=== PATIENT | male | born 1940 | race Caucasian/White ===

== ENCOUNTER 2016-12-22 15:00 | Emergency (ER) | payer MEDICARE ==
[2016-12-22 15:23] VITALS: BP 123/73
--- NOTE | 2016-12-22 15:34 | UC ---
Shoulder Pain HPI - History of Current Complaint Chief Complaint: UCUpperExtremity Stated Complaint: SHOULDER PAIN Time Seen by Provider: 12/22/16 15:30 - Allergies/Home Medications Allergies/Adverse Reactions: Allergies Allergy/AdvReac Type Severity Reaction Status Date / Time Ethanol AdvReac Severe vomiting - Verified 12/13/16 14:41 [From Duragesic Disc "sicker Transdermal System] than a dog" Fentanyl AdvReac Severe vomiting - Verified 12/13/16 14:41 [From Duragesic Disc "sicker Transdermal System] than a dog" PMH/Surg Hx/FS Hx/Imm Hx Endocrine History Of: Reports: Diabetes - diet controlled Denies: Thyroid Disease Cardiovascular History Of: Reports: Cardiac Disorders - CHF, Stents, implanted heart monitor, Hypertension, Congestive Heart Failure Denies: Pacemaker/ICD, Myocardial Infarction, Deep Vein Thrombosis Respiratory History Of: Reports: COPD - COPD, Pneumonia - mostly in childhood Denies: Asthma, Pulmonary Embolism GI/ History Of: Reports: Gall Bladder Disease - Gall bladder removed in 2009 Denies: Gastroesophageal Reflux, Ulcer, Gastrointestinal Bleed, Renal Disease Neurological History Of: Denies: CVA, Dementia, Seizures Psychological History Of: Reports: Anxiety, Depression Denies: Bipolar Disorder, Schizophrenia Cancer History Of: Denies: Lung Cancer Other History Of: Anticoagulant Therapy - plavix/asa - Surgical History Surgical History: Yes Surgery Procedure, Year, and Place: Back surgery x 2; lumbar fusion , Cholecystectomy, Ahbilash Fundoplication-hernia , Tonsillectomy, Stents x 3,. had a heart monitor implanted [employer] Reveal LINQ MODEL LNQ11 COND 5, 1.[place] [facility] [place] Family History Known Family History: Positive: Cardiac Disease - Mom, grandparent both of CHF, Hypertension - Social History Alcohol Use: None Substance Use Type: None Smoking Status (MU): Former Smoker Type: Cigarettes Amount Used/How Often: 1 ppd Length of Time of Smoking/Using Tobacco: 31 years Have You Smoked in the Last Year: No When Did the Patient Quit Smoking/Using Tobacco: 1989 - Immunization History Most Recent Influenza Vaccination: season Most Recent Tetanus Shot: 2015 Most Recent Pneumonia Vaccination: 2014 Physical Exam Vital Signs: Initial Vital Signs Temp 99.2 F 12/22/16 15:15 Pulse 64 12/22/16 15:15 Resp 16 12/22/16 15:15 BP 123/73 12/22/16 15:15 Pulse Ox 95 12/22/16 15:15
--- NOTE | 2016-12-22 15:50 | UC ---
Shoulder Pain HPI - HPI Summary HPI Summary: 76 yo male felt a pop in his left shoulder lifting a grocery bag Hx chronic left shoulder pain Now it feels like it gets stuck and can't move for a while when this happens pain is intense decreased ROM - History of Current Complaint Chief Complaint: UCUpperExtremity Stated Complaint: SHOULDER PAIN Time Seen by Provider: 12/22/16 15:30 Hx Obtained From: Patient Onset/Duration: Sudden Onset, Lasting Minutes Timing: Minutes Severity Initially: Severe Severity Currently: Mild Location Of Pain: Is Diffuse Pain Intensity: 2 Pain Scale Used: 0-10 Numeric Character: Unable to Describe Aggravating Factor(s): Movement Alleviating Factor(s): Rest Associated Signs And Symptoms: Positive: Negative Related History: Dominant Hand Right - Allergies/Home Medications Allergies/Adverse Reactions: Allergies Allergy/AdvReac Type Severity Reaction Status Date / Time Ethanol AdvReac Severe vomiting - Verified 12/13/16 14:41 [From Duragesic Disc "sicker Transdermal System] than a dog" Fentanyl AdvReac Severe vomiting - Verified 12/13/16 14:41 [From Duragesic Disc "sicker Transdermal System] than a dog" Home Medications: Home Medications Nitroglycerin 0.4 MG/HR PATCH* [Nitroglycerin 10 MG PATCH*] 1 patch TRANSDERM DAILY 12/22/16 [History Confirmed 12/22/16] PMH/Surg Hx/FS Hx/Imm Hx Endocrine History Of: Reports: Diabetes - diet controlled Denies: Thyroid Disease Cardiovascular History Of: Reports: Cardiac Disorders - CHF, Stents, implanted heart monitor, Hypertension, Congestive Heart Failure Denies: Pacemaker/ICD, Myocardial Infarction, Deep Vein Thrombosis Respiratory History Of: Reports: COPD - COPD, Pneumonia - mostly in childhood Denies: Asthma, Pulmonary Embolism GI/ History Of: Reports: Gall Bladder Disease - Gall bladder removed in 2009 Denies: Gastroesophageal Reflux, Ulcer, Gastrointestinal Bleed, Renal Disease Neurological History Of: Denies: CVA, Dementia, Seizures Psychological History Of: Reports: Anxiety, Depression Denies: Bipolar Disorder, Schizophrenia Cancer History Of: Denies: Lung Cancer Other History Of: Anticoagulant Therapy - plavix/asa - Surgical History Surgical History: Yes Surgery Procedure, Year, and Place: Back surgery x 2; lumbar fusion , Cholecystectomy, Abhilash Fundoplication-hernia , Tonsillectomy, Stents x 3,. had a heart monitor implanted [employer] Reveal LINQ MODEL LNQ11 COND 5, 1.5 T ONLY AT [facility] [place] - Family History Known Family History: Positive: Cardiac Disease - Mom, grandparent both of CHF, Hypertension - Social History Alcohol Use: None Substance Use Type: None Smoking Status (MU): Former Smoker Type: Cigarettes Amount Used/How Often: 1 ppd Length of Time of Smoking/Using Tobacco: 31 years Have You Smoked in the Last Year: No When Did the Patient Quit Smoking/Using Tobacco: 1989 - Immunization History Most Recent Influenza Vaccination: season Most Recent Tetanus Shot: 2015 Recent Pneumonia Vaccination: 2014 Review of Systems Constitutional: Negative Skin: Negative Eyes: Negative ENT: Negative Respiratory: Negative Cardiovascular: Negative Gastrointestinal: Negative Genitourinary: Negative Motor: Negative Neurovascular: Negative Musculoskeletal: Arthralgia Neurological: Negative Psychological: Negative All Other Systems Reviewed And Are Negative: Yes Physical Exam Triage Information Reviewed: Yes Appearance: Well-Appearing, No Pain Distress, Well-Nourished Vital Signs: Initial Vital Signs Temp 99.2 F 12/22/16 15:15 Pulse 64 12/22/16 15:15 Resp 16 12/22/16 15:15 BP 123/73 12/22/16 15:15 Pulse Ox 95 12/22/16 15:15 Vital Signs Reviewed: Yes Eyes: Positive: Conjunctiva Clear ENT: Positive: Hearing grossly normal. Negative: Nasal congestion, Nasal drainage, Trismus, Muffled/hoarse voice Respiratory: Positive: Lungs clear, Normal breath sounds, No respiratory distress Cardiovascular: Positive: RRR, No Murmur Musculoskeletal: Positive: Other: - see image Neurological: Positive: Alert Psychological Exam: Normal Skin Exam: Normal Shoulder Course/Dx - Differential Dx/Diagnosis Provider Diagnoses: left shoulder DJD with impingement Discharge - Discharge Plan Condition: Stable Disposition: HOME Patient Education Materials: Osteoarthritis (ED) Referrals: John Cr MD [Medical Doctor] - 1 Week Additional Instructions: you may have impingement of your shoulder joint I suggest you see a specialist tylenol Images Front/Back of Body, Lg ([place]): 1 - only able to abduct to 90 degrees, pain with external rotataion
--- NOTE | 2016-12-22 16:10 | RAD ---
Indication: Left shoulder pain. 3 views of left shoulder demonstrates degenerative changes of the glenohumeral joint with a superiorly subluxed humeral head. No fracture is identified. IMPRESSION: Degenerative changes of the glenohumeral joint without superiorly subluxed humeral head.
== END 2016-12-22 16:08 | disposition home or self-care (01) ==
LOC: UCEAST 15:00
DX: M19.012 Primary osteoarthritis, left shoulder (principal); M75.42 Impingement syndrome of left shoulder; Z95.0 Presence of cardiac pacemaker; Z79.01 Long term (current) use of anticoagulants; Z90.49 Acquired absence of other specified parts of digestive tract; Z87.891 Personal history of nicotine dependence
CPT/HCPCS: 99212; G0463

== ENCOUNTER 2017-02-02 10:46 | Emergency (ER) | payer MEDICARE ==
[2017-02-02 12:53] VITALS: BP 116/71
--- NOTE | 2017-02-02 13:37 | UC ---
UC General HPI - HPI Summary HPI Summary: The patient comes in today for: 1. Right foot shooting pain: Onset: 2-3 months. In the beginning it was "random." Palliative/provocative: Nothing makes the pain better or worse. Quality: Shooting pain. Region: Top and medial side of the right foot. Severity: 2/10 but can go up to 10/10 Time: Comes and goes. Associated symptoms: Fevers: None Injury: None. Previous disease; He has had back surgery in the past, Previous treatment: gabapentin. He states that the shooting pain will be at the doral base of his 1st and 2nd toe. He states that he can tolerate hydrocodone. * - History of Current Complaint Chief Complaint: UCLowerExtremity Stated Complaint: FOOT PAIN Time Seen by Provider: 02/02/17 13:19 Hx Obtained From: Patient - Allergy/Home Medications Allergies/Adverse Reactions: Allergies Allergy/AdvReac Type Severity Reaction Status Date / Time Ethanol AdvReac Severe vomiting - Verified 12/13/16 14:41 [From Duragesic Disc "sicker Transdermal System] than a dog" Fentanyl AdvReac Severe vomiting - Verified 12/13/16 14:41 [From Duragesic Disc "sicker Transdermal System] than a dog" Home Medications: Home Medications Cholestyramine (Bulk) [Cholestyramine Resin] 1 pow PO TID 02/02/17 [History Confirmed 02/02/17] PARoxetine HCL TAB* [Paxil TAB*] 1 tab PO QPM 02/02/17 [History Confirmed ] PMH/Surg Hx/FS Hx/Imm Hx Previously Healthy: No - BPH, Restless leg syndrome, allergies. Endocrine History Of: Reports: Diabetes - diet controlled, better now wtih eight loss., Dyslipidemia Denies: Thyroid Disease, Hyperthyroidism, Hypothyroidism Cardiovascular History Of: Reports: Cardiac Disorders - CHF, Stents, implanted heart monitor, Hypertension, Congestive Heart Failure Denies: Pacemaker/ICD, Myocardial Infarction, Deep Vein Thrombosis Respiratory History Of: Reports: COPD - COPD, Pneumonia - mostly in childhood Denies: Asthma, Pulmonary Embolism GI/ History Of: Reports: Gall Bladder Disease - Gall bladder removed in 2009 Denies: Gastroesophageal Reflux, Ulcer, Gastrointestinal Bleed, Renal Disease Neurological History Of: Denies: CVA, Dementia, Seizures Psychological History Of: Reports: Anxiety, Depression Denies: Bipolar Disorder, Schizophrenia Cancer History Of: Denies: Lung Cancer, Colorectal Cancer, Breast Cancer, Prostate Cancer, Cervical Cancer Other History Of: Anticoagulant Therapy - plavix/asa Negative For: HIV, Hepatitis B - Surgical History Surgical History: Yes Surgery Procedure, Year, and Place: Back surgery x 2; lumbar fusion , Cholecystectomy, Abhilash Fundoplication-hernia , Tonsillectomy, Stents x 3,. had a heart monitor implanted [employer] Reveal LINQ MODEL LNQ11 COND 5, 1.[place] [facility] [place] Family History Known Family History: Positive: Cardiac Disease - Mom, grandparent both of CHF, Hypertension - Social History Occupation: Retired Alcohol Use: None Substance Use Type: None Smoking Status (MU): Former Smoker Type: Cigarettes Amount Used/How Often: 1 ppd Length of Time of Smoking/Using Tobacco: 31 years Have You Smoked in the Last Year: No When Did the Patient Quit Smoking/Using Tobacco: 1989 - Immunization History Most Recent Influenza Vaccination: season Most Recent Tetanus Shot: 2015 Recent Pneumonia Vaccination: 2014 Review of Systems Constitutional: Negative Skin: Negative Eyes: Negative ENT: Negative Respiratory: Negative Cardiovascular: Negative Gastrointestinal: Negative Genitourinary: Negative All Other Systems Reviewed And Are Negative: Yes Physical Exam Triage Information Reviewed: Yes Appearance: Well-Appearing, No Pain Distress, Well-Nourished Vital Signs: Initial Vital Signs Temp 98.2 F 02/02/17 11:54 Pulse 88 02/02/17 11:54 Resp 16 02/02/17 11:54 BP 137/67 02/02/17 11:54 Pulse Ox 95 02/02/17 11:54 Vital Signs Reviewed: Yes Eyes: Positive: Conjunctiva Clear. Negative: Discharge ENT: Positive: Hearing grossly normal. Negative: Pharyngeal erythema, Nasal congestion, Nasal drainage, TMs normal, TM dull, TM red, Tonsillar swelling, Tonsillar exudate Dental: Negative: Gross Decay/Caries @, Dental Fracture @ Neck: Positive: Supple, Nontender, No Lymphadenopathy. Negative: Nuchal Rigidity Respiratory: Positive: Chest non-tender, Lungs clear, No respiratory distress, No accessory muscle use. Negative: Crackles, Wheezing Cardiovascular: Positive: RRR, No Murmur Abdomen Description: Positive: Nontender, No Organomegaly, Soft. Negative: Distended, Guarding Musculoskeletal: Positive: Strength Intact, ROM Intact, No Edema, Other: - There is no erythema or edema or tenderness to palpation or ecchymosis of the right foot. However, taking off his loose sock was associated with a re Neurological: Positive: Alert, Muscle Tone Normal Psychological: Positive: Age Appropriate Behavior, Consolable Skin: Negative: rashes, breakdown Course/Dx - Differential Dx - Multi-Symptom Provider Diagnoses: Distal peripheral neuropathy--right foot. Discharge - Discharge Plan Condition: Stable Disposition: HOME Patient Education Materials: Paresthesia (ED) Referrals: Rodger Batista NP [Primary Care Provider] - 1 Week (Please see your primary care provider in a week to see how well you are doing. If you get worse, please be seen sooner in the ER or through us.)
== END 2017-02-02 14:08 | disposition home or self-care (01) ==
LOC: UCEAST 10:46
DX: G62.89 Other specified polyneuropathies (principal); Z88.6 Allergy status to analgesic agent; G25.81 Restless legs syndrome; N40.0 Benign prostatic hyperplasia without lower urinary tract symptoms; E11.9 Type 2 diabetes mellitus without complications; E78.5 Hyperlipidemia, unspecified; I50.9 Heart failure, unspecified; Z98.61 Coronary angioplasty status; I10 Essential (primary) hypertension; J44.9 Chronic obstructive pulmonary disease, unspecified; F41.8 Other specified anxiety disorders; Z79.02 Long term (current) use of antithrombotics/antiplatelets; Z79.82 Long term (current) use of aspirin
CPT/HCPCS: 99212; G0463

== ENCOUNTER 2017-02-16 07:30 | Inpatient (IN) | payer MEDICARE ==
--- NOTE | 2017-02-11 21:03 | HP ---
PREOPERATIVE HISTORY AND PHYSICAL: DATE OF ADMISSION/SURGERY: 02/16/17 DATE OF OFFICE VISIT: 02/10/17 ATTENDING SURGEON: Dr. Michelle Weiss. PROCEDURE: Left total shoulder reverse. CHIEF COMPLAINT: Left shoulder pain. HISTORY OF PRESENT ILLNESS: Mr. Cr is a 76-year-old male, who presents to the clinic for ongoin g left shoulder pain due to severe osteoarthritis. The patient has failed conservative measures and has therefore agreed to undergo a left total shoulder reverse with Dr. Weiss on 02/16/17. PAST MEDICAL HISTORY: Hypertension, coronary artery disease and stent placement, sleep apnea, high cholesterol, arthritis, GERD, depression, and anxiety. PAST SURGICAL HISTORY: Cardiac catheterization with stent placement, event monitor placement, Nisse n fundoplication, cholecystectomy, tonsillectomy, and lumbar laminectomy. MEDICATIONS: 1. Symbicort 80/4.5 mcg per ACT 2 puffs twice a day. 2. Alprazolam 0.25 mg 1 by mouth twice daily as needed for anxiety. 3. Paroxetine 40 mg 1 by mouth every day. 4. Cholestyramine 4 g per dose 1 scoop twice a day. 5. Potassium chloride ER 20 mEq 2 by mouth twice a day. 6. Lasix 40 mg 1 by mouth every morning, Lasix 20 mg half by mouth every day at bedtime. 7. Athletic Recovery socks. 8. Spiriva HandiHaler 18 mcg 1 inhalation daily. 9. Ventolin HFA 180-90 mcg per ACT 2 puffs by mouth 4 times a day as needed. 10. Simvastatin 10 mg, take 1 by mouth at bedtime. 11. Voltaren 1% apply to thumb, finger, joint 3 times a day. 12. Pramipexole dihydrochloride 0.5 mg, take 1 by mouth at 5 p.m., in addition 0.75 mg nightly at b edtime. 13. Plavix 75 mg 1 by mouth every day. 14. Atenolol 25 mg 1 by mouth twice a day. 15. Tamsulosin 0.4 mg 1 by mouth every day as needed. 16. Multivitamin 1 by mouth daily. 17. Aspirin 81 mg 1 by mouth daily. 18. Claritin 10 mg 2 by mouth daily. 19. Nitrostat 0.4 mg 1 sublingual every 5 minutes up to 3 doses as needed for chest pain. 20. CoQ10 100 mg twice a day. 21. [place]-3 Krill oil 300 mg daily. 22. Nasonex 50 mcg per ACT 2 sprays each nostril once daily. 23. Nitro-Dur 0.6 mg per hour apply to chest wall once in the morning, off each night. 24. Acetaminophen 8 Hour, 650 mg 2 by mouth twice a day as needed. 25. Zantac 150 mg 1 tablet twice a day as needed. 26. Stool softener 100 mg take 1 tab every night. 27. 1 tab twice a day for arthritis. 28. Gabapentin 400 mg take 2 capsules by mouth 3 times a day. 29. Hydrocodone/acetaminophen 5/325 take 1 or 2 capsules by mouth and as needed for the pain. FAMILY HISTORY: Significant for heart disease in mother. High blood pressure in mother and father. Stroke in father. SOCIAL HISTORY: Lives with his , retired. Quit tobacco over 20 years ago. He denies alcohol u se. Exercises regularly at [employer] and [employer]. He is right hand dominant. REVIEW OF SYSTEMS: A 14-point review of systems was reviewed with the patient and positive for inte rmittent chest pain, intermittent shortness of breath with exertion, left shoulder pain, GERD, diarr hea and constipation, numbness and tingling in the feet, otherwise negative. PHYSICAL EXAMINATION GENERAL: A well-developed, well-nourished, 76-year-old male, in no acute distress. VITAL SIGNS: Height 71, weight 209. Pulse 75, blood pressure /76, temperature 97.1. BMI 29.1 . HEENT: Normocephalic, atraumatic. PERRLA. Throat clear. NECK: Supple. PULMONARY: Lungs clear to auscultation bilaterally. No wheezing, rhonchi, or rales. CARDIO: Regular rate and rhythm. S1, S2. No murmurs, gallops, or rubs. No edema. ABDOMEN: Positive bowel sounds. Soft, nontender. MUSCULOSKELETAL: Left upper extremity, skin is intact. No warmth or erythema. Tender about the octavio nt line. Nontender over the AC joint. Forward flexion to 110 degrees, abduction 90 degrees, health promotion officer al rotation to 35, internal rotation to the posterior iliac spine. +4 to 5 strength with rotator cu ff testing. +2 radial and ulnar pulses. Sensation is intact to light touch distally. NEUROLOGIC: Alert and oriented x3. Cranial nerves grossly intact. Sensation is intact to light to uch distally. DIAGNOSTIC STUDIES: Multiple-view radiographs of the left shoulder reveal left shoulder osteoarthr itis with superior migration of the humeral head. IMPRESSION: Left shoulder severe osteoarthritis. PLAN: The patient is scheduled to undergo a left total shoulder reverse with Dr. Weiss on 02/16/17 . The patient was scheduled for a CT for pre-surgical planning. He has been cleared by his primary care physician, orthopedic nurse, and manager operating. He was instructed to stop his Plavix and aspirin 1 week before surgery and this was cleared by Cardiology. He will return to the clinic 10 to 14 days postop for followup, suture removal, and x-rays. A prescription for Percocet and Keflex were prescr ibed to the patient's pharmacy for postoperative pain management and infection prevention. NIRU LAZARO [id number]/[facility] #: [id number]
[2017-03-02] MEDS ORDERED: oxyCODONE/Acetamin 5/325 MG* TAB PO PRN ×2 (05:36→10:33)
[2017-03-02] MEDS ORDERED: PROCHLORPERAZINE INJ 5 MG/ML 2 ML VIAL IV PRN (05:36)
[2017-03-02] MEDS ORDERED: Famotidine IV* 10 MG/ML 2 ML (20 mg) IV ONE (06:00)
[2017-03-02] MEDS ORDERED: Dexamethasone TAB* 4 MG PO ONE (06:00)
[2017-03-02] MEDS ORDERED: Scopolamine 1.5 mg* PATCH TRANSDERM ONE (06:00)
[2017-03-02] MEDS ORDERED: Buffered Lidocaine 1% SYR 3ML* 3 ML/SYR SYRINGE INTRADERM ONE (06:00)
[2017-03-02] MEDS ORDERED: Famotidine IV* 10 MG/ML 2 ML (20 mg) ONE (06:07)
[2017-03-02] MEDS ORDERED: Dexamethasone TAB* 4 MG ONE (06:08)
[2017-03-02] MEDS ORDERED: Scopolamine 1.5 mg* PATCH ONE (06:08)
[2017-03-02] MEDS ORDERED: ceFAZolin 2 GM PREMIX(*) 2 GM/50 ML BAG IVPB ONE (06:08)
[2017-03-02] MEDS ORDERED: KETAMINE HCL* 50 MG/ML 10 ML VIAL ONE (07:13)
[2017-03-02] MEDS ORDERED: Atracurium* 10 MG/ML 10 ML VIAL ONE (07:13)
[2017-03-02] MEDS ORDERED: Midazolam* 1 MG/ML 5 ML VIAL (5 MG) ONE (07:13)
[2017-03-02] MEDS ORDERED: fentaNYL* 50 MCG/ML 2 ML VIAL (100 MCG VIAL) ONE (07:13)
[2017-03-02] MEDS ORDERED: Morphine INJ* 10 MG/ML 1 ML SYRINGE ONE ×2 (08:17→10:30)
[2017-03-02] MEDS ORDERED: Metoprolol Tartrate IV* 1 MG/ML 5 ML VIAL ONE (08:25)
[2017-03-02] MEDS ORDERED: Propofol* 10 MG/ML 20 ML BTL IV PUSH ONE (08:25)
[2017-03-02] MEDS ORDERED: EPHEDrine (Pressors)* 50 MG/ML VIAL ONE (08:25)
[2017-03-02] MEDS ORDERED: PROCHLORPERAZINE INJ 5 MG/ML 2 ML VIAL ONE (08:25)
[2017-03-02] MEDS ORDERED: Lidocaine 2% PF * 5 ML VIAL ONE (08:25)
[2017-03-02] MEDS ORDERED: Ondansetron INJ* 2 MG/ML VIAL ONE (08:25)
[2017-03-02] MEDS ORDERED: Bupivacaine 0.25% SDV* 30 ML ONE ×2 (08:25→11:39)
[2017-03-02] MEDS ORDERED: Glycopyrrolate IV* 0.2 MG/ML 1 ML VIAL ONE (08:48)
[2017-03-02] MEDS ORDERED: Neostigmine Methylsulfate* 2 MG/2 ML SYRINGE ONE (08:48)
[2017-03-02] MEDS ORDERED: Furosemide IV* 10 MG/ML 2 ML VIAL (20 MG) ONE (10:06)
[2017-03-02] MEDS: Morphine INJ* 2 MG/ML 1 ML SYRINGE IV PRN ×5 (10:32→11:12)
[2017-03-02] MEDS ORDERED: Morphine INJ* 10 MG/ML 1 ML SYRINGE IV PRN (10:39)
[2017-03-02] MEDS ORDERED: Ondansetron INJ* 2 MG/ML VIAL IV PRN (10:39)
[2017-03-02] MEDS ORDERED: diPHENhydraMINE IV* 50 MG/ML 1 ml VIAL (BENADRYL) IV PRN (10:39)
[2017-03-02] MEDS ORDERED: Temazepam CAP* 15 MG PO PRN (10:39)
[2017-03-02] MEDS ORDERED: Albuterol HFA INHALER* 8 gm MDI INH PRN (10:42)
[2017-03-02] MEDS ORDERED: Nitroglycerin TAB 0.4 MG* 0.4 MG TAB SL PRN (10:42)
[2017-03-02] MEDS ORDERED: ceFAZolin 1 GM in Dextrose (*) 1 GM/50 ML BAG IVPB SCH (11:00)
--- NOTE | 2017-03-02 12:16 | RAD ---
INDICATION: Left shoulder arthroplasty COMPARISON: December 20, 2016 TECHNIQUE: Frontal and axial views were obtained. FINDINGS: There is reverse shoulder arthroplasty. Both components appear well seated. IMPRESSION: INTERVAL LEFT SHOULDER ARTHROPLASTY
--- NOTE | 2017-03-02 13:41 | OP ---
DATE OF OPERATION: 03/02/17 - ROOM #336 DATE OF : 42 SURGEON: Michelle Weiss MD ASSISTANTS: 1. NIRU Lai 2. Maggi Hidalgo. Two assistants were needed for the entirety of the case to help with positioning , retraction, and were utilized throughout all portions of the case. ANESTHESIOLOGIST: Dr. Thomas. ANESTHESIA: General interscalene block. PRE-OP DIAGNOSIS: Left shoulder advanced glenohumeral arthritis with massive rotator cuff tear. POST-OP DIAGNOSIS: Left shoulder advanced glenohumeral arthritis with massive rotator cuff tear. OPERATIVE PROCEDURE: Left shoulder open biceps tenodesis and left shoulder reverse shoulder replacement. COMPLICATIONS: None. ESTIMATED BLOOD LOSS: About 350. IMPLANTS: Aequalis Reversed II centered Glenosphere size 42, threaded baseplate 29 x 40 mm, Aequalis Ascend Flex size 4-B humeral stem with a centered reverse tray and 6 mm poly. OUTPUT: Drain x1 that will be removed. INDICATIONS: Augustine Cr is a pleasant 76-year-old male who has had persistent shoulder pain and difficulty. He has difficulty with range of motion of the shoulder and increased pain. He has failed conservative management including physical therapy, anti-inflammatories, as well as injections. He is elected to proceed with operative treatment. Risks and benefits were discussed at length and included, but are not limited to, bleeding , infection, damage to nerves, vessels, surrounding structures, wound nonhealing , persistent pain, need for further surgery, incomplete relief of symptoms, fracture dislocation, stiffness, scarring, risks of anesthesia, risk of DVT. After obtaining preoperative medical risk assessment and optimization, he was cleared for surgery. DESCRIPTION OF PROCEDURE: The patient was greeted in the preoperative area by the anesthesiologist, who did perform interscalene block, which he tolerated without difficulty. He was then brought back to the operating suite, where he was placed in the supine position on the operating table. He then underwent general anesthesia and endotracheal intubation, after which the patient was appropriately positioned in the lazy beach-chair position with a pillow under his knees and all bony prominences were padded. He was well secured. The shoulder was then examined and the range of motion was found to be passive forward flexion to about 130, abduction to about 110, external rotation to about 30 degrees. The left shoulder was prepped and draped in the usual sterile fashion beginning with chlorhexidine, soap scrub, and alcohol wipe, and a final prep with ChloraPrep. After appropriate surgical pause indicating site and side, procedure, and administration of antibiotics, the 15 blade was used to make an incision along the deltopectoral groove. The soft tissues were carefully dissected. The cephalic vein was readily identified. This was taken laterally with the deltoid. The clavipectoral fascia was identified. The short head of the biceps was identified and the fascia was removed. Under that, the pec was identified and the first centimeter or so was released using electrocautery device. At this point, the biceps was tenodesed using heavy nonabsorbable suture. The biceps was then tenotomized proximal to that and carefully tracked proximally to find the border of the subscap and infraspinatus tendon and the access to the joint. As dissection was carried through with gentle external rotation of the arm, the 3 sutures were identified. These were then suture ligated using 2-0 Vicryl and then a cautery device. The soft tissues were carefully released as the arm was gently externally rotated, which exposed the large inferior osteophyte with the humeral head as well as advanced glenohumeral arthritis. The proximal aspect of the latissimus was released as well. Care was taken to stay on bone to prevent any damage to nerves, vessels, or surrounding structures. The osteophytes were then carefully removed. The neck was identified and with retractors positioned appropriately, the neck cut was freehanded. The starting awl was then used to find the canal and then the sizing guides were then used. At this point, trialing was done with setting the guide arm to 20 degrees of retroversion. The rasp was carefully malleted into position. A size 4 was found to have an excellent fit. At this point, the excess bone was reamed off. The base plate protector was then placed and the shoulder was then placed back into the wound. Attention was directed to the glenoid. With the Fukuda retractor placed posteriorly and Hohmann superiorly, the biceps was tracked to find the proximal aspect of the glenoid. This was then sharply excised and sent for P. acnes evaluation. The subscap was then mobilized. The glenohumeral ligaments were then sharply released using the curved Caldwell and electrocautery device. Once it was fully mobilized, the glenoid neck retractor was then used to retract the tissues back. The anterior aspect of the labrum was then sharply excised and all soft tissues were removed. At this point, the needle-tip Bovie was then used to release the soft tissues from the 5 o'clock to 7 o'clock position with care to put traction on the sutures and not damage any other structures. The proximal aspect of the triceps was also released. Once the glenoid was fully exposed, the sizing guide was then placed in the inferior aspect of the glenoid with 0 degree offset. It was drilled and was found to be in appropriate position with a depth of about 40 mm. The size 29 baseplate reamer was then used to ream the glenoid, more wear was done anteriorly so care was taken to not take away too much anterior bone. The size 42 baseplate was then hand reamed to remove any excess bony ledges or pieces of bone. All loose debris was removed from the shoulder. At this point, the size 8 mm threaded, cannulated guide was then drilled. Then the 6.5 mm drill was then drilled through the cannulated drill bit to a depth of about 40 mm. This was measured again and it was found to be about 40 mm. The 40 x 29 mm baseplate was chosen. After tapping the screws, the threaded baseplate was secured with excellent purchase. The 4 locking screws and the construct were then drilled and filled with appropriate length with excellent purchase. The baseplate which was size 42 was then carefully impacted into position and secured with a set screw. At this point, the head was delivered through the wound and attention was directed to this. The guide arm was then placed back on to the humeral stem and it was checked for any motion. It was impacted gently into place and reamed once more. It was found that it was too tight a fit, therefore excess bone was removed about another millimeter or two using sagittal saw. Reaming was started again with the size 2 reamer and a size 4 again was found to have excellent purchase. Any excess bone was reamed away. The centered baseplate was then placed and the poly was trialed. The shoulder was then carefully reduced. It was found to have appropriate amount of shuck. Range of motion was quite good with forward flexion passively to 135, abduction to about 100 degrees, external rotation to about 60 degrees. The implant was chosen. The shoulder was then dislocated and the implant was removed en shivam from the humerus. Three drill holes were then placed to pass #5 Ethibond sutures for subscap closure. The humeral stem was prepared on the back table by the attending surgeon. This was impacted into position, prepared on the back table , and then brought to the field and impacted carefully. Once it was found to have a good fit and be fully seated, the shoulder was then reduced again, taken through range of motion and was found to have forward flexion about 135, abduction to about 100, external rotation to 60 degrees. The closure was then assessed and found to have appropriate tension. The deltoid had appropriate tension to it. The wound was copiously irrigated with sterile saline. The previously passed sutures were then passed through the subscap in horizontal mattress configuration for repair. The wound was irrigated again copiously. Then a drain was placed, which will be removed on postop day 1. The wound was then irrigated again. The deltopectoral groove was then closed using #2 Ti-Cron suture and then irrigated one last time. The subcutaneous tissue was closed with 2-0 Vicryl and the skin with 3-0 Monocryl. Sterile dressings were applied. The drain was hooked up. Cryo/Cuff was placed. He was placed in a regular sling. He was awoken from anesthesia and transferred to the PACU in stable condition. POSTOPERATIVE PLAN: He will be nonweightbearing and no active motion of the shoulder for 6 weeks. He will start physical therapy tomorrow, which will be passive motion, forward flexion 90, abduction to 90 as tolerated, and external rotation to about 40 degrees. He will be allowed to work on elbow, wrist, and hand range of motion. He will receive 24 hours postop antibiotics. He will be on DVT prophylaxis while in the hospital and discharged with none. He will follow up in the office in 10 to 14 days. CC: PCP, Rodger Batista NP [id number]/[facility] #: [id number] SEBAS
[2017-03-02] MEDS ORDERED: Spiriva Inhaler DEVICE* 1 EACH DEVICE INH ONE (14:00)
--- NOTE | 2017-03-02 14:29 | PN ---
Progress Note - Progress Note Note: Anesthesia PACU note. In PACU pt complain of pain, he said his shoulder hurt, but that his fingers and hand felt tingly. I think his block only got the lower roots of his brachial plexus. I repeated block, left interscalene, chloroprep, airdry, time out. With 22 g needle with US assistance advance to interscalene groove. No paresthesia or heme 20 ml of 0.25% marcaine in divided doses with improvement in his pain.This was done while pt early in PACU stay.
[2017-03-02] MEDS: ceFAZolin 1 GM in Dextrose (*) 1 GM/50 ML BAG IVPB SCH ×2 (14:43→20:07)
[2017-03-02] MEDS: Gabapentin CAP(*) 400 MG PO SCH ×2 (14:43→21:02)
[2017-03-02] MEDS: Pramipexole TAB* 0.5 MG PO SCH ×2 (17:47→21:08)
[2017-03-02] MEDS: CMC:Simvastatin TAB(NF) 10 MG TAB PO SCH (19:22)
[2017-03-02] MEDS: PARoxetine HCL TAB* 40 MG PO SCH (19:23)
[2017-03-02] MEDS: Mometasone/Formoter 200/5 MDI INH SCH (20:44)
[2017-03-02] MEDS: Potassium Chlor TAB* 20 MEQ TAB.ER PO SCH (21:03)
[2017-03-02] MEDS: Ferrous Sulfate TAB* 325 MG PO SCH (21:03)
[2017-03-02] MEDS: Docusate CAP* 100 MG PO SCH (21:03)
[2017-03-02] MEDS: Cholestyramine Resin* 4 GM POWDER PO SCH (21:04)
[2017-03-02] MEDS: Fluticasone NASAL SPRAY 50MCG* 16 gm SPRAY BTL BOTH NARES SCH (21:04)
[2017-03-02] MEDS: Atenolol TAB* 25 MG PO SCH (21:04)
[2017-03-02] MEDS: Nitro Patch/OINT Remove PATCH OFF SCH (21:05)
[2017-03-02] MEDS: Furosemide TAB* 20 MG PO SCH (21:06)
[2017-03-03] MEDS: ceFAZolin 1 GM in Dextrose (*) 1 GM/50 ML BAG IVPB SCH (01:51)
[2017-03-03] MEDS: oxyCODONE/Acetamin 5/325 MG* TAB PO PRN ×5 (03:45→22:34)
[2017-03-03 05:23] LABS: Hematocrit 32 % (42-52); Hemoglobin 10.8 g/dl (14.0-18.0)
[2017-03-03 05:43] LABS: Calcium 8.8 mg/dL (8.6-10.3); EGFR African American 114.6 (>60); EGFR Non-African American 89.1 (>60); Potassium 4.1 mmol/L (3.5-5.0)
[2017-03-03] MEDS: oxyCODONE TAB* 5 MG TAB PO PRN (05:59)
[2017-03-03] MEDS: Mometasone/Formoter 200/5 MDI INH SCH ×2 (08:11→20:51)
[2017-03-03] MEDS: Tiotropium CAP.INH* CAP.INH/18 MCG INH SCH (08:14)
[2017-03-03] MEDS: Coenzyme Q10 (NF) ** ENTER STREGNTH IN LABEL DIRECTIONS PO SCH (08:26)
[2017-03-03] MEDS: Vitamin THERAPEUTIC TAB PO SCH (08:51)
[2017-03-03] MEDS: Potassium Chlor TAB* 20 MEQ TAB.ER PO SCH ×2 (08:51→21:14)
[2017-03-03] MEDS: Cholestyramine Resin* 4 GM POWDER PO SCH ×2 (08:51→21:12)
[2017-03-03] MEDS: Fluticasone NASAL SPRAY 50MCG* 16 gm SPRAY BTL BOTH NARES SCH ×2 (08:53→21:14)
--- NOTE | 2017-03-03 08:53 | PN ---
Progress Note - Progress Note SOAP: Subjective: pt sitting up in bed with minimal c/o of pain Objective: Vital Signs Temp Pulse Resp BP Pulse Ox 98.1 F 70 16 102/59 97 03/03/17 07:26 03/03/17 07:26 03/03/17 07:59 03/03/17 07:26 03/03/17 07:26 Laboratory Last Values Hgb 10.8 g/dl (14.0-18.0) L 03/03/17 05:00 Hct 32 % (42-52) L 03/03/17 05:00 Sodium 137 mmol/L (133-145) 03/03/17 05:00 Potassium 4.1 mmol/L (3.5-5.0) 03/03/17 05:00 Chloride 102 mmol/L (101-111) 03/03/17 05:00 Carbon Dioxide 30 mmol/L (22-32) 03/03/17 05:00 Anion Gap 5 mmol/L (2-11) 03/03/17 05:00 BUN 16 mg/dL (6-24) 03/03/17 05:00 Creatinine 0.84 mg/dL (0.67-1.17) 03/03/17 05:00 Est GFR ( Amer) 114.6 (>60) 03/03/17 05:00 Est GFR (Non-Af Amer) 89.1 (>60) 03/03/17 05:00 BUN/Creatinine Ratio 19.0 (8-20) 03/03/17 05:00 Glucose 142 mg/dL (70-100) H 03/03/17 05:00 POC Glucose (mg/dL) 114 mg/dL (74-106) H 03/02/17 06:32 Calcium 8.8 mg/dL (8.6-10.3) 03/03/17 05:00 Blood Type O Negative 03/02/17 06:42 Antibody Screen Negative 03/02/17 06:42 incision: c/d/i PE: NVI Assessment: s/p left shoulder open biceps tenodesis and left reverse total shoulder Plan: 1) remove hemovac 2) Ancef for 24 hours post-op 3) Plavix/SCD's for DVT prophylaxis 4) possible home today or tomorrow
[2017-03-03] MEDS: Nitroglycerin 0.6 MG/HR PATCH* (15 MG) TRANSDERM SCH (08:55)
[2017-03-03] MEDS ORDERED: Spiriva Inhaler DEVICE* 1 EACH DEVICE INH ONE (09:00)
[2017-03-03] MEDS: Gabapentin CAP(*) 400 MG PO SCH ×3 (10:21→21:13)
[2017-03-03] MEDS: Aspirin EC Low Dose* 81 MG TAB.EC PO SCH (10:22)
[2017-03-03] MEDS: Furosemide TAB* 40 MG PO SCH (10:22)
[2017-03-03] MEDS: Ferrous Sulfate TAB* 325 MG PO SCH ×2 (10:22→21:14)
[2017-03-03] MEDS: Cetirizine* 10 MG TAB PO SCH (10:23)
[2017-03-03] MEDS: Atenolol TAB* 25 MG PO SCH ×2 (10:23→21:14)
[2017-03-03] MEDS: Tamsulosin CAP* 0.4 MG PO SCH (10:24)
[2017-03-03] MEDS: Clopidogrel TAB* 75 MG PO SCH (10:24)
[2017-03-03] MEDS: Docusate CAP* 100 MG PO SCH ×2 (10:40→21:13)
--- NOTE | 2017-03-03 12:21 | PN ---
Progress Note - Progress Note Note: POD#1 from L shoulder reverse. Doing ok. Pain is bothersome but recently took pain meds. PT stopped by but no motion yet. Denies any new issues. No SOB, chest pain. Numbness in thumb but unsure how long. He denies fevers or chills. Temp Pulse Resp BP Pulse Ox 98.0 F 78 18 118/74 97 03/03/17 11:28 03/03/17 11:28 03/03/17 11:28 03/03/17 11:28 03/03/17 11:28 NAD> left shoulder dressing in place. tender about dressing/incision. uncomfortable but conversant. AAOx3. able to flex/ext elbow, wrist and digits. Sensate about index and long finger, ulnar aspect of small finger. 2+ radial pulse. Laboratory Results - last 24 hr 03/03/17 03/03/17 05:00 05:00 Hgb 10.8 L Hct 32 L Sodium 137 Potassium 4.1 Chloride 102 Carbon Dioxide 30 Anion Gap 5 BUN 16 Creatinine 0.84 Est GFR ( Amer) 114.6 Est GFR (Non-Af Amer) 89.1 BUN/Creatinine Ratio 19.0 Glucose 142 H Calcium 8.8 A/P POD#1 from L reverse Pain control a small issue. Will continue current plan. May add a dose of IV toradol. PT/OT- NWB, no active ROM. passive ROM ff -90, abd- 90, ER to 30 degrees as tolerated. sling on except for exercises. ice dispo possibly tomorrow
[2017-03-03] MEDS: CMC:Simvastatin TAB(NF) 10 MG TAB PO SCH (17:36)
[2017-03-03] MEDS: Pramipexole TAB* 0.5 MG PO SCH ×2 (17:36→21:12)
[2017-03-03] MEDS: PARoxetine HCL TAB* 40 MG PO SCH (17:36)
[2017-03-03] MEDS: Furosemide TAB* 20 MG PO SCH (21:13)
[2017-03-03] MEDS: Nitro Patch/OINT Remove PATCH OFF SCH (21:14)
[2017-03-04] MEDS: ALPRAZolam TAB* 0.25 MG PO PRN ×2 (01:01→18:10)
[2017-03-04] MEDS: oxyCODONE TAB* 5 MG TAB PO PRN (03:31)
--- NOTE | 2017-03-04 08:02 | PN ---
Progress Note - Progress Note SOAP: Subjective: 76 y/o M POD#2 from L reverse by Dr. Weiss. Patient states pain controlled, patient AOx3 however is easily confused. VSS overnight, BP improved. Currently on O2. Objective: General- Well appearing, NAD, sitting in bed comfortably MSK- cap refill 2+ L hand, patient educator strength L 4/5, denies numbness/ sensation changes to light touch throughout hand, mild swelling noted L hand, surgical dressing intact, no erythema seen under tegaderm. Vital Signs Temp 98.2 F 03/04/17 07:53 Pulse 65 03/04/17 07:53 Resp 16 03/04/17 07:53 BP 129/66 03/04/17 07:53 Pulse Ox 96 03/04/17 07:53 Intake & Output 03/03/17 03/04/17 03/04/17 18:59 06:59 18:59 Intake Total 2135 1680 Output Total 1125 1275 Balance 1010 405 Intake: IV Fluids 980 LR 980 Oral 1155 1680 Output: Urine 1125 1275 Other: Estimated Void Medium # Bowel Movements 0 # Voids 1 Assessment: [ 76 y/o M POD#2 from L reverse by Dr. Weiss. ] Plan: - Continue pain regimen- minimize narcotic use due to memory concerns. - PT/OT- NWB, no active ROM. passive ROM ff -90, abd- 90, ER to 30 degrees as tolerated. - Dressing to be removed tomorrow - Unsteady gait- PT recommended subacute facility, will discuss with Dr. Weiss , menu planner. Active Medications Generic Name Dose Route Start Last Admin Trade Name Freq PRN Reason Stop Dose Admin Acetaminophen 650 mg 03/02/17 10:33 Tylenol Tab* PO Q4H PRN PAIN OR TEMPERATURE Albuterol 1 puff 03/02/17 10:42 Ventolin Hfa Inhaler* INH Q4H PRN SOB/WHEEZING Alprazolam 0.25 mg 03/02/17 10:42 03/04/17 01:01 Xanax Tab* PO 0.25 mg DAILY PRN Administration . Aspirin 81 mg 03/03/17 09:00 03/03/17 10:22 Aspirin Ec Low Dose* PO 81 mg DAILY JOE Administration Atenolol 25 mg 03/02/17 21:00 03/03/17 21:14 Tenormin Tab* PO 25 mg BID JOE Administration Cetirizine HCl 10 mg 03/03/17 09:00 03/03/17 10:23 Zyrtec* PO 10 mg DAILY JOE Administration Cholestyramine Resin 4 gm 03/02/17 21:00 03/03/17 21:12 Questran* PO 4 gm BID JOE Administration Clopidogrel Bisulfate 75 mg 03/03/17 09:00 03/03/17 10:24 Plavix Tab* PO 75 mg QAM JOE Administration Coenzyme Q10 1 cap 03/03/17 09:00 03/03/17 08:26 Coenzyme Q10 (Nf) PO Not Given QAM JOE Diphenhydramine HCl 25 mg 03/02/17 10:39 Benadryl Iv* IV Q6H PRN itching Docusate Sodium 100 mg 03/02/17 21:00 03/03/17 21:13 Colace Cap* PO 100 mg BID JOE Administration Ferrous Sulfate 325 mg 03/02/17 21:00 03/03/17 21:14 Ferrous Sulfate Tab* PO 325 mg BID JOE Administration Fluticasone Propionate 2 spray 03/02/17 21:00 03/03/17 21:14 Flonase Nasal [place] 50mcg* BOTH NARES 2 spray BID JOE Administration Furosemide 10 mg 03/02/17 21:00 03/03/17 21:13 Lasix Tab* PO 10 mg BEDTIME JOE Administration Furosemide 40 mg 03/03/17 09:00 03/03/17 10:22 Lasix Tab* PO Not Given QAM JOE Gabapentin 800 mg 03/02/17 14:00 03/03/17 21:13 Neurontin Cap(*) PO 800 mg TID JOE Administration Lactated Ringer's 1,000 mls @ 100 mls/hr 03/02/17 11:00 03/02/17 23:22 Lactated Ringers 1000 Ml Bag* IV 100 mls/hr PER RATE JOE Administration Mometasone Furoate/Formoterol Fumar 2 puff 03/02/17 21:00 03/03/17 20:51 Dulera 200/5 Mdi* INH 2 puff BID JOE Administration Protocol Morphine Sulfate 5 mg 03/02/17 10:39 Morphine Inj (Syringe)* IV Q2H PRN PAIN Multivitamins 1 tab 03/03/17 09:00 03/03/17 08:51 Theragran Tab* PO 1 tab DAILY JOE Administration Nitroglycerin 0.4 mg 03/02/17 10:42 Nitroglycerin Tab 0.4 Mg* SL .SEE INSTRUCTIONS PRN angina/ chest pain Nitroglycerin 1 patch 03/03/17 09:00 03/03/17 08:55 Nitroglycerin 15 Mg Patch* TRANSDERM 1 patch DAILY JOE Administration Ondansetron HCl 4 mg 03/02/17 10:39 Zofran Inj* IV Q6H PRN nausea Oxycodone HCl 10 mg 03/02/17 10:33 03/04/17 03:31 Roxycodone Tab* PO 10 mg Q4H PRN Administration PAIN Oxycodone/Acetaminophen 1 tab 03/02/17 10:33 Percocet 5/325 Tab* PO Q4H PRN PAIN Oxycodone/Acetaminophen 2 tab 03/02/17 10:33 03/03/17 22:34 Percocet 5/325 Tab* PO 2 tab Q4H PRN Administration PAIN Paroxetine HCl 40 mg 03/02/17 18:00 03/03/17 17:36 Paxil Tab* PO 40 mg QPM JOE Administration Pharmacy Profile Note 1 note 03/05/17 06:00 Scopolomine Patch Remove* PATCH OFF 03/05/17 06:01 ONCE ONE Pharmacy Profile Note 1 note 03/02/17 21:00 03/03/17 21:14 Nitro Patch/Oint Remove* PATCH OFF 1 patch 2100 JOE Administration Potassium Chloride 40 meq 03/02/17 21:00 03/03/17 21:14 Klor Con Er Tab* PO 40 meq BID JOE Administration Pramipexole Dihydrochloride 0.5 mg 03/02/17 17:00 03/03/17 17:36 Mirapex Tab* PO 0.5 mg 1700 JOE Administration Pramipexole Dihydrochloride 0.75 mg 03/02/17 21:00 03/03/17 21:12 Mirapex Tab* PO 0.75 mg BEDTIME JOE Administration Simvastatin 10 mg 03/02/17 18:00 03/03/17 17:36 Zocor(Nf) PO 10 mg QPM JOE Administration Tamsulosin HCl 0.4 mg 03/03/17 09:00 03/03/17 10:24 Flomax Cap* PO 0.4 mg QAM JOE Administration Temazepam 15 mg 03/02/17 10:39 Restoril Cap* PO BEDTIME PRN INSOMNIA Tiotropium Ennis 1 cap 03/03/17 09:00 03/03/17 08:14 Spiriva Cap.Inh* INH 1 cap DAILY JOE Administration
[2017-03-04] MEDS: Coenzyme Q10 (NF) ** ENTER STREGNTH IN LABEL DIRECTIONS PO SCH (09:23)
[2017-03-04] MEDS: Nitroglycerin 0.6 MG/HR PATCH* (15 MG) TRANSDERM SCH (09:35)
[2017-03-04] MEDS: Cholestyramine Resin* 4 GM POWDER PO SCH ×2 (09:38→20:20)
[2017-03-04] MEDS: Potassium Chlor TAB* 20 MEQ TAB.ER PO SCH ×2 (09:39→20:18)
[2017-03-04] MEDS: Docusate CAP* 100 MG PO SCH ×2 (09:39→20:19)
[2017-03-04] MEDS: Gabapentin CAP(*) 400 MG PO SCH ×3 (09:39→20:19)
[2017-03-04] MEDS: Vitamin THERAPEUTIC TAB PO SCH (09:39)
[2017-03-04] MEDS: oxyCODONE/Acetamin 5/325 MG* TAB PO PRN ×3 (09:40→19:13)
[2017-03-04] MEDS: Furosemide TAB* 40 MG PO SCH (09:40)
[2017-03-04] MEDS: Atenolol TAB* 25 MG PO SCH ×2 (09:40→20:19)
[2017-03-04] MEDS: Tamsulosin CAP* 0.4 MG PO SCH (09:40)
[2017-03-04] MEDS: Cetirizine* 10 MG TAB PO SCH (09:40)
[2017-03-04] MEDS: Clopidogrel TAB* 75 MG PO SCH (09:41)
[2017-03-04] MEDS: Ferrous Sulfate TAB* 325 MG PO SCH ×2 (09:41→20:20)
[2017-03-04] MEDS: Aspirin EC Low Dose* 81 MG TAB.EC PO SCH (09:42)
[2017-03-04] MEDS: Mometasone/Formoter 200/5 MDI INH SCH ×2 (09:42→20:02)
[2017-03-04] MEDS: Fluticasone NASAL SPRAY 50MCG* 16 gm SPRAY BTL BOTH NARES SCH ×2 (09:42→21:33)
[2017-03-04] MEDS: Tiotropium CAP.INH* CAP.INH/18 MCG INH SCH (09:43)
[2017-03-04] MEDS: CMC:Simvastatin TAB(NF) 10 MG TAB PO SCH (16:36)
[2017-03-04] MEDS: PARoxetine HCL TAB* 40 MG PO SCH (16:36)
[2017-03-04] MEDS: Pramipexole TAB* 0.5 MG PO SCH ×2 (16:36→21:32)
[2017-03-04] MEDS: Furosemide TAB* 20 MG PO SCH (20:19)
[2017-03-04] MEDS: Nitro Patch/OINT Remove PATCH OFF SCH (21:33)
[2017-03-05] MEDS: Acetaminophen TAB* 325 MG PO PRN ×3 (02:26→15:14)
[2017-03-05] MEDS ORDERED: Scopolomine PATCH Remove* 1 NOTE MISC PATCH OFF ONE (06:00)
[2017-03-05] MEDS: Mometasone/Formoter 200/5 MDI INH SCH ×2 (07:29→21:19)
[2017-03-05] MEDS: Tiotropium CAP.INH* CAP.INH/18 MCG INH SCH (07:29)
[2017-03-05] MEDS: Cetirizine* 10 MG TAB PO SCH (08:49)
[2017-03-05] MEDS: Docusate CAP* 100 MG PO SCH (08:49)
[2017-03-05] MEDS: Clopidogrel TAB* 75 MG PO SCH (08:49)
[2017-03-05] MEDS: Gabapentin CAP(*) 400 MG PO SCH ×2 (08:49→14:23)
[2017-03-05] MEDS: Atenolol TAB* 25 MG PO SCH (08:49)
[2017-03-05] MEDS: Vitamin THERAPEUTIC TAB PO SCH (08:50)
[2017-03-05] MEDS: Potassium Chlor TAB* 20 MEQ TAB.ER PO SCH (08:50)
[2017-03-05] MEDS: Nitroglycerin 0.6 MG/HR PATCH* (15 MG) TRANSDERM SCH (08:51)
[2017-03-05] MEDS: Tamsulosin CAP* 0.4 MG PO SCH (08:51)
[2017-03-05] MEDS: Furosemide TAB* 40 MG PO SCH (08:51)
[2017-03-05] MEDS: Ferrous Sulfate TAB* 325 MG PO SCH (08:51)
[2017-03-05] MEDS: Aspirin EC Low Dose* 81 MG TAB.EC PO SCH (08:51)
[2017-03-05] MEDS: Coenzyme Q10 (NF) ** ENTER STREGNTH IN LABEL DIRECTIONS PO SCH (08:51)
[2017-03-05] MEDS: Cholestyramine Resin* 4 GM POWDER PO SCH (08:51)
[2017-03-05] MEDS: Fluticasone NASAL SPRAY 50MCG* 16 gm SPRAY BTL BOTH NARES SCH (08:51)
--- NOTE | 2017-03-05 08:57 | PN ---
Progress Note - Progress Note SOAP: Subjective: Pt is doing well. Pain is a 3/10. Well controlled with pain medication. Has not had a BM. Denies CP, SOB, F/C, or N/T. Doing elbow exercises with therapy. VSS overnight Objective: PE- 76 y/o WDWN M in NAD, A&O x 3, sitting comfortably in chair LUE- dressing changed, inc c/d/i no sign of infection, full ROM elbow wrist and hand, + 2 radial pulse, SILT Vital Signs Temp Pulse Resp BP Pulse Ox 99.2 F 84 18 122/49 94 03/05/17 08:35 03/05/17 08:35 03/05/17 08:35 03/05/17 08:35 03/05/17 08:35 Assessment: 76 y/o M POD#3 from L reverse total shoulder by Dr. Weiss. Plan: - Continue pain regimen- minimize narcotic use due to memory concerns. - PT/OT- NWB, no active ROM. passive ROM ff -90, abd- 90, ER to 30 degrees as tolerated. - May shower and dressing change by nurses tomorrow, telfa and tegaderm - DC tuesday to SNF for Unsteady gait per PT recommendation
[2017-03-05] MEDS ORDERED: QUEtiapine TAB* 25 MG PO SCH (15:00)
[2017-03-05 16:12] LABS: Urine Bilirubin Negative (Negative); Urine Glucose Negative (Negative); Urine Nitrite Negative (Negative)
[2017-03-05] MEDS: PARoxetine HCL TAB* 40 MG PO SCH (17:31)
[2017-03-05] MEDS: Pramipexole TAB* 0.5 MG PO SCH (17:31)
[2017-03-05] MEDS ORDERED: Haloperidol INJ IV/IM* 5 MG/ML AMP IM PRN ×2 (19:16→21:45)
[2017-03-05] MEDS ORDERED: Haloperidol INJ IV/IM* 5 MG/ML AMP ONE (19:18)
[2017-03-05] MEDS ORDERED: Haloperidol INJ IV/IM* 5 MG/ML AMP IM ONE ×2 (20:27→21:45)
[2017-03-05] MEDS ORDERED: LORazepam INJ* 2 MG/ML 1 ML VIAL IV PUSH ONE (22:01)
[2017-03-05] MEDS ORDERED: LORazepam INJ* 2 MG/ML 1 ML VIAL ONE (22:08)
[2017-03-06] MEDS: Atenolol TAB* 25 MG PO SCH ×3 (00:08→20:17)
[2017-03-06] MEDS: Fluticasone NASAL SPRAY 50MCG* 16 gm SPRAY BTL BOTH NARES SCH ×3 (00:08→20:21)
[2017-03-06] MEDS: Docusate CAP* 100 MG PO SCH ×3 (00:08→20:18)
[2017-03-06] MEDS: Ferrous Sulfate TAB* 325 MG PO SCH ×3 (00:08→20:20)
[2017-03-06] MEDS: Cholestyramine Resin* 4 GM POWDER PO SCH ×3 (00:08→23:48)
[2017-03-06] MEDS: Gabapentin CAP(*) 400 MG PO SCH ×4 (00:09→20:18)
[2017-03-06] MEDS: Potassium Chlor TAB* 20 MEQ TAB.ER PO SCH ×3 (00:09→20:15)
[2017-03-06] MEDS: CMC:Simvastatin TAB(NF) 10 MG TAB PO SCH ×2 (00:09→17:14)
[2017-03-06] MEDS: Furosemide TAB* 20 MG PO SCH ×2 (00:09→20:18)
[2017-03-06] MEDS: Pramipexole TAB* 0.5 MG PO SCH ×3 (00:10→20:17)
[2017-03-06] MEDS: Nitro Patch/OINT Remove PATCH OFF SCH ×2 (00:12→20:38)
--- NOTE | 2017-03-06 01:45 | CONS ---
HOSPITAL MEDICINE CONSULTATION REPORT: DATE OF CONSULT: 03/05/17 ATTENDING PHYSICIAN: Dr. Michelle Weiss. CONSULTING PHYSICIAN: Dr. Te Palacio (dictation provided by Belgica Corral NP ). REASON FOR CONSULT: Delirium. HISTORY OF PRESENT ILLNESS: Mr. Cr is a 76-year-old male with a past medical history of coronary artery disease with stent, hypertension, sleep apnea , GERD, depression, anxiety, who presented to the hospital on 03/02/17 for left shoulder pain with plan for a left total shoulder reverse. Please see the dictated H and P from Dr. Weiss for complete details. In brief, the patient went for surgery on 03/02/17. In the postoperative period, he has evidenced worsening confusion and delirium. At this point, he is agitated and aggressive with staff and unwilling to follow direction to ensure safe recovery after his recent shoulder surgery. Hospital medicine has been consulted. PAST MEDICAL HISTORY: 1. Coronary artery disease with stent placement. 2. Depression. 3. Anxiety. 4. History of TIA. 5. Anemia. 6. Hyperlipidemia. 7. GERD. 8. BPH. 9. Restless leg syndrome. 10. History of esophageal stricture. 11. Status post cholecystectomy. 12. COPD. 13. Anxiety. OUTPATIENT MEDICATIONS: 1. Docusate 100 mg p.o. q.p.m. 2. Hydrocodone/acetaminophen 5/325 mg 1 tablet p.o. b.i.d. 3. Krill oil 1 cap p.o. q.a.m. 4. p.r.n. 5. Multivitamin with mineral 1 tab p.o. q.a.m. 6. Alprazolam 0.25 to 0.5 mg p.o. as needed. 7. Albuterol inhaler 1 to 2 puffs inhaled q.4 hours p.r.n. 8. Aspirin 81 mg p.o. daily. 9. Atenolol 25 mg p.o. b.i.d. 10. Budesonide/formoterol 160/4.5 two puffs inhaled b.i.d. 11. Cholestyramine 4 g p.o. b.i.d. 12. Clopidogrel 75 mg p.o. q.a.m. 13. Coenzyme Q10 200 mg p.o. q.a.m. 14. Furosemide 10 mg p.o. at bedtime and 40 mg q.a.m. 15. Gabapentin 800 mg p.o. t.i.d. 16. Loratadine 10 mg p.o. daily. 17. Nasonex nasal spray 2 sprays both nares b.i.d. 18. Nitroglycerin patch 0.6 mg transdermally daily. 19. Nitrostat 0.4 mg sublingual p.r.n. 20. Paroxetine 40 mg p.o. q.p.m. 21. Potassium chloride 40 mEq p.o. b.i.d. 22. Pramipexole 0.75 mg p.o. bedtime. 23. Simvastatin 10 mg p.o. q.p.m. 24. Tamsulosin 0.4 mg q.a.m. 25. Tiotropium 1 capsule inhaled daily. Of note, the patient was recently started on Seroquel 50 mg p.o. daily inpatient. ALLERGIES: To ETHANOL AND FENTANYL. FAMILY HISTORY: Unobtainable as the patient is currently delirious; but per the electronic medical record, his mother had a history of congestive heart failure and father of a cerebral aneurysmal and hemorrhage. SOCIAL HISTORY: The patient is a former smoker. He quit 30 years ago. There is no report in the electronic medical record of alcohol or drug use. He lives at home and his , who is his healthcare proxy. REVIEW OF SYSTEMS: Unobtainable. PHYSICAL EXAM: Vital Signs: Temperature 99.1, pulse rate 72, respiratory rate 19, O2 saturation 92% on room air, blood pressure 97/55. General: Mr. Cr is pondering around the hallway with nursing staff close by his side. He is agitated though not lashing at the staff, he has aggressive physical movements and appears angry. He is unsafe and not following any precautions for his recent left shoulder repair. Neuro: He is alert. He is completely disoriented. He states that he came to the hospital after a green party yesterday. He moves all extremities equally. There is no facial asymmetry or focal weakness. Extraocular movements are intact. Heart: S1, S2. No murmur, rub, or gallop, and regular. Lungs are clear to auscultation bilaterally with no accessory muscle use and good aeration. The abdomen is soft, nontender with bowel sounds positive x4. Extremities: No cyanosis or edema. Skin is intact. LABORATORY DATA: Hemoglobin 10.8, hematocrit 32. Sodium 137, potassium 4.1, chloride 102, serum bicarbonate 30, BUN 16, creatinine 0.84, glucose 142. Urine shows no evidence of infection. ASSESSMENT AND PLAN: Mr. Cr is a 76-year-old male with a past medical history of coronary artery disease, hypertension, depression and anxiety who presented to the hospital on 03/02/17 for a left total shoulder reverse. In the postoperative period, he has developed worsening confusion and delirium now with agitated aggressive behaviors. Hospital Medicine has been consulted for assistance in management of these behaviors. 1. Agitated delirium: The patient is unsafe with himself and with staff. There was an attempt to use Seroquel x1 without good effect. Plan to provide the patient with Haldol intramuscularly p.r.n. so that he can be safe both with staff and with care of his left shoulder repair. 2. History of hypertension. Continue home furosemide. 3. History of neuropathy. Continue gabapentin. 4. Left total shoulder reverse. Continue pain medications p.r.n. Management will be per orthopedic services. 5. History of suspected chronic obstructive pulmonary disease. No report of this is noted in the medical record, but the patient does take Spiriva and albuterol p.r.n. He is in no evidence of exacerbation, but he should continue with these medications. Continue Dulera, a substitute for Symbicort. 6. Restless leg. Continue pramipexole. 7. Hypertension. Continue atenolol. 8. Depression. Continue Paxil. 9. DVT prophylaxis with SCDs per Ortho. 10. Code status is full code. TIME SPENT: Approximately 60 minutes were spent on the consultation of this patient, more than half the time was spent with the patient at bedside reviewing the events leading up to this hospitalization, performing the physical examination and reviewing my plan of care. BELGICA CORRAL NP [id number]/[facility] #: [id number] [facility]
[2017-03-06] MEDS: Tiotropium CAP.INH* CAP.INH/18 MCG INH SCH (07:47)
[2017-03-06] MEDS: Mometasone/Formoter 200/5 MDI INH SCH ×2 (07:47→20:21)
[2017-03-06 08:08] LABS: Hematocrit 33 % (42-52); Hemoglobin 11.1 g/dl (14.0-18.0); Mean Corpuscular HGB Conc 34 g/dl (31-36); Mean Corpuscular Hemoglobin 30 pg (27-31); Mean Corpuscular Volume 89 fL (80-94); Mean Platelet Volume 7 um3 (7.4-10.4); Red Blood Count 3.73 10^6/ul (4.0-5.4); Red Cell Distribution Width 14 % (10.5-15); Venous Bicarbonate HCO3 30.4 mmol/L (24-28); White Blood Count 5.9 10^3/ul (3.5-10.8)
[2017-03-06 08:26] LABS: Albumin 3.5 g/dL (3.2-5.2); BUN/Creatinine Ratio 16.7 (8-20); EGFR African American 114.6 (>60); EGFR Non-African American 89.1 (>60); Globulin 2.5 g/dL (2-4); Potassium 3.8 mmol/L (3.5-5.0); Total Bilirubin 1.1 mg/dL (0.2-1.0)
[2017-03-06 08:49] LABS: TSH (Thyroid Stimulating Horm) 1.98 mcIU/mL (0.34-5.60)
--- NOTE | 2017-03-06 09:22 | PN ---
Progress Note - Progress Note SOAP: Subjective: Pt states he is doing well. He had multiple episodes of acute delirium overnight. Seroquel did not work so the hospitalist were consulted and gave Haldol. Urinalysis was negative. He is not agitated this morning and is alert and oriented. His pain is controlled. He denies F/C, CP, SOB, or N/T. Objective: PE- 76 y/o M in NAD, lying comfortably in bed LUE- dressing c/d/i, no warmth or erythema, full ROM of elbow wrist and hands, + 2 radial pulse, SILT Vital Signs Temp Pulse Resp BP Pulse Ox 98.0 F 80 20 134/68 96 03/06/17 07:13 03/06/17 07:13 03/06/17 07:13 03/06/17 07:13 03/06/17 07:13 Laboratory Results - last 24 hr 03/05/17 03/06/17 03/06/17 16:05 08:00 08:00 WBC 5.9 RBC 3.73 L Hgb 11.1 L Hct 33 L MCV 89 MCH 30 MCHC 34 RDW 14 Plt Count 150 MPV 7 L Neut % (Auto) 75.2 Lymph % (Auto) 13.8 L [place] % (Auto) 8.9 Eos % (Auto) 1.8 Baso % (Auto) 0.3 Absolute Neuts (auto) 4.4 Absolute Lymphs (auto) 0.8 L Absolute Monos (auto) 0.5 Absolute Eos (auto) 0.1 Absolute Basos (auto) 0 Absolute Nucleated RBC 0 Nucleated RBC % 0 VBG pH VBG pCO2 VBG pO2 VBG HCO3 VBG O2 Saturation VBG Base Excess Sodium 139 Potassium 3.8 Chloride 103 Carbon Dioxide 28 Anion Gap 8 BUN 14 Creatinine 0.84 Est GFR ( Amer) 114.6 Est GFR (Non-Af Amer) 89.1 BUN/Creatinine Ratio 16.7 Glucose 123 H Calcium 9.0 Total Bilirubin 1.10 H AST 33 ALT 18 Alkaline Phosphatase 61 Ammonia Total Protein 6.0 L Albumin 3.5 Globulin 2.5 Albumin/Globulin Ratio 1.4 TSH 1.98 Urine Color Yellow Urine Appearance Clear Urine pH 7.0 Ur Specific [place] 1.004 L Urine Protein Negative Urine Ketones Negative Urine Blood Negative Urine Nitrate Negative Urine Bilirubin Negative Urine Urobilinogen Negative Ur Leukocyte Esterase Negative Urine Glucose Negative 03/06/17 03/06/17 08:00 08:00 WBC RBC Hgb Hct MCV MCH MCHC RDW Plt Count MPV Neut % (Auto) Lymph % (Auto) [place] % (Auto) Eos % (Auto) Baso % (Auto) Absolute Neuts (auto) Absolute Lymphs (auto) Absolute Monos (auto) Absolute Eos (auto) Absolute Basos (auto) Absolute Nucleated RBC Nucleated RBC % VBG pH 7.48 H VBG pCO2 43 VBG pO2 35 VBG HCO3 30.4 H VBG O2 Saturation 75.2 VBG Base Excess 7.7 H Sodium Potassium Chloride Carbon Dioxide Anion Gap BUN Creatinine Est GFR ( Amer) Est GFR (Non-Af Amer) BUN/Creatinine Ratio Glucose Calcium Total Bilirubin AST ALT Alkaline Phosphatase Ammonia 39 Total Protein Albumin Globulin Albumin/Globulin Ratio TSH Urine Color Urine Appearance Urine pH Ur Specific [place] Urine Protein Urine Ketones Urine Blood Urine Nitrate Urine Bilirubin Urine Urobilinogen Ur Leukocyte Esterase Urine Glucose Assessment: 76 y/o M POD#4 from L reverse total shoulder Plan: - Appreciate hospitalist input for acute delirium -Continue pain management -Plavix for DVT prophylaxis - PT/OT- NWB, no active ROM. passive ROM ff -90, abd- 90, ER to 30 degrees as tolerated. - May shower prn - DC tuesday to SNF for Unsteady gait per PT recommendation
[2017-03-06] MEDS: Cetirizine* 10 MG TAB PO SCH (10:05)
[2017-03-06] MEDS: Tamsulosin CAP* 0.4 MG PO SCH (10:05)
[2017-03-06] MEDS: Clopidogrel TAB* 75 MG PO SCH (10:06)
[2017-03-06] MEDS: Vitamin THERAPEUTIC TAB PO SCH (10:06)
[2017-03-06] MEDS: Aspirin EC Low Dose* 81 MG TAB.EC PO SCH (10:06)
[2017-03-06] MEDS: Nitroglycerin 0.6 MG/HR PATCH* (15 MG) TRANSDERM SCH (10:07)
[2017-03-06] MEDS: Furosemide TAB* 40 MG PO SCH (10:07)
[2017-03-06] MEDS: Coenzyme Q10 (NF) ** ENTER STREGNTH IN LABEL DIRECTIONS PO SCH (10:09)
--- NOTE | 2017-03-06 14:26 | PN ---
Subjective Date of Service: 03/06/17 Interval History: This is a 76 yo gentleman with a h/o CAD, HTN, KRISS, GERD, depression, anxiety and GERD who presented for an elective L reverse shoulder who developed post-op delirium for which a hospitalist consult was requested. Patient was severely combative and agitated, requiring multiple doses of Haldol and Ativan last night. Today, patient slept until ~noon but has been quite pleasant since. He does not recall the details of yesterday. He denies any acute complaints. No CP, SOB, abd pain, n/v. Objective Active Medications: Acetaminophen (Tylenol Tab*) 650 mg PO Q4H PRN PRN Reason: PAIN OR TEMPERATURE Last Admin: 03/05/17 15:14 Dose: 650 mg Albuterol (Ventolin Hfa Inhaler*) 1 puff INH Q4H PRN PRN Reason: SOB/WHEEZING Alprazolam (Xanax Tab*) 0.25 mg PO DAILY PRN PRN Reason: . Last Admin: 03/04/17 18:10 Dose: 0.25 mg Aspirin (Aspirin Ec Low Dose*) 81 mg PO DAILY [facility] Last Admin: 03/06/17 10:06 Dose: 81 mg Atenolol (Tenormin Tab*) 25 mg PO BID [facility] Last Admin: 03/06/17 10:05 Dose: 25 mg Cetirizine HCl (Zyrtec*) 10 mg PO DAILY [facility] Last Admin: 03/06/17 10:05 Dose: 10 mg Cholestyramine Resin (Questran*) 4 gm PO BID [facility] Last Admin: 03/06/17 10:09 Dose: 4 gm Clopidogrel Bisulfate (Plavix Tab*) 75 mg PO QAM [facility] Last Admin: 03/06/17 10:06 Dose: 75 mg Coenzyme Q10 (Coenzyme Q10 (Nf)) 1 cap PO QAM [facility] Last Admin: 03/06/17 10:09 Dose: Not Given Diphenhydramine HCl (Benadryl Iv*) 25 mg IV Q6H PRN PRN Reason: itching Docusate Sodium (Colace Cap*) 100 mg PO BID [facility] Last Admin: 03/06/17 10:06 Dose: 100 mg Ferrous Sulfate (Ferrous Sulfate Tab*) 325 mg PO BID [facility] Last Admin: 03/06/17 10:05 Dose: 325 mg Fluticasone Propionate (Flonase Nasal [place] 50mcg*) 2 spray BOTH NARES BID [facility] Last Admin: 03/06/17 10:20 Dose: 2 spray Furosemide (Lasix Tab*) 10 mg PO BEDTIME [facility] Last Admin: 03/06/17 00:09 Dose: Not Given Furosemide (Lasix Tab*) 40 mg PO QAM [facility] Last Admin: 03/06/17 10:07 Dose: 40 mg Gabapentin (Neurontin Cap(*)) 800 mg PO TID [facility] Last Admin: 03/06/17 10:06 Dose: 800 mg Haloperidol Lactate (Haldol Inj Iv/Im*) 5 mg IM Q6H PRN PRN Reason: AGITATION Mometasone Furoate/Formoterol Fumar (Dulera 200/5 Mdi*) 2 puff INH BID [facility] PRN Reason: Protocol Last Admin: 03/06/17 07:47 Dose: 2 puff Morphine Sulfate (Morphine Inj (Syringe)*) 5 mg IV Q2H PRN PRN Reason: PAIN Last Admin: 03/04/17 23:14 Dose: 5 mg Multivitamins (Theragran Tab*) 1 tab PO DAILY [facility] Last Admin: 03/06/17 10:06 Dose: 1 tab Nitroglycerin (Nitroglycerin Tab 0.4 Mg*) 0.4 mg SL .SEE INSTRUCTIONS PRN PRN Reason: angina/ chest pain Nitroglycerin (Nitroglycerin 15 Mg Patch*) 1 patch TRANSDERM DAILY [facility] Last Admin: 03/06/17 10:07 Dose: 1 patch Ondansetron HCl (Zofran Inj*) 4 mg IV Q6H PRN PRN Reason: nausea Oxycodone/Acetaminophen (Percocet 5/325 Tab*) 1 tab PO Q4H PRN PRN Reason: PAIN Oxycodone/Acetaminophen (Percocet 5/325 Tab*) 2 tab PO Q4H PRN PRN Reason: PAIN Last Admin: 03/04/17 19:13 Dose: 2 tab Paroxetine HCl (Paxil Tab*) 40 mg PO QPM [facility] Last Admin: 03/05/17 17:31 Dose: 40 mg Pharmacy Profile Note (Nitro Patch/Oint Remove*) 1 note PATCH OFF 2100 [facility] Last Admin: 03/06/17 00:12 Dose: 1 patch Potassium Chloride (Klor Con Er Tab*) 40 meq PO BID [facility] Last Admin: 03/06/17 10:06 Dose: 40 meq Pramipexole Dihydrochloride (Mirapex Tab*) 0.5 mg PO 1700 [facility] Last Admin: 03/05/17 17:31 Dose: 0.5 mg Pramipexole Dihydrochloride (Mirapex Tab*) 0.75 mg PO BEDTIME [facility] Last Admin: 03/06/17 00:10 Dose: 0.75 mg Simvastatin (Zocor(Nf)) 10 mg PO QPM [facility] Last Admin: 03/06/17 00:09 Dose: Not Given Tamsulosin HCl (Flomax Cap*) 0.4 mg PO QAM [facility] Last Admin: 03/06/17 10:05 Dose: 0.4 mg Temazepam (Restoril Cap*) 15 mg PO BEDTIME PRN PRN Reason: INSOMNIA Tiotropium [place] (Spiriva Cap.Inh*) 1 cap INH DAILY [facility] Last Admin: 03/06/17 07:47 Dose: 1 cap Vital Signs: Temp Pulse Resp BP Pulse Ox 98.7 F 84 14 127/63 94 03/06/17 11:15 03/06/17 11:15 03/06/17 12:06 03/06/17 11:15 03/06/17 11:15 Oxygen Devices in Use Now: None Appearance: Well appearing in NAD Respiratory: Symmetrical Chest Expansion and Respiratory Effort, Clear to Auscultation Cardiovascular: NL Sounds; No Murmurs; No JVD, RRR Abdominal: NL Sounds; No Tenderness; No Distention Extremities: No Edema, - - L arm in immobilizer Skin: No Rash or Ulcers Neurological: Alert and Oriented x 3 Result Diagrams: 03/06/17 08:00 03/06/17 08:00 Microbiology and Other Data: Microbiology 03/02/17 09:50 Wound Gram Stain - Final Tissue - Shoulder Left Tissue Culture - Final No Growth Day 4 Anaerobic Culture - Final No Growth Day 4 Assess/Plan/Problems-Billing Assessment: This is a 76 yo gentleman who is s/p elective L reverse shoulder with Dr Weiss with a h/o CAD, HTN, KRISS, GERD, depression, anxiety, COPD who developed post-op delirium. - Patient Problems (1) Status post total shoulder arthroplasty Comment: POD #4 Management per ortho (2) Postoperative delirium Comment: Resolved CBC, CMP, TSH, ammonia and VBG WNL Patient is quite pleasant and appropriately oriented this afternoon Perhaps due to opiate withdrawal? He reports he had been taking 6 tablets of Percocet daily for several weeks leading up to surgery, but yesterday he stopped requiring opiates PRN Haldol ordered, but will not start a standing antipsychotic (3) KRISS (obstructive sleep apnea) Comment: Non-compliant with CPAP (4) Anxiety Comment: Stable (5) HTN (hypertension) Comment: Normotensive (6) GERD (gastroesophageal reflux disease) Comment: (7) BPH (benign prostatic hyperplasia) (8) CAD (coronary artery disease) Comment: Asx Cont home meds Plavix has been held ASA continued (9) Full code status (10) DVT prophylaxis Comment: per ortho Status and Disposition: Dispo per ortho. Delirium appears resolved. Hospitalist group will cont to follow along
[2017-03-06] MEDS: PARoxetine HCL TAB* 40 MG PO SCH (17:14)
[2017-03-06] MEDS: Calcium Carbonate CHEW TAB* 500 MG (TUMS) PO PRN (19:15)
[2017-03-06] MEDS: ALPRAZolam TAB* 0.25 MG PO PRN (22:34)
[2017-03-07 07:36] VITALS: BP 120/59
[2017-03-07] MEDS: Mometasone/Formoter 200/5 MDI INH SCH (07:39)
[2017-03-07] MEDS: Tiotropium CAP.INH* CAP.INH/18 MCG INH SCH (07:39)
--- NOTE | 2017-03-07 08:55 | PN ---
Subjective Date of Service: 03/07/17 Interval History: Patient seen and examined at bedside. Pt states that he is feeling well this morning. Denies fever, chills, shortness of breath, chest discomfort, N/V/D. Pt reports that left shoulder pain is controlled. Family History: Unchanged from Admission Social History: Unchanged from Admission Past Medical History: Unchanged from Admission Objective Active Medications: Acetaminophen (Tylenol Tab*) 650 mg PO Q4H PRN Reason: PAIN OR TEMPERATURE Albuterol (Ventolin Hfa Inhaler*) 1 puff INH Q4H PRN Reason: SOB/WHEEZING Alprazolam (Xanax Tab*) 0.25 mg PO DAILY PRN Reason: ANXIETY Aspirin (Aspirin Ec Low Dose*) 81 mg PO DAILY [facility] Atenolol (Tenormin Tab*) 25 mg PO BID [facility] Calcium Carbonate (Tums*) 500 mg PO Q4H PRN Reason: INDIGESTION Cetirizine HCl (Zyrtec*) 10 mg PO DAILY [facility] Cholestyramine Resin (Questran*) 4 gm PO BID [facility] Clopidogrel Bisulfate (Plavix Tab*) 75 mg PO QAM [facility] Coenzyme Q10 (Coenzyme Q10 (Nf)) 1 cap PO QAM [facility] Diphenhydramine HCl (Benadryl Iv*) 25 mg IV Q6H PRN Reason: itching Docusate Sodium (Colace Cap*) 100 mg PO BID [facility] Ferrous Sulfate (Ferrous Sulfate Tab*) 325 mg PO BID [facility] Fluticasone Propionate (Flonase Nasal [place] 50mcg*) 2 spray BOTH NARES BID [facility] Furosemide (Lasix Tab*) 10 mg PO BEDTIME [facility] Furosemide (Lasix Tab*) 40 mg PO QAM [facility] Gabapentin (Neurontin Cap(*)) 800 mg PO TID [facility] Haloperidol Lactate (Haldol Inj Iv/Im*) 5 mg IM Q6H PRN Reason: AGITATION Mometasone Furoate/Formoterol Fumar (Dulera 200/5 Mdi*) 2 puff INH BID [facility] Morphine Sulfate (Morphine Inj (Syringe)*) 5 mg IV Q2H PRN Reason: PAIN Multivitamins (Theragran Tab*) 1 tab PO DAILY [facility] Nitroglycerin (Nitroglycerin Tab 0.4 Mg*) 0.4 mg SL .SEE INSTRUCTIONS PRN Reason: angina/ chest pain Nitroglycerin (Nitroglycerin 15 Mg Patch*) 1 patch TRANSDERM DAILY [facility] Ondansetron HCl (Zofran Inj*) 4 mg IV Q6H PRN Reason: nausea Oxycodone/Acetaminophen (Percocet 5/325 Tab*) 1 tab PO Q4H PRN Reason: PAIN Oxycodone/Acetaminophen (Percocet 5/325 Tab*) 2 tab PO Q4H PRN Reason: PAIN Paroxetine HCl (Paxil Tab*) 40 mg PO QPM [facility] Pharmacy Profile Note (Nitro Patch/Oint Remove*) 1 note PATCH OFF 2100 [facility] Potassium Chloride (Klor Con Er Tab*) 40 meq PO BID [facility] Pramipexole Dihydrochloride (Mirapex Tab*) 0.5 mg PO 1700 [facility] Pramipexole Dihydrochloride (Mirapex Tab*) 0.75 mg PO BEDTIME [facility] Simvastatin (Zocor(Nf)) 10 mg PO QPM [facility] Tamsulosin HCl (Flomax Cap*) 0.4 mg PO QAM [facility] Temazepam (Restoril Cap*) 15 mg PO BEDTIME PRN Reason: INSOMNIA Tiotropium [place] (Spiriva Cap.Inh*) 1 cap INH DAILY [facility] Vital Signs 03/06/17 03/06/17 03/06/17 10:00 10:06 11:15 Temperature 98.7 F Pulse Rate 84 Respiratory 14 14 18 Rate Blood Pressure 127/63 (mmHg) O2 Sat by Pulse 94 Oximetry 03/06/17 03/06/17 03/06/17 12:06 14:31 14:54 Temperature 98.8 F Pulse Rate 88 Respiratory 14 20 16 Rate Blood Pressure 112/60 (mmHg) O2 Sat by Pulse 97 Oximetry 03/06/17 03/06/17 03/06/17 16:31 19:17 20:11 Temperature 98.9 F Pulse Rate 88 81 Respiratory 16 20 Rate Blood Pressure 105/64 112/55 (mmHg) O2 Sat by Pulse 93 Oximetry 03/06/17 03/06/17 03/06/17 20:18 22:34 23:47 Temperature 98.2 F Pulse Rate 75 Respiratory 18 18 18 Rate Blood Pressure 122/57 (mmHg) O2 Sat by Pulse 96 Oximetry 03/07/17 03/07/17 03/07/17 00:34 03:37 07:26 Temperature 98.1 F 98.6 F Pulse Rate 67 65 Respiratory 14 18 16 Rate Blood Pressure 109/62 120/59 (mmHg) O2 Sat by Pulse 95 96 Oximetry 03/07/17 07:39 Temperature Pulse Rate 70 Respiratory 16 Rate Blood Pressure (mmHg) O2 Sat by Pulse 98 Oximetry Oxygen Devices in Use Now: None Appearance: NAD, sitting up in bed Eyes: No Scleral Icterus, PERRLA Ears/Nose/Mouth/Throat: Mucous Membranes Moist Respiratory: Symmetrical Chest Expansion and Respiratory Effort, Clear to Auscultation Cardiovascular: NL Sounds; No Murmurs; No JVD, RRR Abdominal: NL Sounds; No Tenderness; No Distention Extremities: No Edema Skin: No Rash or Ulcers Neurological: Alert and Oriented x 3, NL Muscle Strength and Tone Lines/Tubes/Other Access: Clean, Dry and Intact Peripheral IV - site benign Nutrition: Taking PO's Result Diagrams: 03/06/17 08:00 03/06/17 08:00 Microbiology and Other Data: Microbiology 03/02/17 09:50 Wound Gram Stain - Final Tissue - Shoulder Left Tissue Culture - Final No Growth Day 4 Anaerobic Culture - Final No Growth Day 4 Assess/Plan/Problems-Billing Assessment: Mr. Cr is a 76 yo gentleman who is s/p elective L reverse shoulder with Dr Weiss with a h/o CAD, HTN, KRISS, GERD, depression, anxiety, COPD who developed post-op delirium. - Patient Problems (1) Postoperative delirium Code(s): F05 - DELIRIUM DUE TO KNOWN PHYSIOLOGICAL CONDITION SNOMED Code(s): 7309577 Comment: - Resolved - CBC, CMP, TSH, ammonia and VBG WNL - Perhaps due to opiate withdrawal? He reports he had been taking 6 tablets of Percocet daily for several weeks leading up to surgery, but he stopped requiring opiates during his stay - PRN Haldol ordered, but will not start a standing antipsychotic (2) Status post total shoulder arthroplasty Code(s): Z96.619 - PRESENCE OF UNSPECIFIED ARTIFICIAL SHOULDER JOINT SNOMED Code(s): 252654790 Comment: - POD #5 - Management per ortho (3) KRISS (obstructive sleep apnea) Code(s): G47.33 - OBSTRUCTIVE SLEEP APNEA (ADULT) (PEDIATRIC) SNOMED Code(s): 32628407 Comment: - Non-compliant with CPAP (4) Anxiety Code(s): F41.9 - ANXIETY DISORDER, UNSPECIFIED SNOMED Code(s): 54805150 Comment: - Stable (5) GERD (gastroesophageal reflux disease) Code(s): K21.9 - GASTRO-ESOPHAGEAL REFLUX DISEASE WITHOUT ESOPHAGITIS SNOMED Code(s): 085336173 Comment: (6) HTN (hypertension) Code(s): I10 - ESSENTIAL (PRIMARY) HYPERTENSION SNOMED Code(s): 93617730 Comment: - Normotensive - Continue home medications (7) BPH (benign prostatic hyperplasia) Code(s): N40.0 - BENIGN PROSTATIC HYPERPLASIA WITHOUT LOWER URINRY TRACT SYMP SNOMED Code(s): 497853117 Comment: - Continue Flomax (8) CAD (coronary artery disease) Code(s): I25.10 - ATHSCL HEART DISEASE OF [place] CORONARY ARTERY W/O ANG PCTRS SNOMED Code(s): 68901524 Comment: - Asymptomatic - Continue ASA, Statin, Atenolol, Plavix and Nitro patch (9) DVT prophylaxis Code(s): IZH0695 - SNOMED Code(s): 872873484 Comment: per ortho (10) Full code status Code(s): Z78.9 - OTHER SPECIFIED HEALTH STATUS SNOMED Code(s): 981161430 Status and Disposition: Dispo per ortho. Delirium appears resolved. Hospitalist group will continue to follow along.
[2017-03-07] MEDS: Vitamin THERAPEUTIC TAB PO SCH (09:47)
[2017-03-07] MEDS: Tamsulosin CAP* 0.4 MG PO SCH (09:47)
[2017-03-07] MEDS: Clopidogrel TAB* 75 MG PO SCH (09:47)
[2017-03-07] MEDS: Gabapentin CAP(*) 400 MG PO SCH (09:47)
[2017-03-07] MEDS: Cetirizine* 10 MG TAB PO SCH (09:47)
[2017-03-07] MEDS: Ferrous Sulfate TAB* 325 MG PO SCH (09:47)
[2017-03-07] MEDS: Atenolol TAB* 25 MG PO SCH (09:47)
[2017-03-07] MEDS: Furosemide TAB* 40 MG PO SCH (09:48)
[2017-03-07] MEDS: Docusate CAP* 100 MG PO SCH (09:48)
[2017-03-07] MEDS: Aspirin EC Low Dose* 81 MG TAB.EC PO SCH (09:48)
[2017-03-07] MEDS: Coenzyme Q10 (NF) ** ENTER STREGNTH IN LABEL DIRECTIONS PO SCH (09:48)
[2017-03-07] MEDS: Potassium Chlor TAB* 20 MEQ TAB.ER PO SCH (09:48)
[2017-03-07] MEDS: Nitroglycerin 0.6 MG/HR PATCH* (15 MG) TRANSDERM SCH (09:51)
[2017-03-07] MEDS: Fluticasone NASAL SPRAY 50MCG* 16 gm SPRAY BTL BOTH NARES SCH (09:52)
[2017-03-07] MEDS: Acetaminophen TAB* 325 MG PO PRN (09:55)
[2017-03-07] MEDS: Calcium Carbonate CHEW TAB* 500 MG (TUMS) PO PRN (10:12)
[2017-03-07] MEDS: Cholestyramine Resin* 4 GM POWDER PO SCH (11:00)
--- NOTE | 2017-03-07 11:12 | PN ---
Progress Note - Progress Note SOAP: Subjective: POD #5 Left reverse TSR, doing well. Using Tylenol only for pain. Denies CP/SOB , fever or chills Objective: Vitals: Temp Pulse Resp BP Pulse Ox 98.6 F 70 16 120/59 98 /06/16 07:26 /06/16 07:39 03/07/17 09:47 03/07/17 07:26 03/07/17 07:39 Gen: A&O x3, NAD at rest sitting in bed LUE: Dressing C/D/I, mild edema and ecchymosis to upper arm. +f/e at MCP, PIP, DIP joints, full sensation, 2+ radial pulse Assessment: POD #5 Left reverse TSR Plan: D/c to [facility] today F/u with Dr. Weiss next week. Cont Plavix
--- NOTE | 2017-03-07 12:39 | DS ---
DISCHARGE SUMMARY: DATE OF ADMISSION: 03/02/17 DATE OF DISCHARGE: 03/07/17 ATTENDING PHYSICIAN: Dr. 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 SECONDARY DIAGNOSES: 1. Hypertension. 2. Coronary artery disease. 3. Sleep apnea. 4. High cholesterol. 5. Gastroesophageal reflux disease. 6. Depression. 7. Anxiety. HISTORY OF PRESENT ILLNESS: Mr. Cr is a 76-year-old male who had been followed by Dr. Weiss for ongoing left shoulder pain that has been present for several years. He failed conservative measures and elected to proceed with a left reverse total shoulder replacement by Dr. Weiss. HOSPITAL COURSE: On 03/02/17, the patient was admitted to [facility] and underwent a successful left reverse total shoulder arthroplasty. He recovered briefly in the postanesthesia care unit and was transferred to the short-stay surgical unit in stable condition. On postop day #1, the patient was doing well. His pain was controlled with oral and IV pain medications. He had a stable H and H at 10.8 and 32. On postop day #1, the Hemovac was removed without difficulty. The patient did have some postoperative delirium and on postop day #2, the hospitalist was consulted. He did have some agitation and aggression, which did require Seroquel and Haldol. Urinalysis was obtained and showed no evidence of infection. Chest x-ray also showed no evidence of infection. Blood gas was within normal limits. It was thought that the narcotic pain medication was causing some delirium. Since this time, he has been managed with oral Tylenol and has done well. On postop day #4, his H and H was stable again at 11.1 and 33. On postop day #5, the patient was found stable for discharge to [facility]. DISCHARGE INSTRUCTIONS: The patient is understanding that he is to do no active range of motion of the left shoulder. He may have assistance with therapy to passively move the shoulder. He is to limit forward flexion and abduction to 90 degrees, external rotation to 30 degrees. He may resume full flexion and extension of the elbow, wrist, and fingers. He is understanding that he may shower normally and the bandage may be removed to wash and a dry bandage may be applied after that. He is to follow up in the office with Dr. Weiss in 10 to 14 days postoperatively for reassessment and reevaluation. He is understanding to call or to have the alf call with any questions or concerns. DISCHARGE MEDICATIONS: The patient will use: 1. Tylenol 650 mg p.o. q.4 hours p.r.n. pain. 2. Colace 100 mg p.o. b.i.d. p.r.n. constipation. The patient will resume his home medications of: 1. Albuterol HFA inhaler 1 to 2 puffs inhaled q.4 hours p.r.n. 2. Xanax 0.25 mg p.o. b.i.d. p.r.n. 3. Symbicort 2 puffs inhaled b.i.d. 4. Atenolol 25 mg p.o. b.i.d. 5. Aspirin 81 mg p.o. daily. 6. Lasix 10 mg p.o. q.h.s. 7. CoQ10 200 mg p.o. q. a.m. 8. Plavix 75 mg p.o. q. a.m. 9. Cholestyramine resin 4 g p.o. b.i.d. 10. Gabapentin 800 mg p.o. t.i.d. 11. Lasix 40 mg p.o. q. a.m. 12. Nitroglycerin 0.4 mg per hour patch, 0.6 mg transdermal daily. 13. Multivitamin 1 p.o. daily. 14. Nasonex 2 sprays in both nares b.i.d. 15. Claritin 10 mg p.o. daily. 16. Krill oil/omega-3, 300 mg p.o. q. a.m. 17. Mirapex 0.5 mg p.o. at 1700, 0.75 mg p.o. q.h.s. 18. Potassium chloride 40 mEq p.o. b.i.d. 19. Paxil 40 mg p.o. q. p.m. 20. Spiriva inhaler 1 cap inhaled daily. 21. Calcium carbonate chews 500 mg p.o. q.4 hours p.r.n. NIRU BARRY [id number]/[facility] #: [id number] [facility]
== END 2017-03-07 13:45 | DRG 483 ==
LOC: AA 03-02 05:54 → INTOOBSV 03-02 05:54 → AA 03-02 10:34 → SSU 03-02 10:34 → AA 03-02 10:40 → OBSVTOIN 03-02 10:40
PROVIDERS: ADMIT Orthopaedic Surgery; ATTEND Orthopaedic Surgery
PROC: 0RRK00Z Replacement of Left Shoulder Joint with Reverse Ball and Socket Synthetic Substitute, Open Approach (ICD-10-PCS; principal; 2017-03-02 07:30)
DX: M19.012 Primary osteoarthritis, left shoulder (principal); F05 Delirium due to known physiological condition; G62.9 Polyneuropathy, unspecified; I10 Essential (primary) hypertension; I25.10 Atherosclerotic heart disease of native coronary artery without angina pectoris; Z95.5 Presence of coronary angioplasty implant and graft; G47.33 Obstructive sleep apnea (adult) (pediatric); E78.5 Hyperlipidemia, unspecified; K21.9 Gastro-esophageal reflux disease without esophagitis; F41.9 Anxiety disorder, unspecified; F32.9 Major depressive disorder, single episode, unspecified; Z82.49 Family history of ischemic heart disease and other diseases of the circulatory system; Z82.3 Family history of stroke; Z87.891 Personal history of nicotine dependence; J44.9 Chronic obstructive pulmonary disease, unspecified; N40.0 Benign prostatic hyperplasia without lower urinary tract symptoms; G25.81 Restless legs syndrome; R45.1 Restlessness and agitation; M25.712 Osteophyte, left shoulder; Z86.73 Personal history of transient ischemic attack (TIA), and cerebral infarction without residual deficits; Z88.6 Allergy status to analgesic agent; Z91.048 Other nonmedicinal substance allergy status; Z79.02 Long term (current) use of antithrombotics/antiplatelets; Z79.82 Long term (current) use of aspirin; Z88.8 Allergy status to other drugs, medicaments and biological substances
CPT/HCPCS: 36415; 80048; 80053; 81003; 82140; 82803; 84443; 85014; 85018; 85025; 86850; 86900; 86901; 87070; 87073; 87205; 88304; 88311; 94640; 94760; A9270-GY; C1713; C1776; G8978-GP-CK; G8979-GP-CI; G8980-GP-CK; G8987-GO-CL; G8988-GO-CI; J0690; J0780; J1630; J1940; J2060; J2250; J2270; J2405; J2704; J3010

== ENCOUNTER 2017-07-02 14:00 | Emergency (ER) | payer MEDICARE ==
[2017-07-02 14:18] VITALS: BP 122/73
--- NOTE | 2017-07-02 14:53 | UC ---
Stiven Jain Alfonso, scribed for Dante August MD on 07/02/17 at 1445 . General HPI - HPI Summary HPI Summary: This patient is a 76 year old M [facility] a medication refill of Cholestyramine for today. He states that he takes one scoop in the morning and one in the evening of Cholestyramine. Patient denies abdominal pain, and bowel symptoms. PMHx includes CAD. Medications reviewed. Allergies reviewed. - History of Current Complaint Chief Complaint: UCMedRefill Stated Complaint: MED REFILL Time Seen by Provider: 07/02/17 14:39 Hx Obtained From: Patient Onset/Duration: Sudden Onset, Lasting Hours, Still Present Timing: Constant Onset Severity: Mild Current Severity: Mild Character: Med refill Associated Signs & Symptoms: Negative: Abdominal Pain, Diarrhea - Allergy/Home Medications Allergies/Adverse Reactions: Allergies Allergy/AdvReac Type Severity Reaction Status Date / Time Penicillins Allergy Unknown Verified 07/02/17 14:18 Reaction Details Ethanol AdvReac Severe vomiting - Verified 07/02/17 14:18 [From Duragesic Disc "sicker Transdermal System] than a dog" Fentanyl AdvReac Severe vomiting - Verified 07/02/17 14:18 [From Duragesic Disc "sicker Transdermal System] than a dog" PMH/Surg Hx/FS Hx/Imm Hx Previously Healthy: No Cardiovascular History: Cardiac Disease - 3 stents Other History Of: Anticoagulant Therapy - plavix/asa Negative For: HIV, Hepatitis B - Surgical History Surgical History: Yes Surgery Procedure, Year, and Place: Back surgery x 2; lumbar fusion , Cholecystectomy, Abhilash Fundoplication-hernia , Tonsillectomy, Stents x 3,. had a heart monitor implanted Kanga Reveal LINQ MODEL [id number] COND 5, 1.5 T ONLY AT [facility] [place] - Family History Known Family History: Positive: Cardiac Disease - Mom, grandparent both of CHF, Hypertension - Social History Alcohol Use: None Substance Use Type: None Smoking Status (MU): Former Smoker Type: Cigarettes Amount Used/How Often: 1 ppd Length of Time of Smoking/Using Tobacco: 31 years Have You Smoked in the Last Year: No When Did the Patient Quit Smoking/Using Tobacco: 1989 - Immunization History Most Recent Influenza Vaccination: 2015/2016 season Most Recent Tetanus Shot: 2016 Most Recent Pneumonia Vaccination: 2014 Review of Systems Constitutional: Negative Gastrointestinal: Other - Negative abd pain and bowel symptoms All Other Systems Reviewed And Are Negative: Yes Physical Exam Triage Information Reviewed: Yes Appearance: Well-Appearing, No Pain Distress Vital Signs: Initial Vital Signs Temp 98.3 F 07/02/17 14:15 Pulse 82 07/02/17 14:15 Resp 20 07/02/17 14:15 BP 122/73 07/02/17 14:15 Pulse Ox 98 07/02/17 14:15 Vital Signs Reviewed: Yes Eyes: Positive: Other: - EOMI, ZAY ENT: Positive: Normal ENT inspection Neck: Positive: Supple, Nontender Respiratory: Positive: Lungs clear, Normal breath sounds Cardiovascular: Positive: RRR Abdomen Description: Positive: Nontender, Soft Bowel Sounds: Positive: Present Musculoskeletal: Positive: Strength Intact, ROM Intact Neurological: Positive: Alert, Muscle Tone Normal Psychological: Positive: Age Appropriate Behavior Skin: Positive: Other - warm, color reflects adequate perfusion, dry Course/Dx - Course Course Of Treatment: MEDS REVIEWED. RX SENT. - Differential Dx - Multi-Symptom Provider Diagnoses: CHRONIC DIARRHEA. Discharge - Discharge Plan Condition: Stable Disposition: HOME Prescriptions: Cholestyramine Resin* [Questran*] 4 gm PO BID #378 gm Patient Education Materials: Chronic Diarrhea (ED) Referrals: Lesa Etienne MD [Primary Care Provider] - Additional Instructions: FOLLOW UP WITH YOUR DOCTOR. GET RECHECKED FOR ANY WORSENING OF YOUR CONDITION OR QUESTIONS OR CONCERNS. The documentation as recorded by the Stiven ruth Alfonso accurately reflects the service I personally performed and the decisions made by me, Dante August MD.
== END 2017-07-02 14:52 | disposition home or self-care (01) ==
LOC: UCEAST 14:00
DX: R19.7 Diarrhea, unspecified (principal); Z87.891 Personal history of nicotine dependence
CPT/HCPCS: 99212; G0463

== ENCOUNTER 2017-08-31 12:23 | Emergency (ER) | payer MEDICARE ==
--- NOTE | 2017-08-31 12:41 | UC ---
Back Pain HPI - HPI Summary HPI Summary: Pt fell out of bed while sleeping 2 nights ago. Landed on his left hip and side. Does not believe he hit his head or experienced LOC. Has had continued left hip, left lower back, and left rib pain since. He is able to ambulate w/o assist, but has significant pain in his left hip. He has taken at home narcotics for pain. Hx of LT total shoulder and lumbar spinal fusion. No loss of bowel or bladder control. No hematuria, dysuria, or incontinence. No SOB or chest pain. No numbness or tingling down legs. - History of Current Complaint Chief Complaint: UCLowerExtremity Stated Complaint: FALL/BACK PAIN Time Seen by Provider: 08/31/17 12:40 Hx Obtained From: Patient Onset/Duration: Sudden Onset Timing: Constant Severity Initially: Severe Severity Currently: Moderate Pain Intensity: 8 Pain Scale Used: 0-10 Numeric Character: Sharp, Aching, Stiffness Aggravating Factor(s): Movement, Lifting, Bending, Walking Alleviating Factor(s): Rest, Other - Narcotics - Allergies/Home Medications Allergies/Adverse Reactions: Allergies Allergy/AdvReac Type Severity Reaction Status Date / Time Morphine Allergy AGGRESIVE Verified 08/31/17 12:33 BEHAVIOR Ethanol AdvReac Severe vomiting - Verified 08/31/17 12:32 [From Duragesic Disc "sicker Transdermal System] than a dog" Fentanyl AdvReac Severe vomiting - Verified 08/31/17 12:32 [From Duragesic Disc "sicker Transdermal System] than a dog" Home Medications: Home Medications Metoprolol Tartrate TAB* [Lopressor TAB*] 50 mg PO DAILY 08/31/17 [History Confirmed 08/31/17] PMH/Surg Hx/FS Hx/Imm Hx Previously Healthy: Yes Cardiovascular History: Cardiac Disease, Hypertension Respiratory History: COPD, Bronchitis GI/ History: Gastroesophageal Reflux, Other - BPH Other GI/ History: BPH Psychological History: Anxiety Other History Of: Anticoagulant Therapy - plavix/asa Negative For: HIV, Hepatitis B - Surgical History Surgical History: Yes Surgery Procedure, Year, and Place: MOOI RECORDER LNQ11 1.5 ONLY. LEFT SHOULDER REPLACEMENT 02/2017. TONSILS. GALLBLADDER. LSP SURGERY-LATER REPAIRED. HIATAL HERNIA. RENE FUNDOPLICATION. HEART STENTS X3 - Family History Known Family History: Positive: Cardiac Disease - Mom, grandparent both of CHF, Hypertension - Social History Occupation: Retired Lives: With Family Alcohol Use: None Substance Use Type: None Smoking Status (MU): Former Smoker Type: Cigarettes Amount Used/How Often: 1 ppd Length of Time of Smoking/Using Tobacco: 31 years Have You Smoked in the Last Year: No When Did the Patient Quit Smoking/Using Tobacco: 1989 - Immunization History Most Recent Influenza Vaccination: season Most Recent Tetanus Shot: 2015 Most Recent Pneumonia Vaccination: 2014 Review of Systems Constitutional: Negative Skin: Negative Eyes: Negative ENT: Negative Respiratory: Negative Cardiovascular: Negative Gastrointestinal: Negative Genitourinary: Negative Motor: Negative Neurovascular: Negative Musculoskeletal: Other: - Pain in lower left back and left hip. Neurological: Negative Psychological: Negative All Other Systems Reviewed And Are Negative: Yes Physical Exam Triage Information Reviewed: Yes Completion Of Physical Exam Limited Due To: Patient age, Other - Exam limited due to pain Appearance: Well-Nourished, Pain Distress Vital Signs: Initial Vital Signs Temp 98.3 F 08/31/17 12:27 Pulse 61 08/31/17 12:27 Resp 16 08/31/17 12:27 BP 142/62 08/31/17 12:27 Pulse Ox 99 08/31/17 12:27 Vital Signs Reviewed: Yes Dental Exam: Normal Dental: Negative: Dental Fracture @ Neck: Positive: Supple, Nontender, No Lymphadenopathy, Other: - FROM NTTP Respiratory: Positive: Chest non-tender, Lungs clear, Normal breath sounds, No respiratory distress Cardiovascular Exam: Normal Cardiovascular: Positive: Pulses Normal Abdomen Description: Positive: Nontender, Soft, CVA Tenderness (L) - Left flank pain when palpated.. Negative: CVA Tenderness (R), Distended, Guarding Bowel Sounds: Positive: Present Musculoskeletal: Positive: Strength Intact, No Edema, ROM Limited @ - Left hip - pain with abduction and adduction and flexion., Other: - TTP over left 11th rib. TTP over left lumbar region - difficult to perform ROM due to pain with flexion and associated hip pain. Neurological: Positive: Alert, Other: - AAOx3. CNII-XII grossly intact. No disorientation. Patellar and achilles reflex intact. Psychological: Positive: Age Appropriate Behavior Skin: Negative: rashes, significant lesion(s) Back Pain Course/Dx - Course Course Of Treatment: XR Left hip/pelvis - negative. XR Lumbar spine - negative. XR Left ribs showed "the superior mediastinum appears widened and there is mild tracheal deviation to the right. These findings may be related to vascular ectasia and to rotation of the image. However, suggest CT imaging the chest to evaluate for the possibility of a mass.". Chest CT - Mild bronchiectasis. Negative for any acute process or mass. UA - negative. Crestwood 5 /325 for pain and f/u with orthopedics. He is well known to orthopedics given his recent total shoulder. - Differential Dx/Diagnosis Differential Diagnosis/HQI/PQRI: Aneurysm, Cauda Equina Syndrome, Fracture, Herniated Disc, Strain, Sprain, Other - Chest mass. Provider Diagnoses: Hip Contusion. Low Back Pain. Fall. Muscle spasm lower back Discharge - Discharge Plan Condition: Stable Disposition: HOME Prescriptions: HYDROcodone/ACETAMIN 5-325 MG* [Crestwood 5-325 TAB*] 1 - 2 tab PO Q6H PRN #42 tab MDD 6 PRN Reason: Pain Patient Education Materials: Hip Contusion (ED) Referrals: Lesa Etienne MD [Primary Care Provider] - Additional Instructions: 1) Crestwood 5/325mg one or two tablets every 6 hours as needed for pain 2) Follow up with orthopedics at their next available appointment time. If you develop a fever, SOB, chest pain, new or worsening symptoms - please call our office or go to ED
--- NOTE | 2017-08-31 13:46 | RAD ---
HISTORY: Back pain, fall COMPARISONS: October 10, 2010 VIEWS: 5 , Frontal, lateral, coned-down lateral sacral, and bilateral oblique views of the lumbar spine. FINDINGS: ALIGNMENT: There is a dextroscoliotic curvature of the spine. VERTEBRAL BODIES: There is diffuse osteopenia. There is loss of vertebral body height at L5. The patient is status post spinal fusion with pedicle screws at L2, L3, L4, and S1. There is no hardware failure or osteolysis. There is multilevel anterolateral marginal osteophyte formation. A laminectomy defect is noted. The appearance is similar to October 10, 2010 JOINTS: There is facet osteoarthritic change. INTERVERTEBRAL DISCS: There is diffuse loss of intervertebral disc height. SOFT TISSUE: Unremarkable. OTHER: There is osteoarthritis of the hips and SI joints. The lung bases are clear. IMPRESSION: STATUS POST LAMINECTOMY AND SPINAL FUSION. DEGENERATIVE DISC DISEASE AND OSTEOARTHRITIS. THE APPEARANCE IS SIMILAR TO OCTOBER 10, 2010.
--- NOTE | 2017-08-31 13:49 | RAD ---
HISTORY: Fall, left hip pain COMPARISONS: None VIEWS: 3, Frontal view of the pelvis with frontal and frog-leg views of the left hip FINDINGS: BONE DENSITY: Normal. BONES: There is no displaced fracture. JOINTS: There is mild osteoarthritis of the left hip and SI joint . ALIGNMENT: There is no dislocation. SOFT TISSUES: Unremarkable. OTHER FINDINGS: There is postsurgical change of the lumbar spine IMPRESSION: . NO RADIOGRAPHIC EVIDENCE FOR HIP FRACTURE. X-RAYS MAY BE NEGATIVE WITH NONDISPLACED HIP FRACTURE, IF THERE IS PERSISTENT CLINICAL CONCERN, RECOMMEND CONSIDERATION OF MRI. IN THE SETTING OF CONTRAINDICATION TO MRI OR LIMITATION IN EMERGENT ACCESS TO MRI, CT WOULD BE SUGGESTED.
--- NOTE | 2017-08-31 13:57 | RAD ---
INDICATION: Fall. Rib pain. COMPARISON: None TECHNIQUE: Multiple views of the ribs were obtained. FINDINGS: Bones: There is no evidence of acute rib fracture. There is an old left 11th rib fracture perhaps with a pseudoarticulation. There is prior lumbar surgery with decompression LUNGS: The lungs are clear. There is no pneumothorax. Pleural spaces: There is no evidence of hemothorax. Other: The superior mediastinum appears widened and there is mild tracheal deviation to the right. These findings may be related to vascular ectasia and to rotation of the image. However, suggest CT imaging the chest to evaluate for the possibility of a mass. IMPRESSION: REMOTE LEFT 11TH RIB FRACTURE. SUGGEST CT IMAGING OF THE CHEST TO EVALUATE THE MEDIASTINAL STRUCTURES (SEE ABOVE). Findings called to referring clinician.
[2017-08-31 14:58] LABS: GFR African American EASTCT 105.8 (>60); GFR NON-African American ECT 82.3 (>60); ISTAT Handheld EASTCT 302986; ISTAT Simulator QC EASTCT PASS; POC Bun EASTCT 24 mg/dL (9-18); POC Crea EASTCT 0.9 mg/dL (0.6-0.9)
[2017-08-31 14:59] LABS: Manual Entry Verification ECT cpi
[2017-08-31] MEDS ORDERED: Iodixanol* (CONTRAST) 320 MG/ML 100 ML SDV IV ONE (15:01)
--- NOTE | 2017-08-31 15:42 | RAD ---
Indication: Chest pathology. Contrast: 80 mL of Visipaque 320 was given according to hospital protocol. CT of the chest was performed after IV contrast administration. Coronal and sagittal reconstructed images were obtained. CT of the ribs dated earlier the same day was also reviewed. Inferior thyroid lobes are unremarkable. No mediastinal or hilar adenopathy is noted. Heart is of normal size without evidence of pericardial effusion. Trachea and major bronchi appear patent. There may be some bronchiectasis in the right lower lobe with some minimal atelectasis. No alveolar consolidation no pleural fluid is identified. There is straightening of the normal lordosis and kyphosis of the thoracic spine. Spinal canal appears to be intact. Incidentally noted is a healing fracture of the left 11th rib posteriorly. IMPRESSION: No evidence of mediastinal masses are noted. Old fracture left 11th rib posteriorly. Some bronchiectasis is noted in the right medial lung base.
[2017-08-31 16:44] VITALS: BP 129/68
[2017-08-31 18:51] LABS: BUN/Creatinine Ratio 25.6 (8-20); Calcium 9.3 mg/dL (8.6-10.3); EGFR African American 105.8 (>60); EGFR Non-African American 82.3 (>60); Potassium 4.5 mmol/L (3.5-5.0)
== END 2017-08-31 16:52 | disposition home or self-care (01) ==
LOC: UCEAST 12:23
DX: S70.00XA Contusion of unspecified hip, initial encounter (principal); Z88.6 Allergy status to analgesic agent; J44.9 Chronic obstructive pulmonary disease, unspecified; Z87.891 Personal history of nicotine dependence; K21.9 Gastro-esophageal reflux disease without esophagitis; N40.0 Benign prostatic hyperplasia without lower urinary tract symptoms; M54.5 Low back pain; M62.830 Muscle spasm of back; W08.XXXA Fall from other furniture, initial encounter; Y92.9 Unspecified place or not applicable
CPT/HCPCS: 36415; 71260; 72110; 80048; 81003; 99213; G0463; Q9967

== ENCOUNTER 2017-09-25 19:47 | Emergency (ER) | payer MEDICARE ==
[2017-09-25] MEDS ORDERED: NS 0.9% 1000 ML* 1,000 ML IV ONE (20:01)
[2017-09-25] MEDS ORDERED: Meclizine TAB* 12.5 MG PO ONE (20:04)
[2017-09-25 20:21] LABS: Hematocrit 38 % (42-52); Hemoglobin 13.1 g/dl (14.0-18.0); Mean Corpuscular HGB Conc 34 g/dl (31-36); Mean Corpuscular Hemoglobin 30 pg (27-31); Mean Corpuscular Volume 87 fL (80-94); Mean Platelet Volume 7 um3 (7.4-10.4); Red Blood Count 4.43 10^6/ul (4.0-5.4); Red Cell Distribution Width 14 % (10.5-15); White Blood Count 3.9 10^3/ul (3.5-10.8)
--- NOTE | 2017-09-25 20:35 | RAD ---
INDICATION: Dizziness. COMPARISON: Comparison is made with a prior CT of the brain from August 10, 2010. TECHNIQUE: Contiguous axial sections of the brain were obtained from the skull base to the vertex without contrast. FINDINGS: The ventricles, cisterns and sulci are within normal limits. No significant focal abnormality or mass effect is seen. There is no evidence for hemorrhage. No significant focal osseous abnormality is seen. The visualized portion of the paranasal sinuses and mastoid air cells appear clear. IMPRESSION: NO EVIDENCE FOR GROSS ACUTE INFARCT, MASS EFFECT OR HEMORRHAGE.
[2017-09-25 20:38] LABS: Albumin 4.4 g/dL (3.2-5.2); BUN/Creatinine Ratio 17.2 (8-20); Calcium 9.1 mg/dL (8.6-10.3); EGFR African American 101.6 (>60); Potassium 3.8 mmol/L (3.5-5.0); Total Bilirubin 1.6 mg/dL (0.2-1.0); Total Protein 6.4 g/dL (6.4-8.9)
--- NOTE | 2017-09-25 20:39 | RAD ---
INDICATION: Dizziness. COMPARISON: Comparison is made with a prior chest x-ray study from July 11, 2017. TECHNIQUE: A portable view of the chest was obtained. FINDINGS: Cardiac and mediastinal contours appear to be within normal limits. The lungs are clear. No pleural effusion is seen. IMPRESSION: NO EVIDENCE FOR ACUTE DISEASE.
[2017-09-25 20:40] LABS: Troponin I 0.01 ng/mL (<0.04)
[2017-09-25 22:42] LABS: Urine Bilirubin Negative (Negative); Urine Glucose Negative (Negative); Urine Nitrite Negative (Negative)
[2017-09-25] MEDS ORDERED: Ondansetron TAB* 4 MG PO ONE (22:58)
--- NOTE | 2017-09-25 23:14 | ED ---
Kenton Jain Nikita, scribed for Merlin Mcnally on 09/25/17 at 2004 . Dizziness - HPI Summary HPI Summary: This patient is a 77 year old M presenting to ED with a chief complaint of dizziness since 12 hours ago. The CC is described as worsened since taking the trash out 1 hour ago. The patient rates the pain 2/10 in severity. Symptoms aggravated by moving his head. Symptoms alleviated by nothing. Patient reports light-headed, SOB, nausea, RODRIGUES, and sore throat. Per EMS, he had vomiting x3 en route, and received Zofran 8mg IV. Patient denies abdominal pain, ear pain, CP, diaphoresis, and diarrhea. - History Of Current Complaint Chief Complaint: EDDizziness Stated Complaint: DIZZINESS Time Seen by Provider: 09/25/17 19:55 Hx Obtained From: Patient Onset/Duration: Still Present, Suddenly Timing: Constant Severity Initially: Mild Severity Currently: Mild Character: Lightheaded, Dizzy Aggravating Factor(s): Other - moving his head Alleviating Factor(s): Nothing Associated Signs And Symptoms: Positive: Other: - Patient reports light-headed, SOB, nausea, RODRIGUES, and sore throat. Per EMS, he had vomiting x3 en route, and received Zofran 8mg IV. Patient denies abdominal pain, ear pain, CP, diaphoresis , and diarrhea. - Allergies/Home Medications Allergies/Adverse Reactions: Allergies Allergy/AdvReac Type Severity Reaction Status Date / Time Morphine Allergy AGGRESIVE Verified 09/25/17 19:55 BEHAVIOR Ethanol AdvReac Severe vomiting - Verified 09/25/17 19:55 [From Duragesic Disc "sicker Transdermal System] than a dog" Fentanyl AdvReac Severe vomiting - Verified 09/25/17 19:55 [From Duragesic Disc "sicker Transdermal System] than a dog" PMH/Surg Hx/FS Hx/Imm Hx Endocrine/Hematology History: Reports: Hx Anticoagulant Therapy - plavix/asa, Hx Anemia Denies: Hx Blood Disorders, Hx Blood Transfusions, Hx Bone Marrow Disease, Hx Diabetes - diet controlled, better now wtih eight loss., Hx Systemic Lupus Erythematosus, Hx Sickle Cell Disease, Hx Thyroid Disease, Hx Unexplained Bleeding, Other Endocrine/Hematological Disorders Cardiovascular History: Reports: Hx Angina, Hx Angioplasty, Hx Congestive Heart Failure, Hx Coronary Artery Disease - Stents 2008(RCA),2013(LAD), Hx Hypercholesterolemia, Hx Hypertension, Other Cardiovascular Problems/Disorders - CHF Denies: Hx Aneurysm, Hx Auto Implanted Cardiovert Defib, Hx Cardiac Arrest, Hx Cardiomegaly, Hx Congenital Heart Disease, Hx Deep Vein Thrombosis, Hx Hypotension, Hx Myocardial Infarction, Hx Pacemaker/ICD, Hx Peripheral Vascular Disease, Hx Rheumatic Fever, Hx Syncope, Hx Valvular Heart Disease Respiratory History: Reports: Hx Chronic Bronchitis, Hx Chronic Obstructive Pulmonary Disease (COPD) - COPD, Hx Pneumonia - mostly in childhood, Hx Seasonal Allergies, Hx Sleep Apnea - cannot tolerate CPAP, Other Respiratory Problems/Disorders Denies: Hx Asthma, Hx Cystic Fibrosis, Hx Lung Cancer, Hx Pleural Effusion, Hx Pulmonary Edema, Hx Pulmonary Embolism GI History: Reports: Hx Gall Bladder Disease - Gall bladder removed in 2009, Hx Gastroesophageal Reflux Disease, Hx Hiatal Hernia - Has umbilical hernia, Other GI Disorders - POST-CHOLECYSTECTOMY SYNDROME Denies: Hx Cirrhosis, Hx Crohn's Disease, Hx Diverticulosis, Hx Gastrointestinal Bleed, Hx Irritable Bowel, Hx Jaundice, Hx Obstructive Bowel, Hx Ileostomy, Hx Pyloric Stenosis, Hx Ulcer History: Reports: Hx Benign Prostatic Hyperplasia Denies: Hx Dialysis, Hx Renal Disease Musculoskeletal History: Reports: Hx Arthritis, Hx Back Problems - CHRONIC BACK PAIN, Hx Osteoporosis, Other Musculoskeletal History - DDD Denies: Hx Bursitis, Hx Congenital Bone Abnormalities, Hx Fibromyalgia, Hx Gout, Hx Orthopedic Injury, Hx Scoliosis, Hx Tendonitis Sensory History: Reports: Hx Contacts or Glasses, Hx Hearing Aid, Hx Hearing Problem Denies: Hx Cataracts, Hx Eye Injury, Hx Eye Prosthesis, Hx Glaucoma, Hx Macular Degeneration, Hx Vision Problem, Hx Deafness, Other Sensory Impairments Opthamlomology History: Reports: Hx Contacts or Glasses Denies: Hx Cataracts, Hx Eye Injury, Hx Eye Prosthesis, Hx Glaucoma, Hx Macular Degeneration, Hx Vision Problem, Other Sensory Impairments Neurological History: Reports: Other Neuro Impairments/Disorders - LUMBAR SURGERY Denies: Hx Dementia, Hx Seizures Psychiatric History: Reports: Hx Anxiety, Hx Depression Denies: Hx Attention Deficit Hyperactivity Disorder, Hx Eating Disorder, Hx Panic Disorder, Hx Post Traumatic Stress Disorder, Hx Inpatient Treatment, Hx Community Mental Health Tx, Hx Schizophrenia, Hx Bipolar Disorder, Hx Suicide Attempt, Hx Substance Abuse - paige/LS spinal fusion/hyatal hernia repair/, Other Psychiatric Issues/Disorders - Surgical History Surgery Procedure, Year, and Place: MEDTRONIC LINQ RECORDER LNQ11 1.5 ONLY. LEFT SHOULDER REPLACEMENT 02/2017. TONSILS. GALLBLADDER. LSP SURGERY-LATER REPAIRED. HIATAL HERNIA. RENE FUNDOPLICATION. HEART STENTS X3 Hx Anesthesia Reactions: No - Immunization History Date of Tetanus Vaccine: up to date Date of Influenza Vaccine: 2016 Infectious Disease History: No Infectious Disease History: Denies: Hx Clostridium Difficile, Hx Hepatitis, Hx Human Immunodeficiency Virus (HIV), Hx of Known/Suspected MRSA, Hx Shingles, Hx Tuberculosis, Hx Known/ Suspected VRE, Hx Known/Suspected VRSA, History Other Infectious Disease, Traveled Outside the [place] in Last 30 Days - Family History Known Family History: Positive: Cardiac Disease - Mom, grandparent both of CHF, Hypertension - Social History Alcohol Use: None Substance Use Type: Reports: None Hx Tobacco Use: No Smoking Status (MU): Former Smoker Type: Cigarettes Amount Used/How Often: 1 ppd Length of Time of Smoking/Using Tobacco: 31 years Have You Smoked in the Last Year: No Review of Systems Negative: Skin Diaphoresis Positive: Sore Throat. Negative: Ear Ache Negative: Chest Pain Positive: Shortness Of Breath Positive: Vomiting, Nausea. Negative: Abdominal Pain, Diarrhea Neurological: Other - dizziness (light-headed) Positive: Headache All Other Systems Reviewed And Are Negative: Yes Physical Exam Triage Information Reviewed: Yes Vital Signs On Initial Exam: Initial Vitals Temp Pulse Resp BP Pulse Ox 97.8 F 85 16 146/69 97 09/25/17 19:49 09/25/17 19:49 09/25/17 19:49 09/25/17 19:49 09/25/17 19:49 Vital Signs Reviewed: Yes Appearance: Positive: Well-Appearing, No Pain Distress Skin: Positive: Warm, Skin Color Reflects Adequate Perfusion, Dry Head/Face: Positive: Normal Head/Face Inspection Eyes: Positive: EOMI, ZAY ENT: Positive: Normal ENT inspection Neck: Positive: Supple, Nontender Respiratory/Lung Sounds: Positive: Clear to Auscultation, Breath Sounds Present Cardiovascular: Positive: RRR, Pulses are Symmetrical in both Upper and Lower Extremities Abdomen Description: Positive: Nontender, Soft Bowel Sounds: Positive: Present Musculoskeletal: Positive: Normal, Strength/ROM Intact Neurological: Positive: Sensory/Motor Intact, Alert, Oriented to Person Place, Time, Other - dizziness when moving his head Diagnostics - Vital Signs Vital Signs Temp Pulse Resp BP Pulse Ox 09/25/17 19:49 97.8 F 85 16 146/69 97 - Laboratory Lab Results: Lab Results 09/25/17 09/25/17 09/25/17 Range/Units 20:05 20:05 20:05 WBC 3.9 (3.5-10.8) 10^3/ul RBC 4.43 (4.0-5.4) 10^6/ul Hgb 13.1 L (14.0-18.0) g/dl Hct 38 L (42-52) % MCV 87 (80-94) fL MCH 30 (27-31) pg MCHC 34 (31-36) g/dl RDW 14 (10.5-15) % Plt Count 142 L (150-450) 10^3/ul MPV 7 L (7.4-10.4) um3 Neut % (Auto) 69.3 (38-83) % Lymph % (Auto) 18.9 L (25-47) % Gooding % (Auto) 8.8 (1-9) % Eos % (Auto) 2.5 (0-6) % Baso % (Auto) 0.5 (0-2) % Absolute Neuts (auto) 2.7 (1.5-7.7) 10^3/ul Absolute Lymphs (auto) 0.7 L (1.0-4.8) 10^3/ul Absolute Monos (auto) 0.3 (0-0.8) 10^3/ul Absolute Eos (auto) 0.1 (0-0.6) 10^3/ul Absolute Basos (auto) 0 (0-0.2) 10^3/ul Absolute Nucleated RBC 0 10^3/ul Nucleated RBC % 0 INR (Anticoag Therapy) 0.94 (0.89-1.11) APTT 29.7 (26.0-36.3) seconds Sodium 136 (133-145) mmol/L Potassium 3.8 (3.5-5.0) mmol/L Chloride 103 (101-111) mmol/L Carbon Dioxide 24 (22-32) mmol/L Anion Gap 9 (2-11) mmol/L BUN 16 (6-24) mg/dL Creatinine 0.93 (0.67-1.17) mg/dL Est GFR ( Amer) 101.6 (>60) Est GFR (Non-Af Amer) 79.0 (>60) BUN/Creatinine Ratio 17.2 (8-20) Glucose 131 H (70-100) mg/dL Calcium 9.1 (8.6-10.3) mg/dL Total Bilirubin 1.60 H (0.2-1.0) mg/dL AST 26 (13-39) U/L ALT 20 (7-52) U/L Alkaline Phosphatase 66 (34-104) U/L Troponin I 0.01 (<0.04) ng/mL Total Protein 6.4 (6.4-8.9) g/dL Albumin 4.4 (3.2-5.2) g/dL Globulin 2.0 (2-4) g/dL Albumin/Globulin Ratio 2.2 (1-3) Urine Color Urine Appearance Urine pH (5-9) Ur Specific [place] (1.010-1.030) Urine Protein (Negative) Urine Ketones (Negative) Urine Blood (Negative) Urine Nitrate (Negative) Urine Bilirubin (Negative) Urine Urobilinogen (Negative) Ur Leukocyte Esterase (Negative) Urine Glucose (Negative) Influenza A (Rapid) (Negative) Influenza B (Rapid) (Negative) 09/25/17 09/25/17 Range/Units 21:25 22:28 WBC (3.5-10.8) 10^3/ul RBC (4.0-5.4) 10^6/ul Hgb (14.0-18.0) g/dl Hct (42-52) % MCV (80-94) fL MCH (27-31) pg MCHC (31-36) g/dl RDW (10.5-15) % Plt Count (150-450) 10^3/ul MPV (7.4-10.4) um3 Neut % (Auto) (38-83) % Lymph % (Auto) (25-47) % Gooding % (Auto) (1-9) % Eos % (Auto) (0-6) % Baso % (Auto) (0-2) % Absolute Neuts (auto) (1.5-7.7) 10^3/ul Absolute Lymphs (auto) (1.0-4.8) 10^3/ul Absolute Monos (auto) (0-0.8) 10^3/ul Absolute Eos (auto) (0-0.6) 10^3/ul Absolute Basos (auto) (0-0.2) 10^3/ul Absolute Nucleated RBC 10^3/ul Nucleated RBC % INR (Anticoag Therapy) (0.89-1.11) APTT (26.0-36.3) seconds Sodium (133-145) mmol/L Potassium (3.5-5.0) mmol/L Chloride (101-111) mmol/L Carbon Dioxide (22-32) mmol/L Anion Gap (2-11) mmol/L BUN (6-24) mg/dL Creatinine (0.67-1.17) mg/dL Est GFR ( Amer) (>60) Est GFR (Non-Af Amer) (>60) BUN/Creatinine Ratio (8-20) Glucose (70-100) mg/dL Calcium (8.6-10.3) mg/dL Total Bilirubin (0.2-1.0) mg/dL AST (13-39) U/L ALT (7-52) U/L Alkaline Phosphatase (34-104) U/L Troponin I (<0.04) ng/mL Total Protein (6.4-8.9) g/dL Albumin (3.2-5.2) g/dL Globulin (2-4) g/dL Albumin/Globulin Ratio (1-3) Urine Color Yellow Urine Appearance Clear Urine pH 6.0 (5-9) Ur Specific [place] 1.013 (1.010-1.030) Urine Protein Negative (Negative) Urine Ketones Trace H (Negative) Urine Blood Negative (Negative) Urine Nitrate Negative (Negative) Urine Bilirubin Negative (Negative) Urine Urobilinogen Negative (Negative) Ur Leukocyte Esterase Negative (Negative) Urine Glucose Negative (Negative) Influenza A (Rapid) Negative (Negative) Influenza B (Rapid) Negative (Negative) Result Diagrams: 09/25/17 20:05 09/25/17 20:05 Lab Statement: Any lab studies that have been ordered have been reviewed, and results considered in the medical decision making process. - Radiology CXR Radiology Interpretation Completed By: Radiologist - No evidence for acute disease. ED physician has reviewed this radiology report and agrees. - CT Brain CT Interpretation Completed By: Radiologist - NO EVIDENCE FOR GROSS ACUTE INFARCT, MASS EFFECT OR HEMORRHAGE. ED physician has reviewed this radiology report and agrees. - EKG 2012 Cardiac Rate: NL EKG Rhythm: Sinus Rhythm - 82 bpm EKG Interpretation: No acute changes. Re-Evaluation - Re-Evaluation First Eval Re-Evaluation Time: 22:55 Change: Improved Comment: Pt feels better with meclizine. Discussed with pt about discharge plan. Dizzy Course/Dx - Course Assessment/Plan: This patient is a 77 year old M presenting to ED with a chief complaint of dizziness since 12 hours ago. Patient reports light-headed, SOB, nausea, RODRIGUES, and sore throat. Per EMS, he had vomiting x3 en route, and received Zofran 8mg IV. Patient denies abdominal pain, ear pain, CP, diaphoresis, and diarrhea. EKG reveals sinus rhythm at 82 bpm and no acute changes. In the ED course, pt was given fluids and Antivert. CXR reveals NAD. Brain CT reveals NO EVIDENCE FOR GROSS ACUTE INFARCT, MASS EFFECT OR HEMORRHAGE. Bloodwork/UA obtained. Pt will be discharged with meclizine and instructions to follow up with his PCP. - Diagnoses Differential Diagnosis/HQI/PQRI: Benign Paroxysmal Positional Vertigo, Labyrinthitis, Meniere's Disease, Vasovagal Reaction, Other - vertigo and dizziness Provider Diagnoses: Vertigo, Dizziness Discharge - Discharge Plan Condition: Stable Disposition: HOME Prescriptions: Meclizine HCl [Meclizine 25] 25 mg PO TID #20 tab Ondansetron ODT TAB* [Zofran 4 MG Odt TAB*] 4 mg PO Q8H PRN #20 tab.odt MDD 3 PRN Reason: Nausea Patient Education Materials: Vertigo (ED), Dizziness (ED) Referrals: Lesa Etienne MD [Primary Care Provider] - 3 Days The documentation as recorded by the Kenton urth Nikita accurately reflects the service I personally performed and the decisions made by , Merlin Mcnally.
[2017-09-26 00:31] VITALS: BP 138/80
== END 2017-09-26 00:25 | disposition home or self-care (01) ==
LOC: ED 19:47
DX: R42 Dizziness and giddiness (principal); R06.02 Shortness of breath; R51 Headache; R11.2 Nausea with vomiting, unspecified; Z79.01 Long term (current) use of anticoagulants; Z87.09 Personal history of other diseases of the respiratory system; Z87.891 Personal history of nicotine dependence
CPT/HCPCS: 36415; 70450; 71010; 80053; 81003; 84484; 85025; 85610; 85730; 87502; 93005; 96360; 99282; 99284; A9270-GY

== ENCOUNTER 2017-11-16 10:34 | Emergency (ER) | payer MEDICARE ==
[2017-11-16] MEDS ORDERED: NS 0.9% 1000 ML* 1,000 ML IV SCH (11:15)
--- NOTE | 2017-11-16 12:08 | RAD ---
Indication: Fell and struck head. Comparison: September 25, 2017 Technique: Noncontrast CT vertex of skull through foramen magnum. Report: The sulci, ventricles, and basal cisterns are normal for age. Carias matter white matter differentiation is preserved without evidence for edema. No intra or extra axial hemorrhage is detected. Unremarkable visualized orbital contents. Negative for calvarial or skull base fracture. Negative for scalp hematoma. The visualized paranasal sinuses and mastoid air spaces are clear. IMPRESSION: No CT evidence for traumatic brain injury. Negative unenhanced head CT for age.
[2017-11-16 12:15] LABS: ABS Basophils 0 10^3/ul (0-0.2); ABS Eosinophils 0.2 10^3/ul (0-0.6); ABS Lymphocytes 0.9 10^3/ul (1.0-4.8); ABS Monocytes 0.4 10^3/ul (0-0.8); ABS Neutrophils 2.5 10^3/ul (1.5-7.7); ABS Nucleated RBC 0 10^3/ul; Eosinophil % 3.8 % (0-6); Hematocrit 39 % (42-52); Hemoglobin 13.3 g/dl (14.0-18.0); Mean Corpuscular HGB Conc 34 g/dl (31-36); Mean Corpuscular Hemoglobin 30 pg (27-31); Mean Corpuscular Volume 87 fL (80-94); Mean Platelet Volume 7 um3 (7.4-10.4); Nucleated Red Blood Cells % 0; Platelet Count 168 10^3/ul (150-450); Red Blood Count 4.49 10^6/ul (4.0-5.4); Red Cell Distribution Width 14 % (10.5-15); White Blood Count 3.9 10^3/ul (3.5-10.8)
[2017-11-16 12:27] LABS: EGFR Non-African American 85.3 (>60)
[2017-11-16 12:34] LABS: INR 0.9 (0.77-1.02)
--- NOTE | 2017-11-16 12:37 | RAD ---
Indication: Head injury after fall. CT of the cervical spine was obtained in the axial plane. Sagittal and coronal reconstructed images were obtained. The skull base demonstrates no fracture. C1 ring is intact. Degenerative changes of the atlantoaxial joint is noted. Pannus is noted at the atlantoaxial joint and I cannot totally exclude rheumatoid arthritis. Clinical correlation is suggested. No fracture of C2 over C3 is noted. Patient no central or foraminal stenosis is noted. Grade 1 spondylolisthesis of C3-C4 is noted. Facet arthropathy is noted on the left. No definite foraminal or central stenosis is noted. At C4-C5 there is grade 1 spondylolisthesis. Spondylitic ridge is noted. Left facet arthropathy is noted. No central foraminal stenosis is noted. Kyphosis deformity is noted at C4-C5. At C5-C6 and C6-C7 degenerative disc disease with spondylytic ridge and broad-based protrusion flattens the thecal sac. No central or foraminal stenosis is noted. Spinal canal appears to be intact. Lung apices are otherwise unremarkable. IMPRESSION: Kyphosis deformity at C4-C5. Marked facet arthropathy is noted. Grade 1 spinal listhesis of C3 on 4 and C4 on 5 is noted. No fracture is identified. Marked degenerative changes at C5-C6 and C6-C7 with endplate changes and osteophyte formation.
[2017-11-16] MEDS ORDERED: Meclizine TAB* 12.5 MG PO ONE (13:21)
[2017-11-16 13:45] LABS: Urine Appearance Clear; Urine Blood Negative (Negative); Urine Color Yellow; Urine Ketones Negative (Negative); Urine Protein Negative (Negative); Urine Specific Gravity 1.018 (1.010-1.030); Urine Urobilinogen Negative (Negative)
--- NOTE | 2017-11-16 15:38 | ED ---
Ralph Jain Angela, scribed for Dante August MD on 11/16/17 at 1138 . Syncope/Near Syncope - HPI Summary HPI Summary: This pt is a 77 y/o male presenting to [facility] via EMS from home for syncopal episode this morning. Pt reports that he woke up this morning and was looking at his watch at around 08:30 today while at bed, and is unsure if he was walking around or was on his bed prior to his fall. He remembers that he "saw the floor coming." He landed on the floor in between his bed and the nightstand. Pt states he was confused upon getting up and he couldn't figure out how to use his phone to call 911. He notes "there's a moment that's missing " prior to his fall. Pt now c/o frontal headache, right zhang pain, still some confusion and is a little out of it, mild dizziness. He notes he has neck pain and left shoulder pain, that are both chronic. He denies chest pain, SOB, nausea , abd pain, urinary symptoms, constipation, diarrhea, ear ache. In the past month pt notes he has fallen approximately 6 times, last time he fell was 1 week ago. He had a fall last year where he was down for 40 minutes. Pt states he has been getting intermittent vertigo over the past week. Pt reports that when he turns his head and turning in bed causes his vertigo. Pt describes room spinning and nystagmus sensation. He notes he used to have vertigo many years ago but it resolved on its own over time. Pt has never seen a PCP for this. He takes Meclizine for his vertigo. He notes that "there are a lot of blanks" that began approximately 4 weeks ago. PMHx: CHF (diagnosed 3 years ago), cardiac stents x3. Denies DE or CVA. Pt states he had DM but lost 150 lbs due to CHF and no longer needs to take medications for DM. Pt has an event monitor, followed up by Dr. Dumont. His medications include metoprolol, aspirin, Plavix, Gabapentin, and potassium. Allergies include morphine (had psychotic episode reaction). - History Of Current Complaint Chief Complaint: EDHeadInjury Time Seen by Provider: 11/16/17 10:50 Hx Obtained From: Patient Onset/Duration: Sudden Onset, Resolved Timing: Minutes Context: Loss Of Consciousness Activity At Onset: Other - getting up from bed Aggravating Factor(s): Nothing Alleviating Factor(s): Spontaneous Resolution Associated Signs And Symptoms: Other - POS: chronic left shoulder pain, chronic neck pain, frontal headache, right zhang pain, still some confusion and is also still a little out of it. NEG: chest pain, SOB, nausea, vomiting, abd pain. - Allergies/Home Medications Allergies/Adverse Reactions: Allergies Allergy/AdvReac Type Severity Reaction Status Date / Time Morphine Allergy AGGRESIVE Verified 09/25/17 19:55 BEHAVIOR Ethanol AdvReac Severe vomiting - Verified 09/25/17 19:55 [From Duragesic Disc "sicker Transdermal System] than a dog" Fentanyl AdvReac Severe vomiting - Verified 09/25/17 19:55 [From Duragesic Disc "sicker Transdermal System] than a dog" Home Medications: Home Medications Fluticasone NASAL SPRAY 50MCG* [Flonase NASAL SPRAY 50MCG*] 2 spray BOTH NARES DAILY 11/16/17 [History Confirmed 11/16/17] Metoprolol Succinate XL TAB* [Toprol XL TAB*] 50 mg PO DAILY 11/16/17 [History Confirmed 11/16/17] Pantoprazole TAB (NF) [Protonix TAB (NF)] 20 mg PO DAILY 11/16/17 [History Confirmed 11/16/17] PMH/Surg Hx/FS Hx/Imm Hx Endocrine/Hematology History: Reports: Hx Anticoagulant Therapy - plavix/asa, Hx Anemia Denies: Hx Blood Disorders, Hx Blood Transfusions, Hx Bone Marrow Disease, Hx Diabetes - diet controlled, better now [facility] eight loss., Hx Systemic Lupus Erythematosus, Hx Sickle Cell Disease, Hx Thyroid Disease, Hx Unexplained Bleeding, Other Endocrine/Hematological Disorders Cardiovascular History: Reports: Hx Angina, Hx Angioplasty, Hx Congestive Heart Failure, Hx Coronary Artery Disease - Stents 2008(RCA),2013(LAD), Hx Hypercholesterolemia, Hx Hypertension, Other Cardiovascular Problems/Disorders - CHF Denies: Hx Aneurysm, Hx Auto Implanted Cardiovert Defib, Hx Cardiac Arrest, Hx Cardiomegaly, Hx Congenital Heart Disease, Hx Deep Vein Thrombosis, Hx Hypotension, Hx Myocardial Infarction, Hx Pacemaker/ICD, Hx Peripheral Vascular Disease, Hx Rheumatic Fever, Hx Syncope, Hx Valvular Heart Disease Respiratory History: Reports: Hx Chronic Bronchitis, Hx Chronic Obstructive Pulmonary Disease (COPD) - COPD, Hx Pneumonia - mostly in childhood, Hx Seasonal Allergies, Hx Sleep Apnea - cannot tolerate CPAP, Other Respiratory Problems/Disorders Denies: Hx Asthma, Hx Cystic Fibrosis, Hx Lung Cancer, Hx Pleural Effusion, Hx Pulmonary Edema, Hx Pulmonary Embolism GI History: Reports: Hx Gall Bladder Disease - Gall bladder removed in 2009, Hx Gastroesophageal Reflux Disease, Hx Hiatal Hernia - Has umbilical hernia, Other GI Disorders - POST-CHOLECYSTECTOMY SYNDROME Denies: Hx Cirrhosis, Hx Crohn's Disease, Hx Diverticulosis, Hx Gastrointestinal Bleed, Hx Irritable Bowel, Hx Jaundice, Hx Obstructive Bowel, Hx Ileostomy, Hx Pyloric Stenosis, Hx Ulcer History: Reports: Hx Benign Prostatic Hyperplasia Denies: Hx Dialysis, Hx Renal Disease Musculoskeletal History: Reports: Hx Arthritis, Hx Back Problems - CHRONIC BACK PAIN, Hx Osteoporosis, Other Musculoskeletal History - DDD Denies: Hx Bursitis, Hx Congenital Bone Abnormalities, Hx Fibromyalgia, Hx Gout, Hx Orthopedic Injury, Hx Scoliosis, Hx Tendonitis Sensory History: Reports: Hx Contacts or Glasses, Hx Hearing Aid, Hx Hearing Problem Denies: Hx Cataracts, Hx Eye Injury, Hx Eye Prosthesis, Hx Glaucoma, Hx Macular Degeneration, Hx Vision Problem, Hx Deafness, Other Sensory Impairments Opthamlomology History: Reports: Hx Contacts or Glasses Denies: Hx Cataracts, Hx Eye Injury, Hx Eye Prosthesis, Hx Glaucoma, Hx Macular Degeneration, Hx Vision Problem, Other Sensory Impairments Neurological History: Reports: Other Neuro Impairments/Disorders - LUMBAR SURGERY Denies: Hx Dementia, Hx Seizures Psychiatric History: Reports: Hx Anxiety, Hx Depression Denies: Hx Attention Deficit Hyperactivity Disorder, Hx Eating Disorder, Hx Panic Disorder, Hx Post Traumatic Stress Disorder, Hx Inpatient Treatment, Hx [facility] Mental Health Tx, Hx Schizophrenia, Hx Bipolar Disorder, Hx Suicide Attempt, Hx Substance Abuse - paige/LS spinal fusion/hyatal hernia repair/, Other Psychiatric Issues/Disorders - Surgical History Surgery Procedure, Year, and Place: Vouch LINQ RECORDER [id number] 1.5 ONLY. LEFT SHOULDER REPLACEMENT 02/2017. TONSILS. GALLBLADDER. LSP SURGERY-LATER REPAIRED. HIATAL HERNIA. RENE FUNDOPLICATION. HEART STENTS X3 Hx Anesthesia Reactions: No - Immunization History Date of Tetanus Vaccine: up to date Date of Influenza Vaccine: 2016 Infectious Disease History: No Infectious Disease History: Denies: Hx Clostridium Difficile, Hx Hepatitis, Hx Human Immunodeficiency Virus (HIV), Hx of Known/Suspected MRSA, Hx Shingles, Hx Tuberculosis, Hx Known/ Suspected VRE, Hx Known/Suspected VRSA, History Other Infectious Disease, Traveled Outside the [place] in Last 30 Days - Family History Known Family History: Positive: Cardiac Disease - Mom, grandparent both of CHF, Hypertension, Other - Mother: vertigo - Social History Lives: With Family - Alcohol Use: None Substance Use Type: Reports: None Hx Tobacco Use: No Smoking Status (MU): Former Smoker Type: Cigarettes Amount Used/How Often: 1 ppd Length of Time of Smoking/Using Tobacco: 31 years Have You Smoked in the Last Year: No Review of Systems Negative: Fever, Chills Negative: Ear Ache Negative: Chest Pain Negative: Shortness Of Breath Negative: Abdominal Pain, Vomiting, Diarrhea, Nausea, Other - constipation Positive: no symptoms reported Musculoskeletal: Other - left shoulder pain, right zhang pain, chronic neck pain Neurological: Other - vertigo, some confusion Positive: Headache, Syncope All Other Systems Reviewed And Are Negative: Yes Physical Exam - Summary Physical Exam Summary: General: well-appearing, no pain distress Skin: warm, color reflects adequate perfusion, dry Head: normal Eyes: EOMI, PERRL. one going beat right nystagmus. ENT: normal Neck: supple, nontender Respiratory: CTA, breath sounds present Cardiovascular: RRR Abdomen: soft, nontender Bowel: present Musculoskeletal: normal, strength/ROM intact Neurological: normal, sensory/motor intact, A&O x3 Psychological: affect/mood appropriate Triage Information Reviewed: Yes Vital Signs On Initial Exam: Initial Vitals Temp Pulse Resp BP Pulse Ox 97.7 F 60 18 135/72 97 11/16/17 10:37 11/16/17 10:37 11/16/17 10:37 11/16/17 10:37 11/16/17 10:37 Vital Signs Reviewed: Yes - [place]ie Coma Scale Coma Scale Total: 15 Diagnostics - Vital Signs Vital Signs Temp Pulse Resp BP Pulse Ox 11/16/17 10:42 58 24 97 11/16/17 10:41 135/72 11/16/17 10:37 97.7 F 60 18 135/72 97 - Laboratory Lab Results: Lab Results 11/16/17 11/16/17 11/16/17 Range/Units 12:00 12:00 12:00 WBC (3.5-10.8) 10^3/ul RBC (4.0-5.4) 10^6/ul Hgb (14.0-18.0) g/dl Hct (42-52) % MCV (80-94) fL MCH (27-31) pg MCHC (31-36) g/dl RDW (10.5-15) % Plt Count (150-450) 10^3/ul MPV (7.4-10.4) um3 Neut % (Auto) (38-83) % Lymph % (Auto) (25-47) % [place] % (Auto) (1-9) % Eos % (Auto) (0-6) % Baso % (Auto) (0-2) % Absolute Neuts (auto) (1.5-7.7) 10^3/ul Absolute Lymphs (auto) (1.0-4.8) 10^3/ul Absolute Monos (auto) (0-0.8) 10^3/ul Absolute Eos (auto) (0-0.6) 10^3/ul Absolute Basos (auto) (0-0.2) 10^3/ul Absolute Nucleated RBC 10^3/ul Nucleated RBC % INR (Anticoag Therapy) 0.90 (0.77-1.02) APTT 35.1 (26.0-36.3) seconds Sodium 139 (133-145) mmol/L Potassium 4.3 (3.5-5.0) mmol/L Chloride 105 (101-111) mmol/L Carbon Dioxide 29 (22-32) mmol/L Anion Gap 5 (2-11) mmol/L BUN 19 (6-24) mg/dL Creatinine 0.87 (0.67-1.17) mg/dL Est GFR ( Amer) 109.7 (>60) Est GFR (Non-Af Amer) 85.3 (>60) BUN/Creatinine Ratio 21.8 H (8-20) Glucose 115 H (70-100) mg/dL Lactic Acid (0.5-2.0) mmol/L Calcium 9.0 (8.6-10.3) mg/dL Magnesium 2.3 (1.9-2.7) mg/dL Total Bilirubin 0.80 (0.2-1.0) mg/dL AST 19 (13-39) U/L ALT 16 (7-52) U/L Alkaline Phosphatase 65 (34-104) U/L Troponin I 0.00 (<0.04) ng/mL C-Reactive Protein < 1.00 (< 5.00) mg/L B-Natriuretic Peptide 17 ( - 100) pg/mL Total Protein 6.1 L (6.4-8.9) g/dL Albumin 3.9 (3.2-5.2) g/dL Globulin 2.2 (2-4) g/dL Albumin/Globulin Ratio 1.8 (1-3) Lipase 17 (11.0-82.0) U/L TSH 0.87 (0.34-5.60) mcIU/mL Urine Color Urine Appearance Urine pH (5-9) Ur Specific [place] (1.010-1.030) Urine Protein (Negative) Urine Ketones (Negative) Urine Blood (Negative) Urine Nitrate (Negative) Urine Bilirubin (Negative) Urine Urobilinogen (Negative) Ur Leukocyte Esterase (Negative) Urine Glucose (Negative) 11/16/17 11/16/17 11/16/17 Range/Units 12:00 12:00 13:27 WBC 3.9 (3.5-10.8) 10^3/ul RBC 4.49 (4.0-5.4) 10^6/ul Hgb 13.3 L (14.0-18.0) g/dl Hct 39 L (42-52) % MCV 87 (80-94) fL MCH 30 (27-31) pg MCHC 34 (31-36) g/dl RDW 14 (10.5-15) % Plt Count 168 (150-450) 10^3/ul MPV 7 L (7.4-10.4) um3 Neut % (Auto) 62.9 (38-83) % Lymph % (Auto) 23.0 L (25-47) % [place] % (Auto) 9.4 H (1-9) % Eos % (Auto) 3.8 (0-6) % Baso % (Auto) 0.9 (0-2) % Absolute Neuts (auto) 2.5 (1.5-7.7) 10^3/ul Absolute Lymphs (auto) 0.9 L (1.0-4.8) 10^3/ul Absolute Monos (auto) 0.4 (0-0.8) 10^3/ul Absolute Eos (auto) 0.2 (0-0.6) 10^3/ul Absolute Basos (auto) 0 (0-0.2) 10^3/ul Absolute Nucleated RBC 0 10^3/ul Nucleated RBC % 0 INR (Anticoag Therapy) (0.77-1.02) APTT (26.0-36.3) seconds Sodium (133-145) mmol/L Potassium (3.5-5.0) mmol/L Chloride (101-111) mmol/L Carbon Dioxide (22-32) mmol/L Anion Gap (2-11) mmol/L BUN (6-24) mg/dL Creatinine (0.67-1.17) mg/dL Est GFR ( Amer) (>60) Est GFR (Non-Af Amer) (>60) BUN/Creatinine Ratio (8-20) Glucose (70-100) mg/dL Lactic Acid 0.9 (0.5-2.0) mmol/L Calcium (8.6-10.3) mg/dL Magnesium (1.9-2.7) mg/dL Total Bilirubin (0.2-1.0) mg/dL AST (13-39) U/L ALT (7-52) U/L Alkaline Phosphatase (34-104) U/L Troponin I (<0.04) ng/mL C-Reactive Protein (< 5.00) mg/L B-Natriuretic Peptide ( - 100) pg/mL Total Protein (6.4-8.9) g/dL Albumin (3.2-5.2) g/dL Globulin (2-4) g/dL Albumin/Globulin Ratio (1-3) Lipase (11.0-82.0) U/L TSH (0.34-5.60) mcIU/mL Urine Color Yellow Urine Appearance Clear Urine pH 7.0 (5-9) Ur Specific [place] 1.018 (1.010-1.030) Urine Protein Negative (Negative) Urine Ketones Negative (Negative) Urine Blood Negative (Negative) Urine Nitrate Negative (Negative) Urine Bilirubin Negative (Negative) Urine Urobilinogen Negative (Negative) Ur Leukocyte Esterase Negative (Negative) Urine Glucose Negative (Negative) Result Diagrams: 01/17/18 12:00 11/16/17 12:00 Lab Statement: Any lab studies that have been ordered have been reviewed, and results considered in the medical decision making process. - CT Brain CT CT Interpretation: No Acute Changes - IMPRESSION: No CT evidence for traumatic brain injury. Negative unenhanced head CT for age. Dr. August has reviewed this radiology report. CT Interpretation Completed By: Radiologist Cervical spine CT CT Interpretation: Positive (See Comments) - IMPRESSION: Kyphosis deformity at C4-C5. Marked facet arthropathy is noted. Grade 1 spinal listhesis of C3 on 4 and C4 on 5 is noted. No fracture is identified. Marked degenerative changes at C5-C6 with endplate changes and osteophyte formation. Dr. August has reviewed this radiology report. CT Interpretation Completed By: Radiologist - EKG 11:16 Cardiac Rate: Bradycardia EKG Rhythm: Sinus Bradycardia - at 52 bpm Ectopy: PACs EKG Interpretation: Minimal ST elevation at the anterolateral leads. EKG Comparison: No Significant Change - similar to prior EKG done on 09/25/17. Course/Dx Course Of Treatment: Medications reviewed. Allergies noted. Brain CT is negative. Cervical spine CT is negative for fracture, but shows kyphosis deformity at C4-C5. Marked facet arthropathy is noted. Grade 1 spinal listhesis of C3 on 4 and C4 on 5 is noted. No fracture is identified. I discussed pt care with Dr. Plaza, neurologist. HE RECOMMENDED F/U WITH HIM IN HIS OFFICE. I DISCUSSED THIS WITH THE PATIENT. ORTHOSTATICS AND WALKING NORMAL IN THE ED. F/ U NEURO; RETURN IF WORSE. - Diagnoses Provider Diagnoses: Dizziness, Falls frequently - Physician Notifications Discussed Care of Patient With: Cally Palza Time Discussed With Above Provider: 14:27 Instructed by Provider To: Other - I discussed pt care with Dr. Plaza neurologist. Discharge - Discharge Plan Condition: Stable Disposition: HOME Patient Education Materials: Dizziness (ED), Fall Prevention for Older Adults ( ED) Referrals: Lesa Etienne MD [Primary Care Provider] - Additional Instructions: FOLLOW UP WITH YOUR PRIMARY CARE DOCTOR AND DR PLAZA, NEUROLOGY. RETURN TO THE EMERGENCY DEPARTMENT FOR ANY WORSENING OF YOUR CONDITION OR QUESTIONS OR CONCERNS. The documentation as recorded by the Ralph ruth Angela accurately reflects the service I personally performed and the decisions made by me, Dante August MD.
[2017-11-16 16:52] VITALS: BP 124/72
== END 2017-11-16 16:52 | disposition home or self-care (01) ==
LOC: ED 10:34
DX: R42 Dizziness and giddiness (principal); Z91.81 History of falling; M40.202 Unspecified kyphosis, cervical region; M43.12 Spondylolisthesis, cervical region; M50.323 Other cervical disc degeneration at C6-C7 level; Z87.891 Personal history of nicotine dependence; Z88.5 Allergy status to narcotic agent; Z88.8 Allergy status to other drugs, medicaments and biological substances
CPT/HCPCS: 36415; 70450; 72125; 80053; 81003; 83605; 83690; 83735; 83880; 84443; 84484; 85025; 85610; 85730; 86140; 93005; 96360; 96361; 99283; A9270-GY

== ENCOUNTER 2018-01-21 16:18 | Emergency (ER) | payer MEDICARE ==
--- OUTSIDE RECORDS SUMMARY | 2018-01-21 16:27 | XMS REPORT ---
:1940 External Reference #:[id number] Author Organization [facility] Address [address] [address] Phone [phone] Care Team Providers Name Role Phone Lesa Etienne MD Primary Care Physician Unavailable Payers Type Date Identification Numbers Payment Provider Subscriber Health Maintenance Effective: Policy Number: Medicare [place] [facility] [place] 10/31/2013 [id number] [facility] Group Number: [id number] [address] [address] PayID: [id number] NICHOLE [place] [address] Health Maintenance Effective: Policy Number: Medicare [place] Young [employer] ([facility] 10/31/2012 [id number] [facility] Expires: 10/30/2013 Group Number: [id number] [address] [address] PayID: [id number] NICHOLE [place] [address] Health Maintenance Effective: Policy Number: Medicare [place] [employer] ([facility] 07/31/2008 [id number] [facility] Expires: 10/31/2012 Group Number: [id number] [address] [address] Group Name: Medicare Blue Ppo Direct NICHOLE Wilson [address] PayID: [id number] Problems Date Description Provider Status Onset: 09/18/2013 Low back pain Dustin Duncan M.D. Active Onset: 09/18/2013 Neck pain Dustin Duncan M.D. Active Onset: 09/18/2013 Lumbar post-laminectomy syndrome Dustin Duncan M.D. Active Onset: 09/18/2013 Sciatica Dustin Duncan M.D. Active Onset: 11/21/2013 Coronary arteriosclerosis Eliot Dumont M.D. Active Onset: 11/21/2013 Precordial pain Eliot Dumont M.D. Active Onset: 03/18/2014 Brachial neuritis Dustin Duncan M.D. Active Onset: 07/22/2014 Degenerative joint disease involving Drew Ordoñez M.D. Active multiple joints Onset: 07/22/2014 Localized, primary osteoarthritis of Drew Ordoñez M.D. 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 Active Onset: 07/14/2015 Cervical spondylosis with myelopathy Dustin Duncan M.D. Active Onset: 08/08/2015 Cervical spondylosis without Dustin Duncan M.D. Active myelopathy Onset: 11/10/2015 Restless legs Dustni Duncan M.D. Active Onset: 02/11/2016 Chronic obstructive lung disease Gabriela Hawk MD Active Onset: 02/11/2016 Obstructive sleep apnea syndrome Gabriela Hawk MD Active Onset: 03/30/2016 Dyspnea Gabriela Hawk MD Active Onset: 03/30/2016 Obesity Gabriela Hawk MD Active Onset: 12/24/2016 Sprain of shoulder and upper arm Michelle Weiss MD Active Onset: 12/24/2016 Localized, primary osteoarthritis of Michelle Weiss MD Active the shoulder region Onset: 03/15/2017 Prosthetic arthroplasty of shoulder Michelle Weiss MD Active Onset: 11/17/2017 Closed fracture of scapula Michelle Weiss MD Active Family History Date Family Member(s) Problem(s) Comments Father Congestive Heart Failure (CHF) Father Cerebral hemorrhage - at age 87 Mother Stroke Mother CHF, A-fib - at age 97 Siblings 1 Sister, medical issues Social History Type Date Description Comments Marital Status Lives With 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, 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 Cigarette Use Former Cigarette Smoker ETOH Use Never used alcohol Smoking Patient is a former smoker hx 1 pack cigarettes per day,quit 1996 Recreational Drug Use Denies Drug Use Daily Caffeine Does Not Consume Caffeine Exercise Type/Frequency Exercises rarely Allergies, Adverse Reactions, Alerts Date Description Reaction Status Severity Comments 11/21/2013 Durgesic Patch nausea, vomiting active Moderate to Severe 08/03/2017 Morphine Irrational behavior active 09/18/2013 NKDA inactive Medications Medication Date Status Form Strength Qnty SIG Indications Ordering Provider Tramadol HCL 01/09 Active Tablets 50mg 30tab 1-2 S42.102A Rodger s tablets TOBY Batista every 12 hours as needed for pain. Sertraline HCL 12/29 Active Tablets 25mg 30tab 1 by mouth F32.89 Rodger s every day TOBY Batista Deep Moisture 11/24 Active Liquid Rodger Body Wash TOBY Batista Diclofenac Sodium 09/09 Active Gel 1% 100gm apply 2 M54.5 grams to TOBY Batista affected area twice daily Pantoprazole 09/[address] 20mg 30tab take 1 K21.9 Rodger Sodium s tablet by TOBY Batista mouth one time daily Metoprolol 08/04 Active Tablets ER 50mg 30tab 1 by mouth Rodger Succinate 24HR s every day TOBY Batista Symbicort 07/11 Active Aerosol 160-4.5mc 6gm 2 puff g/Act inhaled TOBY Batista twice a day Fluticasone 07/11 Active Suspension 50mcg/Act 16uni Use 2 Rodger Propionate ts Sprays In TOBY Batista Each Nostril Daily Alprazolam 12/09 Active Tablets 0.25mg 60tab one by Rodger s mouth TOBY Batista twice daily as needed for anxiety Cholestyramine 09/03 Active Powder 4GM/Dose 378un use 1 its scoop TOBY Batista mixed with 8oz's of orange juice or water twice daily Potassium 08/30 Active Tablets ER 20Meq 120ta 2 by mouth Rodger Chloride ER bs twice a TOBY Batista day Lasix 08/16 Active Tablets 40mg 90tab 1 by mouth Rodger s every TOBY Batista morning Lasix 17 Active Tablets 20mg 15tab 1/2 by Rodger s mouth TOBY Batista every day at at bedtime Athletic Recovery 03/22 Active Misc 2unit apply R60.0 Rodger Socks/Male/15-20M /2015 s before TOBY Batista MHG/Size D getting out of bed in the morning and removed at bedtime Ventolin HFA 02/09 Active Aerosol 108(90Bas 2 puffs by e) mouth four mcg/Act times a day as needed Spiriva 02/09 Active Capsules 18mcg 90cap inhale Gabriela Handihaler s contents Kenn, of 1 MD capsule by mouth once daily Simvastatin 09/04 Active Tablets 10mg 90tab take 2 Eliot s tablets by Katelyn Dumont, mouth at M.D. bedtime Wrist Splint 05/01 Active Misc QS use on 715.14 Zsofia Elastic/Large/X-L both Robin, arge wrists and [employer] hands as needed Pramipexole 08/27 Active Tablets 0.5mg 30tab take 1 tab Rodger Dihydrochloride s by mouth TOBY Batista at 5pm in addition to 0.75mg nightly at bedtime Clopidogrel 01/21 Active Tablets 75mg 90tab 1 tab by Eliot Bisulfate s mouth Katelyn Dumont, every day M.D. Pramipexole 11/27 Active Tablets 0.75mg 90tab 1 tab by Rodger Dihydrochloride s mouth TOBY Batista every night for restless legs Tamsulosin HCL Active Capsules 0.4mg 90cap 1 by mouth Rodger s every day TOBY Batista as needed Multi-Vitamins Active Tablets 30tab 1 po qd s Aspirin Active Tablets 81mg 1 po qd Claritin Active Tablets 10mg 30tab 2 po qd s Nitrostat Active Tablets Sub 0.4mg 25tab one sl Eliot s q5min up Katelyn Dumont, to 3 doses M.D. as needed for chest pain Co Q-10 Active Capsules 100mg one daily [place] 3 Krill Oil Active 300mg qd Nitro-Dur Active Patches 0.6mg/HR 30uni apply one I25.10 Eliot 24HR ts to donovan Wells daily M.D. , on each in the morning , off each at night Acetaminophen 8 00 Active Tablets ER 650mg 2 bid prn Unknown Hour /0000 Zantac 150 00 Active Tablets 150mg one tablet Unknown Maximum Strength /0000 twice daily as needed Gabapentin Active Capsules 400mg 540ca take two M54.5 Rodger /0000 ps capsule by TOBY Batista mouth three times daily Meclizine HCL Active Tablets 25mg 60tab 1 tablet Unknown /0000 s every 8 hours as needed for vertigo Hydrocodone-Aceta Active Tablets 5-325mg 1 or 2 Unknown minophen / tabs by mouth every 6-8 hours as needed for pain Omeprazole 09/[address] 20mg 30cap 1 by mouth K21.9 Rodger s once daily TOBY Batista - 09/09 Hydrocodone-Aceta 08/15 Hx Tablets 5-325mg 60tab take 1 M54.5 Rodger min s tablets TOBY Batista - every 12 01/08 hours for pain. Keflex 02/10 Hx Capsules 500mg 20cap take 1 tab M19.012 neb s by mouth Abhishek, - four times 08/08 a day x days Percocet 02/10 Hx Tablets 5-325mg 60tab 1-2 tabs M19.012 neb s by mouth Abhishek, - every 4-6 08/08 hours needed pain Symbicort 02/03 Hx Aerosol 80-4.5mcg 10.2u 2 puff Rodger /Act nits twice a TOBY Batista - day 02/14 Paroxetine HCL 09/28 Hx Tablets 20mg 120ta 1 by mouth F41.9 Rodger /2015 bs bid TOBY Batista - 09/28 Paroxetine HCL 09/28 Hx Tablets 40mg 90tab 1 by mouth F32.89 Rodger s every day TOBY Batista - 12/29 Fluoxetine HCL 08/26 Hx Tablets 10mg F41.9 Rodger TOBY Batista - 08/26 Paroxetine HCL 08/26 Hx Tablets 10mg 30tab 1 by mouth F41.9 Rodger s every day Lynne, SHOW HOST OR HOSTESS - 09/28 Lasix 08/09 Hx Tablets 20mg 75tab 2 po qam, Rodger s 1/2 po q Lynne, SHOW HOST OR HOSTESS - pm 08/16 Escitalopram 07/26 Hx Tablets 10mg 45tab 09/01 F41.9 Rodger Oxalate s tablets Lynne, SHOW HOST OR HOSTESS - once daily 08/26 Escitalopram 05/26 Hx Tablets 10mg 30tab 09/01 F32.8 Rodger Oxalate s tablets Lynne, SHOW HOST OR HOSTESS - once daily 07/26 Symbicort 02/10 Hx Aerosol 80-4.5mcg 20.4u Inhale 2 Gabriela /Act nits Puffs By Kenn, - Mouth 06/21 Daily Prednisone 02/09 Hx Tablets 10mg as directed - 02/17 Dulera 02/09 Hx Aerosol 100-5mcg/ 26.4g 2 puff Act m twice a Kenn, - day 03/10 Cheratussin ac 02/09 Hx Syrup 100-10mg/ take 10 5ML milliliter - s every 4 03/22 hours needed for cough. Gabapentin 05/09 Hx Tablets 600mg 90tab 2 tablets M54.5 Dustin Hutchinson /2014 s tiFelicitas Light MJerry 02/03 Lidocaine 05/01 Hx Ointment 5% 50gm use 715.14 Zsofia sparinshadi Kelly, - in [employer] 02/17 affected area twice daily as needed Voltaren 04/23 Hx Gel 1% 1unit apply to M15.0 Zsofi s thumb/fing Robin, - er joint [employer] 06/21 times a day (no longer using) Nitroglycerin 02/28 Hx Patches 0.4mg/HR 90uni 1 patch I25.10 Eliot 24HR ts applied to DAguilar Dumont, - chest wall M.DAguilar 08/26 daily in the in the morning and take off at night Voltaren 07/22 Hx Gel 1% 1unit apply to 715.09 Drew /2013 s thumb/fing Tiago, - er joint M.D. 08/27 times a day Gabapentin 11/27 Hx Capsules 300mg 90cap 1 by mouth 724.2 Dustin Hutchinson /2013 s three Dakota, - times a M.D. 05/09 day or directed. Gabapentin 09/18 Hx Capsules 300mg 1 po bid Dustin Hutchinson [place], - M.D. 11/27 Atenolol 09/18 Hx Tablets 25mg 180ta 1 by mouth Rodger bs twice a Lynne SHOW HOST OR HOSTESS - day 08/04 Acetaminophen 09/18 Hx Tablets 500mg 1 po Dustin Hutchinson Extra Strength n2mvflx Dakota - M.DAguilar 06/21 Clopidogrel 07/26 Hx Tablets 75mg 90tab 1 tab by Eliot s mouth D. Brand, - every day M.D. 01/21 Methocarbamol 05/21 Hx Tablets 750mg 180ta Take Two Dustin Hutchinson bs Tablets By Dakota, - Mouth M.D. 09/18 Times Daily Max Of 6 Per Day Oxycodone HCL 04/09 Hx Tablets 15mg 90tab 1 tablet Dustin Hutchinson s po qid prn Dakota, - severe M.D. 09/18 pain Gabapentin 03/24 Hx Tablets 800mg 120ta Take One Dustin Hutchinson bs Tablet By Dakota, - Mouth Four M.D. 09/18 Daily Simvastatin 01/16 Hx Tablets 20mg 90tab 1 by mouth Eliot s every DAguilar Brand, - night at M.D. 09/04 bedtime Valium 05/02 Hx Tablets 10mg 3tabs 1/ to 1 Dustin Hutchinson two hours Dakota, - prior to M.D. 09/18 repeat q1h prn anxiety Pramipexole 04/11 Hx Tablets 0.25mg 30tab Take One Dustin Millerchloride s Tablet By [place], - Mouth M.D. 11/27 Morning For Daytime Restless Leg Pramipexole 02/07 Hx Tablets 0.5mg 30tab Take One Dustin Hutchinson Dihydrochloride s Tablet By Felicitas Duncan M.D. 11/27 Nightly At Bedtime Pramipexole 12/13 Hx Tablets 0.25mg 30tab one po [facility] Felicit[facility] Duncan M.D. 02/07 Methylprednisolon 11/09 Hx Tablets 4mg 30tab two po bid Dustin Hutchinson s x 7 days Felicitas Duncan M.D. 12/13 Oxycodone HCL 08/03 Hx Tablets 5mg 120ta 1-2 po qid Dustin Hutchinson bs prn pain Felicitas Duncan M.D. 04/09 Pramipexole 07/06 Hx Tablets 0.125mg 30tab one po qhs [facility] as Felicitas Duncan M.D. 12/13 Medrol Dosepak 09/08 Hx Tablets 4mg 1tabs follow Dustin Hutchinson /2009 package Felicitas Duncan M.D. 04/19 with food Celebrex 08/04 Hx Capsules 200mg 60cap 1 po bid Dustin Hutchinson s prn Felicitas Duncan M.D. 11/09 Valium 10/14 Hx Tablets 10mg 3tabs 11/01 to 1 Dustin Hutchinson two hours Felicitas Duncan prior to Kody.Katelyn 12/13 mri and repeat q1h prn anxiety Celebrex 01/01 Hx Capsules 200mg 30cap 1 PO qd Dustin Hutchinson /2008 s Felicitas Duncan M.D. 04/19 Neurontin 11/22 Hx Tablets 800mg 120ta 1 po qid Dustin Hutchinson /2008 bs Felicitas Duncan M.D. 09/18 Oxycontin 11/17 Hx Tablets ER 40mg 180ta 1-2 po tid Dustin Hutchinson /2007 12HR bs prn Felicitas Duncan M.D. 04/19 Fentanyltransderm 11/17 Hx Patches 72 25mcg/HR 10uni 1 patch q Dustin Hutchinson al ts 3 days Felicitas Duncan M.D. 09/16 Oxycontin 01/06 Hx Tablets ER 80mg 90tab 1 po tid Dustin Hutchinson /2006 12HR s Felicitas Duncan M.D. 04/19 Robaxin-750 01/02 Hx Tablets 750mg 180ta 2 po tid Dustin Hutchinson /Felicitas Pandya M.D. 05/21 Sertraline HCL Hx Tablets 25mg 90tab 1 po qd Unknown /0000 s - 04/03 Nasonex Hx Suspension 50mcg/Act 1unit 2 sprays Unknown /0000 s to each - nostril 03/18 daily Proair HFA Hx Aerosol 108(90Bas 1unit 2 puffs po Unknown /0000 e) s q4h prn - mcg/Act 01/27 Sucralfate Hx Tablets 1gm 120ta 1 by mouth Unknown /0000 bs hs - 03/18 Potassium Hx Tablets ER 10Meq 90tab 2 po bid Unknown Chloride ER /0000 s - 04/04 Glucosamine Hx Capsules 1500Com 1 po qd Unknown Chondroitin 1500 /0000 Complex - 03/[address] 30mg 30cap po qd Unknown /0000 s - 03/18 Cholestyramine Hx Packet 4gm 90Pac 1 packet Unknown /0000 ks qd - 03/18 Methocarbamol Hx Tablets 750mg one po bid Unknown /0000 - 11/27 Hydrochlorothiazi Hx Tablets 50mg 90tab 1 po qd Unknown de /0000 s - 02/09 Instaflex Hx 3 by mouth Unknown /0000 daily - 05/01 Tramadol HCL Hx Tablets 50mg 50tab 1-2 po bid Unknown /0000 s prn - 05/09 Prostate 00 Hx 60mg 1 po qpm Unknown /0000 - 12/29 Potassium Hx Tablets ER 20Meq 2 by mouth Unknown Chloride /0000 bid - 08/30 Nitroglycerin 00 Hx Patches 0.2mg/HR on 9am off [place], /0000 24HR 9pm MD Wyatt - 10/21 Diphenhydramine Hx Tablets 50mg once daily Unknown HCL Maximum /0000 Strength - 08/31 Psyllium Fiber 00 Hx Tablets 60tab 6 tablet Unknown /0000 s po b.i.d - 11/10 Ibuprofen 00/00 Hx Tablets 200mg 100ta as needed Unknown /0000 bs - 10/21 Diphenhydramine 00 Hx Capsules 50mg 1caps take 1 Unknown HCL /0000 tablet prn - 01/27 Tylenol Arthritis 00/ Hx Tablets ER 650mg 100ta as needed Unknown Pain /0000 bs - 01/27 Ibuprofen 00/00 Hx Capsules 200mg as needed Unknown /0000 - 09/18 Nasonex / Hx Suspension 50mcg/Act prn Unknown /0000 - 06/14 Ventolin HFA Hx Aerosol 108(90Bas 2 puffs as Unknown /0000 e) needed - mcg/Act 09/18 Nitro-Dur Hx Patches 0.4mg/HR on in in Unknown /0000 24HR the - morning, 09/18 off in at night Sucralfate 0000 Hx Tablets 1gm 1 by mouth Unknown /0000 at hs - 05/09 Cholestyramine Hx Packet 4gm 1 packet Unknown /0000 after am - meds 05/09 Acidophilus Hx Capsules 1 by mouth Unknown /0000 every day - 12/09 Tylenol Arthritis 00 Hx Tablets ER 650mg 2 tablet Unknown Pain /0000 po t.i.d - 06/14 Arthro-D 00 Hx 2 tablet Unknown /0000 po b.i.d - (started 12/09 taking weeks ago) for arthritis Loperamide HCL 0000 Hx Capsules 2mg 1 cap po Unknown /0000 daily Am - 11/10 Biofreeze /00 Hx prn Unknown /0000 - 12/29 Joint Health 00/ Hx Capsules Unknown /0000 - 12/29 Acetaminophen 0000 Hx Tablets 325mg 2 tablets Unknown /0000 by mouth - every 6 01/07 hours needed for pain/fever Stool Softener 0000 Hx Capsules 100mg take 1 tab Unknown /0000 every - night 08/03 Deep Blue 00/00 Hx 1 tab Unknown /0000 twice a - day for 11/24 arthirtis /2018 Symbicort 00/00 Hx Aerosol 160-4.5mc 2 puff Kenn, /0000 g/Act twice a Gabriela, - namrata DAILY 07/11 Hydrocodone-Aceta 00 Hx Tablets 5-325mg take one Unknown minophen / or 2 - capsule/ta 08/08 blet by mouth at hs for pain Medications Administered in Office Medication Date Status Form Strength Qnty SIG Indications Ordering Provider Inj, Administered Injection Eliot D. Regadenoson, 015 Brand, M.DAguilar 0.1 MG Technetium TC Administered Injection Eliot D. 99M 015 Brand M.Katelyn Tetrofosmin, Per Unit Dose Up To 40 Millicuries Inj, Administered Injection Eliot D. Regadenoson, 014 Brand, M.D. 0.1 MG Technetium TC Administered Injection Eliot D. 99M 014 Laura Dumont Tetrofosmin, Per Unit Dose Up To 40 Millicuries Immunizations CPT Code Status Date Vaccine Reaction Lot # [id number] Given 06/25/2017 Fluzone High Dose 41417 Given 08/19/2016 Influenza Virus Vaccine, fluzone high dose @ [facility] Quadrivalent, Split Virus, Im Use Q2037 Given 02/11/2016 Fluvirin Im 3Yrs And Older 32843 Given 02/11/2016 Pneumonia Vaccine 02088 Given Unknown Tdap - Tetanus/Diptheria/Acellular Pertussis Vital Signs Date Vital Result Comment 01/17/2018 Height 71 inches 5'11" Weight 212.00 lb BP Systolic 142 mmHg BP Diastolic 78 mmHg Respiratory Rate 20 /min Pain Level 3 BMI (Body Mass Index) 29.6 kg/m2 01/09/2018 Height 71 inches 5'11" Weight 217.50 lb Heart Rate 78 /min BP Systolic Sitting 128 mmHg BP Diastolic Sitting 80 mmHg BMI (Body Mass Index) 30.3 kg/m2 12/29/2017 Weight 219.00 lb Heart Rate 59 /min BP Systolic Sitting 145 mmHg BP Diastolic Sitting 88 mmHg Body Temperature 97.1 F O2 % BldC Oximetry 97 % 12/08/2017 Height 71 inches 5'11" Weight 212.00 lb BP Systolic 118 mmHg BP Diastolic 60 mmHg Respiratory Rate 20 /min Pain Level 4 BMI (Body Mass Index) 29.6 kg/m2 11/24/2017 Weight 215.00 lb Heart Rate 65 /min BP Systolic 138 mmHg BP Diastolic 68 mmHg Body Temperature 97.4 F O2 % BldC Oximetry 98 % 11/17/2017 Height 71 inches 5'11" Weight 212.00 lb BP Systolic 130 mmHg BP Diastolic 70 mmHg Respiratory Rate 20 /min Pain Level 3 BMI (Body Mass Index) 29.6 kg/m2 11/04/2017 Height 71 inches 5'11" Weight 212.00 lb BP Systolic 120 mmHg BP Diastolic 78 mmHg Respiratory Rate 16 /min Body Temperature 98.3 F Pain Level 3 BMI (Body Mass Index) 29.6 kg/m2 09/27/2017 Height 71 inches 5'11" Weight 209.00 lb Heart Rate 62 /min BP Systolic Sitting 118 mmHg BP Diastolic Sitting 72 mmHg Body Temperature 98.5 F O2 % BldC Oximetry 98 % BMI (Body Mass Index) 29.1 kg/m2 09/20/2017 Height 71 inches 5'11" Weight 212.00 lb BP Systolic 122 mmHg BP Diastolic 66 mmHg Respiratory Rate 20 /min Pain Level 4 BMI (Body Mass Index) 29.6 kg/m2 09/09/2017 Heart Rate 63 /min BP Systolic Sitting 152 mmHg BP Diastolic Sitting 80 mmHg BP Systolic Recheck 124 mmHg BP Diastolic Recheck 72 mmHg Pain Level 2 O2 % BldC Oximetry 96 % 09/06/2017 Height 71 inches 5'11" Weight 212.00 lb Heart Rate 60 /min Respiratory Rate 16 /min Body Temperature 97.0 F Pain Level 5 BMI (Body Mass Index) 29.6 kg/m2 08/15/2017 Weight 212.00 lb Heart Rate 54 /min BP Systolic Sitting 124 mmHg BP Diastolic Sitting 76 mmHg Body Temperature 98.0 F Pain Level 5 back O2 % BldC Oximetry 96 % 08/10/2017 Height 71 inches 5'11" Weight 214.00 lb with shoes Heart Rate 64 /min BP Systolic Sitting 100 mmHg Rue reg cuff BP Diastolic Sitting 66 mmHg Rue reg cuff BP Systolic Standing 96 mmHg Rue reg cuff BP Diastolic Standing 62 mmHg Rue reg cuff Respiratory Rate 16 /min BMI (Body Mass Index) 29.8 kg/m2 Ejection Fraction 60-65% 11/05/2010-echo 08/10/2017 Height 71 inches 5'11" Ejection Fraction 60-65% 11/05/2010-echo 08/03/2017 Height 71 inches 5'11" Weight 215.25 lb With shoes Heart Rate 70 /min BP Systolic Sitting 122 mmHg Rue reg cuff BP Diastolic Sitting 62 mmHg Rue reg cuff Respiratory Rate 20 /min O2 % BldC Oximetry 96 % On Ra BMI (Body Mass Index) 30.0 kg/m2 07/19/2017 Height 71 inches 5'11" Weight 212.00 lb Heart Rate 64 /min BP Systolic 122 mmHg BP Diastolic 65 mmHg Respiratory Rate 16 /min Pain Level 0 BMI (Body Mass Index) 29.6 kg/m2 07/11/2017 Weight 213.00 lb Heart Rate 72 /min BP Systolic Sitting 130 mmHg BP Diastolic Sitting 66 mmHg Pain Level 3 O2 % BldC Oximetry 97 % 06/22/2017 Height 71 inches 5'11" Weight 212.00 lb Heart Rate 64 /min BP Systolic Sitting 110 mmHg BP Diastolic Sitting 70 mmHg Respiratory Rate 14 /min BMI (Body Mass Index) 29.6 kg/m2 06/07/2017 Height 71 inches 5'11" Weight 212.00 lb BP Systolic 143 mmHg BP Diastolic 83 mmHg Respiratory Rate 14 /min Pain Level 0 BMI (Body Mass Index) 29.6 kg/m2 04/29/2017 Height 71 inches 5'11" Weight 201.00 lb Heart Rate 76 /min BP Systolic Sitting 150 mmHg BP Diastolic Sitting 78 mmHg Pain Level 2 BMI (Body Mass Index) 28.0 kg/m2 04/15/2017 Height 71 inches 5'11" Weight 201.00 lb BP Systolic 136 mmHg BP Diastolic 72 mmHg Respiratory Rate 16 /min Pain Level 1 BMI (Body Mass Index) 28.0 kg/m2 03/16/2017 Weight 201.75 lb Heart Rate 69 /min BP Systolic 124 mmHg BP Diastolic 64 mmHg Body Temperature 96.8 F O2 % BldC Oximetry 96 % 03/15/2017 Height 71 inches 5'11" Weight 210.00 lb Heart Rate 63 /min BP Systolic 127 mmHg BP Diastolic 72 mmHg Respiratory Rate 12 /min Pain Level 0 BMI (Body Mass Index) 29.3 kg/m2 02/23/2017 Weight 210.25 lb Heart Rate 88 /min BP Systolic 122 mmHg BP Diastolic 64 mmHg Body Temperature 96.5 F O2 % BldC Oximetry 92 % 02/14/2017 Weight 213.50 lb Heart Rate 94 /min BP Systolic 120 mmHg BP Diastolic 66 mmHg Body Temperature 98.3 F O2 % BldC Oximetry 90 % 02/10/2017 Height 71 inches 5'11" Weight 209.00 lb Heart Rate 75 /min BP Systolic 155 mmHg BP Diastolic 76 mmHg Body Temperature 97.1 F BMI (Body Mass Index) 29.1 kg/m2 02/03/2017 Weight 207.50 lb Heart Rate 68 /min BP Systolic Sitting 120 mmHg BP Diastolic Sitting 70 mmHg Respiratory Rate 18 /min Pain Level 10 02/01/2017 Height 71 inches 5'11" Weight 206.00 lb Heart Rate 68 /min BP Systolic Sitting 138 mmHg BP Diastolic Sitting 80 mmHg Respiratory Rate 20 /min Pain Level 5 All over O2 % BldC Oximetry 94 % BMI (Body Mass Index) 28.7 kg/m2 01/19/2017 Height 71 inches 5'11" Weight 206.00 lb Heart Rate 80 /min BP Systolic Sitting 146 mmHg BP Diastolic Sitting 70 mmHg Body Temperature 97.4 F O2 % BldC Oximetry 97 % BMI (Body Mass Index) 28.7 kg/m2 01/11/2017 Height 71 inches 5'11" Weight 205.00 lb Respiratory Rate 16 /min Body Temperature 97.7 F Pain Level 3 BMI (Body Mass Index) 28.6 kg/m2 01/07/2017 Height 71 inches 5'11" Weight 205.00 lb with shoes Heart Rate 66 /min BP Systolic Sitting 130 mmHg Rue reg cuff BP Diastolic Sitting 82 mmHg Rue reg cuff BP Systolic Standing 130 mmHg Rue reg cuff BP Diastolic Standing 82 mmHg Rue reg cuff Respiratory Rate 17 /min BMI (Body Mass Index) 28.6 kg/m2 Ejection Fraction 60-65% 11/05/2010-echo 12/24/2016 Height 71 inches 5'11" Weight 208.00 lb Heart Rate 64 /min BP Systolic 120 mmHg BP Diastolic 66 mmHg Pain Level 2 BMI (Body Mass Index) 29.0 kg/m2 12/09/2016 Weight 208.00 lb with shoes Heart Rate 65 /min BP Systolic 162 mmHg BP Diastolic 80 mmHg BP Systolic Sitting 122 mmHg sitting 64 pulse BP Diastolic Sitting 82 mmHg sitting 64 pulse BP Systolic Standing 144 mmHg stand 66 pulse BP Diastolic Standing 82 mmHg stand 66 pulse BP Systolic Lying Down 144 mmHg laying 65 pulse BP Diastolic Lying Down 88 mmHg laying 65 pulse O2 % BldC Oximetry 98 % Ra 10/21/2016 Height 71 inches 5'11" Weight 202.00 lb Heart Rate 58 /min BP Systolic 118 mmHg BP Diastolic 62 mmHg Body Temperature 97.8 F O2 % BldC Oximetry 97 % BMI (Body Mass Index) 28.2 kg/m2 2016 Height 71 inches 5'11" Weight 203.00 lb Heart Rate 54 /min BP Systolic 114 mmHg BP Diastolic 74 mmHg Body Temperature 97.3 F O2 % BldC Oximetry 96 % BMI (Body Mass Index) 28.3 kg/m2 09/01/2016 Height 71 inches 5'11" Weight 203.00 lb per pt Heart Rate 64 /min reg BP Systolic Sitting 136 mmHg Lue, reg cuff BP Diastolic Sitting 86 mmHg Lue, reg cuff BP Systolic Standing 134 mmHg Lue BP Diastolic Standing 86 mmHg Lue Respiratory Rate 16 /min BMI (Body Mass Index) 28.3 kg/m2 Ejection Fraction 60-65% as of 11/05/10 echo 08/26/2016 Weight 205.00 lb with shoes Heart Rate 56 /min BP Systolic Sitting 150 mmHg BP Diastolic Sitting 80 mmHg Body Temperature 95.9 F O2 % BldC Oximetry 98 % 08/02/2016 Height 71 inches 5'11" Weight 203.00 lb Heart Rate 68 /min BP Systolic Sitting 130 mmHg BP Diastolic Sitting 70 mmHg Respiratory Rate 16 /min O2 % BldC Oximetry 98 % BMI (Body Mass Index) 28.3 kg/m2 07/08/2016 Weight 205.00 lb with shoes Heart Rate 54 /min BP Systolic Sitting 124 mmHg BP Diastolic Sitting 66 mmHg O2 % BldC Oximetry 97 % 06/15/2016 Height 69 inches 5'9" Weight 208.00 lb Heart Rate 76 /min BP Systolic Sitting 124 mmHg BP Diastolic Sitting 80 mmHg Respiratory Rate 14 /min BMI (Body Mass Index) 30.7 kg/m2 05/26/2016 Height 69 inches 5'9" Weight 210.00 lb Heart Rate 80 /min BP Systolic Sitting 130 mmHg BP Diastolic Sitting 68 mmHg Body Temperature 97.8 F O2 % BldC Oximetry 98 % BMI (Body Mass Index) 31.0 kg/m2 03/30/2016 Height 72 inches 6'0" Weight 211.25 lb Heart Rate 62 /min BP Systolic 118 mmHg BP Diastolic 68 mmHg Respiratory Rate 14 /min O2 % BldC Oximetry 96 % BMI (Body Mass Index) 28.6 kg/m2 03/22/2016 Weight 211.25 lb Heart Rate 70 /min BP Systolic Sitting 114 mmHg BP Diastolic Sitting 66 mmHg Body Temperature 97.8 F O2 % BldC Oximetry 95 % 03/19/2016 Height 70 inches 5'10" Weight 212.00 lb w/o shoes Heart Rate 78 /min reg BP Systolic Sitting 134 mmHg Rue, reg cuff BP Diastolic Sitting 80 mmHg Rue, reg cuff BP Systolic Standing 112 mmHg Rue BP Diastolic Standing 70 mmHg Rue Respiratory Rate 18 /min BMI (Body Mass Index) 30.4 kg/m2 Ejection Fraction 60-65% as of 11/05/10 echo 03/08/2016 Height 70 inches 5'10" Weight 211.00 lb Heart Rate 64 /min BP Systolic Sitting 140 mmHg BP Diastolic Sitting 90 mmHg Respiratory Rate 15 /min Body Temperature 98.3 F O2 % BldC Oximetry 98 % BMI (Body Mass Index) 30.3 kg/m2 02/11/2016 Height 70 inches 5'10" Weight 209.38 lb Heart Rate 59 /min BP Systolic Sitting 134 mmHg BP Diastolic Sitting 66 mmHg Respiratory Rate 20 /min O2 % BldC Oximetry 97 % BMI (Body Mass Index) 30.0 kg/m2 12/10/2015 Height 70 inches 5'10" Weight 210.00 lb Heart Rate 60 /min BP Systolic Sitting 132 mmHg BP Diastolic Sitting 68 mmHg Respiratory Rate 14 /min BMI (Body Mass Index) 30.1 kg/m2 11/10/2015 Height 70 inches 5'10" Weight 218.00 lb Heart Rate 60 /min BP Systolic Sitting 120 mmHg BP Diastolic Sitting 72 mmHg Pain Level 2 BMI (Body Mass Index) 31.3 kg/m2 09/19/2015 Height 70 inches 5'10" Weight 218.00 lb with shoes Heart Rate 66 /min BP Systolic Sitting 154 mmHg Ra reg cuff BP Diastolic Sitting 80 mmHg Ra reg cuff BP Systolic Standing 140 mmHg Ra reg cuff BP Diastolic Standing 82 mmHg Ra reg cuff Respiratory Rate 16 /min BMI (Body Mass Index) 31.3 kg/m2 Ejection Fraction 60-65% date 11/05/10 ECHO 08/08/2015 Height 70 inches 5'10" Weight 218.00 lb Heart Rate 60 /min BP Systolic Sitting 130 mmHg BP Diastolic Sitting 72 mmHg Pain Level 1 neck BMI (Body Mass Index) 31.3 kg/m2 07/14/2015 Height 70 inches 5'10" Weight 218.00 lb Heart Rate 62 /min BP Systolic Sitting 126 mmHg BP Diastolic Sitting 80 mmHg Pain Level 2 neck BMI (Body Mass Index) 31.3 kg/m2 05/09/2015 Height 70 inches 5'10" Weight 218.00 lb Heart Rate 60 /min BP Systolic Sitting 110 mmHg BP Diastolic Sitting 68 mmHg Pain Level 2 feet BMI (Body Mass Index) 31.3 kg/m2 05/01/2015 Weight 218.00 lb Pain Level 4 03/04/2015 Height 70 inches 5'10" Weight 218.00 lb Heart Rate 60 /min BP Systolic Sitting 126 mmHg BP Diastolic Sitting 78 mmHg Pain Level 2 L arm BMI (Body Mass Index) 31.3 kg/m2 02/28/2015 Height 70 inches 5'10" Weight 218.00 lb Heart Rate 72 /min regular BP Systolic Sitting 122 mmHg LA reg cuff BP Diastolic Sitting 74 mmHg LA reg cuff BP Systolic Standing 124 mmHg LA BP Diastolic Standing 78 mmHg LA Respiratory Rate 16 /min BMI (Body Mass Index) 31.3 kg/m2 01/28/2015 Height 70 inches 5'10" Weight 223.00 lb Heart Rate 72 /min BP Systolic Sitting 130 mmHg left arm, reg cuff BP Diastolic Sitting 80 mmHg left arm, reg cuff BP Systolic Standing 120 mmHg left arm, reg cuff BP Diastolic Standing 82 mmHg left arm, reg cuff Respiratory Rate 20 /min BMI (Body Mass Index) 32.0 kg/m2 01/06/2015 Height 70 inches 5'10" Weight 217.00 lb Heart Rate 60 /min BP Systolic Sitting 130 mmHg BP Diastolic Sitting 90 mmHg Pain Level 2 back BMI (Body Mass Index) 31.1 kg/m2 12/13/2014 Height 70 inches 5'10" Weight 217.00 lb with shoes Heart Rate 60 /min regular BP Systolic Sitting 122 mmHg right arm reg cuff BP Diastolic Sitting 68 mmHg right arm reg cuff BP Systolic Standing 118 mmHg right arm reg cuff BP Diastolic Standing 64 mmHg right arm reg cuff Respiratory Rate 18 /min BMI (Body Mass Index) 31.1 kg/m2 10/22/2014 Height 70 inches 5'10" Weight 211.00 lb Heart Rate 66 /min BP Systolic Sitting 130 mmHg left arm, reg cuff BP Diastolic Sitting 72 mmHg left arm, reg cuff BP Systolic Standing 116 mmHg left arm, reg cuff BP Diastolic Standing 70 mmHg left arm, reg cuff Respiratory Rate 20 /min BMI (Body Mass Index) 30.3 kg/m2 10/11/2014 Height 70 inches 5'10" Weight 212.00 lb with shoes Heart Rate 68 /min BP Systolic Sitting 140 mmHg Ra reg cuff BP Diastolic Sitting 84 mmHg Ra reg cuff BP Systolic Standing 138 mmHg Ra BP Diastolic Standing 80 mmHg Ra Respiratory Rate 16 /min BMI (Body Mass Index) 30.4 kg/m2 10/07/2014 Height 70 inches 5'10" Weight 210.00 lb Heart Rate 60 /min BP Systolic Sitting 140 mmHg BP Diastolic Sitting 70 mmHg Pain Level 3 back/R arm/L foot BMI (Body Mass Index) 30.1 kg/m2 09/23/2014 Height 70 inches 5'10" Weight 209.00 lb Heart Rate 62 /min BP Systolic Sitting 132 mmHg right arm, reg cuff BP Diastolic Sitting 78 mmHg right arm, reg cuff BP Systolic Standing 118 mmHg right arm, reg cuff BP Diastolic Standing 76 mmHg right arm, reg cuff Respiratory Rate 20 /min BMI (Body Mass Index) 30.0 kg/m2 09/06/2014 Height 70 inches 5'10" Weight 210.00 lb Heart Rate 62 /min BP Systolic Sitting 130 mmHg BP Diastolic Sitting 70 mmHg Respiratory Rate 16 /min BMI (Body Mass Index) 30.1 kg/m2 09/05/2014 Height 70 inches 5'10" Weight 210.00 lb with shoes Heart Rate 74 /min regular BP Systolic Sitting 126 mmHg right arm reg cuff BP Diastolic Sitting 78 mmHg right arm reg cuff BP Systolic Standing 122 mmHg right arm reg cuff BP Diastolic Standing 80 mmHg right arm reg cuff Respiratory Rate 18 /min BMI (Body Mass Index) 30.1 kg/m2 08/27/2014 Height 70 inches 5'10" Weight 210.00 lb Heart Rate 60 /min BP Systolic Sitting 124 mmHg BP Diastolic Sitting 70 mmHg Pain Level 4 neck/R leg BMI (Body Mass Index) 30.1 kg/m2 07/22/2014 Height 70 inches 5'10" Weight 199.75 lb Heart Rate 60 /min BP Systolic Sitting 120 mmHg BP Diastolic Sitting 58 mmHg Pain Level 3 BMI (Body Mass Index) 28.7 kg/m2 05/23/2014 Height 69.5 inches 5'9.50" Weight 196.00 lb Heart Rate 56 /min BP Systolic Sitting 148 mmHg LA reg cuff BP Diastolic Sitting 80 mmHg LA reg cuff BP Systolic Standing 136 mmHg LA BP Diastolic Standing 72 mmHg LA Respiratory Rate 16 /min BMI (Body Mass Index) 28.5 kg/m2 04/12/2014 Height 70 inches 5'10" Weight 204.00 lb Heart Rate 66 /min BP Systolic Sitting 130 mmHg Ra reg cuff BP Diastolic Sitting 80 mmHg Ra reg cuff BP Systolic Standing 124 mmHg Ra BP Diastolic Standing 80 mmHg Ra Respiratory Rate 16 /min BMI (Body Mass Index) 29.3 kg/m2 03/18/2014 Height 69.5 inches 5'9.50" Weight 203.00 lb BP Systolic 130 mmHg BP Diastolic 82 mmHg Pain Level 0 BMI (Body Mass Index) 29.5 kg/m2 11/27/2013 Height 69.5 inches 5'9.50" Weight 212.00 lb BP Systolic 140 mmHg BP Diastolic 72 mmHg Pain Level 2-3 back adn legs BMI (Body Mass Index) 30.9 kg/m2 11/21/2013 Height 69.5 inches 5'9.50" Weight 212.00 lb without shoes Heart Rate 60 /min BP Systolic Sitting 130 mmHg Ra Reg cuff BP Diastolic Sitting 80 mmHg Ra Reg cuff BP Systolic Standing 128 mmHg Ra Reg cuff BP Diastolic Standing 86 mmHg Ra Reg cuff Respiratory Rate 17 /min BMI (Body Mass Index) 30.9 kg/m2 09/18/2013 Height 71 inches 5'11" Weight 218.00 lb BP Systolic 142 mmHg BP Diastolic 72 mmHg Pain Level 3 back BMI (Body Mass Index) 30.4 kg/m2 Results Test Date Test Result H/L Range Note Lipid Profile (Trig/Chol/HDL) 01/05/2018 Triglycerides 86 mg/dL 1 Cholesterol 143 mg/dL 2 HDL Cholesterol 40.4 mg/dL 3 LDL Cholesterol 85 mg/dL 4 Laboratory test finding 01/05/2018 Glucose 99 mg/dL 70-100 5 B-Type Natriuretic Peptide BNP 29 pg/mL 6 Urinalysis Profile 11/16/2017 Urine Color Yellow Urine Appearance Clear Urine Specific [place] 1.018 1.010-1.030 Urine pH 7.0 5-9 Urine Urobilinogen Negative Negative Urine Ketones Negative Negative Urine Protein Negative Negative Urine Leukocytes Negative Negative Urine Blood Negative Negative Urine Nitrite Negative Negative Urine Bilirubin Negative Negative Urine Glucose Negative Negative CBC Auto Diff 11/16/2017 White Blood Count 3.9 10^3/uL 3.5-10.8 Red Blood Count 4.49 10^6/uL 4.0-5.4 Hemoglobin 13.3 g/dL Low 14.0-18.0 Hematocrit 39 % Low 42-52 Mean Corpuscular Volume 87 fL 80-94 Mean Corpuscular Hemoglobin 30 pg 27-31 Mean Corpuscular HGB Conc 34 g/dL 31-36 Red Cell Distribution Width 14 % 10.5-15 Platelet Count 168 10^3/uL 150-450 Mean Platelet Volume 7 um3 Low 7.4-10.4 Abs Neutrophils 2.5 10^3/uL 1.5-7.7 Abs Lymphocytes 0.9 10^3/uL Low 1.0-4.8 Abs Monocytes 0.4 10^3/uL 0-0.8 Abs Eosinophils 0.2 10^3/uL 0-0.6 Abs Basophils 0 10^3/uL 0-0.2 Abs Nucleated RBC 0 10^3/uL Granulocyte % 62.9 % 38-83 Lymphocyte % 23.0 % Low 25-47 Monocyte % 9.4 % High 1-9 Eosinophil % 3.8 % 0-6 Basophil % 0.9 % 0-2 Nucleated Red Blood Cells % 0 Laboratory test finding 11/16/2017 B-Type Natriuretic 17 pg/mL 7 Peptide BNP Inr/Protime 11/16/2017 Inr 0.90 0.77-1.02 Laboratory test finding 11/16/2017 Partial Thrombo Time PTT 35.1 seconds 26.0-36.3 Lactic Acid 0.9 mmol/L 0.5-2.0 8 Comp Metabolic Panel 11/16/2017 Sodium 139 mmol/L 133-145 Potassium 4.3 mmol/L 3.5-5.0 Chloride 105 mmol/L 101-111 Co2 Carbon Dioxide 29 mmol/L 22-32 Anion Gap 5 mmol/L 2-11 Glucose 115 mg/dL High 70-100 Blood Urea Nitrogen 19 mg/dL 6-24 Creatinine 0.87 mg/dL 0.67-1.17 BUN/Creatinine Ratio 21.8 High 8-20 Calcium 9.0 mg/dL 8.6-10.3 Total Protein 6.1 g/dL Low 6.4-8.9 Albumin 3.9 g/dL 3.2-5.2 Globulin 2.2 g/dL 2-4 Albumin/Globulin Ratio 1.8 1-3 Total Bilirubin 0.80 mg/dL 0.2-1.0 Alkaline Phosphatase 65 U/L 34-104 Alt 16 U/L 7-52 Ast 19 U/L 13-39 Egfr Non- 85.3 >60 Egfr 109.7 >60 9 Laboratory test finding 11/16/2017 Magnesium 2.3 mg/dL 1.9-2.7 Lipase 17 U/L 11.0-82.0 C Reactive Protein < 1.00 mg/L < 5.00 10 Troponin-I (TnI) 0.00 ng/mL <0.04 TSH (Thyroid Stim Horm) 0.87 mcIU/mL 0.34-5.60 Urinalysis Profile 09/25/2017 Urine Color Yellow Urine Appearance Clear Urine Specific [place] 1.013 1.010-1.030 Urine pH 6.0 5-9 Urine Urobilinogen Negative Negative Urine Ketones Trace Negative Urine Protein Negative Negative Urine Leukocytes Negative Negative Urine Blood Negative Negative Urine Nitrite Negative Negative Urine Bilirubin Negative Negative Urine Glucose Negative Negative Rapid Influenza A & B 09/25/2017 Influenza A Molecular NEGATIVE Negative 11 Molecular Influenza B Molecular NEGATIVE Negative Laboratory test 09/25/2017 Rapid Influenza A B SEE RESULT BELOW 12 finding Antigen Istat BUN/Crea/Egfr/V 08/31/2017 Poc Bun Eastct 24 mg/dL High 9-18 Eastct Poc Crea Eastct 0.9 mg/dL 0.6-0.9 GFR Non- Ect 82.3 >60 GFR Eastct 105.8 >60 13 Basic Metabolic Panel 08/31/2017 Sodium 134 mmol/L 133-145 Potassium 4.5 mmol/L 3.5-5.0 Chloride 101 mmol/L 101-111 Co2 Carbon Dioxide 29 mmol/L 22-32 Anion Gap 4 mmol/L 2-11 Glucose 81 mg/dL 70-100 Blood Urea Nitrogen 23 mg/dL 6-24 Creatinine 0.90 mg/dL 0.67-1.17 BUN/Creatinine Ratio 25.6 High 8-20 Calcium 9.3 mg/dL 8.6-10.3 Egfr Non- 82.3 >60 Egfr 105.8 >60 14 Poc Urinalysis 08/31/2017 Poc Glucose, Urine Negative Negative Poc Bilirubin, Urine Negative Negative Poc Ketone, Urine Negative Negative Poc Specific [place], Urine 1.020 1.010-1.030 Poc Blood, Urine Negative Negative Poc pH, Urine 5.5 5-9 Poc Protein, Urine Negative Negative Poc Urobilinogen, Urine 0.2 Negative Poc Nitrite, Urine Negative Negative Poc Leukocytes, Urine Negative Negative Poc Color, Urine Yellow Poc Clarity, Urine Clear 15 Laboratory test finding 06/27/2017 Surgical Pathology SEE RESULT BELOW 16 Laboratory test finding 06/27/2017 Clotest SEE RESULT BELOW 17 Basic Metabolic Panel 02/23/2017 Sodium 140 mmol/L 133-145 Potassium 4.4 mmol/L 3.5-5.0 Chloride 104 mmol/L 101-111 Co2 Carbon Dioxide 29 mmol/L 22-32 Anion Gap 7 mmol/L 2-11 Glucose 108 mg/dL High 70-100 Blood Urea Nitrogen 24 mg/dL 6-24 Creatinine 0.99 mg/dL 0.67-1.17 BUN/Creatinine Ratio 24.2 High 8-20 Calcium 9.5 mg/dL 8.6-10.3 Egfr Non- 73.7 >60 Egfr 94.8 >60 18 Comp Metabolic Panel 02/14/2017 Sodium 139 mmol/L 133-145 Potassium 4.1 mmol/L 3.5-5.0 Chloride 103 mmol/L 101-111 Co2 Carbon Dioxide 32 mmol/L 22-32 Anion Gap 4 mmol/L 2-11 Glucose 86 mg/dL 70-100 Blood Urea Nitrogen 17 mg/dL 6-24 Creatinine 0.92 mg/dL 0.67-1.17 BUN/Creatinine Ratio 18.5 8-20 Calcium 9.5 mg/dL 8.6-10.3 Total Protein 6.4 g/dL 6.4-8.9 Albumin 4.3 g/dL 3.2-5.2 Globulin 2.1 g/dL 2-4 Albumin/Globulin Ratio 2.0 1-3 Total Bilirubin 0.80 mg/dL 0.2-1.0 Alkaline Phosphatase 59 U/L 34-104 Alt 22 U/L 7-52 Ast 23 U/L 13-39 Egfr Non- 80.2 >60 Egfr 103.1 >60 19 Laboratory test finding 02/14/2017 B-Type Natriuretic Peptide BNP 21 pg/mL 20 Troponin-I (TnI) 0.00 ng/mL <0.04 21 CBC No Diff 02/10/2017 White Blood Count 5.1 10^3/uL 3.5-10.8 22 Red Blood Count 4.54 10^6/uL 4.0-5.4 22 Hemoglobin 13.5 g/dL Low 14.0-18.0 22 Hematocrit 41 % Low 42-52 22 Mean Corpuscular Volume 89 fL 80-94 22 Mean Corpuscular Hemoglobin 30 pg 27-31 22 Mean Corpuscular HGB Conc 33 g/dL 31-36 22 Red Cell Distribution Width 14 % 10.5-15 22 Platelet Count 143 10^3/uL Low 150-450 22 Mean Platelet Volume 7 um3 Low 7.4-10.4 22 Urinalysis Profile 02/10/2017 Urine Color Straw 22 Urine Appearance Clear 22 Urine Specific [place] 1.010 1.010-1.030 22 Urine pH 5.0 5-9 22 Urine Urobilinogen Negative Negative 22 Urine Ketones Negative Negative 22 Urine Protein Negative Negative 22 Urine Leukocytes Negative Negative 22 Urine Blood Negative Negative 22 Urine Nitrite Negative Negative 22 Urine Bilirubin Negative Negative 22 Urine Glucose Negative Negative 22 Inr/Protime 02/10/2017 Inr 0.90 0.89-1.11 22 Laboratory test finding 02/10/2017 Partial Thrombo 35.3 seconds 26.0- 36.3 22, 23 Time PTT Type & Screen 02/10/2017 Patient Blood Type O Negative 22 Antibody Screen NEGATIVE 22 CBC Auto Diff 01/20/2017 White Blood Count 5.4 10^3/uL 3.5-10.8 Red Blood Count 4.60 10^6/uL 4.0-5.4 Hemoglobin 13.7 g/dL Low 14.0-18.0 Hematocrit 41 % Low 42-52 Mean Corpuscular Volume 88 fL 80-94 Mean Corpuscular Hemoglobin 30 pg 27-31 Mean Corpuscular HGB Conc 34 g/dL 31-36 Red Cell Distribution Width 14 % 10.5-15 Platelet Count 156 10^3/uL 150-450 Mean Platelet Volume 7 um3 Low 7.4-10.4 Abs Neutrophils 3.6 10^3/uL 1.5-7.7 Abs Lymphocytes 1.1 10^3/uL 1.0-4.8 Abs Monocytes 0.5 10^3/uL 0-0.8 Abs Eosinophils 0.2 10^3/uL 0-0.6 Abs Basophils 0 10^3/uL 0-0.2 Abs Nucleated RBC 0 10^3/uL Granulocyte % 66.2 % 38-83 Lymphocyte % 20.1 % Low 25-47 Monocyte % 9.0 % 1-9 Eosinophil % 4.2 % 0-6 Basophil % 0.5 % 0-2 Nucleated Red Blood Cells % 0.1 Basic Metabolic Panel 01/20/2017 Sodium 138 mmol/L 133-145 Potassium 4.2 mmol/L 3.5-5.0 Chloride 106 mmol/L 101-111 Co2 Carbon Dioxide 26 mmol/L 22-32 Anion Gap 6 mmol/L 2-11 Glucose 118 mg/dL High 70-100 Blood Urea Nitrogen 24 mg/dL 6-24 Creatinine 0.92 mg/dL 0.67-1.17 BUN/Creatinine Ratio 26.1 High 8-20 Calcium 9.6 mg/dL 8.6-10.3 Egfr Non- 80.2 >60 Egfr 103.1 >60 24 Inr/Protime 01/20/2017 Inr 0.88 Low 0.89-1.11 CBC Auto Diff 12/09/2016 White Blood Count 5.2 10^3/uL 3.5-10.8 Red Blood Count 4.55 10^6/uL 4.0-5.4 Hemoglobin 13.6 g/dL Low 14.0-18.0 Hematocrit 40 % Low 42-52 Mean Corpuscular Volume 89 fL 80-94 Mean Corpuscular Hemoglobin 30 pg 27-31 Mean Corpuscular HGB Conc 34 g/dL 31-36 Red Cell Distribution Width 14 % 10.5-15 Platelet Count 138 10^3/uL Low 150-450 Mean Platelet Volume 8 um3 7.4-10.4 Abs Neutrophils 3.5 10^3/uL 1.5-7.7 Abs Lymphocytes 1.1 10^3/uL 1.0-4.8 Abs Monocytes 0.4 10^3/uL 0-0.8 Abs Eosinophils 0.2 10^3/uL 0-0.6 Abs Basophils 0.1 10^3/uL 0-0.2 Abs Nucleated RBC 0 10^3/uL Granulocyte % 66.6 % 38-83 Lymphocyte % 21.1 % Low 25-47 Monocyte % 7.8 % 1-9 Eosinophil % 3.4 % 0-6 Basophil % 1.1 % 0-2 Nucleated Red Blood Cells % 0 Laboratory test finding 12/09/2016 TSH (Thyroid Stim Horm) 1.62 mcIU/mL 0.34-5.60 Laboratory test finding 12/09/2016 B-Type Natriuretic 21 pg/mL 25 Peptide BNP Comp Metabolic Panel 12/09/2016 Sodium 140 mmol/L 133-145 Potassium 4.3 mmol/L 3.5-5.0 Chloride 107 mmol/L 101-111 Co2 Carbon Dioxide 28 mmol/L 22-32 Anion Gap 5 mmol/L 2-11 Glucose 113 mg/dL High 70-100 Blood Urea Nitrogen 23 mg/dL 6-24 Creatinine 0.93 mg/dL 0.67-1.17 BUN/Creatinine Ratio 24.7 High 8-20 Calcium 9.5 mg/dL 8.6-10.3 Total Protein 6.6 g/dL 6.4-8.9 Albumin 4.6 g/dL 3.2-5.2 Globulin 2.0 g/dL 2-4 Albumin/Globulin Ratio 2.3 1-3 Total Bilirubin 0.70 mg/dL 0.2-1.0 Alkaline Phosphatase 70 U/L 34-104 Alt 18 U/L 7-52 Ast 20 U/L 13-39 Egfr Non- 79.2 >60 Egfr 101.9 >60 26 Laboratory test finding 2016 Ferritin 91.7 ng/mL 24-336 Iron & Iron Binding Capacity 2016 Iron 92 g/dL 50-212 Unsaturated Iron Binding 324 g/dL Total Iron Binding Capacity 416 g/dL 250-450 % Iron Saturation 22 % 15-55 CBC Auto Diff 2016 White Blood Count 4.5 10^3/uL 3.5-10.8 Red Blood Count 4.62 10^6/uL 4.0-5.4 Hemoglobin 13.7 g/dL Low 14.0-18.0 Hematocrit 40 % Low 42-52 Mean Corpuscular Volume 88 fL 80-94 Mean Corpuscular Hemoglobin 30 pg 27-31 Mean Corpuscular HGB Conc 34 g/dL 31-36 Red Cell Distribution Width 13 % 10.5-15 Platelet Count 160 10^3/uL 150-450 Mean Platelet Volume 7 um3 Low 7.4-10.4 Abs Neutrophils 2.8 10^3/uL 1.5-7.7 Abs Lymphocytes 1.2 10^3/uL 1.0-4.8 Abs Monocytes 0.3 10^3/uL 0-0.8 Abs Eosinophils 0.1 10^3/uL 0-0.6 Abs Basophils 0 10^3/uL 0-0.2 Abs Nucleated RBC 0 10^3/uL Granulocyte % 63.0 % 38-83 Lymphocyte % 26.8 % 25-47 Monocyte % 6.3 % 1-9 Eosinophil % 3.2 % 0-6 Basophil % 0.7 % 0-2 Nucleated Red Blood Cells % 0.1 CBC Auto Diff 08/11/2016 White Blood Count 4.7 10^3/uL 3.5-10.8 Red Blood Count 4.35 10^6/uL 4.0-5.4 Hemoglobin 12.9 g/dL Low 14.0-18.0 Hematocrit 38 % Low 42-52 Mean Corpuscular Volume 88 fL 80-94 Mean Corpuscular Hemoglobin 30 pg 27-31 Mean Corpuscular HGB Conc 34 g/dL 31-36 Red Cell Distribution Width 13 % 10.5-15 Platelet Count 134 10^3/uL Low 150-450 Mean Platelet Volume 7 um3 Low 7.4-10.4 Abs Neutrophils 3.3 10^3/uL 1.5-7.7 Abs Lymphocytes 0.9 10^3/uL Low 1.0-4.8 Abs Monocytes 0.4 10^3/uL 0-0.8 Abs Eosinophils 0.1 10^3/uL 0-0.6 Abs Basophils 0 10^3/uL 0-0.2 Abs Nucleated RBC 0 10^3/uL Granulocyte % 70.2 % 38-83 Lymphocyte % 19.8 % Low 25-47 Monocyte % 8.1 % 1-9 Eosinophil % 1.4 % 0-6 Basophil % 0.5 % 0-2 Nucleated Red Blood Cells % 0 Laboratory test finding 08/11/2016 Lactic Acid 0.9 mmol/L 0.5-2.0 27 Inr/Protime 08/11/2016 Inr 0.94 0.89-1.11 Laboratory test finding 08/11/2016 Partial Thrombo Time 33.5 seconds 26.0 -36.3 PTT B-Type Natriuretic Peptide BNP 41 pg/mL 28 Comp Metabolic Panel 08/11/2016 Sodium 140 mmol/L 133-145 Potassium 4.1 mmol/L 3.5-5.0 Chloride 107 mmol/L 101-111 Co2 Carbon Dioxide 28 mmol/L 22-32 Anion Gap 5 mmol/L 2-11 Glucose 77 mg/dL 70-100 Blood Urea Nitrogen 19 mg/dL 6-24 Creatinine 0.88 mg/dL 0.67-1.17 BUN/Creatinine Ratio 21.6 High 8-20 Calcium 9.2 mg/dL 8.6-10.3 Total Protein 6.1 g/dL Low 6.4-8.9 Albumin 4.3 g/dL 3.2-5.2 Globulin 1.8 g/dL Low 2-4 Albumin/Globulin Ratio 2.4 1-3 Total Bilirubin 0.80 mg/dL 0.2-1.0 Alkaline Phosphatase 43 U/L 34-104 Alt 17 U/L 7-52 Ast 19 U/L 13-39 Egfr Non- 84.7 >60 Egfr 108.9 >60 29 Laboratory test finding 08/11/2016 Magnesium 2.3 mg/dL 1.9-2.7 Troponin-I (TnI) 0.00 ng/mL <0.03 30 TSH (Thyroid Stim Horm) 1.93 mcIU/mL 0.34-5.60 Urinalysis Profile 08/11/2016 Urine Color Yellow Urine Appearance Clear Urine Specific [place] 1.012 1.010-1.030 Urine pH 5.0 5-9 Urine Urobilinogen Negative Negative Urine Ketones Negative Negative Urine Protein Negative Negative Urine Leukocytes Negative Negative Urine Blood Negative Negative Urine Nitrite Negative Negative Urine Bilirubin Negative Negative Urine Glucose Negative Negative Basic Metabolic Panel 08/09/2016 Sodium 139 mmol/L 133-145 Potassium 4.5 mmol/L 3.5-5.0 Chloride 104 mmol/L 101-111 Co2 Carbon Dioxide 27 mmol/L 22-32 Anion Gap 8 mmol/L 2-11 Glucose 93 mg/dL 70-100 Blood Urea Nitrogen 19 mg/dL 6-24 Creatinine 0.89 mg/dL 0.67-1.17 BUN/Creatinine Ratio 21.3 High 8-20 Calcium 9.4 mg/dL 8.6-10.3 Egfr Non- 83.6 >60 Egfr 107.5 >60 31 Lipid Profile (Trig/Chol/HDL) 06/30/2016 Triglycerides 115 mg/dL 32 Cholesterol 113 mg/dL 33 HDL Cholesterol 41.7 mg/dL 34 LDL Cholesterol 48 mg/dL 35 Comp Metabolic Panel 03/22/2016 Sodium 140 mmol/L 133-145 Potassium 4.3 mmol/L 3.5-5.0 Chloride 105 mmol/L 101-111 Co2 Carbon Dioxide 30 mmol/L 22-32 Anion Gap 5 mmol/L 2-11 Glucose 117 mg/dL High 70-100 Blood Urea Nitrogen 17 mg/dL 6-24 Creatinine 0.91 mg/dL 0.67-1.17 BUN/Creatinine Ratio 18.7 8-20 Calcium 9.6 mg/dL 8.6-10.3 Total Protein 6.4 g/dL 6.4-8.9 Albumin 4.6 g/dL 3.2-5.2 Globulin 1.8 g/dL Low 2-4 Albumin/Globulin Ratio 2.6 1-3 Total Bilirubin 1.10 mg/dL High 0.2-1.0 Alkaline Phosphatase 49 U/L 34-104 Alt 21 U/L 7-52 Ast 23 U/L 13-39 Egfr Non- 81.4 >60 Egfr 104.7 >60 36 CBC Auto Diff 03/22/2016 White Blood Count 5.3 10^3/uL 3.5-10.8 Red Blood Count 4.58 10^6/uL 4.0-5.4 Hemoglobin 14.2 g/dL 14.0-18.0 Hematocrit 42 % 42-52 Mean Corpuscular Volume 91 fL 80-94 Mean Corpuscular Hemoglobin 31 pg 27-31 Mean Corpuscular HGB Conc 34 g/dL 31-36 Red Cell Distribution Width 14 % 10.5-15 Platelet Count 149 10^3/uL Low 150-450 Mean Platelet Volume 8 um3 7.4-10.4 Abs Neutrophils 3.7 10^3/uL 1.5-7.7 Abs Lymphocytes 0.9 10^3/uL Low 1.0-4.8 Abs Monocytes 0.5 10^3/uL 0-0.8 Abs Eosinophils 0.1 10^3/uL 0-0.6 Abs Basophils 0 10^3/uL 0-0.2 Abs Nucleated RBC 0 10^3/uL Granulocyte % 70.5 % 38-83 Lymphocyte % 17.3 % Low 25-47 Monocyte % 9.0 % 1-9 Eosinophil % 2.3 % 0-6 Basophil % 0.9 % 0-2 Nucleated Red Blood Cells % 0 Laboratory test finding 03/22/2016 B-Type Natriuretic 16 pg/mL 37 Peptide BNP CBC Auto Diff 04/23/2015 White Blood Count 4.4 10^3/uL Low 4.8-10.8 Red Blood Count 4.61 10^6/uL 4.0-5.4 Hemoglobin 14.1 g/dL 14.0-18.0 Hematocrit 41 % Low 42-52 Mean Corpuscular Volume 89 fL 80-94 Mean Corpuscular Hemoglobin 31 pg 27-31 Mean Corpuscular HGB Conc 35 g/dL 31-36 Red Cell Distribution Width 14 % 10.5-15 Platelet Count 134 10^3/uL Low 150-450 Mean Platelet Volume 8 um3 7.4-10.4 Abs Neutrophils 2.9 10^3/uL 1.5-7.7 Abs Lymphocytes 1.0 10^3/uL 1.0-4.8 Abs Monocytes 0.3 10^3/uL 0-0.8 Abs Eosinophils 0.1 10^3/uL 0-0.6 Abs Basophils 0 10^3/uL 0-0.2 Abs Nucleated RBC 0 10^3/uL Granulocyte % 66.8 % 38-83 Lymphocyte % 23.3 % Low 25-47 Monocyte % 7.1 % 1-9 Eosinophil % 2.3 % 0-6 Basophil % 0.5 % 0-2 Nucleated Red Blood Cells % 0.1 Comp Metabolic Panel 04/23/2015 Sodium 140 mmol/L 133-145 Potassium 3.3 mmol/L Low 3.5-5.0 Chloride 104 mmol/L 101-111 Co2 Carbon Dioxide 29 mmol/L 22-32 Anion Gap 7 mmol/L 2-11 Glucose 125 mg/dL High 70-100 Blood Urea Nitrogen 23 mg/dL 6-24 Creatinine 0.90 mg/dL 0.67-1.17 BUN/Creatinine Ratio 25.6 High 8-20 Calcium 9.3 mg/dL 8.6-10.3 Total Protein 6.7 g/dL 6.4-8.9 Albumin 4.8 g/dL 3.2-5.2 Globulin 1.9 g/dL Low 2-4 Albumin/Globulin Ratio 2.5 1-3 Total Bilirubin 0.70 mg/dL 0.2-1.0 Alkaline Phosphatase 51 U/L 34-104 Alt 28 U/L 7-52 Ast 32 U/L 13-39 Egfr Non- 82.7 >60 Egfr 106.4 >60 38 Laboratory test finding 04/23/2015 C Reactive Protein < 1.00 mg/L &lt ; 5.00 39 Erythrocyte Sed Rate 4 mm/Hr 0-40 Rheumatoid Factor <15 IU/mL <15 40 Cyclic Citrullinated Pep Igg <15.6 U 41 Hla B27 04/23/2015 Hla B27 Negative 42 Hla B27 Interp See Comment 43 Basic Metabolic Panel 10/17/2014 Sodium 140 mmol/L 133-145 Potassium 4.0 mmol/L 3.5-5.0 Chloride 101 mmol/L 101-111 Co2 Carbon Dioxide 33 mmol/L High 22-32 Anion Gap 6 mmol/L 2-11 Glucose 105 mg/dL High 70-100 Blood Urea Nitrogen 15 mg/dL 6-24 Creatinine 1.00 mg/dL 0.67-1.17 BUN/Creatinine Ratio 15.0 8-20 Calcium 9.9 mg/dL 8.6-10.3 Egfr Non- 73.2 >60 Egfr 94.2 >60 44 Basic Metabolic Panel 07/20/2012 Sodium 139 mmol/L 135-145 45 Potassium 3.9 mmol/L 3.5-5.0 45 Chloride 101 mmol/L 101-111 45 Co2 (Carbon Dioxide) 32.0 mmol/L 22-32 45 Anion Gap 6.0 mmol/L 2-11 45, 46 Glucose 131 mg/dL High 70-100 45 BUN 20 mg/dL 6-24 45 Creatinine 0.9 mg/dL 0.50-1.40 45 One Over Creatinine 1.11 45 BUN/Creatinine Ratio 22.2 High 8-20 45 Calcium 9.5 mg/dL 8.1-9.9 45 eGFR Non- 83.4 > 60 45 eGFR 107.3 > 60 45, 47 Type And Screen (Pre-Adm) 07/20/2012 Patient Blood Type O NEGATIVE 45 Antibody Screen NEGATIVE 45 Specimen Discard Date 08/03/12 45, 48 CBC Auto Diff 07/20/2012 White Blood Count 4.8 CUMM 4.8-10.8 45 Red Cell Count 4.62 CUMM 4.6-6.2 45 Hemoglobin 13.8 g/dL Low 14.0-18.0 45 Hematocrit 41 % Low 42-52 45 Mean Corpuscular Volume 89 um3 80-94 45 Mean Corpuscular Hemoglob 30 pg 27-31 45 Mean Corpuscular HGB Cone 34 g/dL 32-36 45 Redcell Distribution WDTH 14 % 10.5-15 45 Platelet Count 149 CUMM Low 150-450 45 Mean Platelet Volume 7.8 um3 7.4-10.4 45 Gran % 69.3 % 38-83 45 Lymph % 19.3 % Low 20-45 45 Mononuclear % 7.6 % 1-9 45 Eosinophil % 3.0 % 0-6 45 Basophil % 0.8 % 0-2 45 Abs Lymphs 0.9 Low 1.0-4.8 45 Abs Mononuclear 0.4 0-0.8 45 Absolute Neutrophil Count 3.3 1.5-7.7 45 Abs Eosinophils 0.1 0-0.6 45 Abs Basophils 0 0-0.2 45 Protime 07/20/2012 Inr 0.89 0.88-1.13 45, 49 Protime 10.6 SEC 10.3-13.5 45, 50 Laboratory test finding 07/20/2012 PTT (Aptt) 33.6 SEC 25.1-38.5 45 Basic Metabolic Panel Stat 02/02/2010 Sodium 138 mmol/L 135-145 51 Potassium 3.8 mmol/L 3.5-5.0 51 Chloride 105 mmol/L 101-111 51 Co2 (Carbon Dioxide) 25.0 mmol/L 22-32 51 Anion Gap 8.0 mmol/L 2-11 51, 52 Glucose 100 mg/dL 70-100 51, 53 BUN 13 mg/dL 6-24 51 Creatinine 0.80 mg/dL 0.50-1.40 51 One Over Creatinine 1.20 51 BUN/Creatinine Ratio 16.3 8-20 51 Calcium 9.6 mg/dL 8.1-9.9 51, 54 eGFR Non- 102.2 > 60 51 eGFR 123.6 > 60 51, 55 Laboratory test 02/02/2010 C Reactive Protein < 0.5 mg/dL Less Than 0.5 51 finding 1 Desirable: <150 Borderline High: 150-199 High: 200-499 Very High: >500 2 Desirable: <200 Borderline High: 200-239 High: >239 3 Low: <40 Desirable: 40-60 High: >60 4 Desirable: <100 Near Optimal: 100-129 Borderline High: 130-159 High: 160-189 Very High: >189 5 FASTING 10 HOUR 6 >100 to <200 pg/mL: likely compensated congestive heart failure (CHF) 200 to 400 pg/mL: likely moderate CHF >400 pg/mL: likely moderate to severe CHF 7 >100 to <200 pg/mL: likely compensated congestive heart failure (CHF) 200 to 400 pg/mL: likely moderate CHF >400 pg/mL: likely moderate to severe CHF 8 [facility] Severe Sepsis and Septic Shock Management Bundle Measure requires all lactic acids initially measuring >2.0 mmol/L be repeated. 9 Because ethnic data is not always readily available, this report includes an eGFR for both -Americans and non- Americans. The National Kidney Disease Education Program (NKDEP) does not endorse the use of the MDRD equation for patients that are not between the ages of 18 and 70, are , have extremes of body size, muscle mass, or nutritional status, or are non- or non-. According to the National Kidney Foundation, irrespective of diagnosis, the stage of the disease is based on the level of kidney function: Stage Description GFR(mL/min/1.73 m(2)) 1 Kidney damage with normal or decreased GFR 90 2 Kidney damage with mild decrease in GFR 60-89 3 Moderate decrease in GFR 30-59 4 Severe decrease in GFR 15-29 5 Kidney failure <15 (or dialysis) 10 Acute inflammation: >10.00 11 Stem Maker: [id number] 12 SEE RESULT BELOW Name: QUIANA CR : [address]: Merlin Mcnally MD Acct: [id number] Unit: [id number] AGE: 77 Location: ED Re09/25/17 SEX: M Status: REG ER SPEC: [id number] NITISH: 09/25/[address]: Merlin Mcnally MD REQ: [id number] RECD: 09/25/17 STATUS: NERIS GARCIA DR: Lesa Etienne MD _ SOURCE: NASAL SPDESC: ORDERED: Flu A B Request Procedure Result Reported Site Rapid Influenza A B Request Final 09/25/172119 ML Specimen received for Influenza A/B Molecular testing * ML - MAIN LAB ([facility]) . END OF REPORT * ML=Testing performed at Main Lab DEPARTMENT OF PATHOLOGY, [address] [place] [address] Riki Can M.D. Director [facility] # [id number] 13 Because ethnic data is not always readily available, this report includes an eGFR for both -Americans and non- Americans. The National Kidney Disease Education Program (NKDEP) does not endorse the use of the MDRD equation for patients that are not between the ages of 18 and 70, are , have extremes of body size, muscle mass, or nutritional status, or are non- or non-. According to the National Kidney Foundation, irrespective of diagnosis, the stage of the disease is based on the level of kidney function: Stage Description GFR(mL/min/1.73 m(2)) 1 Kidney damage with normal or decreased GFR 90 2 Kidney damage with mild decrease in GFR 60-89 3 Moderate decrease in GFR 30-59 4 Severe decrease in GFR 15-29 5 Kidney failure <15 (or dialysis) 14 Because ethnic data is not always readily available, this report includes an eGFR for both -Americans and non- Americans. The National Kidney Disease Education Program (NKDEP) does not endorse the use of the MDRD equation for patients that are not between the ages of 18 and 70, are , have extremes of body size, muscle mass, or nutritional status, or are non- or non-. According to the National Kidney Foundation, irrespective of diagnosis, the stage of the disease is based on the level of kidney function: Stage Description GFR(mL/min/1.73 m(2)) 1 Kidney damage with normal or decreased GFR 90 2 Kidney damage with mild decrease in GFR 60-89 3 Moderate decrease in GFR 30-59 4 Severe decrease in GFR 15-29 5 Kidney failure <15 (or dialysis) 15 Stem Maker: [id number] 16 SEE RESULT BELOW Name: QUIANA CR : [address]: Cj Angeles MD Acct: [id number] Unit: [id number] AGE: 76 Location: ENDO Re06/27/17 SEX: M Status: DEP REF SPEC: [id number] NITISH: 06/27/17- [facility] DR: Cj Angeles MD REQ: [id number] RECD: 06/27/17 STATUS: CELESTINO GARCIA DR: Rodger Batista SHOW HOST OR HOSTESS _ ORDERED: LEVEL 4/2, IMMUNO-FIRST Addendum: An immunohistochemical stain for Helicobacter pylori-like organisms was performed with appropriate controls and is negative. Addendum Signed (signature on file) Riki Can MD [id number] FINAL DIAGNOSIS 1. 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 2. Esophagus, biopsy: -- Benign squamous mucosa with mild erosive changes. -- No evidence of eosinophilic esophagitis. COMMENT: An H. pylori immunohistochemical stain is pending for specimen 1 and the results will be reported in an addendum. CLINICAL HISTORY No history given POST-OPERATIVE DIAGNOSIS Esophagus - tortuous, no stricture biopsy for eosinophilic esophagitis; stomach - gastritis; duodenum - normal. Conclusions/Plan: Possible early achalasia, follow up after biopsy. GROSS DESCRIPTION 1. The specimen is received in formalin labeled, Biopsy Gastric Antrum, and consists of a 0.4 x 0.3 x 0.1 cm heard-red irregular soft tissue fragment which is submitted entirely in one cassette. CONTINUED ON NEXT PAGE * ML=Testing performed at Main Lab DEPARTMENT OF PATHOLOGY, [address] [place] [address] Riki Can M.D. Director [facility] # [id number] RUN DATE: 06/28/17 [facility] LAB LIVE PAGE 2 Patient: QUIANA CR [id number] (Continued) GROSS DESCRIPTION (Continued) GROSS DESCRIPTION (Continued) 2. The specimen is received in formalin labeled, Biopsy Esophagus, and consists of a 0.3 x 0.3 x 0.1 cm luis-white irregular soft tissue fragment which is submitted entirely in one cassette. Signed (signature on file) Swapna Carrion MD 0903 END OF REPORT * ML=Testing performed at Main Lab DEPARTMENT OF PATHOLOGY, [address] [place] [address] Riki Can M.D. Director [facility] # [id number] 17 SEE RESULT BELOW Name: QUIANA CR : [address]: Cj Angeles MD Acct: [id number] Unit: [id number] AGE: 76 Location: ENDO Re06/27/17 SEX: M Status: REG REF SPEC: [id number] NITISH: 06/27/17-[address] [facility] [address]: Cj Angeles MD REQ: [id number] RECD: 06/27/172633 STATUS: NERIS GARCIA DR: Lesa Batista SHOW HOST OR HOSTESS _ SOURCE: GAS ANTRUM SPDESC: ORDERED: Clotest Procedure Result Reported Site Clotest Final 06/28/17- 0753 ML Clotest Negative * ML - MAIN LAB ([facility]) . END OF REPORT * ML=Testing performed at Main Lab DEPARTMENT OF PATHOLOGY, [address] [place] [address] Riki Can M.D. Director [facility] # [id number] 18 Because ethnic data is not always readily available, this report includes an eGFR for both -Americans and non- Americans. The National Kidney Disease Education Program (NKDEP) does not endorse the use of the MDRD equation for patients that are not between the ages of 18 and 70, are , have extremes of body size, muscle mass, or nutritional status, or are non- or non-. According to the National Kidney Foundation, irrespective of diagnosis, the stage of the disease is based on the level of kidney function: Stage Description GFR(mL/min/1.73 m(2)) 1 Kidney damage with normal or decreased GFR 90 2 Kidney damage with mild decrease in GFR 60-89 3 Moderate decrease in GFR 30-59 4 Severe decrease in GFR 15-29 5 Kidney failure <15 (or dialysis) 19 Because ethnic data is not always readily available, this report includes an eGFR for both -Americans and non- Americans. The National Kidney Disease Education Program (NKDEP) does not endorse the use of the MDRD equation for patients that are not between the ages of 18 and 70, are , have extremes of body size, muscle mass, or nutritional status, or are non- or non-. According to the National Kidney Foundation, irrespective of diagnosis, the stage of the disease is based on the level of kidney function: Stage Description GFR(mL/min/1.73 m(2)) 1 Kidney damage with normal or decreased GFR 90 2 Kidney damage with mild decrease in GFR 60-89 3 Moderate decrease in GFR 30-59 4 Severe decrease in GFR 15-29 5 Kidney failure <15 (or dialysis) 20 >100 to <200 pg/mL: likely compensated congestive heart failure (CHF) 200 to 400 pg/mL: likely moderate CHF >400 pg/mL: likely moderate to severe CHF 21 99th percentile=0.04 ng/mL Troponin results at [facility] and [facility] are not interchangeable. 22 SD 02/16/17 23 SD 02/16/17 24 Because ethnic data is not always readily available, this report includes an eGFR for both -Americans and non- Americans. The National Kidney Disease Education Program (NKDEP) does not endorse the use of the MDRD equation for patients that are not between the ages of 18 and 70, are , have extremes of body size, muscle mass, or nutritional status, or are non- or non-. According to the National Kidney Foundation, irrespective of diagnosis, the stage of the disease is based on the level of kidney function: Stage Description GFR(mL/min/1.73 m(2)) 1 Kidney damage with normal or decreased GFR 90 2 Kidney damage with mild decrease in GFR 60-89 3 Moderate decrease in GFR 30-59 4 Severe decrease in GFR 15-29 5 Kidney failure <15 (or dialysis) 25 >100 to <200 pg/mL: likely compensated congestive heart failure (CHF) 200 to 400 pg/mL: likely moderate CHF >400 pg/mL: likely moderate to severe CHF 26 Because ethnic data is not always readily available, this report includes an eGFR for both -Americans and non- Americans. The National Kidney Disease Education Program (NKDEP) does not endorse the use of the MDRD equation for patients that are not between the ages of 18 and 70, are , have extremes of body size, muscle mass, or nutritional status, or are non- or non-. According to the National Kidney Foundation, irrespective of diagnosis, the stage of the disease is based on the level of kidney function: Stage Description GFR(mL/min/1.73 m(2)) 1 Kidney damage with normal or decreased GFR 90 2 Kidney damage with mild decrease in GFR 60-89 3 Moderate decrease in GFR 30-59 4 Severe decrease in GFR 15-29 5 Kidney failure <15 (or dialysis) 27 [facility] Severe Sepsis and Septic Shock Management Bundle Measure requires all lactic acids initially measuring >2.0 mmol/L be repeated. 28 >100 to <200 pg/mL: likely compensated congestive heart failure (CHF) 200 to 400 pg/mL: likely moderate CHF >400 pg/mL: likely moderate to severe CHF 29 Because ethnic data is not always readily available, this report includes an eGFR for both -Americans and non- Americans. The National Kidney Disease Education Program (NKDEP) does not endorse the use of the MDRD equation for patients that are not between the ages of 18 and 70, are , have extremes of body size, muscle mass, or nutritional status, or are non- or non-. According to the National Kidney Foundation, irrespective of diagnosis, the stage of the disease is based on the level of kidney function: Stage Description GFR(mL/min/1.73 m(2)) 1 Kidney damage with normal or decreased GFR 90 2 Kidney damage with mild decrease in GFR 60-89 3 Moderate decrease in GFR 30-59 4 Severe decrease in GFR 15-29 5 Kidney failure <15 (or dialysis) 30 Reference Range and Interpretation: TnI (ng/mL) Interpretation Less Than 0.03 ng/mL Not supportive of diagnosis of [place] 0.03 - 0.50 ng/mL Indeterminate: suggest serial studies if clinically indicated. Greater than 0.5 ng/mL Consistent with diagnosis of [place] 31 Because ethnic data is not always readily available, this report includes an eGFR for both -Americans and non- Americans. The National Kidney Disease Education Program (NKDEP) does not endorse the use of the MDRD equation for patients that are not between the ages of 18 and 70, are , have extremes of body size, muscle mass, or nutritional status, or are non- or non-. According to the National Kidney Foundation, irrespective of diagnosis, the stage of the disease is based on the level of kidney function: Stage Description GFR(mL/min/1.73 m(2)) 1 Kidney damage with normal or decreased GFR 90 2 Kidney damage with mild decrease in GFR 60-89 3 Moderate decrease in GFR 30-59 4 Severe decrease in GFR 15-29 5 Kidney failure <15 (or dialysis) 32 Desirable <150 Borderline high 150-199 High 200-499 Very High >500 33 Desirable <200 Borderline high 200-239 High >239 34 Low <40 Desirable: 40-60 High: >60 35 Desirable: <100 mg/dL Near Optimal: 100-129 mg/dL Borderline High: 130-159 mg/dL High: 160-189 mg/dL Very High: >189 mg/dL 36 Because ethnic data is not always readily available, this report includes an eGFR for both -Americans and non- Americans. The National Kidney Disease Education Program (NKDEP) does not endorse the use of the MDRD equation for patients that are not between the ages of 18 and 70, are , have extremes of body size, muscle mass, or nutritional status, or are non- or non-. According to the National Kidney Foundation, irrespective of diagnosis, the stage of the disease is based on the level of kidney function: Stage Description GFR(mL/min/1.73 m(2)) 1 Kidney damage with normal or decreased GFR 90 2 Kidney damage with mild decrease in GFR 60-89 3 Moderate decrease in GFR 30-59 4 Severe decrease in GFR 15-29 5 Kidney failure <15 (or dialysis) 37 >100 to <200 pg/mL: likely compensated congestive heart failure (CHF) 200 to 400 pg/mL: likely moderate CHF >400 pg/mL: likely moderate to severe CHF 38 Because ethnic data is not always readily available, this report includes an eGFR for both -Americans and non- Americans. The National Kidney Disease Education Program (NKDEP) does not endorse the use of the MDRD equation for patients that are not between the ages of 18 and 70, are , have extremes of body size, muscle mass, or nutritional status, or are non- or non-. According to the National Kidney Foundation, irrespective of diagnosis, the stage of the disease is based on the level of kidney function: Stage Description GFR(mL/min/1.73 m(2)) 1 Kidney damage with normal or decreased GFR 90 2 Kidney damage with mild decrease in GFR 60-89 3 Moderate decrease in GFR 30-59 4 Severe decrease in GFR 15-29 5 Kidney failure <15 (or dialysis) 39 Acute inflammation: >10.00 40 Test Performed by: [place] [address] [facility] Practitioner: Dante Rice II, M.D., Ph.D. 41 REFERENCE VALUE <20.0 (Negative) Test Performed by: [place] [address] [facility] Practitioner: Dante Rice II, M.D., Ph.D. 42 REFERENCE VALUE Not Applicable 43 RESULT: HLA-B27 antigen was not detected. ADDITIONAL INFORMATION Method: Flow Cytometry Performing Laboratory CLIA# [id number] Test Performed by: [place] [address] [facility] Practitioner: Dante Rice II, M.D., Ph.D. 44 Because ethnic data is not always readily available, this report includes an eGFR for both -Americans and non- Americans. The National Kidney Disease Education Program (NKDEP) does not endorse the use of the MDRD equation for patients that are not between the ages of 18 and 70, are , have extremes of body size, muscle mass, or nutritional status, or are non- or non-. According to the National Kidney Foundation, irrespective of diagnosis, the stage of the disease is based on the level of kidney function: Stage Description GFR(mL/min/1.73 m(2)) 1 Kidney damage with normal or decreased GFR 90 2 Kidney damage with mild decrease in GFR 60-89 3 Moderate decrease in GFR 30-59 4 Severe decrease in GFR 15-29 5 Kidney failure <15 (or dialysis) 45 SDS 07/27/12 46 Anion gap measurement may be of limited value in the presence of any alkalosis, especially in a combined acid base disorder. . 47 Because ethnic data is not always readily available, this report includes an eGFR for both -Americans and non- Americans. The National Kidney Disease Education Program (NKDEP) does not endorse the use of the MDRD equation for patients that are not between the ages of 18 and 70, are , have extremes of body size, muscle mass, or nutritional status, or are non- or non-. According to the National Kidney Foundation, irrespective of diagnosis, the stage of the disease is based on the level of kidney function: Stage Description GFR(mL/min/1.73 m(2)) 1 Kidney damage with normal or decreased GFR 90 2 Kidney damage with mild decrease in GFR 60-89 3 Moderate decrease in GFR 30-59 4 Severe decrease in GFR 15-29 5 Kidney failure <15 (or dialysis) 48 PREADMISSION TESTING SAMPLES FOR BLOOD BANK WILL BE HELD FOR 14 DAYS FROM THE DATE OF COLLECTION *IF* THE FOLLOWING CRITERIA ARE MET: 1) THE PATIENT HAS *NOT* BEEN IN THE LAST 3 MONTHS. 2) THE PATIENT HAS *NOT* BEEN TRANSFUSED IN THE LAST 3 MONTHS. PREADMISSION TESTING SAMPLES WILL *NOT* BE HELD FOR 14 DAYS FROM PATIENTS WHO IN THE LAST 3 MONTHS: 1) HAVE BEEN 2) HAVE BEEN TRANSFUSED THESE PATIENTS *MUST* BE COLLECTED WITHIN 3 DAYS OF THE SURGERY DATE. 49 Recommended INR for Patients on Oral Anticoagulants Prophylaxis 2.0 - 3.0 Treatment of thrombosis 2.0 - 3.0 Prevention of embolism 2.0 - 3.0 Prevention of embolism from prosthetic heart valves 2.5 - 3.5 50 DIAGNOSIS,TREATMENT,AND THERAPY MUST BE BASED ON THE INR VALUE ALONE. 51 COMMENTS: N 52 Anion gap measurement may be of limited value in the presence of any alkalosis, especially in a combined acid base disorder. . 53 Note change in reference range as of 06/20/08. The change was based on recommendations from the [place] [employer]. 54 Please note change in reference range effective 08 . 55 Because ethnic data is not always readily available, this report includes an eGFR for both -Americans and non- Americans. The National Kidney Disease Education Program (NKDEP) does not endorse the use of the MDRD equation for patients that are not between the ages of 18 and 70, are , have extremes of body size, muscle mass, or nutritional status, or are non- or non-. According to the National Kidney Foundation, irrespective of diagnosis, the stage of the disease is based on the level of kidney function: Stage Description GFR(mL/min/1.73 m(2)) 1 Kidney damage with normal or decreased GFR 90 2 Kidney damage with mild decrease in GFR 60-89 3 Moderate decrease in GFR 30-59 4 Severe decrease in GFR 15-29 5 Kidney failure <15 (or dialysis) Procedures Date CPT Code Description Status Comment 12/03/2017 99876 Implantable Cardio System Loop Completed Recorder Sys Remota Data Acquistio 12/03/2017 61144 Interrogation Dev Loop Recorder Completed Incl Physician Analysis,Rev,Repor 11/17/2017 80688 Closed TX Scapular FX W/O Completed Manipulation 11/02/2017 81128 Implantable Cardio System Loop Completed Recorder Sys Remota Data Acquistio 11/02/2017 70949 Interrogation Dev Loop Recorder Completed Incl Physician Analysis,Rev,Repor 10/02/2017 43637 Implantable Cardio System Loop Completed Recorder Sys Remota Data Acquistio 10/02/2017 49091 Interrogation Dev Loop Recorder Completed Incl Physician Analysis,Rev,Repor 09/01/2017 51612 Implantable Cardio System Loop Completed Recorder Sys Remota Data Acquistio 09/01/2017 41828 Interrogation Dev Loop Recorder Completed Incl Physician Analysis,Rev,Repor 08/10/2017 95589 EKG Tracing & Completed Interpretation 08/01/2017 64238 Implantable Cardio System Loop Completed Recorder Sys Remota Data Acquistio 08/01/2017 64243 Interrogation Dev Loop Recorder Completed Incl Physician Analysis,Rev,Repor 07/01/2017 97806 Implantable Cardio System Loop Completed Recorder Sys Remota Data Acquistio 07/01/2017 79582 Interrogation Dev Loop Recorder Completed Incl Physician Analysis,Rev,Repor 05/31/2017 19114 Interrogation Dev Loop Recorder Completed Incl Physician Analysis,Rev,Repor 05/31/2017 98129 Implantable Cardio System Loop Completed Recorder Sys Remota Data Acquistio 04/30/2017 27385 Implantable Cardio System Loop Completed Recorder Sys Remota Data Acquistio 04/30/2017 28305 Interrogation Dev Loop Recorder Completed Incl Physician Analysis,Rev,Repor 03/30/2017 10599 Implantable Cardio System Loop Completed Recorder Sys Remota Data Acquistio 03/30/2017 02591 Interrogation Dev Loop Recorder Completed Incl Physician Analysis,Rev,Repor 03/02/2017 43883 Arthroplasty,Total Shoulder Completed Replacement (TSR) 03/02/2017 62314 Arthroplasty,Total Shoulder Completed Replacement (TSR) 02/27/2017 48534 Implantable Cardio System Loop Completed Recorder Sys Remota Data Acquistio 02/27/2017 62423 Interrogation Dev Loop Recorder Completed Incl Physician Analysis,Rev,Repor 02/14/2017 65565 EKG Tracing & Completed Interpretation 02/10/2017 32987 EKG, Interpretation Only Completed 01/27/2017 85019 Implantable Cardio System Loop Completed Recorder Sys Remota Data Acquistio 01/27/2017 50006 Interrogation Dev Loop Recorder Completed Incl Physician Analysis,Rev,Repor 12/27/2016 51129 Implantable Cardio System Loop Completed Recorder Sys Remota Data Acquistio 12/27/2016 21065 Interrogation Dev Loop Recorder Completed Incl Physician Analysis,Rev,Repor 11/26/2016 15001 Interrogation Dev Loop Recorder Completed Incl Physician Analysis,Rev,Repor 11/26/2016 24044 Implantable Cardio System Loop Completed Recorder Sys Remota Data Acquistio 10/26/2016 00706 Implantable Cardio System Loop Completed Recorder Sys Remota Data Acquistio 10/26/2016 59557 Interrogation Dev Loop Recorder Completed Incl Physician Analysis,Rev,Repor 09/25/2016 12980 Implantable Cardio System Loop Completed Recorder Sys Remota Data Acquistio 09/25/2016 15862 Interrogation Dev Loop Recorder Completed Incl Physician Analysis,Rev,Repor 09/01/2016 08318 EKG Tracing & Completed Interpretation 08/25/2016 17786 Implantable Cardio System Loop Completed Recorder Sys Remota Data Acquistio 08/25/2016 00647 Interrogation Dev Loop Recorder Completed Incl Physician Analysis,Rev,Repor 08/12/2016 90538 Treadmill Interp/Report Only Completed 08/12/2016 24236 Stress Test Supervsn W/Out I/R Completed 07/27/2016 40238 Implantable Cardio System Loop Completed Recorder Sys Remota Data Acquistio 07/27/2016 79490 Interrogation Dev Loop Recorder Completed Incl Physician Analysis,Rev,Repor 07/25/2016 25199 Implantable Cardio System Loop Completed Recorder Sys Remota Data Acquistio 07/25/2016 73649 Interrogation Dev Loop Recorder Completed Incl Physician Analysis,Rev,Repor 06/24/2016 40643 Interrogation Dev Loop Recorder Completed Incl Physician Analysis,Rev,Repor 06/24/2016 19496 Implantable Cardio System Loop Completed Recorder Sys Remota Data Acquistio 05/24/2016 04800 Implantable Cardio System Loop Completed Recorder Sys Remota Data Acquistio 05/24/2016 30258 Interrogation Dev Loop Recorder Completed Incl Physician Analysis,Rev,Repor 04/23/2016 27431 Implantable Cardio System Loop Completed Recorder Sys Remota Data Acquistio 04/23/2016 42065 Interrogation Dev Loop Recorder Completed Incl Physician Analysis,Rev,Repor 03/23/2016 74580 Implantable Cardio System Loop Completed Recorder Sys Remota Data Acquistio 03/23/2016 11949 Interrogation Dev Loop Recorder Completed Incl Physician Analysis,Rev,Repor 03/11/2016 33521 Polysomnography Sleep Staging Completed 4+ Parameters 02/23/2016 40785 Diffusing Capacity Completed 02/23/2016 34832 Plethysmography Determination Completed Lung Volumes & Per Airway Resist 02/23/2016 47319 Pulmonary Completed Function><Bronchodil 02/21/2016 25846 Implantable Cardio System Loop Completed Recorder Sys Remota Data Acquistio 02/21/2016 06181 Interrogation Dev Loop Recorder Completed Incl Physician Analysis,Rev,Repor 02/04/2016 70697 EKG, Interpretation Only Completed 01/21/2016 59173 Interrogation Dev Loop Recorder Completed Incl Physician Analysis,Rev,Repor 01/21/2016 67486 Implantable Cardio System Loop Completed Recorder Sys Remota Data Acquistio 12/21/2015 28316 Implantable Cardio System Loop Completed Recorder Sys Remota Data Acquistio 12/21/2015 46726 Interrogation Dev Loop Recorder Completed Incl Physician Analysis,Rev,Repor 11/20/2015 33515 Implantable Cardio System Loop Completed Recorder Sys Remota Data Acquistio 11/20/2015 07388 Interrogation Dev Loop Recorder Completed Incl Physician Analysis,Rev,Repor 10/31/2015 Colonoscopy Completed Completed home kit for screening per pt. d/t difficult colonoscopy. Supposed to repeat every 4-5 yrs. 10/21/2015 27964 Implantable Cardio System Loop Completed Recorder Sys Remota Data Acquistio 10/21/2015 03350 Interrogation Dev Loop Recorder Completed Incl Physician Analysis,Rev,Repor 09/19/2015 37840 EKG Tracing & Completed Interpretation 09/19/2015 24798 Implantable Cardio System Loop Completed Recorder Sys Remota Data Acquistio 09/19/2015 48362 Interrogation Dev Loop Recorder Completed Incl Physician Analysis,Rev,Repor 09/08/2015 92720 Interrogation Device Completed Eval,Implantable Loop Recorder System 08/20/2015 23029 Implantable Cardio System Loop Completed Recorder Sys Remota Data Acquistio 08/20/2015 23045 Interrogation Dev Loop Recorder Completed Incl Physician Analysis,Rev,Repor 08/19/2015 58882 Implantable Cardio System Loop Completed Recorder Sys Remota Data Acquistio 08/19/2015 85439 Interrogation Dev Loop Recorder Completed Incl Physician Analysis,Rev,Repor 07/21/2015 17835 Implantable Cardio System Loop Completed Recorder Sys Remota Data Acquistio 07/21/2015 71488 Interrogation Dev Loop Recorder Completed Incl Physician Analysis,Rev,Repor 06/19/2015 37427 Interrogation Device Completed Eval,Implantable Loop Recorder System 06/06/2015 36119 Implantable Cardio System Loop Completed Recorder Sys Remota Data Acquistio 06/06/2015 12709 Interrogation Dev Loop Recorder Completed Incl Physician Analysis,Rev,Repor 05/21/2015 49975 Implantable Cardio System Loop Completed Recorder Sys Remota Data Acquistio 05/21/2015 13990 Interrogation Dev Loop Recorder Completed Incl Physician Analysis,Rev,Repor 04/22/2015 85186 Implantable Cardio System Loop Completed Recorder Sys Remota Data Acquistio 04/22/2015 47227 Interrogation Dev Loop Recorder Completed Incl Physician Analysis,Rev,Repor 03/19/2015 43402 Implantable Cardio System Loop Completed Recorder Sys Remota Data Acquistio 03/19/2015 36074 Interrogation Dev Loop Recorder Completed Incl Physician Analysis,Rev,Repor 02/06/2015 20822 Stress Test Completed 02/06/2015 59774 Myocardial Perfusion Imaging Completed Tomographic (Spect) Multiple Studies 01/28/2015 72499 EKG Tracing & Completed Interpretation 01/20/2015 17960 Implantable Cardio System Loop Completed Recorder Sys Remota Data Acquistio 01/20/2015 54013 Interrogation Dev Loop Recorder Completed Incl Physician Analysis,Rev,Repor 12/18/2014 15445 Interrogation Dev Loop Recorder Completed Incl Physician Analysis,Rev,Repor 12/18/2014 80861 Implantable Cardio System Loop Completed Recorder Sys Remota Data Acquistio 11/25/2014 09910 Interrogation Device Completed Eval,Implantable Loop Recorder System 11/18/2014 34616 Implantable Cardio System Loop Completed Recorder Sys Remota Data Acquistio 11/18/2014 75473 Interrogation Dev Loop Recorder Completed Incl Physician Analysis,Rev,Repor 10/21/2014 97529 Implantable Cardio System Loop Completed Recorder Sys Remota Data Acquistio 10/21/2014 78950 Interrogation Dev Loop Recorder Completed Incl Physician Analysis,Rev,Repor 10/15/2014 45098 EKG, Interpretation Only Completed 10/14/2014 43365 Left Heart Cath. Incl S/I Completed Coronaries, Angio S/I V Gram If Done 10/14/2014 17965 EKG, Interpretation Only Completed 10/14/2014 72412 Percutaneous Transcatheter Completed Placement Of Intracoronary Stent 10/08/2014 70824 Interrogation Device Completed Eval,Implantable Loop Recorder System 10/08/2014 24377 EKG Tracing & Completed Interpretation 2014 63843 Implant Cardiac Loop Recorder Completed 09/12/2014 58812 Stress Test Completed 09/12/2014 10445 Myocardial Perfusion Imaging Completed Tomographic (Spect) Multiple Studies 09/09/2014 23274 EEG Recording Awake & Completed Asleep 04/12/2014 99461 EKG Tracing & Completed Interpretation 04/05/2014 60185 Treadmill Interp/Report Only Completed 04/05/2014 42080 Stress Test Supervsn W/Out I/R Completed 04/05/2014 39625 EKG, Interpretation Only Completed 04/04/2014 51233 EKG, Interpretation Only Completed 11/21/2013 32026 EKG Tracing & Completed Interpretation 05/17/2013 93068 Rad Shoulder, 1 View Completed 11/22/2012 51530 EKG Tracing & Completed Interpretation 10/25/2012 92652 Treadmill Interp/Report Only Completed 10/25/2012 82094 Stress Test Supervsn W/Out I/R Completed 07/27/2012 68533 Partial Excision Post Vertebral Completed Component Single Cervical 10/28/2010 54714 EKG, Interpretation Only Completed Encounters Type Date Location Provider CPT E/M Dx Office Visit 01/17/2018 [facility] [place] [address] S42.102A 2:15p C.M.A. Z47.1 Office Visit 01/09/2018 10:30a [facility] Cortez Luevano, 68336 R29.6 Laura G25.81 R55 Office Visit 12/29/2017 1:40p [facility] [place] [address] R29.6 Anna S42.102A F32.89 R06.02 Office Visit 11/24/2017 1:40p [facility] [place] [address] R29.6 Erie K21.9 Office Visit 11/04/2017 9:30a [facility] [place] [address] Z96.612 C.M.A. M25.512 R29.6 Office Visit 09/27/2017 10:40a [facility] [place] [address] H81.10 Erie J06.9 Office Visit 09/20/2017 1:00p [facility] [place] [address] Z96.612 C.M.A. M25.512 W06.xxxA Office Visit 09/09/2017 10:40a [facility] [place] [address] M54.5 Erie K21.9 Office Visit 09/06/2017 1:45p [facility] [place] [address] Z96.612 C.M.A. M25.512 W06.xxxA Office Visit 08/15/2017 3:40p [facility] [place] [address] M54.5 - [place] Office Visit 08/10/2017 11:30a [facility] Of Eliot Dumont, 30069 I25.10 Capo Sanchez I10 R94.31 Office Visit 08/03/2017 10:15a [facility] [place] [address] J44.9 Services Of [facility] G47.33 Office Visit 07/19/2017 1:00p [facility] [place] [address] Z96.612 C.M.A. Z47.1 Office Visit 07/11/2017 10:00a [facility] [place] [address] M50.10 Erie J44.9 H81.10 Office Visit 06/22/2017 2:45p [facility] Cortez Luevano, 77824 G25.81 Services Of Capo Sanchez M54.16 Office Visit 06/07/2017 1:15p [facility] [place] [address] Z96.612 C.M.A. Z47.1 Office Visit 04/29/2017 11:30a Neurosurgery Services Gina Kelsey PA-C 15793 M48.06 Of [facility] Office Visit 03/16/2017 3:40p [facility] [place] [address] Z96.612 [place] Office Visit 03/07/2017 12:59p [facility] Francia 74970 R41.0 Hospitalists Nikkie lozano NP Z96.612 I10 I25.10 Office Visit 03/06/2017 12:49p [facility] JennyferNirali, 17998 R41.0 Assoc,pc PA Hospitalists Z96.612 I10 I25.10 Office Visit 03/05/2017 12:45p [facility] Belgica Corral, N.P. 24477 R41.0 Hospitalists Z96.612 I10 I25.10 Office Visit 02/23/2017 1:00p [facility] [place] [address] R60.0 Anna R13.10 M51.16 Office Visit 02/14/2017 3:20p [facility] Internal Medicine Lesa Etienne 00555 R60.0 - Anna Sanchez I25.10 Office Visit 02/03/2017 4:00p [facility] [place] [address] M51.16 - Anna Office Visit 02/01/2017 1:00p [facility] [place] [address] Z01.811 Services Of [facility] J44.9 G47.33 Office Visit 01/19/2017 10:20a [facility] [place] [address] Z01.818 Erie M19.012 I25.10 G47.33 J44.9 Office Visit 01/11/2017 10:15a [facility] [place] [address] M19.012 C.M.A. Office Visit 01/07/2017 11:15a [facility] Eliot Dumont, 55724 I25.10 [facility] Laura R53.83 Z95.9 Office Visit 12/24/2016 10:00a [facility] [place] [address] S46.012A C.M.AAguilar M19.012 Office Visit 12/09/2016 10:40a [facility] [place] [address] R42 Erie R05 Office Visit 10/21/2016 2:00p [facility] [place] [address] F41.9 Erie F32.89 Office Visit 2016 2:00p [facility] [place] [address] R53.83 Erie F41.9 F32.89 Office Visit 09/01/2016 10:15a [facility] Eliot Dumont, 52161 R07.9 [facility] Laura F41.9 I25.10 G45.9 Z95.818 Office Visit 08/26/2016 10:20a [facility] [place] [address] R07.9 Erie F41.9 Office Visit 08/12/2016 3:59p [facility] [place] [address] R07.9 Hospitalists I25.10 R00.2 Office Visit 08/11/2016 3:58p [facility], [place] [address] R07.9 Hospitalists I25.10 R00.2 Office Visit 08/02/2016 1:15p [facility] [place] [address] J44.9 Services Of [facility] G47.33 Office Visit 07/08/2016 2:20p [facility] [place] [address] F32.8 E[place] Office Visit 06/15/2016 1:45p [facility] Cortez Luevano, 19920 G25.81 Services Of [facility] M.DAguilar Office Visit 05/26/2016 1:00p [facility] [place] [address] Z00.00 Erie G47.33 G45.9 F32.8 Z13.220 Office Visit 03/30/2016 1:45p [facility] [place] [address] G47.33 Services Of [facility] R06.02 E66.09 Office Visit 03/22/2016 11:00a [facility] [place] [address] R60.0 - [place] Office Visit 03/19/2016 1:45p [facility] Eliot Dumont, 54273 R06.02 Capo Sanchez Z95.818 I25.10 Office Visit 03/08/2016 1:00p [facility] [place] [address] R06.02 [place] Office Visit 02/11/2016 1:00p [facility] [place] [address] J44.9 Services Of [facility] G47.33 Office Visit 02/05/2016 [facility] Francia Claudio, 65353 R65.10 3:01p Assoc,pc SHOW HOST OR HOSTESS Hospitalists R05 R06.02 R50.9 Office Visit 02/04/2016 3:00p [facility] Shena Ackerman, 50045 R65.10 Hospitalists N.P. R05 R06.02 R50.9 Office Visit 02/03/2016 2:59p [facility] [place] [address] R65.10 Assoc,pc Hospitalists R05 R06.02 R50.9 Office Visit 12/10/2015 2:00p [facility] Cortez Luevano, 25209 G25.81 Services Of Capo Sanchez M54.16 Office Visit 11/10/2015 1:00p [facility] Dustin Duncan, 62444 M54.2 Of Capo Sanchez M47.812 G25.81 Office Visit 09/19/2015 1:30p [facility] Eliot Dumont, 87654 I25.10 Capo Sanchez R94.31 I25.9 Z95.9 Office Visit 08/08/2015 11:40a [facility] Dustin Duncan, 11109 M54.2 Of Capo Sanchez M47.812 Office Visit 07/14/2015 10:40a [facility] Dustin Duncan, 26128 721.1 Of Capo Sanchez 782.0 728.87 Office Visit 05/09/2015 1:40p [facility] Dustin Duncan, 89084 721.3 Of [employer] M.D. 729.2 Office Visit 05/01/2015 10:00a Rheumatology Services Krystin Kelly, DIRECTOR MEDICAL AFFAIRS 92616 715.14 Of [employer] 715.09 723.1 722.4 Office Visit 03/04/2015 2:40p [facility] Dustin Duncan, 48730 414.01 Of [employer] M.DAguilar 723.1 729.5 Office Visit 02/28/2015 8:30a [facility] Of Eliot CatalinaAguilar Dumont, 60320 414.01 [employer] M.D. 786.51 Office Visit 01/28/2015 1:45p [facility] Eliot Katelyn Dumont, 93182 414.01 Tow [employer] Operator At [facility] M.D. 786.51 Office Visit 01/06/2015 1:00p [facility] Dustin Duncan, 91420 723.1 Of [employer] M.D. Office Visit 12/13/2014 3:30p [facility] Of Eliot Katelyn Dumont, 30250 414.01 [employer] M.DAguilar 786.51 435.9 Office Visit 10/15/2014 12:46p [facility] Eliot Katelyn Dumont, 21483 413.9 [employer] M.D. 786.50 Office Visit 10/11/2014 9:15a [facility] Eliot Katelyn Dumont, 55828 786.50 [employer] M.D. 414.01 Office Visit 10/07/2014 1:00p [facility] Dustin Duncan, 25558 786.51 Of [employer] M.DAguilar 723.1 Office Visit 09/06/2014 11:00a [facility] Romy Diego, 51235 435.9 Services Of [employer] M.D. Office Visit 09/05/2014 10:30a [facility] Of Eliot CatalinaAguilar Dumont, 10808 414.01 [employer] M.DAguilar 786.50 435.9 Office Visit 08/27/2014 3:00p [facility] Dustin Duncan, 45222 435.8 Of [employer] M.DAguilar 333.94 Office Visit 07/22/2014 10:20a Rheumatology Services Drew Ordoñez M.D. 92823 715.09 Of [employer] 715.14 Office Visit 05/23/2014 1:30p [facility] Eliot DAguilar Dumont, 17460 786.50 Capo M.DAguilar 414.01 Office Visit 04/12/2014 3:30p [facility] Eliot DAguilar Tim, 33548 786.50 [employer] M.DAguilar 414.01 Office Visit 04/05/2014 4:15p [facility] Shai Erickevelyn, 73130 786.51 Hospitalists M.D. Office Visit 04/04/2014 4:15p [facility] Tomas Wang, 13389 786.51 Hospitalists M.DAguilar 414.01 272.2 401.1 Office Visit 03/18/2014 1:00p [facility] Dustin Duncan, 66275 724.2 Of Capo Gates.Katelyn 722.83 723.1 723.4 Office Visit 11/27/2013 2:20p [facility] Dustin Duncan, 02400 724.2 Of Capo Gates.Katelyn 722.83 724.3 Office Visit 11/21/2013 8:00a [facility] Eliot CatalinaAguilar Dumont, 81710 414.01 Tow [employer] Operator M.Katelyn 786.51 Office Visit 09/18/2013 1:20p [facility] Dustin Duncan, 22063 724.2 Of Capo Gates.Katelyn 723.1 722.83 724.3 Office Visit 05/17/2013 8:00a [facility] Of Brian Hernandez, 65722 719.41 C.MMili Sanchez Office Visit 04/09/2013 2:40p [facility] Dustin Duncan, 49730 724.2 Of Capo M.DAguilar Office Visit 03/13/2013 1:40p [facility] Dustin Duncan 03553 724.2 Of Capo M.DAguilar Office Visit 11/22/2012 2:30p [facility] Eliot CatalinaAguilar Dumont, 25363 414.9 Tow [employer] Operator M.D. Office Visit 11/02/2012 11:04a [facility] [address] 787.91 Hospitalists 276.51 Office Visit 11/01/2012 11:03a [facility] [address] 787.91 Hospitalists 276.51 Office Visit 10/26/2012 2:56p [facility], Yanira Balderrama, 77047 786.51 Hospitalists M.D. 530.81 724.2 Office Visit 10/25/2012 2:55p [facility], Shai Munoz, 04680 786.51 Hospitalists M.D. 530.81 724.2 Office Visit 07/10/2012 3:00p [facility] Dustin Duncan, 25836 349.2 Of [employer] M.DAguilar 723.4 723.1 724.2 Office Visit 05/08/2012 9:00a [facility] Dustin Duncan 21917 349.2 Of [employer] M.DAguilar 723.4 723.1 724.2 Office Visit 05/02/2012 9:20a [facility] Dustin Duncan 63658 349.2 Of [employer] M.DAguilar Office Visit 04/11/2012 1:00p [facility] Services Dustni Duncan 21478 723.4 Of Capo Gates.DAguilar 723.1 724.2 Office Visit 01/24/2012 10:00a [facility] Dustin Duncan 58336 723.4 Of [employer] M.DAguilar 723.1 724.2 Office Visit 12/13/2011 10:20a [facility] Dustin Duncan 05206 723.4 Of [employer] M.DAguilar 723.1 724.2 Office Visit 11/09/2011 3:00p [facility] Dustin Duncan 60392 723.4 Of [employer] M.DAguilar 723.1 Office Visit 10/05/2011 1:40p [facility] Dustin Duncan 75794 724.2 Of [employer] M.DAguilar Office Visit 08/03/2011 11:00a [facility] Dustin Duncan 74080 724.2 Of [employer] M.DAguilar Office Visit 07/06/2011 1:20p [facility] Dustin Duncan 95829 724.2 Of [employer] M.DAguilar Office Visit 04/19/2011 1:00p [facility] Dustin Duncan 19361 724.2 Of [employer] Operator M.D. Office Visit 10/19/2010 1:20p [facility] Dustin Duncan, 65902 724.2 Of [employer] Operator M.D. Office Visit 08/04/2010 2:40p [facility] Dustin Duncan, 45498 724.2 Of [employer] Operator M.D. 729.5 Office Visit 04/17/2010 1:40p [facility] Dustin Duncan, 29150 724.2 Of [employer] Operator M.D. 729.5 Office Visit 02/02/2010 3:45a [facility], Aminamoni Lilianjenniemayito, 21215 724.5 Hospitalists MJerry V72.83 414.0 401.9 530.81 Office Visit 01/19/2010 2:30a [facility], Taqueria Ames M.D. 33835 786.59 Hospitalists 413.9 401.9 790.99 Office Visit 01/18/2010 12:15a [facility] Abi Pepper, 39770 786.50 Ass, Hospitalists M.Katelyn Office Visit 2009 3:00p [facility] Dustin Duncan, 30577 721.3 Of [employer] M.D. Office Visit 01/28/2009 3:20p [facility] Dustin Duncan, 77231 721.3 Of [employer] M.DAguilar 722.83 Office Visit 07/23/2008 11:20a [facility] Dustin Duncan, 61359 722.83 Of [employer] Operator M.D. Office Visit 01/08/2008 3:45p [facility] Dustin Duncan, 88765 722.83 Of [employer] Operator M.D. Office Visit 11/17/2007 10:30a [facility] Dustin Duncan 58196 722.83 Of [employer] Motor Operator M.D. Office Visit 07/10/2007 1:00p [facility] Dustin Duncan 85535 722.83 Of [employer] Operator M.D. Office Visit 01/09/2007 1:00p [facility] Dustin Duncan 98632 721.3 Of [employer] Operator M.D. 722.83 Plan of Care Future Appointment(s):07/20/2018 1:00 pm - Michelle Weiss MD at [facility].A.04/11/2018 11:40 am - Rodger Batista NP at [facility] Internal Medicine [facility]02/02/2018 10:00 am - Cortez Luevano M.D. at [email or web address]/01/2018 10:45 am - Gabriela Hawk MD at [facility]ology [facility] Services Of [facility]01/17/2018 - Michelle Weiss, MDS42.102A Fracture of unsp part of scapula, left shoulder, initFollow up:Follow up: 6 [id number] Aftercare following joint replacement surgery
--- OUTSIDE RECORDS SUMMARY | 2018-01-21 16:29 | XMS REPORT ---
:1940 External Reference #:[id number] Author Organization [facility] Address [address] [address] Phone [phone] Care Team Providers Name Role Phone Lesa Etienne MD Primary Care Physician Unavailable Payers Type Date Identification Numbers Payment Provider Subscriber Health Maintenance Effective: Policy Number: Medicare [place] Cr [facility] ([facility]) 10/31/2013 [id number] [facility] Group Number: [id number] [address] [address] PayID: [id number] NICHOLE Wilson [address] Health Maintenance Effective: Policy Number: Medicare [place] Young [place] ([facility]) 10/31/2012 [id number] [facility] Expires: 10/30/2013 Group Number: [id number] [address] [address] PayID: [id number] NICHOLE Wilson [address] Health Maintenance Effective: Policy Number: Medicare [place] Young [place] ([facility]) 07/31/2008 [id number] [facility] Expires: 10/31/2012 Group Number: [id number] [address] [address] Group Name: Medicare Blue Ppo Direct NICHOLE Wilson [address] PayID: [id number] Problems Date Description Provider Status [...] 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 Pramipexole 11/27 Active Tablets 0.75mg 90tab 1 tab by Rodger Dihydrochloride s mouth TOBY aBtista every night for restless legs Tamsulosin HCL [...] Co Q-10 Active Capsules 100mg one daily Adams 3 Krill Oil Active 300mg qd Nitro-Dur Active Patches 0.6mg/HR 30uni apply one I25.10 Eliot /0000 24HR ts to donovan Wells daily M.DAguilar , on each in the morning , off each at night Acetaminophen 8 00/ Active Tablets ER 650mg 2 bid prn [...] Tablets 5-325mg 60tab take 1 M54.5 Rodger minophen s tablets TOBY Batista - every 12 01/08 hours for pain. Keflex 02/10 Hx Capsules 500mg 20cap take 1 tab M19.012 neb s by mouth Abhishek, - four times 08/08 a day x days Percocet 02/10 Hx Tablets 5-325mg 60tab 1-2 tabs M19.012 neb /2017 s by mouth Abhishek, - every 4-6 08/08 hours needed pain Symbicort 02/03 Hx Aerosol 80-4.5mcg 10.2u 2 puff Rodger /2016 /Act nits twice a TOBY Batista - day 02/14 Paroxetine HCL 09/28 Hx Tablets 20mg 120ta 1 by mouth F41.9 Rodger bs bid TOBY Batista - 09/28 Paroxetine HCL 09/28 Hx Tablets 40mg 90tab 1 by mouth F32.89 Rodger s every day TBOY Batista - 12/29 Fluoxetine HCL 08/26 Hx Tablets 10mg F41.9 Rodger TOBY Batista - 08/26 Paroxetine HCL 10/27 Hx Tablets 10mg 30tab 1 by mouth F41.9 Rodger s every day Lynne, BEEF BONER - 09/28 Lasix 08/09 Hx Tablets 20mg 75tab 2 po qam, Rodger s 1/ po q Lynne, BEEF BONER - pm 08/16 Escitalopram 07/26 Hx Tablets 10mg 45tab 09/01 F41.9 Rodger Oxalate s tablets Lynne, BEEF BONER - once daily 08/26 Escitalopram 05/26 Hx Tablets 10mg 30tab 09/01 F32.8 Rodger Oxalate s tablets Lynne, BEEF BONER - once daily 07/26 Symbicort 02/10 Hx Aerosol 80-4.5mcg 20.4u Inhale 2 Gabriela /Act nits Puffs By Kenn, - Mouth 06/21 Twice Daily Prednisone 02/09 Hx Tablets 10mg as directed - 02/17 Dulera 02/09 Hx Aerosol 100-5mcg/ 26.4g 2 puff Act m twice a Kenn, - day 03/10 Cheratussin ac 02/09 Hx Syrup 100-10mg/ take 10 5ML milliliter - s every 4 03/22 hours needed for cough. Gabapentin 05/09 Hx Tablets 600mg 90tab 2 tablets M54.5 Dustin J. /2014 s tid Felicitas Duncan M.D. 02/03 Lidocaine 05/01 Hx Ointment 5% 50gm use 715.14 Zsofi sparinshadi Kelly, - in ASSISTANT PROFESSOR OF BUSINESS 02/17 affected area twice daily as needed Voltaren 04/23 Hx Gel 1% 1unit apply to M15.0 Zsofi s thumb/fing Robin, - er joint ASSISTANT PROFESSOR OF BUSINESS 06/21 times a day (no longer using) Nitroglycerin 02/28 Hx Patches 0.4mg/HR 90uni 1 patch I25.10 Eliot 24HR ts applied to Katelyn Dumont, - chest wall M.DAguilar 08/26 daily in the in the morning and take off at night Voltaren 07/22 Hx Gel 1% 1unit apply to 715.09 Drew s thumb/fing Tiago, - er joint M.D. 08/27 times a day Gabapentin 11/27 Hx Capsules 300mg 90cap 1 by mouth 724.2 Dustin Hutchinson s three Dakota, - times a M.D. 05/09 day or directed. Gabapentin 09/18 Hx Capsules 300mg 1 po bid Dustin Hutchinson Dakota, - M.D. 11/27 Atenolol 09/18 Hx Tablets 25mg 180ta 1 by mouth Rodger bs twice a Lynne, BEEF BONER - day 08/04 Acetaminophen 09/18 Hx Tablets 500mg 1 po Dustin Hutchinson Extra Strength h7mmhrc Dakota, - M.D. 06/21 Clopidogrel 07/26 Hx Tablets 75mg 90tab [...] By Dakota, - Mouth Four M.D. 09/18 Times Daily Simvastatin 01/16 Hx Tablets 20mg 90tab 1 by mouth Eliot s every D. Brand, - night at M.D. 09/04 bedtime Valium 05/02 Hx Tablets 10mg 3tabs / to 1 Dustin Hutchinson /2011 two hours Dakota, - prior to M.D. 09/18 mri repeat q1h prn anxiety Pramipexole 04/11 Hx Tablets 0.25mg 30tab Take One Dustin Hutchinson Dihydrochloride /2011 s Tablet By Dakota, - Mouth M.D. 11/27 Morning For Daytime Restless Leg Pramipexole 02/07 Hx Tablets 0.5mg 30tab Take One Dustin Hutchinson Dihydrochloride s Tablet By Felicitas Duncan M.D. 11/27 Nightly At Bedtime Pramipexole 12/13 Hx Tablets 0.25mg 30tab one po at [facility] Felicitas Duncan M.D. 02/07 Methylprednisolon 11/09 Hx Tablets 4mg 30tab two po bid Dustin Hutchinson e s x 7 days Felicitas Duncan M.D. 12/13 Oxycodone HCL 08/03 Hx Tablets 5mg 120ta 1-2 po qid Dustin Hutchinson bs prn pain Felicitas Duncan M.D. 04/09 Pramipexole 07/06 Hx Tablets 0.125mg 30tab one po qhs Dustin [facility] Felicitas Duncan M.D. 12/13 Medrol Dosepak 09/08 Hx Tablets 4mg 1tabs follow Dustin Hutchinson /2009 package Felicitas Duncan M.D. 04/19 with food Celebrex 08/04 Hx Capsules 200mg 60cap 1 po bid Dustin Hutchinson /2009 s prn Felicitas Duncan M.D. 11/09 Valium 10/14 Hx Tablets 10mg 3tabs / to 1 Dustin Hutchinson /2008 two hours Felicitas Duncan prior to Laura 12/13 mri and repeat q1h prn anxiety [...] 80mg 90tab 1 po tid Dustin Hutchinson /Alexandrea 12HR s Felicitas Duncan M.D. 04/19 Robaxin-750 01/02 Hx Tablets 750mg 180ta 2 po tid Dustin Hutchinson /Alexandrea bs Feliictas Duncan M.D. 05/21 Sertraline HCL 00/ Hx Tablets 25mg 90tab 1 po qd Unknown /0000 s - 04/03 Nasonex Hx Suspension 50mcg/Act 1unit 2 sprays Unknown /0000 s to each - nostril 03/18 daily Proair HFA Hx Aerosol 108(90Bas 1unit 2 puffs po Unknown /0000 e) s q4h prn - mcg/Act 01/27 Sucralfate Hx Tablets 1gm 120ta 1 by mouth Unknown /0000 bs hs - 03/18 Potassium 00/ Hx Tablets ER 10Meq 90tab 2 po [...] Unknown /0000 daily - 05/01 Tramadol HCL 00 Hx Tablets 50mg 50tab 1-2 po bid Unknown /0000 s prn - 05/09 Prostate 0000 Hx 60mg 1 po qpm Unknown /0000 - 12/29 Potassium 00 Hx Tablets ER 20Meq 2 by mouth Unknown Chloride /0000 bid - 08/30 Nitroglycerin 00 Hx Patches 0.2mg/HR on 9am off , /0000 24HR 9pm MD Wyatt - 10/21 Diphenhydramine Hx Tablets 50mg once daily Unknown HCL Maximum /0000 Strength - 08/31 Psyllium Fiber 00/00 Hx Tablets 60tab 6 tablet Unknown /0000 s po b.i.d - 11/10 Ibuprofen 00/ Hx Tablets 200mg 100ta as needed Unknown /0000 bs - 10/21 Diphenhydramine Hx Capsules 50mg 1caps take 1 Unknown HCL /0000 tablet prn - 01/27 Tylenol Arthritis Hx Tablets ER 650mg 100ta as needed Unknown Pain /0000 bs - 01/27 Ibuprofen 00/00 Hx Capsules 200mg as needed Unknown /0000 - 09/18 Nasonex Hx Suspension 50mcg/Act prn Unknown /0000 - 06/14 Ventolin HFA Hx Aerosol 108(90Bas 2 puffs as Unknown /0000 e) needed - mcg/Act 09/18 Nitro-Dur Hx Patches 0.4mg/HR on in in Unknown /0000 24HR the - morning, 09/18 off in night Sucralfate 00 Hx Tablets 1gm 1 by mouth Unknown /0000 at hs - 05/09 Cholestyramine Hx Packet 4gm 1 packet Unknown /0000 after am - meds 05/09 Acidophilus Hx Capsules 1 by mouth Unknown /0000 every day - 12/09 Tylenol Arthritis Hx Tablets ER 650mg 2 tablet Unknown Pain /0000 po t.i.d - 06/14 Arthro-D Hx 2 tablet Unknown /0000 po b.i.d - (started 12/09 taking weeks ago) for arthritis Loperamide HCL Hx Capsules 2mg 1 cap po Unknown /0000 daily Am - 11/10 Biofreeze 00 Hx prn Unknown /0000 - 12/29 Joint Health 00/00 Hx Capsules Unknown /0000 - 12/29 Acetaminophen 00/00 Hx Tablets 325mg 2 tablets Unknown /0000 by mouth - every 6 01/07 hours needed for pain/fever Stool Softener 00/00 Hx Capsules 100mg take 1 tab Unknown /0000 every - night 08/03 Deep Blue 00/00 Hx 1 tab Unknown /0000 twice a - day for 11/24 arthirtis /2018 Symbicort 00/00 Hx Aerosol 160-4.5mc 2 puff Kenn, /0000 g/Act twice a Gabriela - namrata DAILY 07/11 Hydrocodone-Aceta Hx Tablets 5-325mg take one Unknown minophen /0000 or 2 - capsule/ta 08/08 blet by mouth at hs for pain Medications Administered in Office Medication Date Status Form Strength Qnty SIG Indications Ordering Provider Inj, Administered Injection Eliot Katelyn Regadenoson, 015 Brand, M.DAguilar 0.1 MG Technetium TC Administered Injection Eliot D. 99M 015 Laura Dumont Tetrofosmin, Per Unit Dose Up To 40 Millicuries Inj, Administered Injection Eliot D. Regadenoson, 014 Tim M.DAguilar 0.1 MG Technetium TC Administered Injection Eliot D. 99M 014 Laura Dumont Tetrofosmin, Per Unit Dose Up To 40 Millicuries Immunizations CPT Code Status Date Vaccine Reaction Lot # 55306 Given 06/25/2017 Fluzone High Dose 60933 Given 08/19/2016 Influenza Virus Vaccine, fluzone high dose @ [facility] Quadrivalent, Split Virus, Im Use Q2037 Given 02/11/2016 Fluvirin Im 3Yrs And Older [address]46[address] Given 02/11/2016 Pneumonia Vaccine 50489 Given Unknown Tdap - Tetanus/Diptheria/Acellular Pertussis Vital Signs Date Vital Result Comment 01/09/2018 Height 71 inches 5'11" Weight 217.50 [...] B-Type Natriuretic Peptide BNP 29 pg/mL 6 Laboratory test finding 11/16/2017 Magnesium 2.3 mg/dL 1.9-2.7 Lipase 17 U/L 11.0-82.0 C Reactive Protein < 1.00 mg/L < 5.00 7 Troponin-I (TnI) 0.00 ng/mL <0.04 TSH (Thyroid Stim Horm) 0.87 mcIU/mL 0.34-5.60 Urinalysis Profile 11/16/2017 Urine Color Yellow Urine Appearance Clear Urine Specific [place] 1.018 1.010-1.030 Urine pH 7.0 5-9 Urine [...] test finding 11/16/2017 B-Type Natriuretic 17 pg/mL 8 Peptide BNP Inr/Protime 11/16/2017 Inr 0.90 0.77-1.02 Comp Metabolic Panel 11/16/2017 Sodium 139 mmol/L [...] 109.7 >60 9 Laboratory test finding 11/16/2017 Partial Thrombo Time 35.1 seconds 26.0 -36.3 PTT Lactic Acid 0.9 mmol/L 0.5-2.0 10 Urinalysis Profile 09/25/2017 Urine Color Yellow Urine Appearance Clear Urine Specific [place] 1.013 1.010-1.030 Urine pH 6.0 5-9 Urine [...] Poc Ketone, Urine Negative Negative Poc Specific [place], Urine 1.020 1.010-1.030 Poc Blood, Urine Negative [...] 22 Urine Appearance Clear 22 Urine Specific [place] 1.010 1.010-1.030 22 Urine pH 5.0 5-9 [...] TSH (Thyroid Stim Horm) 1.62 mcIU/mL 0.34-5.60 Comp Metabolic Panel 12/09/2016 Sodium 140 mmol/L [...] Egfr Non- 79.2 >60 Egfr 101.9 >60 25 Laboratory test finding 12/09/2016 B-Type Natriuretic 21 pg/mL 26 Peptide BNP CBC Auto Diff 2016 White Blood Count [...] 0-2 Nucleated Red Blood Cells % 0.1 Iron & Iron Binding Capacity 2016 Iron 92 g/dL 50-212 Unsaturated Iron Binding 324 g/dL Total Iron Binding Capacity 416 g/dL 250-450 % Iron Saturation 22 % 15-55 Laboratory test finding 2016 Ferritin 91.7 ng/mL 24-336 CBC Auto Diff 08/11/2016 White Blood Count [...] Color Yellow Urine Appearance Clear Urine Specific [place] 1.012 1.010-1.030 Urine pH 5.0 5-9 Urine [...] 0 Laboratory test finding 03/22/2016 B-Type Natriuretic Peptide 16 pg/mL 37 BNP Comp Metabolic Panel 04/23/2015 Sodium 140 mmol/L [...] Non- 82.7 >60 Egfr 106.4 >60 38 CBC Auto Diff 04/23/2015 White Blood Count [...] 0-2 Nucleated Red Blood Cells % 0.1 Hla B27 04/23/2015 Hla B27 Negative 39 Hla B27 Interp See Comment 40 Laboratory test finding 04/23/2015 C Reactive Protein < 1.00 mg/L &lt ; 5.00 41 Erythrocyte Sed Rate 4 mm/Hr 0-40 Rheumatoid Factor <15 IU/mL <15 42 Cyclic Citrullinated Pep Igg <15.6 U 43 Basic Metabolic Panel 10/17/2014 Sodium 140 mmol/L 133-145 Potassium 4.0 mmol/L 3.5-5.0 Chloride 101 mmol/L 101-111 Co2 Carbon Dioxide 33 mmol/L High 22-32 Anion Gap 6 mmol/L 2-11 Glucose 105 mg/dL High 70-100 Blood Urea Nitrogen 15 mg/dL 6-24 Creatinine 1.00 mg/dL 0.67-1.17 BUN/Creatinine Ratio 15.0 8-20 Calcium 9.9 mg/dL 8.6-10.3 Egfr Non- 73.2 >60 Egfr 94.2 >60 44 CBC Auto Diff 07/20/2012 White Blood Count [...] 45 Protime 07/20/2012 Inr 0.89 0.88-1.13 45, 46 Protime 10.6 SEC 10.3-13.5 45, 47 Laboratory test finding 07/20/2012 PTT (Aptt) 33.6 SEC 25.1-38.5 45 Basic Metabolic Panel 07/20/2012 Sodium 139 mmol/L 135-145 45 Potassium 3.9 mmol/L 3.5-5.0 45 Chloride 101 mmol/L 101-111 45 Co2 (Carbon Dioxide) 32.0 mmol/L 22-32 45 Anion Gap 6.0 mmol/L 2-11 45, 48 Glucose 131 mg/dL High 70-100 45 BUN 20 mg/dL 6-24 45 Creatinine 0.9 mg/dL 0.50-1.40 45 One Over Creatinine 1.11 45 BUN/Creatinine Ratio 22.2 High 8-20 45 Calcium 9.5 mg/dL 8.1-9.9 45 eGFR Non- 83.4 > 60 45 eGFR 107.3 > 60 45, 49 Type And Screen (Pre-Adm) 07/20/2012 Patient Blood Type O NEGATIVE 45 Antibody Screen NEGATIVE 45 Specimen Discard Date 08/03/12 45, 50 Basic Metabolic Panel Stat 02/02/2010 Sodium 138 [...] pg/mL: likely moderate to severe CHF 7 Acute inflammation: >10.00 8 >100 to <200 pg/mL: likely compensated congestive heart failure (CHF) 200 to 400 pg/mL: likely moderate CHF >400 pg/mL: likely moderate to severe CHF 9 Because ethnic data is not always [...] 5 Kidney failure <15 (or dialysis) 10 [facility] Severe Sepsis and Septic Shock Management Bundle Measure requires all lactic acids initially measuring >2.0 mmol/L be repeated. 11 E Business Specialist: [id number] 12 SEE RESULT BELOW Name: QUIANA CR : [address]: Merlin Mcnally MD Acct: [id number] Unit: [id number] AGE: 77 Location: ED Re09/25/17 SEX: M Status: REG ER SPEC: [id number] NITISH: 09/25/[address]: Merlin Mcnally MD REQ: [id number] RECD: 09/25/17 STATUS: NERIS GARCIA DR: Lesa Etienne MD _ SOURCE: NASAL SPDESC: ORDERED: Flu A B Request Procedure Result Reported Site Rapid Influenza A B Request Final 09/25/172119 ML Specimen received for Influenza A/B Molecular testing * ML - MAIN LAB ([facility]) . END OF REPORT * ML=Testing performed at Main Lab DEPARTMENT OF PATHOLOGY, [address] [place] [address] Riki Can M.D. Director [facility] # [id number] 13 Because ethnic data is not always [...] 5 Kidney failure <15 (or dialysis) 15 E Business Specialist: [id number] 16 SEE RESULT BELOW Name: QUIANA CR : [address]: Cj Angeles MD Acct: [id number] Unit: [id number] AGE: 76 Location: [facility] Re06/27/17 SEX: M Status: DEP REF SPEC: [id number] NITISH: 06/27/17- SUBM DR: Cj Angeles MD REQ: [id number] RECD: 06/27/179 STATUS: CELESTINO GARCIA DR: Rodger Batista BEEF BONER _ ORDERED: LEVEL 4/2, IMMUNO-FIRST Addendum: An [...] performed at Main Lab DEPARTMENT OF PATHOLOGY, [address] [place] [address] Riki Can M.D. Director [facility] # [id number] RUN DATE: 06/28/17 [facility] LAB LIVE PAGE 2 Patient: QUIANA CR [id number] (Continued) GROSS DESCRIPTION (Continued) GROSS DESCRIPTION (Continued) 2. The specimen is received in formalin labeled, Biopsy Esophagus, and consists of a 0.3 x 0.3 x 0.1 cm luis-white irregular soft tissue fragment which is submitted entirely in one cassette. Signed (signature on file) Swapna Carrion MD [id number] END OF REPORT * ML=Testing performed at Main Lab DEPARTMENT OF PATHOLOGY, [address] [place] [address] Riki Can M.D. Director [facility] # [id number] 17 SEE RESULT BELOW Name: QUIANA CR Hannah : [address]: Cj Angeles MD Acct: [id number] Unit: [id number] AGE: 76 Location: ENDO Re06/27/17 SEX: M Status: REG REF SPEC: [id number] NITISH: 06/27/17-[address] [facility] [address]: Cj Angeles MD REQ: [id number] RECD: 06/27/170778 STATUS: NERIS GARCIA DR: Lesa Batista BEEF BONER _ SOURCE: GAS ANTRUM SPDESC: ORDERED: Clotest Procedure Result Reported Site Clotest Final 06/28/17- 0753 ML Clotest Negative * ML - MAIN LAB ([facility]) . END OF REPORT * ML=Testing performed at Main Lab DEPARTMENT OF PATHOLOGY, [address] [place] [address] Riki Can M.D. Director [facility] # [id number] 18 Because ethnic data is not always [...] 21 99th percentile=0.04 ng/mL Troponin results at [facility] and [facility] are not interchangeable. 22 SD 02/16/17 23 [...] 5 Kidney failure <15 (or dialysis) 25 Because ethnic data is not always readily [...] 15-29 5 Kidney failure <15 (or dialysis) 26 >100 to <200 pg/mL: likely compensated congestive heart failure (CHF) 200 to 400 pg/mL: likely moderate CHF >400 pg/mL: likely moderate to severe CHF 27 [facility] Severe Sepsis and Septic Shock Management Bundle [...] 0.03 ng/mL Not supportive of diagnosis of HI 0.03 - 0.50 ng/mL Indeterminate: suggest serial studies if clinically indicated. Greater than 0.5 ng/mL Consistent with diagnosis of HI 31 Because ethnic data is not always [...] 5 Kidney failure <15 (or dialysis) 39 REFERENCE VALUE Not Applicable 40 RESULT: HLA-B27 antigen was not detected. ADDITIONAL INFORMATION Method: Flow Cytometry Performing Laboratory CLIA# [id number] Test Performed by: [place] [address] Test And Balance Engineer: Dante Rice II, M.D., Ph.D. 41 Acute inflammation: >10.00 42 Test Performed by: [place] [address] Test And Balance Engineer: Dante Rice II, M.D., Ph.D. 43 REFERENCE VALUE <20.0 (Negative) Test Performed by: [place] [address] Test And Balance Engineer: Dante Rice II, M.D., Ph.D. 44 Because [...] <15 (or dialysis) 45 SDS 07/27/12 46 Recommended INR for Patients on Oral Anticoagulants Prophylaxis 2.0 - 3.0 Treatment of thrombosis 2.0 - 3.0 Prevention of embolism 2.0 - 3.0 Prevention of embolism from prosthetic heart valves 2.5 - 3.5 47 DIAGNOSIS,TREATMENT,AND THERAPY MUST BE BASED ON THE INR VALUE ALONE. 48 Anion gap measurement may be of limited value in the presence of any alkalosis, especially in a combined acid base disorder. . 49 Because ethnic data is not always readily [...] 15-29 5 Kidney failure <15 (or dialysis) 50 PREADMISSION TESTING SAMPLES FOR BLOOD BANK WILL [...] WITHIN 3 DAYS OF THE SURGERY DATE. 51 COMMENTS: N 52 Anion gap measurement may be of limited value in the presence of any alkalosis, especially in a combined acid base disorder. . 53 Note change in reference range as of 06/20/08. The change was based on recommendations from the [employer]. 54 Please note change in [...] Date CPT Code Description Status Comment 12/03/2017 27390 Implantable Cardio System Loop Completed Recorder Sys Remota Data Acquistio 12/03/2017 09353 Interrogation Dev Loop Recorder Completed Incl Physician Analysis,Rev,Repor 11/17/2017 85170 Closed TX Scapular FX W/O Completed Manipulation 11/02/2017 22130 Implantable Cardio System Loop Completed Recorder Sys Remota Data Acquistio 11/02/2017 06149 Interrogation Dev Loop Recorder Completed Incl Physician Analysis,Rev,Repor 10/02/2017 82493 Implantable Cardio System Loop Completed Recorder Sys Remota Data Acquistio 10/02/2017 50011 Interrogation Dev Loop Recorder Completed Incl Physician Analysis,Rev,Repor 09/01/2017 30416 Implantable Cardio System Loop Completed Recorder Sys Remota Data Acquistio 09/01/2017 72099 Interrogation Dev Loop Recorder Completed Incl Physician Analysis,Rev,Repor 08/10/2017 61642 EKG Tracing & Completed Interpretation 08/01/2017 19421 Implantable Cardio System Loop Completed Recorder Sys Remota Data Acquistio 08/01/2017 01180 Interrogation Dev Loop Recorder Completed Incl Physician Analysis,Rev,Repor 07/01/2017 41475 Implantable Cardio System Loop Completed Recorder Sys Remota Data Acquistio 07/01/2017 61735 Interrogation Dev Loop Recorder Completed Incl Physician Analysis,Rev,Repor 05/31/2017 44075 Interrogation Dev Loop Recorder Completed Incl Physician Analysis,Rev,Repor 05/31/2017 01215 Implantable Cardio System Loop Completed Recorder Sys Remota Data Acquistio 04/30/2017 73214 Implantable Cardio System Loop Completed Recorder Sys Remota Data Acquistio 04/30/2017 71050 Interrogation Dev Loop Recorder Completed Incl Physician Analysis,Rev,Repor 03/30/2017 97411 Implantable Cardio System Loop Completed Recorder Sys Remota Data Acquistio 03/30/2017 36680 Interrogation Dev Loop Recorder Completed Incl Physician Analysis,Rev,Repor 03/02/2017 15064 Arthroplasty,Total Shoulder Completed Replacement (TSR) 03/02/2017 44497 Arthroplasty,Total Shoulder Completed Replacement (TSR) 02/27/2017 64084 Implantable Cardio System Loop Completed Recorder Sys Remota Data Acquistio 02/27/2017 91451 Interrogation Dev Loop Recorder Completed Incl Physician Analysis,Rev,Repor 02/14/2017 79005 EKG Tracing & Completed Interpretation 02/10/2017 43586 EKG, Interpretation Only Completed 01/27/2017 33232 Implantable Cardio System Loop Completed Recorder Sys Remota Data Acquistio 01/27/2017 10355 Interrogation Dev Loop Recorder Completed Incl Physician Analysis,Rev,Repor 12/27/2016 94814 Implantable Cardio System Loop Completed Recorder Sys Remota Data Acquistio 12/27/2016 74348 Interrogation Dev Loop Recorder Completed Incl Physician Analysis,Rev,Repor 11/26/2016 07536 Interrogation Dev Loop Recorder Completed Incl Physician Analysis,Rev,Repor 11/26/2016 89334 Implantable Cardio System Loop Completed Recorder Sys Remota Data Acquistio 10/26/2016 14744 Implantable Cardio System Loop Completed Recorder Sys Remota Data Acquistio 10/26/2016 26065 Interrogation Dev Loop Recorder Completed Incl Physician Analysis,Rev,Repor 09/25/2016 93855 Implantable Cardio System Loop Completed Recorder Sys Remota Data Acquistio 09/25/2016 80075 Interrogation Dev Loop Recorder Completed Incl Physician Analysis,Rev,Repor 09/01/2016 90346 EKG Tracing & Completed Interpretation 08/25/2016 99321 Implantable Cardio System Loop Completed Recorder Sys Remota Data Acquistio 08/25/2016 41364 Interrogation Dev Loop Recorder Completed Incl Physician Analysis,Rev,Repor 08/12/2016 92284 Treadmill Interp/Report Only Completed 08/12/2016 88117 Stress Test Supervsn W/Out I/R Completed 07/27/2016 57013 Implantable Cardio System Loop Completed Recorder Sys Remota Data Acquistio 07/27/2016 95828 Interrogation Dev Loop Recorder Completed Incl Physician Analysis,Rev,Repor 07/25/2016 88831 Implantable Cardio System Loop Completed Recorder Sys Remota Data Acquistio 07/25/2016 96615 Interrogation Dev Loop Recorder Completed Incl Physician Analysis,Rev,Repor 06/24/2016 53437 Interrogation Dev Loop Recorder Completed Incl Physician Analysis,Rev,Repor 06/24/2016 70944 Implantable Cardio System Loop Completed Recorder Sys Remota Data Acquistio 05/24/2016 79579 Implantable Cardio System Loop Completed Recorder Sys Remota Data Acquistio 05/24/2016 06166 Interrogation Dev Loop Recorder Completed Incl Physician Analysis,Rev,Repor 04/23/2016 42222 Implantable Cardio System Loop Completed Recorder Sys Remota Data Acquistio 04/23/2016 57550 Interrogation Dev Loop Recorder Completed Incl Physician Analysis,Rev,Repor 03/23/2016 12726 Implantable Cardio System Loop Completed Recorder Sys Remota Data Acquistio 03/23/2016 90882 Interrogation Dev Loop Recorder Completed Incl Physician Analysis,Rev,Repor 03/11/2016 26962 Polysomnography Sleep Staging Completed 4+ Parameters 02/23/2016 32376 Diffusing Capacity Completed 02/23/2016 47288 Plethysmography Determination Completed Lung Volumes & Per Airway Resist 02/23/2016 54853 Pulmonary Completed Function><Bronchodil 02/21/2016 36460 Implantable Cardio System Loop Completed Recorder Sys Remota Data Acquistio 02/21/2016 14383 Interrogation Dev Loop Recorder Completed Incl Physician Analysis,Rev,Repor 02/04/2016 24635 EKG, Interpretation Only Completed 01/21/2016 67097 Interrogation Dev Loop Recorder Completed Incl Physician Analysis,Rev,Repor 01/21/2016 54634 Implantable Cardio System Loop Completed Recorder Sys Remota Data Acquistio 12/21/2015 07690 Implantable Cardio System Loop Completed Recorder Sys Remota Data Acquistio 12/21/2015 76811 Interrogation Dev Loop Recorder Completed Incl Physician Analysis,Rev,Repor 11/20/2015 92111 Implantable Cardio System Loop Completed Recorder Sys Remota Data Acquistio 11/20/2015 98443 Interrogation Dev Loop Recorder Completed Incl Physician Analysis,Rev,Repor 10/21/2015 33412 Implantable Cardio System Loop Completed Recorder Sys Remota Data Acquistio 10/21/2015 92606 Interrogation Dev Loop Recorder Completed Incl Physician Analysis,Rev,Repor 09/19/2015 98626 Implantable Cardio System Loop Completed Recorder Sys Remota Data Acquistio 09/19/2015 22288 Interrogation Dev Loop Recorder Completed Incl Physician Analysis,Rev,Repor 09/19/2015 22584 EKG Tracing & Completed Interpretation 09/08/2015 32119 Interrogation Device Completed Eval,Implantable Loop Recorder System 08/20/2015 41522 Implantable Cardio System Loop Completed Recorder Sys Remota Data Acquistio 08/20/2015 97657 Interrogation Dev Loop Recorder Completed Incl Physician Analysis,Rev,Repor 08/19/2015 71919 Implantable Cardio System Loop Completed Recorder Sys Remota Data Acquistio 08/19/2015 65916 Interrogation Dev Loop Recorder Completed Incl Physician Analysis,Rev,Repor 07/21/2015 97673 Interrogation Dev Loop Recorder Completed Incl Physician Analysis,Rev,Repor 07/21/2015 55987 Implantable Cardio System Loop Completed Recorder Sys Remota Data Acquistio 06/19/2015 17195 Interrogation Device Completed Eval,Implantable Loop Recorder System 06/06/2015 26207 Implantable Cardio System Loop Completed Recorder Sys Remota Data Acquistio 06/06/2015 60932 Interrogation Dev Loop Recorder Completed Incl Physician Analysis,Rev,Repor 05/21/2015 16207 Implantable Cardio System Loop Completed Recorder Sys Remota Data Acquistio 05/21/2015 53446 Interrogation Dev Loop Recorder Completed Incl Physician Analysis,Rev,Repor 04/22/2015 53789 Implantable Cardio System Loop Completed Recorder Sys Remota Data Acquistio 04/22/2015 56952 Interrogation Dev Loop Recorder Completed Incl Physician Analysis,Rev,Repor 03/19/2015 43524 Implantable Cardio System Loop Completed Recorder Sys Remota Data Acquistio 03/19/2015 66759 Interrogation Dev Loop Recorder Completed Incl Physician Analysis,Rev,Repor 02/06/2015 67259 Stress Test Completed 02/06/2015 78394 Myocardial Perfusion Imaging Completed Tomographic (Spect) Multiple Studies 01/28/2015 42108 EKG Tracing & Completed Interpretation 01/20/2015 42151 Interrogation Dev Loop Recorder Completed Incl Physician Analysis,Rev,Repor 01/20/2015 04395 Implantable Cardio System Loop Completed Recorder Sys Remota Data Acquistio 12/18/2014 57954 Implantable Cardio System Loop Completed Recorder Sys Remota Data Acquistio 12/18/2014 11421 Interrogation Dev Loop Recorder Completed Incl Physician Analysis,Rev,Repor 11/25/2014 21570 Interrogation Device Completed Eval,Implantable Loop Recorder System 11/18/2014 48693 Implantable Cardio System Loop Completed Recorder Sys Remota Data Acquistio 11/18/2014 20227 Interrogation Dev Loop Recorder Completed Incl Physician Analysis,Rev,Repor 10/21/2014 15805 Implantable Cardio System Loop Completed Recorder Sys Remota Data Acquistio 10/21/2014 82622 Interrogation Dev Loop Recorder Completed Incl Physician Analysis,Rev,Repor 10/15/2014 94472 EKG, Interpretation Only Completed 10/14/2014 85007 Left Heart Cath. Incl S/I Completed Coronaries, Angio S/I V Gram If Done 10/14/2014 10468 EKG, Interpretation Only Completed 10/14/2014 93984 Percutaneous Transcatheter Completed Placement Of Intracoronary Stent 10/08/2014 60567 Interrogation Device Completed Eval,Implantable Loop Recorder System 10/08/2014 46414 EKG Tracing & Completed Interpretation 2014 57383 Implant Cardiac Loop Recorder Completed 09/12/2014 61564 Myocardial Perfusion Imaging Completed Tomographic (Spect) Multiple Studies 09/12/2014 02783 Stress Test Completed 09/09/2014 97464 EEG Recording Awake & Completed Asleep 04/12/2014 22141 EKG Tracing & Completed Interpretation 04/05/2014 65035 Treadmill Interp/Report Only Completed 04/05/2014 01652 Stress Test Supervsn W/Out I/R Completed 04/05/2014 92647 EKG, Interpretation Only Completed 04/04/2014 18456 EKG, Interpretation Only Completed 11/21/2013 04601 EKG Tracing & Completed Interpretation 05/17/2013 22395 Rad Shoulder, 1 View Completed 11/22/2012 85250 EKG Tracing & Completed Interpretation 10/25/2012 24397 Treadmill Interp/Report Only Completed 10/25/2012 05840 Stress Test Supervsn W/Out I/R Completed 07/27/2012 75895 Partial Excision Post Vertebral Completed Component Single Cervical 10/28/2010 60104 EKG, Interpretation Only Completed 10/31/2007 Colonoscopy Completed Completed home kit for screening per pt. d/t difficult colonoscopy. Supposed to repeat every 4-5 yrs. Encounters Type Date Location Provider CPT E/M Dx Office Visit 12/29/2017 1:40p [facility] [place] [address] R29.6 Anna S42.102A F32.89 R06.02 Office Visit 11/24/2017 1:40p [facility] [place] [address] R29.6 Anna K21.9 Office Visit 11/04/2017 9:30a [facility] [place] [address] Z96.612 C.M.A. M25.512 R29.6 Office Visit 09/27/2017 10:40a [facility] [place] [address] H81.10 [place] J06.9 Office Visit 09/20/2017 1:00p [facility] [place] [address] Z96.612 C.M.A. M25.512 W06.xxxA Office Visit 09/09/2017 10:40a [facility] [place] [address] M54.5 [place] K21.9 Office Visit 09/06/2017 1:45p [facility] [place] [address] Z96.612 C.M.A. M25.512 W06.xxxA Office Visit 08/15/2017 3:40p [facility] [place] [address] M54.5 - [place] Office Visit 08/10/2017 11:30a [facility] Eliot Dumont, [address] [facility] Laura I10 R94.31 Office Visit 08/03/2017 10:15a [facility] [place] [address] [facility] G47.33 Office Visit 07/19/2017 1:00p [facility] [place] [address] Z96.612 C.M.A. Z47.1 Office Visit 07/11/2017 10:00a [facility] [place] [address] M50.10 Anna J44.9 H81.10 Office Visit 06/22/2017 2:45p [facility] Cortez Luevano, 79230 G25.81 Services Of Capo Sanchez M54.16 Office Visit 06/07/2017 1:15p [facility] [place] [address] Z96.612 C.M.A. Z47.1 Office Visit 04/29/2017 11:30a Neurosurgery Services Gina Kelsey PA-C [address] [facility] Office Visit 03/16/2017 3:40p [facility] [place] [address] Z96.612 [place] Office Visit 03/07/2017 12:59p [facility],pc Francia 66796 R41.0 Hospitalists Nikkie lozano NP Z96.612 I10 I25.10 Office Visit 03/06/2017 [facility] [address] R41.0 Assoc,pc PA Hospitalists Z96.612 I10 I25.10 Office Visit 03/05/2017 12:45p [facility] Assoc,pc Margie Munroe.Akanksha. 62203 R41.0 Hospitalists Z96.612 I10 I25.10 Office Visit 02/23/2017 1:00p [facility] [place] [address] R60.0 Anna R13.10 M51.16 Office Visit 02/14/2017 3:20p [facility] Internal Medicine Lesa Etienne [address]695 R60.0 - Anna Sanchez I25.10 Office Visit 02/03/2017 4:00p [facility] [place] [address] M51.16 - [place] Office Visit 02/01/2017 1:00p [facility] [place] [address] [facility] J44.9 G47.33 Office Visit 01/19/2017 10:20a [facility] [place] [address] Z01.818 [place] M19.012 I25.10 G47.33 J44.9 Office Visit 01/11/2017 10:15a [facility] [place] [address] M19.012 C.M.A. Office Visit 01/07/2017 11:15a [facility] Dumont, [address] [facility] Laura R53.83 Z95.9 Office Visit 12/24/2016 10:00a [facility] [place] [address] S46.012A C.M.A. M19.012 Office Visit 12/09/2016 10:40a [facility] [place] [address] R42 [place] R05 Office Visit 10/21/2016 2:00p [facility] [place] [address] F41.9 [place] F32.89 Office Visit 2016 2:00p [facility] [place] [address] R53.83 [place] F41.9 F32.89 Office Visit 09/01/2016 10:15a [facility] Eliot Dumont, 42172 R07.9 [place] F41.9 I25.10 G45.9 Z95.818 Office Visit 08/26/2016 10:20a [facility] [place] [address] R07.9 [place] F41.9 Office Visit 08/12/2016 3:59p [facility], [place] [address] R07.9 Hospitalists I25.10 R00.2 Office Visit 08/11/2016 3:58p [facility], [place] [address] R07.9 Hospitalists I25.10 R00.2 Office Visit 08/02/2016 1:15p [facility] [place] [address] [facility] G47.33 Office Visit 07/08/2016 2:20p [facility] [place] [address] F32.8 [place] Office Visit 06/15/2016 1:45p [facility] Cortez Luevano, [address] [facility] Laura Office Visit 05/26/2016 1:00p [facility] [place] [address] Z00.00 [place] G47.33 G45.9 F32.8 Z13.220 Office Visit 03/30/2016 1:45p [facility] [place] [address] [address] [facility] R06.02 E66.09 Office Visit 03/22/2016 11:00a [facility] [place] [address] R60.0 - [place] Office Visit 03/19/2016 1:45p [facility] Eliot Dumont, 56473 R06.02 [place] Sanchez Z95.818 I25.10 Office Visit 03/08/2016 1:00p [facility] Internal [place] [address] R06.02 [place] Office Visit 02/11/2016 1:00p [facility] [place] [address] [facility] G47.33 Office Visit 02/05/2016 [facility] Francia LaynekarenlesaFelicitasQuinones, 53585 R65.10 3:01p Assoc,pc [facility] Hospitalists R05 R06.02 R50.9 Office Visit 02/04/2016 3:00p [facility] Assoc,pc Shena Ackerman, 00166 R65.10 Hospitalists N.P. R05 R06.02 R50.9 Office Visit 02/03/2016 2:59p [facility] Sophia Freeman, BEE[employer] BONER 03594 R65.10 Assoc,pc Hospitalists R05 R06.02 R50.9 Office Visit 12/10/2015 2:00p [facility] Cortez Luevano, 89724 G25.81 Services Of [place] Sanchez M54.16 Office Visit 11/10/2015 1:00p Neurosurgery Services Dustin Duncan, 85677 M54.2 Of [place] [place] M47.812 G25.81 Office Visit 09/19/2015 1:30p [facility] Eliot Dumont, 98726 I25.10 [place] Sanchez R94.31 I25.9 Z95.9 Office Visit 08/08/2015 11:40a Neurosurgery Services Dustin Duncan, 41257 M54.2 Of [place] Sanchez M47.812 Office Visit 07/14/2015 10:40a Neurosurgery Services Dustin Duncan, 43399 721.1 Of [facility] Sanchez 782.0 728.87 Office Visit 05/09/2015 1:40p Neurosurgery Services Dustin Duncan, 85874 721.3 Of [place] Sanchez 729.2 Office Visit 05/01/2015 10:00a Rheumatology Services Krystin Kelly [facility] [address] [facility] 715.09 723.1 722.4 Office Visit 03/04/2015 2:40p Neurosurgery Services Dustin Duncan, 99545 414.01 Of [facility] Sanchez 723.1 729.5 Office Visit 02/28/2015 8:30a [facility] Eliot Dumont, 19635 414.01 Supervisor Decorating M.D. 786.51 Office Visit 01/28/2015 1:45p [facility] Eliot ArnoldAguilar Dumont, 08324 414.01 Supervisor Decorating At [facility] M.D. 786.51 Office Visit 01/06/2015 1:00p Neurosurgery Services Dustin Duncan, 67569 723.1 Of Supervisor Decorating M.D. Office Visit 12/13/2014 3:30p [facility] Eliot ArnoldAguilar Dumont, 38443 414.01 Supervisor Decorating M.D. 786.51 435.9 Office Visit 10/15/2014 12:46p [facility] Eliot ArnoldAguilar Dumont, 87958 413.9 Supervisor Decorating M.D. 786.50 Office Visit 10/11/2014 9:15a [facility] Eliot ArnoldAguilar Dumont, 67166 786.50 Supervisor Decorating M.D. 414.01 Office Visit 10/07/2014 1:00p Neurosurgery Services Dustin Duncan, [address] [facility] M.Katelyn 723.1 Office Visit 09/06/2014 11:00a [facility] Romy Diego, 27278 435.9 Services Of Supervisor Decorating M.D. Office Visit 09/05/2014 10:30a [facility] Eliot ArnoldAguilar Dumont, 80779 414.01 Supervisor Decorating M.D. 786.50 435.9 Office Visit 08/27/2014 3:00p Neurosurgery Services Dustin Duncan, 06435 435.8 Of Super[employer] Decorating M.D. 333.94 Office Visit 07/22/2014 10:20a Rheumatology Services Drew Ordoñez M.D. [address] [facility] 715.14 Office Visit 05/23/2014 1:30p [facility] Eliot ArnoldAguilar Dumont, [address] [facility] M.D. 414.01 Office Visit 04/12/2014 3:30p [facility] Eliot ArnoldAguilar Dumont, 49946 786.50 Supervisor Decorating M.D. 414.01 Office Visit 04/05/2014 4[facility] Sh[facility] Munoz, 17298 786.51 Hospitalists M.DAguilar Office Visit 04/04/2014 4:15p [facility] Assoc, Tomas Wang, 52581 786.51 Hospitalists Laura 414.01 272.2 401.1 Office Visit 03/18/2014 1:00p Neurosurgery Services Dustin Duncan, 94063 724.2 Of [place] Sanchez 722.83 723.1 723.4 Office Visit 11/27/2013 2:20p Neurosurgery Services Dustin Duncan, 76354 724.2 Of [place] Sanchez 722.83 724.3 Office Visit 11/21/2013 8:00a [facility] Eliot Dumont, 61830 414.01 Capo Sanchez 786.51 Office Visit 09/18/2013 1:20p Neurosurgery Services Dustin Duncan, 19846 724.2 Of Cap[facility] Sanchez 723.1 722.83 724.3 Office Visit 05/17/2013 8:00a Orth[facility] Services Of Brian Hernandez, 94765 719.41 CDeejay Sanchez Office Visit 04/09/2013 2:40p Neurosurgery Services Dustin Duncan, 51243 724.2 Of Capo Sanchez Office Visit 03/13/2013 1:40p Neurosurgery Services Dustin Duncan, 19227 724.2 Of Capo M.Katelyn Office Visit 11/22/2012 2:30p [facility] Eliot Dumont, 42913 414.9 Cap[place] Sanchez Office Visit 11/02/2012 11:04a [facility],[place] [address] 787.91 Hospitalists 276.51 Office Visit 11/01/2012 11:03a [facility],[place] [address] 787.91 Hospitalists 276.51 Office Visit 10/26/2012 2:56p [facility],pc Yanira Balderrama, 84544 786.51 Hospitalists MJerry 530.81 724.2 Office Visit 10/25/2012 2:55p [facility] Shai Munoz, 88519 786.51 Hospitalists MJerry 530.81 724.2 Office Visit 07/10/2012 3:00p Neurosurgery Services Dustin Duncan, 25458 349.2 Of Supervisor Decorating M.D. 723.4 723.1 724.2 Office Visit 05/08/2012 9:00a Neurosurgery Services Dustin Duncan 77450 349.2 Of [employer] M.D. 723.4 723.1 724.2 Office Visit 05/02/2012 9:20a Neurosurgery Services Dustin Duncan 42914 349.2 Of Super[employer]orating M.D. Office Visit 04/11/2012 1:00p Neurosurgery Services Dustin Duncan, 08252 723.4 Of Supervisor [employer]orating M.D. 723.1 724.2 Office Visit 01/24/2012 10:00a Neurosurgery Services Dustin Duncan 01708 723.4 Of Super[employer]orating M.D. 723.1 724.2 Office Visit 12/13/2011 10:20a Neurosurgery Services Dustin Duncan 26688 723.4 Of [employer] M.D. 723.1 724.2 Office Visit 11/09/2011 3:00p Neurosurgery Services Dustin Duncan, 85798 723.4 Of Supervisor Decorating M.D. 723.1 Office Visit 10/05/2011 1:40p Neurosurgery Services Dustin Duncan 89878 724.2 Of Supervisor [employer]ating M.D. Office Visit 08/03/2011 11:00a Neurosurgery Services Dustin Duncan, 68149 724.2 Of Supervisor Decorating M.D. Office Visit 07/06/2011 1:20p Neurosurgery Services Dustin Duncan 33821 724.2 Of Supervisor [employer]orating M.D. Office Visit 04/19/2011 1:00p Neurosurgery Services Dustin Duncan 16974 724.2 Of Supervisor Decorating M.D. Office Visit 10/19/2010 1:20p Neurosurgery Services Dustin Duncan 14084 724.2 Of Supervisor Decorating M.D. Office Visit 08/04/2010 2:40p Neurosurgery Services Dustin Duncan 10617 724.2 Of [employer] M.D. 729.5 Office Visit 04/17/2010 1:40p Neurosurgery Services Dustin Duncan 43844 724.2 Of Supervisor Decorating M.D. 729.5 Office Visit 02/02/2010 3:45a [facility], Kristian Avila, 19679 724.5 Hospitalists Laura V72.83 414.0 401.9 530.81 Office Visit 01/19/2010 2:30a [facility] Taqueria Ames M.D. 04845 786.59 Hospitalists 413.9 401.9 790.99 Office Visit 01/18/2010 12:15a [facility] Abi Pepper, 54260 786.50 Assoc, Hospitalists M.D. Office Visit 2009 3:00p Neurosurgery Services Dustin Duncan, [address] [facility] M.D. Office Visit 01/28/2009 3:20p Neurosurgery Services Dustin Duncan, 68480 721.3 Of Supervisor Dec[employer]ating M.DAguilar 722.83 Office Visit 07/23/2008 11:20a Neurosurgery Services Dsutin Duncan, 90751 722.83 Of Supervisor Decorating M.D. Office Visit 01/08/2008 3:45p Neurosurgery Services Dustin Duncan, 59936 722.83 Of Supervisor Decorating M.D. Office Visit 11/17/2007 10:30a Neurosurgery Services Dustin Duncan, 87868 722.83 Of Supervisor Decorating M.D. Office Visit 07/10/2007 1:00p Neurosurgery Services Dustin Duncan, 32570 722.83 Of Supervisor Decorating M.D. Office Visit 01/09/2007 1:00p Neurosurgery Services Dustin Duncan, 68639 721.3 Of Supervisor Decorating M.D. 722.83 Plan of Care Future Appointment(s):04/11/2018 11:40 am - Rodger Batista NP at [facility] Internal Medicine - Usysydrbo79/05/2018 10:00 am - Cortez Luevano M.D. at Neurohospitalist [id number]/17/2018 2:15 pm - Michelle Weiss MD at Orthopedic Services Of [facility].M.A.02/01/2018 10:45 am - Gabriela Hawk MD at Pulmonology And Sleep Services Of [facility]01/09/2018 - Rodger Batista NPZ00.00 Encntr for general adult medical exam w/o abnormal findingsComments:VACCINES:Flu shot recommended every year in the fall.We do not have a record of your last tetanus vaccine. A booster is recommended if you sustain a significant injury.Pneumonia vaccine: Prevnar in 2015 and pneumovax in 2016. No further pneumonia vaccines needed.Shingles vaccine: A new two shot seriescalled Shingrix has been approved for use. This is not yet available, but when it is it will be recommended that you receive this. SCREENING:Colonoscopy: Last in 2007, repeat as recommended by GI.Screening for glaucoma: every 2 years unless otherwise instructed by your eye doctor [facility]. We recommend that you have a health care proxy on file with us. This is a document that designates a person to make medical decisions for you if you are unable to. You can fill out the paperwork I gave you and return it to the office at your convenience.S42.102A Fracture of unsp part of scapula, left shoulder, initNew Medication:Tramadol HCL 50 mgComments:I have prescribed the tramadol.You can take this when the pain is not severe enough to take the hydrocodone. Do not take them together.F32.89 Other specified depressive episodesComments:Continue taking the sertraline. If you fell this is not as effective as you would like, let me know and I can increase the dose.K21.9 Gastro-esophageal reflux disease without esophagitisComments:You can try going without the pantoprazole. If needed use the Zantac. If you are needing this more frequently I would recommend restarting the pantoprazole.I10 Essential ( primary) hypertensionComments:~B_HYPERTENSION:~b_Well controlled on current regimen. Continue present management.Follow up:3 months
--- OUTSIDE RECORDS SUMMARY | 2018-01-21 16:32 | XMS REPORT ---
:1940 External Reference #:[id number] Author Organization [employer] Address [address] [address] Phone [phone] Care Team Providers Name Role Phone Lesa Etienne MD Primary Care Physician Unavailable Payers Type Date Identification Numbers Payment Provider Subscriber Health Maintenance Effective: Policy Number: Medicare [place] Cr [facility] [place] 10/31/2013 [id number] [facility] Group Number: [id number] [address] [address] PayID: [id number] NICHOLE Wilson [address] Health Maintenance Effective: Policy Number: Medicare Israel Young [employer] ([facility] 10/31/2012 [id number] [facility] [employer] Expires: 10/30/2013 Group Number: [id number] [address] [address] PayID: [id number] NICHOLE Wilson [address] Health Maintenance Effective: Policy Number: Medicare [place] Young [employer] ([facility] 07/31/2008 [id number] [facility] Expires: 10/31/2012 Group Number: [id number] [address] [address] Group Name: Medicare Blue Ppo Direct NICHOLE Wilson [address] PayID: [id number] Problems Date Description Provider Status Onset: 09/18/2013 Low back pain Dustin Duncan M.D. Active Onset: 09/18/2013 Neck pain Dustin Duncan M.D. Active Onset: 09/18/2013 Lumbar post-laminectomy syndrome Dustin Duncan M.D. Active Onset: 09/18/2013 Sciatica Dustin Duncan M.D. Active Onset: 11/21/2013 Coronary arteriosclerosis Eliot Dmuont M.D. 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 Cigarette Use Former Cigarette Smoker ETOH Use Never used alcohol Smoking Patient is a former smoker hx 1 pack cigarettes per day,quit 1996 Recreational Drug Use Denies Drug Use Daily Caffeine Does Not Consume Caffeine Exercise Type/Frequency Exercises regularly Joined gym, has production trainer Allergies, Adverse Reactions, Alerts Date Description Reaction Status Severity Comments 11/21/2013 Durgesic Patch nausea, vomiting active Moderate to Severe 08/03/2017 Morphine Irrational behavior active 09/18/2013 NKDA inactive Medications Medication Date Status Form Strength Qnty SIG Indications Ordering Provider Sertraline HCL 12/29 Active Tablets 25mg 30tab 1 by mouth F32.89 Rodger s every day TOBY Batista Deep Moisture 11/24 Active Liquid Rodger Body Wash TOBY Batista Diclofenac Sodium 09/09 Active Gel 1% 100gm apply 2 M54.5 Rodger grams to TOBY Batista affected area twice daily Pantoprazole 09/[address] 20mg 30tab take 1 K21.9 Rodger Sodium s tablet by TOBY Batista mouth one time daily Metoprolol 08/04 Active Tablets ER 50mg 30tab 1 by mouth Rodger Succinate ER 24HR s every day TOBY Batista Symbicort 07/11 Active Aerosol 160-4.5mc 6gm 2 puff Rodger g/Act inhaled TOBY Batista twice a day Fluticasone 07/11 Active Suspension 50mcg/Act 16uni Use 2 Rodger Propionate ts Sprays In TOBY Batista Each Nostril Daily Alprazolam 12/09 Active Tablets 0.25mg 60tab one by Rodger s mouth TOBY Batista twice daily as needed for anxiety Cholestyramine 09/03 Active Powder 4GM/Dose 378un use 1 Rodger its scoop TOBY Batista mixed with 8oz's of orange juice or water twice daily Potassium 08/30 Active Tablets ER 20Meq 120ta 2 by mouth Rodger Chloride bs twice a TOBY Batista day Lasix 08/16 Active Tablets 40mg 90tab 1 by mouth Rodger s every TOBY Batista morning Lasix 08/16 Active Tablets 20mg 15tab 1/2 by Rodger /2015 s mouth TOBY Batista every day at at bedtime Athletic Recovery 03/22 Active Misc 2unit apply R60.0 Rodger Socks/Male/15-20M /2015 s before TOBY Batista MHG/Size D getting out of bed in the morning and removed at bedtime Ventolin HFA 02/09 Active Aerosol 108(90Bas 2 puffs by e) mouth four mcg/Act times a day as needed Spiriva 02/09 Active Capsules 18mcg 90cap inhale Gabriela Handihale s contents Kenn, of 1 MD capsule by mouth once daily Simvastatin 09/04 Active Tablets 10mg 90tab take 2 s tablets by saurav Szymanski at M.D. bedtime Wrist Splint 05/01 Active Misc QS use on 715.14 Zsofia Elastic/Large/X-L both Robin, arge wrists and [employer] hands as needed Pramipexole 08/27 Active Tablets [...] one sl Eliot s q5min up Katelyn Dumont to 3 doses M.D. as needed for chest pain Co Q-10 Active Capsules 100mg one daily Amity 3 Krill Oil Active 300mg qd Nitro-Dur Active Patches 0.6mg/HR 30uni apply one I25.10 24HR ts to chest donovan Szymanski daily M.D. , on each in the morning , off each at night Acetaminophen 8 Active Tablets ER 650mg 2 bid prn Unknown Hour /0000 Zantac 150 Active Tablets 150mg one tablet Unknown Maximum Strength /0000 twice daily as needed Gabapentin Active Capsules 400mg 540ca take two M54.5 Rodger /0000 ps capsule by TOBY Batista mouth three times daily Meclizine HCL Active Tablets 25mg 60tab 1 tablet Unknown /0000 s every 8 hours as needed for vertigo Hydrocodone-Aceta Active Tablets 5-325mg 1 or 2 Unknown minophen /0000 tabs by mouth every 6-8 hours as needed for pain Omeprazole 09/[address] 20mg 30cap 1 by mouth K21.9 Rodger s once daily TOBY Batista - 09/09 Hydrocodone-Aceta 08/15 Hx Tablets 5-325mg 60tab take 1 M54.5 Rodger minophen s tablets TOBY Batista - every 12 01/08 hours for pain. Keflex 02/10 Hx Capsules 500mg 20cap take 1 tab M19.012 s by mouth Abhishek, - four times 08/08 a day x days Percocet 02/10 Hx Tablets 5-325mg 60tab 1-2 tabs M19.012 s by mouth Abhishek, - every 4-6 [...] by mouth F41.9 Rodger s every day TOBY Batista - 09/28 Lasix 08/09 Hx Tablets 20mg 75tab 2 po qam, Rodger s 1/2 po q Lynne, CLINICAL RESEARCH MONITOR - pm 08/16 Escitalopram 07/26 Hx Tablets 10mg 45tab 09/01 F41.9 Rodger Oxalate s tablets Lynne, CLINICAL RESEARCH MONITOR - once daily 08/26 Escitalopram 05/26 Hx Tablets 10mg 30tab 09/01 F32.8 Rodger Oxalate s tablets Lynne, CLINICAL RESEARCH MONITOR - once daily 07/26 Symbicort 02/10 Hx Aerosol 80-4.5mcg 20.4u Inhale 2 Gabriela /2016 /Act nits Puffs By Kenn, - Mouth 06/21 Daily Prednisone 02/09 Hx Tablets 10mg as directed - 02/17 Dulera 02/09 Hx Aerosol 100-5mcg/ 26.4g 2 puff Act m twice a Kenn, - day 03/10 Cheratussin ac 02/09 Hx Syrup 100-10mg/ take 5ML milliliter - s every 4 03/22 hours needed for cough. Gabapentin 05/09 Hx Tablets 600mg 90tab 2 tablets M54.5 Dustin Hutchinson /2014 s tid Felicitas Duncan M.D. 02/03 Lidocaine 05/01 Hx Ointment 5% 50gm use 715.14 Zsofia sparinly Robin, - in [employer] 02/17 area twice daily as needed Voltaren 04/23 Hx Gel 1% 1unit apply to M15.0 ofi s thumb/fing Robin, - er joint [employer] 06/21 times a day (no longer using) Nitroglycerin 02/28 Hx Patches 0.4mg/HR 90uni 1 patch I25.10 Eliot 24HR ts applied to Katelyn Dumont, - chest wall M.DAguilar 08/26 daily in the in the morning and take off at night Voltaren 07/22 Hx Gel 1% 1unit apply to 715.09 Drew s thumb/fing [place], - er joint M.DAguilar 08/27 times a day Gabapentin 11/27 Hx Capsules 300mg 90cap 1 by mouth 724.2 Dustin Hutchinson /2013 s three Dakota, - times a M.D. 05/09 day or directed. Gabapentin 09/18 Hx Capsules 300mg 1 po bid Dustin Hutchinson Dakota, - M.D. 11/27 Atenolol 09/18 Hx Tablets 25mg 180ta 1 by mouth Rodger bs twice a Lynne, CLINICAL RESEARCH MONITOR - day 08/04 Acetaminophen 09/18 Hx Tablets 500mg 1 po Dustin Hutchinson Extra Strength w2otmsf Dakota, - M.D. 06/21 Clopidogrel 07/26 Hx [...] every D. Brand, - night at M.D. 09/04time Valium 05/02 Hx Tablets 10mg 3tabs 11/01 to 1 Dustin Hutchinson two hours Dakota, - prior to M.D. 09/18 mri and repeat q1h prn anxiety Pramipexole 04/11 Hx Tablets 0.25mg 30tab Take One Dustin Millerchloride /2011 s Tablet By aDkota, - Mouth M.D. 11/27 Morning For Daytime Restless Leg Pramipexole 02/07 Hx Tablets 0.5mg 30tab Take One Dustin Hutchinson Dihydrochloride s Tablet By Dakota, - Mouth M.D. 11/27 Nightly Bedtime Pramipexole 12/13 Hx Tablets 0.25mg 30tab one po at Dustin Hutchinson Dihydrochloride s hs Felicitas Duncan M.D. 02/07 Methylprednisolon 11/09 Hx Tablets 4mg 30tab two po bid Dustin Hutchinson e s x 7 days Felicitas Duncan M.D. 12/13 Oxycodone HCL 08/03 Hx Tablets 5mg 120ta 1-2 po qid Dustin Hutchinosn bs prn pain Felicitas Duncan M.D. 04/09 Pramipexole 07/06 Hx Tablets 0.125mg 30tab one po qhs Dustin Hutchinson Dihydrochloride s or as Felicitas Duncan M.D. 12/13 Medrol Dosepak 09/08 Hx Tablets 4mg 1tabs follow Dustin Hutchinson /2009 package Felicitas Duncan M.D. 04/19 with food Celebrex 08/04 Hx Capsules 200mg 60cap 1 po bid Dustin Hutchinson s prn Felicitas Duncan M.D. 11/09 Valium 10/14 Hx Tablets 10mg 3tabs 1/2 to 1 Dustin Hutchinson two hours Felicitas Duncan prior to Laura 12/13 mri repeat q1h prn anxiety Celebrex 01/01 Hx Capsules 200mg 30cap 1 PO qd Dustin Hutchinson s Felicitas Duncan M.D. 04/19 Neurontin 11/22 Hx Tablets 800mg 120ta 1 po qid Dustin Hutchinson Felicitas Huddleston M.D. 09/18 Oxycontin 11/17 Hx Tablets ER [...] Hutchinson /Felicitas Pandya M.D. 05/21 Sertraline HCL 00 Hx Tablets 25mg 90tab 1 po qd [...] Unknown Chloride /0000 bid - 08/30 Nitroglycerin 0000 Hx Patches 0.2mg/HR on 9am off , /0000 24HR 9pm MD Wyatt - 10/21 Diphenhydramine Hx Tablets 50mg once daily Unknown HCL Maximum /0000 Strength - 08/31 Psyllium Fiber 00 Hx Tablets 60tab 6 tablet Unknown /0000 s po b.i.d - 11/10 Ibuprofen Hx Tablets 200mg 100ta as needed Unknown /0000 bs - 10/21 Diphenhydramine 00 Hx Capsules 50mg 1caps take 1 Unknown HCL /0000 tablet prn - 01/27 Tylenol Arthritis 00 Hx Tablets ER 650mg 100ta as needed Unknown Pain /0000 bs - 01/27 Ibuprofen 00/ Hx Capsules 200mg as needed Unknown /0000 - 09/18 Nasonex 00/ Hx Suspension 50mcg/Act prn Unknown /0000 - 06/14 Ventolin HFA Hx Aerosol 108(90Bas 2 puffs as Unknown /0000 e) needed - mcg/Act 09/18 Nitro-Dur Hx Patches 0.4mg/HR on in in Unknown /0000 24HR the - morning, 09/18 off in night Sucralfate 0000 Hx Tablets 1gm 1 [...] Unknown /0000 daily Am - 11/10 Biofreeze / Hx prn Unknown /0000 - 12/29 Joint Health 00/ Hx Capsules Unknown /0000 - 12/29 Acetaminophen 0000 Hx Tablets 325mg 2 tablets Unknown /0000 by mouth - every 6 / hours needed for pain/fever Stool Softener 00 Hx Capsules 100mg take 1 tab Unknown /0000 every - night 08/03 Deep Blue 0000 Hx 1 tab Unknown /0000 twice a - day for 11/24 arthirtis /2018 Symbicort 00/00 Hx Aerosol 160-4.5mc 2 puff Kenn, /0000 g/Act twice a Gabriela, - day 07/11 Hydrocodone-Aceta 0000 Hx Tablets 5-325mg take one Unknown minophen /0000 or 2 - capsule/ta 08/08 blet by mouth at hs for pain Medications Administered in Office Medication Date Status Form Strength Qnty SIG Indications Ordering Provider Inj, Administered Injection Eliot D. Regadenoson, 015 Brand, M.D. 0.1 MG Technetium TC Administered Injection Eliot D. 99M 015 Brand, M.Catalina. Tetrofosmin, Per Unit Dose Up To 40 Millicuries Inj, Administered Injection Eliot D. Regadenoson, 014 Brand, M.D. 0.1 MG Technetium TC Administered Injection Eliot D. 99M 014 Brand, M.Catalina. Tetrofosmin, Per Unit Dose Up To 40 Millicuries Immunizations CPT Code Status Date Vaccine Reaction Lot # [id number] Given 06/25/2017 Fluzone High Dose 13390 Given 08/19/2016 Influenza Virus Vaccine, fluzone high dose @ [facility] Quadrivalent, Split Virus, Im Use Q2037 Given 02/11/2016 Fluvirin Im 3Yrs And Older 21326 Given 02/11/2016 Pneumonia Vaccine 62587 Given Unknown Tdap - Tetanus/Diptheria/Acellular Pertussis Vital [...] Color Yellow Urine Appearance Clear Urine Specific [place] 1.018 1.010-1.030 Urine pH 7.0 5-9 Urine [...] Color Yellow Urine Appearance Clear Urine Specific [place] 1.013 1.010-1.030 Urine pH 6.0 5-9 Urine [...] Poc Ketone, Urine Negative Negative Poc Specific [place], Urine 1.020 1.010-1.030 Poc Blood, Urine Negative [...] 22 Urine Appearance Clear 22 Urine Specific [place] 1.010 1.010-1.030 22 Urine pH 5.0 5-9 [...] Color Yellow Urine Appearance Clear Urine Specific [place] 1.012 1.010-1.030 Urine pH 5.0 5-9 Urine [...] 5 Kidney failure <15 (or dialysis) 10 [facility] Severe Sepsis and Septic Shock Management Bundle Measure requires all lactic acids initially measuring >2.0 mmol/L be repeated. 11 Rewrite Editor: [id number] 12 SEE RESULT BELOW Name: QUIANA CR : [address]: Merlin Mcnally MD Acct: [id number] Unit: [id number] AGE: 77 Location: ED Re09/25/17 SEX: M Status: REG ER SPEC: [id number] NITISH: 09/25/[address]: Merlin Mcnally MD REQ: [id number] RECD: 09/25/17 STATUS: NERIS GARCIA DR: Lesa Etienne MD _ SOURCE: NASAL SPDESC: ORDERED: Flu A B Request Procedure Result Reported Site Rapid Influenza A B Request Final 09/25/172119 ML Specimen received for Influenza A/B Molecular testing * ML - MAIN LAB ([facility]) . END OF REPORT * ML=Testing performed at Main Lab DEPARTMENT OF PATHOLOGY, [address] [place] [address] Riki Can M.D. Director [facility] # [id number] 13 Because ethnic data is not always [...] 5 Kidney failure <15 (or dialysis) 15 Rewrite Editor: [id number] 16 SEE RESULT BELOW Name: QUIANA CR : [address]: Cj Angeles MD Acct: [id number] Unit: [id number] AGE: 76 Location: [facility] Re06/27/17 SEX: M Status: DEP REF SPEC: [id number] NITISH: 06/27/17- SUBM DR: Cj Angeles MD REQ: [id number] RECD: 06/27/171419 STATUS: CELESTINO GARCIA DR: Rodger Batista CLINICAL RESEARCH MONITOR _ ORDERED: LEVEL 4/2, IMMUNO-FIRST Addendum: An [...] performed at Main Lab DEPARTMENT OF PATHOLOGY, [address] [place] [address] Riki Can M.D. Director [facility] # [id number] RUN DATE: 06/28/17 [facility] LAB LIVE PAGE 2 Patient: QUIANA CR [id number] (Continued) GROSS DESCRIPTION (Continued) GROSS DESCRIPTION (Continued) 2. The specimen is received in formalin labeled, Biopsy Esophagus, and consists of a 0.3 x 0.3 x 0.1 cm luis-white irregular soft tissue fragment which is submitted entirely in one cassette. Signed (signature on file) Swapna Carrion MD [id number] END OF REPORT * ML=Testing performed at Main Lab DEPARTMENT OF PATHOLOGY, [address] [place] [address] Riki Can M.D. Director [facility] # [id number] 17 SEE RESULT BELOW Name: QUIANA CR : [address]: Cj Angeles MD Acct: [id number] Unit: [id number] AGE: 76 Location: ENDO Re06/27/17 SEX: M Status: REG REF SPEC: [id number] NITISH: 06/27/17-[address] [facility] [address]: Cj Angeles MD REQ: [id number] RECD: 06/27/172590 STATUS: NERIS GARCIA DR: Lesa Batista CLINICAL RESEARCH MONITOR _ SOURCE: GAS ANTRUM SPDESC: ORDERED: Clotest Procedure Result Reported Site Clotest Final 06/28/17- 0753 ML Clotest Negative * ML - [facility] ([facility]) . END OF REPORT * ML=Testing performed at Main Lab DEPARTMENT OF PATHOLOGY, [address] [place] [address] Riki Can M.D. Director [facility] # [id number] 18 Because ethnic data is not always [...] 21 99th percentile=0.04 ng/mL Troponin results at [facility] and [facility] are not interchangeable. 22 SD 02/16/17 23 [...] pg/mL: likely moderate to severe CHF 27 [facility] Severe Sepsis and Septic Shock Management [...] 0.03 ng/mL Not supportive of diagnosis of CT 0.03 - 0.50 ng/mL Indeterminate: suggest serial studies if clinically indicated. Greater than 0.5 ng/mL Consistent with diagnosis of CT 31 Because ethnic data is not always [...] INFORMATION Method: Flow Cytometry Performing Laboratory CLIA# [id number] Test Performed by: [place] [address] Urologic Surgeon: Dante Rice II, M.D., Ph.D. 41 Acute inflammation: >10.00 42 Test Performed by: [place] [address] Urologic Surgeon: Dante Rice II, M.D., Ph.D. 43 REFERENCE VALUE <20.0 (Negative) Test Performed by: [place] [address] Urologic Surgeon: Dante Rice II, M.D., Ph.D. 44 Because [...] change was based on recommendations from the [employer]. 54 Please note change in [...] Date CPT Code Description Status Comment 12/03/2017 30579 Implantable Cardio System Loop Completed Recorder Sys Remota Data Acquistio 12/03/2017 61918 Interrogation Dev Loop Recorder Completed Incl Physician Analysis,Rev,Repor 11/17/2017 74964 Closed TX Scapular FX W/O Completed Manipulation 11/02/2017 94278 Implantable Cardio System Loop Completed Recorder Sys Remota Data Acquistio 11/02/2017 89961 Interrogation Dev Loop Recorder Completed Incl Physician Analysis,Rev,Repor 10/02/2017 16521 Implantable Cardio System Loop Completed Recorder Sys Remota Data Acquistio 10/02/2017 18558 Interrogation Dev Loop Recorder Completed Incl Physician Analysis,Rev,Repor 09/01/2017 47404 Implantable Cardio System Loop Completed Recorder Sys Remota Data Acquistio 09/01/2017 39363 Interrogation Dev Loop Recorder Completed Incl Physician Analysis,Rev,Repor 08/10/2017 78424 EKG Tracing & Completed Interpretation 08/01/2017 83912 Implantable Cardio System Loop Completed Recorder Sys Remota Data Acquistio 08/01/2017 90871 Interrogation Dev Loop Recorder Completed Incl Physician Analysis,Rev,Repor 07/01/2017 91274 Implantable Cardio System Loop Completed Recorder Sys Remota Data Acquistio 07/01/2017 86640 Interrogation Dev Loop Recorder Completed Incl Physician Analysis,Rev,Repor 05/31/2017 59229 Interrogation Dev Loop Recorder Completed Incl Physician Analysis,Rev,Repor 05/31/2017 78570 Implantable Cardio System Loop Completed Recorder Sys Remota Data Acquistio 04/30/2017 24979 Implantable Cardio System Loop Completed Recorder Sys Remota Data Acquistio 04/30/2017 06319 Interrogation Dev Loop Recorder Completed Incl Physician Analysis,Rev,Repor 03/30/2017 70728 Implantable Cardio System Loop Completed Recorder Sys Remota Data Acquistio 03/30/2017 10444 Interrogation Dev Loop Recorder Completed Incl Physician Analysis,Rev,Repor 03/02/2017 58823 Arthroplasty,Total Shoulder Completed Replacement (TSR) 03/02/2017 46081 Arthroplasty,Total Shoulder Completed Replacement (TSR) 02/27/2017 39068 Implantable Cardio System Loop Completed Recorder Sys Remota Data Acquistio 02/27/2017 09457 Interrogation Dev Loop Recorder Completed Incl Physician Analysis,Rev,Repor 02/14/2017 92256 EKG Tracing & Completed Interpretation 02/10/2017 71517 EKG, Interpretation Only Completed 01/27/2017 96494 Implantable Cardio System Loop Completed Recorder Sys Remota Data Acquistio 01/27/2017 47970 Interrogation Dev Loop Recorder Completed Incl Physician Analysis,Rev,Repor 12/27/2016 19530 Implantable Cardio System Loop Completed Recorder Sys Remota Data Acquistio 12/27/2016 06411 Interrogation Dev Loop Recorder Completed Incl Physician Analysis,Rev,Repor 11/26/2016 60348 Interrogation Dev Loop Recorder Completed Incl Physician Analysis,Rev,Repor 11/26/2016 88773 Implantable Cardio System Loop Completed Recorder Sys Remota Data Acquistio 10/26/2016 55806 Implantable Cardio System Loop Completed Recorder Sys Remota Data Acquistio 10/26/2016 41257 Interrogation Dev Loop Recorder Completed Incl Physician Analysis,Rev,Repor 09/25/2016 13858 Implantable Cardio System Loop Completed Recorder Sys Remota Data Acquistio 09/25/2016 41571 Interrogation Dev Loop Recorder Completed Incl Physician Analysis,Rev,Repor 09/01/2016 15326 EKG Tracing & Completed Interpretation 08/25/2016 57628 Implantable Cardio System Loop Completed Recorder Sys Remota Data Acquistio 08/25/2016 79714 Interrogation Dev Loop Recorder Completed Incl Physician Analysis,Rev,Repor 08/12/2016 00506 Treadmill Interp/Report Only Completed 08/12/2016 78074 Stress Test Supervsn W/Out I/R Completed 07/27/2016 52425 Implantable Cardio System Loop Completed Recorder Sys Remota Data Acquistio 07/27/2016 92729 Interrogation Dev Loop Recorder Completed Incl Physician Analysis,Rev,Repor 07/25/2016 42907 Implantable Cardio System Loop Completed Recorder Sys Remota Data Acquistio 07/25/2016 32789 Interrogation Dev Loop Recorder Completed Incl Physician Analysis,Rev,Repor 06/24/2016 07305 Interrogation Dev Loop Recorder Completed Incl Physician Analysis,Rev,Repor 06/24/2016 59493 Implantable Cardio System Loop Completed Recorder Sys Remota Data Acquistio 05/24/2016 73147 Implantable Cardio System Loop Completed Recorder Sys Remota Data Acquistio 05/24/2016 67694 Interrogation Dev Loop Recorder Completed Incl Physician Analysis,Rev,Repor 04/23/2016 05997 Implantable Cardio System Loop Completed Recorder Sys Remota Data Acquistio 04/23/2016 13754 Interrogation Dev Loop Recorder Completed Incl Physician Analysis,Rev,Repor 03/23/2016 92176 Implantable Cardio System Loop Completed Recorder Sys Remota Data Acquistio 03/23/2016 75005 Interrogation Dev Loop Recorder Completed Incl Physician Analysis,Rev,Repor 03/11/2016 10252 Polysomnography Sleep Staging Completed 4+ Parameters 02/23/2016 56756 Diffusing Capacity Completed 02/23/2016 65257 Plethysmography Determination Completed Lung Volumes & Per Airway Resist 02/23/2016 61304 Pulmonary Completed Function><Bronchodil 02/21/2016 06690 Implantable Cardio System Loop Completed Recorder Sys Remota Data Acquistio 02/21/2016 86956 Interrogation Dev Loop Recorder Completed Incl Physician Analysis,Rev,Repor 02/04/2016 44050 EKG, Interpretation Only Completed 01/21/2016 22351 Interrogation Dev Loop Recorder Completed Incl Physician Analysis,Rev,Repor 01/21/2016 02833 Implantable Cardio System Loop Completed Recorder Sys Remota Data Acquistio 12/21/2015 98280 Implantable Cardio System Loop Completed Recorder Sys Remota Data Acquistio 12/21/2015 32263 Interrogation Dev Loop Recorder Completed Incl Physician Analysis,Rev,Repor 11/20/2015 21238 Implantable Cardio System Loop Completed Recorder Sys Remota Data Acquistio 11/20/2015 96395 Interrogation Dev Loop Recorder Completed Incl Physician Analysis,Rev,Repor 10/21/2015 08360 Implantable Cardio System Loop Completed Recorder Sys Remota Data Acquistio 10/21/2015 58822 Interrogation Dev Loop Recorder Completed Incl Physician Analysis,Rev,Repor 09/19/2015 26264 Implantable Cardio System Loop Completed Recorder Sys Remota Data Acquistio 09/19/2015 32808 Interrogation Dev Loop Recorder Completed Incl Physician Analysis,Rev,Repor 09/19/2015 17707 EKG Tracing & Completed Interpretation 09/08/2015 22974 Interrogation Device Completed Eval,Implantable Loop Recorder System 08/20/2015 70154 Implantable Cardio System Loop Completed Recorder Sys Remota Data Acquistio 08/20/2015 46990 Interrogation Dev Loop Recorder Completed Incl Physician Analysis,Rev,Repor 08/19/2015 44856 Implantable Cardio System Loop Completed Recorder Sys Remota Data Acquistio 08/19/2015 62365 Interrogation Dev Loop Recorder Completed Incl Physician Analysis,Rev,Repor 07/21/2015 00113 Interrogation Dev Loop Recorder Completed Incl Physician Analysis,Rev,Repor 07/21/2015 23697 Implantable Cardio System Loop Completed Recorder Sys Remota Data Acquistio 06/19/2015 15569 Interrogation Device Completed Eval,Implantable Loop Recorder System 06/06/2015 57755 Implantable Cardio System Loop Completed Recorder Sys Remota Data Acquistio 06/06/2015 16393 Interrogation Dev Loop Recorder Completed Incl Physician Analysis,Rev,Repor 05/21/2015 24879 Implantable Cardio System Loop Completed Recorder Sys Remota Data Acquistio 05/21/2015 84151 Interrogation Dev Loop Recorder Completed Incl Physician Analysis,Rev,Repor 04/22/2015 59574 Implantable Cardio System Loop Completed Recorder Sys Remota Data Acquistio 04/22/2015 00159 Interrogation Dev Loop Recorder Completed Incl Physician Analysis,Rev,Repor 03/19/2015 81902 Implantable Cardio System Loop Completed Recorder Sys Remota Data Acquistio 03/19/2015 44601 Interrogation Dev Loop Recorder Completed Incl Physician Analysis,Rev,Repor 02/06/2015 93255 Stress Test Completed 02/06/2015 01426 Myocardial Perfusion Imaging Completed Tomographic (Spect) Multiple Studies 01/28/2015 85559 EKG Tracing & Completed Interpretation 01/20/2015 27239 Interrogation Dev Loop Recorder Completed Incl Physician Analysis,Rev,Repor 01/20/2015 57017 Implantable Cardio System Loop Completed Recorder Sys Remota Data Acquistio 12/18/2014 71447 Implantable Cardio System Loop Completed Recorder Sys Remota Data Acquistio 12/18/2014 39495 Interrogation Dev Loop Recorder Completed Incl Physician Analysis,Rev,Repor 11/25/2014 48904 Interrogation Device Completed Eval,Implantable Loop Recorder System 11/18/2014 12756 Implantable Cardio System Loop Completed Recorder Sys [employer] Data [employer] 11/18/2014 66379 Interrogation Dev Loop Recorder Completed Incl Physician Analysis,Rev,Repor 10/21/2014 95817 Implantable Cardio System Loop Completed Recorder Sys [employer]quist[employer] 10/21/2014 84338 Interrogation Dev Loop Recorder Completed Incl Physician Analysis,Rev,Repor 10/15/2014 53970 EKG, Interpretation Only Completed 10/14/2014 19302 Left Heart Cath. Incl S/I Completed Coronaries, Angio S/I V Gram If Done 10/14/2014 91530 EKG, Interpretation Only Completed 10/14/2014 18888 Percutaneous Transcatheter Completed Placement Of Intracoronary Stent 10/08/2014 25961 Interrogation Device Completed Eval,Implantable Loop Recorder System 10/08/2014 32140 EKG Tracing & Completed Interpretation 2014 73154 Implant Cardiac Loop Recorder Completed 09/12/2014 91052 Myocardial Perfusion Imaging Completed Tomographic (Spect) Multiple Studies 09/12/2014 22423 Stress Test Completed 09/09/2014 49162 EEG Recording Awake & Completed Asleep 04/12/2014 20506 EKG Tracing & Completed Interpretation 04/05/2014 84591 Treadmill Interp/Report Only Completed 04/05/2014 67972 Stress Test Supervsn W/Out I/R Completed 04/05/2014 39689 EKG, Interpretation Only Completed 04/04/2014 03914 EKG, Interpretation Only Completed 11/21/2013 45018 EKG Tracing & Completed Interpretation 05/17/2013 29554 Rad Shoulder, 1 View Completed 11/22/2012 67164 EKG Tracing & Completed Interpretation 10/25/2012 38312 Treadmill Interp/Report Only Completed 10/25/2012 60373 Stress Test Supervsn W/Out I/R Completed 07/27/2012 05638 Partial Excision Post Vertebral Completed Component Single Cervical 10/28/2010 79784 EKG, Interpretation Only Completed 10/31/2007 Colonoscopy Completed Completed home kit for screening per pt. d/t difficult colonoscopy. Supposed to repeat every 4-5 yrs. Encounters Type Date Location Provider CPT E/M Dx Office Visit 12/29/2017 1:40p [facility] [place] [address] R29.6 Anna S42.102A F32.89 R06.02 Office Visit 11/24/2017 1:40p [facility] [place] [address] R29.6 Maynard K21.9 Office Visit 11/04/2017 9:30a [facility] [place] [address] Z96.612 C.M.A. M25.512 R29.6 Office Visit 09/27/2017 10:40a [facility] [place] [address] H81.10 Maynard J06.9 Office Visit 09/20/2017 1:00p [facility] [place] [address] Z96.612 C.M.A. M25.512 W06.xxxA Office Visit 09/09/2017 10:40a [facility] [place] [address] M54.5 Maynard K21.9 Office Visit 09/06/2017 1:45p [facility] [place] [address] Z96.612 C.M.A. M25.512 W06.xxxA Office Visit 08/15/2017 3:40p [facility] [place] [address] M54.5 - Maynard Office Visit 08/10/2017 11:30a [facility] Of Eliot Dumont, 79681 I25.10 [facility] Laura I10 R94.31 Office Visit 08/03/2017 10:15a [facility] [place] [address] J44.9 Services Of [facility] G47.33 Office Visit 07/19/2017 1:00p [facility] [place] [address] Z96.612 C.M.A. Z47.1 Office Visit 07/11/2017 10:00a [facility] [place] [address] M50.10 Maynard J44.9 H81.10 Office Visit 06/22/2017 2:45p [facility] Cortez Luevano, 32850 G25.81 Services Of Capo Sanchez M54.16 Office Visit 06/07/2017 1:15p [facility] [place] [address] Z96.612 C.M.A. Z47.1 Office Visit 04/29/2017 11:30a Neurosurgery Services NIRU Mireles-C 46929 M48.06 Of [facility] Office Visit 03/16/2017 3:40p [facility] [place] [address] Z96.612 Maynard Office Visit 03/07/2017 12:59p [facility] Francia 08150 R41.0 Hospitalists Nikkie lozano NP Z96.612 I10 I25.10 Office Visit 03/06/2017 12:49p [facility] Riky Long, 60766 R41.0 Assoc,pc NIRU Hospitalists Z96.612 I10 I25.10 Office Visit 03/05/2017 12:45p [facility], Margie Munroe.Cassie 26644 R41.0 Hospitalists Z96.612 I10 I25.10 Office Visit 02/23/2017 1:00p [facility] [place] [address] R60.0 Maynard R13.10 M51.16 Office Visit 02/14/2017 3:20p [facility] Internal Medicine Lesa Etienne 61452 R60.0 - Anna Sanchez I25.10 Office Visit 02/03/2017 4:00p [facility] [place] [address] M51.16 - Maynard Office Visit 02/01/2017 1:00p [facility] [place] [address] Z01.811 Services Of [facility] J44.9 G47.33 Office Visit 01/19/2017 10:20a [facility] [place] [address] Z01.818 Maynard M19.012 I25.10 G47.33 J44.9 Office Visit 01/11/2017 10:15a [facility] [place] [address] M19.012 C.M.A. Office Visit 01/07/2017 11:15a [facility] Eliot Dumont, 33403 I25.10 Capo Sanchez R53.83 Z95.9 Office Visit 12/24/2016 10:00a [facility] [place] [address] S46.012A C.M.A. M19.012 Office Visit 12/09/2016 10:40a [facility] [place] [address] R42 Maynard R05 Office Visit 10/21/2016 2:00p [facility] [place] [address] F41.9 Maynard F32.89 Office Visit 2016 2:00p [facility] [place] [address] R53.83 Maynard F41.9 F32.89 Office Visit 09/01/2016 10:15a [facility] Eliot Dumont, 72469 R07.9 Spring Layer M.D. F41.9 I25.10 G45.9 Z95.818 Office Visit 08/26/2016 10:20a [facility] [place] [address] R07.9 Maynard F41.9 Office Visit 08/12/2016 3:59p [facility], Sophia Freeman, CLINICAL RESEARCH MONITOR 72349 R07.9 Hospitalists I25.10 R00.2 Office Visit 08/11/2016 3:58p [facility] Sophia Freeman, CLINICAL RESEARCH MONITOR 22643 R07.9 Hospitalists I25.10 R00.2 Office Visit 08/02/2016 1:15p [facility] [place] [address] J44.9 Services Of [facility] G47.33 Office Visit 07/08/2016 2:20p [facility] [place] [address] F32.8 Maynard Office Visit 06/15/2016 1:45p [facility] Cortez Luevano, 58580 G25.81 Services Of [facility] M.D. Office Visit 05/26/2016 1:00p [facility] [place] [address] Z00.00 Maynard G47.33 G45.9 F32.8 Z13.220 Office Visit 03/30/2016 1:45p [facility] [place] [address] G47.33 Services Of [facility] R06.02 E66.09 Office Visit 03/22/2016 11:00a [facility] [place] [address] R60.0 - Maynard Office Visit 03/19/2016 1:45p [facility] Of Eliot Dumont, 35015 R06.02 [facility] M.Catalina. Z95.818 I25.10 Office Visit 03/08/2016 1:00p [facility] [place] [address] R06.02 Maynard Office Visit 02/11/2016 1:00p [facility] [place] [address] J44.9 Services Of [facility] G47.33 Office Visit 02/05/2016 [facility] Francia Claudio, 35299 R65.10 3:01p Assoc,pc CLINICAL RESEARCH MONITOR Hospitalists R05 R06.02 R50.9 Office Visit 02/04/2016 3:00p [facility] Shena Ackerman, 15431 R65.10 Hospitalists NAguilarP. R05 R06.02 R50.9 Office Visit 02/03/2016 2:59p [facility] Sophia Freeman, CLINICAL RESEARCH MONITOR 33277 R65.10 Assoc,pc Hospitalists R05 R06.02 R50.9 Office Visit 12/10/2015 2:00p [facility] Cortez AbreuAguilar Bassem, 16917 G25.81 Services Of Capo Sanchez M54.16 Office Visit 11/10/2015 1:00p Neurosurgery Services Dustin Duncan, 89574 M54.2 Of Capo Sanchez M47.812 G25.81 Office Visit 09/19/2015 1:30p [facility] Suleiman Dumont, 24091 I25.10 Capo Sanchez R94.31 I25.9 Z95.9 Office Visit 08/08/2015 11:40a [facility]surgery Services Dustin Duncan, 63260 M54.2 Of Capo Sanchez M47.812 Office Visit 07/14/2015 10:40a [facility]surgery Services Dustin Duncan, 86477 721.1 Of Capo Sanchez 782.0 728.87 Office Visit 05/09/2015 1:40p [facility]surgery Services Dustin Duncan, 09413 721.3 Of Capo Sanchez 729.2 Office Visit 05/01/2015 10:00a Rheumatology Services Krystin Kelly, [facility] 44827 715.14 Of Capo 715.09 723.1 722.4 Office Visit 03/04/2015 2:40p Neurosurgery Services Dustin Duncan, 97167 414.01 Of Capo Sanchez 723.1 729.5 Office Visit 02/28/2015 8:30a [facility] Suleiman Dumont, 09992 414.01 Capo Sanchez 786.51 Office Visit 01/28/2015 1:45p [facility] Suleiman Dumont 94357 414.01 Spring Layer At [facility] Laura 786.51 Office Visit 01/06/2015 1:00p Neurosurgery Services Dustin Duncan, 43643 723.1 Of Capo M.DAguilar Office Visit 12/13/2014 3:30p [facility] Of Eliot Dumont, 81477 414.01 Capo Gates.Katelyn 786.51 435.9 Office Visit 10/15/2014 12:46p [facility] Of Eliot Dumont, 23405 413.9 Capo M.Katelyn 786.50 Office Visit 10/11/2014 9:15a [facility] Of Eliotroberto Dumont, 46787 786.50 Capo M.Katelyn 414.01 Office Visit 10/07/2014 1:00p Neurosurgery Services Dustin Duncan, 36637 786.51 Of Spring [place] Laura 723.1 Office Visit 09/06/2014 11:00a [facility] Romy Diego, 85408 435.9 Services Of Capo Gates.Katelyn Office Visit 09/05/2014 10:30a [facility] Of Eliot Dumont, 60261 414.01 Capo Gates.Katelyn 786.50 435.9 Office Visit 08/27/2014 3:00p Neurosurgery Services Dustin Duncan, 30053 435.8 Of Capo Gates.Katelyn 333.94 Office Visit 07/22/2014 10:20a Rheumatology Services Drew Ordoñez M.D. 32897 715.09 Of [facility] 715.14 Office Visit 05/23/2014 1:30p [facility] Suleiman Dumont, 20984 786.50 Capo Sanchez 414.01 Office Visit 04/12/2014 3:30p [facility] Of Eliot Dumont, 06890 786.50 Spring Layer Laura 414.01 Office Visit 04/05/2014 4:15p [facility], Shai Munoz, 01254 786.51 Hospitalists M.Katelyn Office Visit 04/04/2014 4:15p [facility], Tomas Wang, 16697 786.51 Hospitalists Laura 414.01 272.2 401.1 Office Visit 03/18/2014 1:00p [facility]surgery Services Dustin Duncan, 35559 724.2 Of Capo Gates.Katelyn 722.83 723.1 723.4 Office Visit 11/27/2013 2:20p Neurosurgery Services Dustin Duncan, 88582 724.2 Of Capo Gates.Katelyn 722.83 724.3 Office Visit 11/21/2013 8:00a [facility] Of Eliot Zepeda Tim, 30701 414.01 Capo Sanchez 786.51 Office Visit 09/18/2013 1:20p Neurosurgery Services Dustin Duncan, 59031 724.2 Of Capo Sanchez 723.1 722.83 724.3 Office Visit 05/17/2013 8:00a [facility] Of Brian Hernandez, 82779 719.41 CDeejay Sanchez Office Visit 04/09/2013 2:40p Neurosurgery Services Dustin Duncan, 33384 724.2 Of Capo Sanchez Office Visit 03/13/2013 1:40p Neurosurgery Services Dustin Duncan, 75781 724.2 Of aCpo Sanchez Office Visit 11/22/2012 2:30p [facility] Of Eliot Zepeda Tim, 57439 414.9 Capo Gates.Katelyn Office Visit 11/02/2012 11:04a [facility],[place] [address] 787.91 Hospitalists 276.51 Office Visit 11/01/2012 11:03a [facility],[place] [address] 787.91 Hospitalists 276.51 Office Visit 10/26/2012 2:56p [facility] Yanira Balderrama, 38242 786.51 Hospitalists M.DAguilar 530.81 724.2 Office Visit 10/25/2012 2:55p [facility] Shai Munoz, 63281 786.51 Hospitalists M.DAguilar 530.81 724.2 Office Visit 07/10/2012 3:00p [facility]surgery Services Dustin Duncan, 08096 349.2 Of Capo Sanchez 723.4 723.1 724.2 Office Visit 05/08/2012 9:00a Neurosurgery Services Dustin Duncan, 10031 349.2 Of Spring Layer M.D. 723.4 723.1 724.2 Office Visit 05/02/2012 9:20a [facility]surgery Services Dustin Duncan, 83018 349.2 Of [place] M.D. Office Visit 04/11/2012 1:00p [facility]surgery Services Dustin Duncan, 97040 723.4 Of [place] Layer M.D. 723.1 724.2 Office Visit 01/24/2012 10:00a [facility]surgery Services Dustin Duncan, 37450 723.4 Of [place] M.D. 723.1 724.2 Office Visit 12/13/2011 10:20a Neurosurgery Services Dustin Duncan, 92728 723.4 Of [place] M.D. 723.1 724.2 Office Visit 11/09/2011 3:00p [facility]surgery Services Dustin Duncan, 24141 723.4 Of [place] M.D. 723.1 Office Visit 10/05/2011 1:40p [facility]surgery Services Dustin Duncan, 94464 724.2 Of [place] M.D. Office Visit 08/03/2011 11:00a [facility]surgery Services Dustin Duncan, 29673 724.2 Of [place] M.D. Office Visit 07/06/2011 1:20p [facility]surgery Services Dustin Duncan, 99427 724.2 Of [place] M.D. Office Visit 04/19/2011 1:00p [facility]surgery Services Dustin Duncan 54400 724.2 Of [place] Layer M.D. Office Visit 10/19/2010 1:20p [facility]surgery Services Dustin Duncan, 87752 724.2 Of [place] M.D. Office Visit 08/04/2010 2:40p [facility] Dustin Duncan 16175 724.2 Of [place] Layer M.D. 729.5 Office Visit 04/17/2010 1:40p Neurosurgery Services Dustin Duncan, 57829 724.2 Of [place] Layer M.D. 729.5 Office Visit 02/02/2010 3:45a [facility], Kristian Avila, 28094 724.5 Hospitalists Laura V72.83 414.0 401.9 530.81 Office Visit 01/19/2010 2:30a [facility], Taqueria Ames M.D. 04712 786.59 Hospitalists 413.9 401.9 790.99 Office Visit 01/18/2010 12:15a [facility] Abi Pepper, 39332 786.50 Assoc,pc Hospitalists M.D. Office Visit 2009 3:00p [facility]surgery Services Dustin Duncan, 04149 721.3 Of Spring Layer M.D. Office Visit 01/28/2009 3:20p [facility]surgery Services Dustin Duncan, 83309 721.3 Of [place] M.D. 722.83 Office Visit 07/23/2008 11:20a [facility]surgery Services Dustin Duncan, 44070 722.83 Of [place] Layer M.D. Office Visit 01/08/2008 3:45p [facility] Dustin Duncan, 99537 722.83 Of [place] M.D. Office Visit 11/17/2007 10:30a [facility]surgery Services Dustin Duncan, 57710 722.83 Of [place] Layer M.D. Office Visit 07/10/2007 1:00p [facility]surgery Services Dustin Duncan, 18636 722.83 Of [place] Layer M.D. Office Visit 01/09/2007 1:00p [facility]surgery Services Dustin Duncan, 19945 721.3 Of [place] Layer M.D. 722.83 Plan of Care Future Appointment(s):02/02/2018 10:00 am - Cortez Luevano M.D. at [facility]1301/17/2018 2:15 pm - Michelle Weiss MD at [facility]opedic Services Of M.A.02/01/2018 10:45 am - Gabriela Hawk MD at Pulmonology [facility] Sleep Services Of [facility]01/09/2018 - Cortez Luevano M.D.R29.6 Repeated kxjzsT10.81 Restless legs [id number] Syncope and collapseFollow up:2-4 weeks
[2018-01-21 16:33] VITALS: BP 143/90
--- OUTSIDE RECORDS SUMMARY | 2018-01-21 16:34 | XMS REPORT ---
:1940 External Reference #:[id number] Author Organization [employer] Address [address] [address] Phone [phone] Care Team Providers Name Role Phone Lesa Etienne MD Primary Care Physician Unavailable Payers Type Date Identification Numbers Payment Provider Subscriber Health Maintenance Effective: Policy Number: Medicare Israel Hickey [facility] ([facility]) 10/31/2013 [id number] [facility] Group Number: [id number] [address] [address] PayID: [id number] NICHOLE Wilson [address] Health Maintenance Effective: Policy Number: Medicare Israel [employer] ([facility]) 10/31/2012 [id number] [facility] Expires: 10/30/2013 Group Number: [id number] [address] [address] PayID: [id number] NICHOLE Wilson [address] Health Maintenance Effective: Policy Number: Medicare [place] [employer] ([facility]) 07/31/2008 [id number] [facility] Expires: 10/31/2012 Group Number: [id number] [address] [address] Group Name: Medicare Blue Ppo Direct NICHOLE Wilson [address] PayID: [id number] Problems Date Description Provider Status [...] Marital Status Lives With 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 Metoprolol 08/04 Active Tablets ER 50mg 30tab [...] take 2 Eliot s tablets by Katelyn Dumont mouth at M.D. bedtime Wrist Splint 05/01 Active Misc QS use on 715.14 Zsofia Elastic/Large/X-L both Robin, arge wrists and SAMPLE CLERK hands as needed Pramipexole 08/27 Active Tablets [...] Co Q-10 Active Capsules 100mg one daily Jefferson 3 Krill Oil Active 300mg qd Nitro-Dur Active Patches 0.6mg/HR 30uni apply one I25.10 Eliot /0000 24HR ts to donovan Wells daily M.D. , on each in the morning , off each at night Acetaminophen 8 00/00 Active Tablets ER 650mg 2 bid prn Unknown Hour /0000 Zantac 150 00 Active Tablets 150mg one tablet Unknown Maximum Strength /0000 twice daily as needed Gabapentin 00 Active Capsules 400mg 540ca take two M54.5 Rodger / ps capsule by TOBY Batista mouth three times daily Meclizine HCL Active Tablets 25mg 60tab 1 tablet Unknown /0000 s every 8 hours as needed for vertigo Omeprazole 09/[address] 20mg 30cap 1 by mouth K21.9 Rodger s once daily TOBY Batista - 09/09 Keflex 02/10 Hx Capsules 500mg 20cap take 1 tab M19.012 s by mouth Abhishek, - four times 08/08 a day x days Percocet 02/10 Hx Tablets 5-325mg 60tab 1-2 tabs M19.012 s by mouth Abhishek, - every 4-6 08/08 hours needed pain Symbicort 02/03 Hx Aerosol 80-4.5mcg 10.2u 2 puff Rodger /Act nits twice a TOBY Batista - 02/14 Paroxetine HCL 09/28 Hx Tablets 20mg [...] po qam, Rodger s 1/2 po q TOBY Batista - pm 08/16 Escitalopram 07/26 Hx Tablets 10mg 45tab 09/01 F41.9 Rodger Oxalate s tablets Lynne, INLETTER - once daily 08/26 Escitalopram 05/26 Hx Tablets 10mg 30tab 09/01 F32.8 Rodger Oxalate s tablets Lynne, INLETTER - once daily 07/26 Symbicort 02/10 Hx Aerosol 80-4.5mcg 20.4u Inhale 2 Gabriela /2016 /Act nits Puffs By Kenn, - Mouth 06/21 Daily Prednisone 02/09 Hx Tablets 10mg as directed - 02/17 Dulera 02/09 Hx Aerosol 100-5mcg/ 26.4g 2 puff Act m twice a Kenn, - day 03/10 Cheratussin ac 02/09 Hx Syrup 100-10mg/ take 10 5ML milliliter - s every 4 05/ hours needed for cough. Gabapentin 05/09 Hx Tablets 600mg 90tab 2 tablets M54.5 Dustin Hutchinson /2014 s tid Felicitas Duncan M.D. 02/03 Lidocaine 05/01 Hx Ointment 5% 50gm use 715.14 Zsofi sparinly Robin, - in SAMPLE CLERK 02/17 affected area twice daily as needed Voltaren 04/23 Hx Gel 1% 1unit apply to M15.0 ofi s thumb/fing Robin, - er joint SAMPLE CLERK 06/21 times a day (no longer using) Nitroglycerin 02/28 Hx Patches 0.4mg/HR 90uni 1 patch I25.10 Eliot 24HR ts applied to D. Tim, - chest wall M.D. 08/26 daily the in the morning and take off at night Voltaren 07/22 Hx Gel 1% 1unit apply to 715.09 s thumb/fing Tiago, - er joint M.D. 08/27 times a day Gabapentin 11/27 Hx Capsules 300mg 90cap 1 by mouth 724.2 Dustin Hutchinson /2013 s federico Duncan, - times a M.D. 05/09 day or directed. Gabapentin 09/18 Hx Capsules 300mg 1 po bid Dustin Hutchinson Felicitas Duncan.DAguilar 11/27 Atenolol 09/18 Hx Tablets 25mg 180ta 1 by mouth Rodger bs twice a Lynne INLETTER - day 08/04 Acetaminophen 09/18 Hx Tablets 500mg 1 po Dustin Anderson Strength [id number] Felicitas Duncan.DAguilar 06/21 Clopidogrel 07/26 Hx Tablets 75mg 90tab [...] bedtime Valium 05/02 Hx Tablets 10mg 3tabs 11/01 to 1 Dustin Hutchinson two hours Dakota, - prior to M.D. 09/18 mri and repeat q1h prn anxiety Pramipexole 04/11 Hx Tablets 0.25mg 30tab Take One Dustin Galo s Tablet By Dakota, - Mouth M.D. 11/27 Morning For Daytime Restless Leg Pramipexole 02/07 Hx Tablets 0.5mg 30tab Take One Dustin Millerchloride s Tablet By Dakota, - Mouth M.D. 11/27 Nightly At Bedtime Pramipexole 12/13 Hx Tablets 0.25mg 30tab one po at Dustin Lunaide s hs Felicitas Duncan M.D. 02/07 Methylprednisolon 11/09 Hx Tablets 4mg 30tab two po bid Dustin montenegro /2012 s x 7 days Felicitas Duncan M.D. 12/13 Oxycodone HCL 08/03 Hx Tablets 5mg 120ta 1-2 po qid Dustin Hutchinson bs prn pain Felicitas Duncan M.D. 04/09 Pramipexole 07/06 Hx Tablets 0.125mg 30tab one po qhs Dustin Hutchinson Dihydrochlor s or as Felicitas Duncan M.D. 12/13 Medrol Dosepak 09/08 Hx Tablets 4mg 1tabs follow Dustin Hutchinson package Felicitas Duncan M.D. 04/19 with food Celebrex 08/04 Hx Capsules 200mg 60cap 1 po bid Dustin Hutchinson s prn Felicitas Duncan M.D. 11/09 Valium 10/14 Hx Tablets 10mg 3tabs 1/ to 1 Dustin Hutchinson two hours Felicitas Duncan prior to Laura 12/13 mri repeat q1h prn anxiety Celebrex 01/01 Hx Capsules 200mg 30cap 1 PO qd Dustin Hutchinson /2008 s Felicitas Duncan M.D. 04/19 Neurontin 11/22 Hx Tablets 800mg 120ta 1 po qid Dustin Hutchinson /2008 Felicitas Huddleston M.D. 09/18 Oxycontin 11/17 Hx Tablets ER 40mg 180ta 1-2 po tid Dustin Hutchinson /2007 12HR bs prn Felicitas Duncan M.D. 04/19 Fentanyltransderm 11/17 Hx Patches 72 25mcg/HR 10uni 1 patch q Dustin Hutchinson ts 3 days Felicitas Duncan M.D. 09/16 Oxycontin 01/06 Hx Tablets ER 80mg 90tab 1 po tid Dustin Hutchinson /2006 12HR s Felicitas Duncan M.D. 04/19 Robaxin-750 01/02 Hx Tablets 750mg 180ta 2 po tid Dustin Hutchinson /2006 Felicitas Huddleston M.D. 05/21 Sertraline HCL Hx Tablets 25mg 90tab 1 po qd / s - 04/03 Nasonex 00/00 Hx Suspension 50mcg/Act 1unit 2 sprays Unknown /0000 s to each - nostril 03/18 twice daily Proair HFA 00 Hx Aerosol 108(90Bas 1unit 2 puffs po [...] Unknown Chloride /0000 bid - 08/30 Nitroglycerin Hx Patches 0.2mg/HR on 9am off , /0000 24HR 9pm MD Wyatt - 10/21 Diphenhydramine 00 Hx Tablets 50mg once daily Unknown HCL Maximum /0000 Strength - 08/31 Psyllium Fiber 0000 Hx Tablets 60tab 6 tablet Unknown /0000 s po b.i.d - 11/10 Ibuprofen Hx Tablets 200mg 100ta as needed Unknown /0000 bs - 10/21 Diphenhydramine 00 Hx Capsules 50mg 1caps take 1 Unknown HCL /0000 tablet prn - 01/27 Tylenol Arthritis 00/00 Hx Tablets ER 650mg 100ta as needed Unknown Pain /0000 bs - 01/27 Ibuprofen 00 Hx Capsules 200mg as needed Unknown /0000 - 09/18 Nasonex Hx Suspension 50mcg/Act prn Unknown /0000 - 06/14 Ventolin HFA Hx Aerosol 108(90Bas 2 puffs as Unknown /0000 e) needed - mcg/Act 09/18 Nitro-Dur Hx Patches 0.4mg/HR on in in Unknown /0000 24HR the - morning, 09/18 off in night Sucralfate Hx Tablets 1gm 1 by mouth Unknown [...] Unknown /0000 daily Am - 11/10 Biofreeze Hx prn Unknown /0000 - 12/29 [facility] Health Hx Capsules Unknown /0000 - 12/29 Acetaminophen 00 Hx Tablets 325mg 2 tablets Unknown /0000 by mouth - every 6 /10 hours needed for pain/fever Stool Softener Hx Capsules 100mg take 1 tab Unknown /0000 every - night 08/03 Deep Blue Hx 1 tab Unknown /0000 twice a - day for 11/24 arthirtis /2018 Symbicort 0000 Hx Aerosol 160-4.5mc 2 puff Kenn, /0000 g/Act twice a Gabriela, - day 07/11 Hydrocodone-Aceta Hx Tablets 5-325mg take one Unknown minophen /0000 or 2 - capsule/ta 08/08 blet by mouth at hs for pain Medications Administered in Office Medication Date Status Form Strength Qnty SIG Indications Ordering Provider Inj, Administered Injection Eliot D. Regadenoson, 015 Laura Dumont 0.1 MG Technetium TC Administered Injection Eliot D. 99M 015 Laura Dumont Tetrofosmin, Per Unit Dose Up To 40 Millicuries Inj, Administered Injection Eliot D. Regadenoson, 014 Laura Dumont 0.1 MG Technetium TC Administered Injection Eliot DAguilar 99M 014 Laura Dumont Tetrofosmin, Per Unit Dose Up To 40 Millicuries Immunizations CPT Code Status Date Vaccine Reaction Lot # 64260 Given 06/25/2017 Fluzone High Dose 22361 Given 08/19/2016 Influenza Virus Vaccine, fluzone high dose @ [facility] Quadrivalent, Split Virus, Im Use Q2037 Given 02/11/2016 Fluvirin Im 3Yrs And Older 72462 Given 02/11/2016 Pneumonia Vaccine 23794 Given Unknown Tdap - Tetanus/Diptheria/Acellular Pertussis Vital Signs Date Vital Result Comment 12/29/2017 Weight 219.00 lb Heart Rate 59 [...] Test Date Test Result H/L Range Note Laboratory test finding 11/16/2017 Magnesium 2.3 mg/dL 1.9-2.7 Lipase 17 U/L 11.0-82.0 C Reactive Protein < 1.00 mg/L < 5.00 1 Troponin-I (TnI) 0.00 ng/mL <0.04 TSH (Thyroid Stim Horm) 0.87 mcIU/mL 0.34-5.60 Urinalysis Profile 11/16/2017 Urine Color Yellow Urine Appearance Clear Urine Specific Drasco 1.018 1.010-1.030 Urine pH 7.0 5-9 Urine [...] test finding 11/16/2017 B-Type Natriuretic 17 pg/mL 2 Peptide BNP Inr/Protime 11/16/2017 Inr 0.90 0.77-1.02 [...] Egfr Non- 85.3 >60 Egfr 109.7 >60 3 Laboratory test finding 11/16/2017 Partial Thrombo Time 35.1 seconds 26.0 -36.3 PTT Lactic Acid 0.9 mmol/L 0.5-2.0 4 Urinalysis Profile 09/25/2017 Urine Color Yellow Urine Appearance Clear Urine Specific Drasco 1.013 1.010-1.030 Urine pH 6.0 5-9 Urine Urobilinogen Negative Negative Urine Ketones Trace Negative Urine Protein Negative Negative Urine Leukocytes Negative Negative Urine Blood Negative Negative Urine Nitrite Negative Negative Urine Bilirubin Negative Negative Urine Glucose Negative Negative Rapid Influenza A & B 09/25/2017 Influenza A Molecular NEGATIVE Negative 5 Molecular Influenza B Molecular NEGATIVE Negative Laboratory test finding 09/25/2017 Rapid Influenza A B SEE RESULT BELOW 6 Antigen Istat BUN/Crea/Egfr/V 08/31/2017 Poc Bun Eastct 24 mg/dL High 9-18 Eastct Poc Crea Eastct 0.9 mg/dL 0.6-0.9 GFR Non- Ect 82.3 >60 GFR Eastct 105.8 >60 7 Basic Metabolic Panel 08/31/2017 Sodium 134 mmol/L 133-145 Potassium 4.5 mmol/L 3.5-5.0 Chloride 101 mmol/L 101-111 Co2 Carbon Dioxide 29 mmol/L 22-32 Anion Gap 4 mmol/L 2-11 Glucose 81 mg/dL 70-100 Blood Urea Nitrogen 23 mg/dL 6-24 Creatinine 0.90 mg/dL 0.67-1.17 BUN/Creatinine Ratio 25.6 High 8-20 Calcium 9.3 mg/dL 8.6-10.3 Egfr Non- 82.3 >60 Egfr 105.8 >60 8 Poc Urinalysis 08/31/2017 Poc Glucose, Urine Negative Negative Poc Bilirubin, Urine Negative Negative Poc Ketone, Urine Negative Negative Poc Specific Drasco, Urine 1.020 1.010-1.030 Poc Blood, Urine Negative Negative Poc pH, Urine 5.5 5-9 Poc Protein, Urine Negative Negative Poc Urobilinogen, Urine 0.2 Negative Poc Nitrite, Urine Negative Negative Poc Leukocytes, Urine Negative Negative Poc Color, Urine Yellow Poc Clarity, Urine Clear 9 Laboratory test finding 06/27/2017 Surgical Pathology SEE RESULT BELOW 10 Laboratory test finding 06/27/2017 Clotest SEE RESULT BELOW 11 Basic Metabolic Panel 02/23/2017 Sodium 140 mmol/L 133-145 Potassium 4.4 mmol/L 3.5-5.0 Chloride 104 mmol/L 101-111 Co2 Carbon Dioxide 29 mmol/L 22-32 Anion Gap 7 mmol/L 2-11 Glucose 108 mg/dL High 70-100 Blood Urea Nitrogen 24 mg/dL 6-24 Creatinine 0.99 mg/dL 0.67-1.17 BUN/Creatinine Ratio 24.2 High 8-20 Calcium 9.5 mg/dL 8.6-10.3 Egfr Non- 73.7 >60 Egfr 94.8 >60 12 Comp Metabolic Panel 02/14/2017 Sodium 139 mmol/L [...] Egfr Non- 80.2 >60 Egfr 103.1 >60 13 Laboratory test finding 02/14/2017 B-Type Natriuretic Peptide BNP 21 pg/mL 14 Troponin-I (TnI) 0.00 ng/mL <0.04 15 Type & Screen 02/10/2017 Patient Blood Type O Negative 16 Antibody Screen NEGATIVE 16 Laboratory test finding 02/10/2017 Partial Thrombo 35.3 seconds 26.0- 36.3 16, 17 Time PTT Inr/Protime 02/10/2017 Inr 0.90 0.89-1.11 16 Urinalysis Profile 02/10/2017 Urine Color Straw 16 Urine Appearance Clear 16 Urine Specific Drasco 1.010 1.010-1.030 16 Urine pH 5.0 5-9 16 Urine Urobilinogen Negative Negative 16 Urine Ketones Negative Negative 16 Urine Protein Negative Negative 16 Urine Leukocytes Negative Negative 16 Urine Blood Negative Negative 16 Urine Nitrite Negative Negative 16 Urine Bilirubin Negative Negative 16 Urine Glucose Negative Negative 16 CBC No Diff 02/10/2017 White Blood Count 5.1 10^3/uL 3.5-10.8 16 Red Blood Count 4.54 10^6/uL 4.0-5.4 16 Hemoglobin 13.5 g/dL Low 14.0-18.0 16 Hematocrit 41 % Low 42-52 16 Mean Corpuscular Volume 89 fL 80-94 16 Mean Corpuscular Hemoglobin 30 pg 27-31 16 Mean Corpuscular HGB Conc 33 g/dL 31-36 16 Red Cell Distribution Width 14 % 10.5-15 16 Platelet Count 143 10^3/uL Low 150-450 16 Mean Platelet Volume 7 um3 Low 7.4-10.4 16 Basic Metabolic Panel 01/20/2017 Sodium 138 mmol/L 133-145 Potassium 4.2 mmol/L 3.5-5.0 Chloride 106 mmol/L 101-111 Co2 Carbon Dioxide 26 mmol/L 22-32 Anion Gap 6 mmol/L 2-11 Glucose 118 mg/dL High 70-100 Blood Urea Nitrogen 24 mg/dL 6-24 Creatinine 0.92 mg/dL 0.67-1.17 BUN/Creatinine Ratio 26.1 High 8-20 Calcium 9.6 mg/dL 8.6-10.3 Egfr Non- 80.2 >60 Egfr 103.1 >60 18 CBC Auto Diff 01/20/2017 White Blood Count [...] 0-2 Nucleated Red Blood Cells % 0.1 Inr/Protime 01/20/2017 Inr 0.88 Low 0.89-1.11 CBC [...] Cells % 0 Laboratory test finding 12/09/2016 B-Type Natriuretic Peptide 21 pg/mL 19 BNP Comp Metabolic Panel 12/09/2016 Sodium 140 [...] Egfr Non- 79.2 >60 Egfr 101.9 >60 20 Laboratory test finding 12/09/2016 TSH (Thyroid Stim 1.62 mcIU/mL 0.34- 5.60 Horm) Iron & Iron Binding 2016 Iron 92 g/dL 50-212 Capacity Unsaturated Iron Binding 324 g/dL Total Iron Binding Capacity 416 g/dL 250-450 % Iron Saturation 22 % 15-55 Laboratory test finding 2016 Ferritin 91.7 ng/mL 24-336 CBC Auto Diff 2016 White Blood Count [...] finding 08/11/2016 Lactic Acid 0.9 mmol/L 0.5-2.0 21 Inr/Protime 08/11/2016 Inr 0.94 0.89-1.11 Laboratory test finding 08/11/2016 Partial Thrombo Time 33.5 seconds 26.0 -36.3 PTT B-Type Natriuretic Peptide BNP 41 pg/mL 22 Comp Metabolic Panel 08/11/2016 Sodium 140 mmol/L [...] Egfr Non- 84.7 >60 Egfr 108.9 >60 23 Laboratory test finding 08/11/2016 Magnesium 2.3 mg/dL 1.9-2.7 Troponin-I (TnI) 0.00 ng/mL <0.03 24 TSH (Thyroid Stim Horm) 1.93 mcIU/mL 0.34-5.60 Urinalysis Profile 08/11/2016 Urine Color Yellow Urine Appearance Clear Urine Specific Drasco 1.012 1.010-1.030 Urine pH 5.0 5-9 Urine [...] Egfr Non- 83.6 >60 Egfr 107.5 >60 25 Lipid Profile (Trig/Chol/HDL) 06/30/2016 Triglycerides 115 mg/dL 26 Cholesterol 113 mg/dL 27 HDL Cholesterol 41.7 mg/dL 28 LDL Cholesterol 48 mg/dL 29 Comp Metabolic Panel 03/22/2016 Sodium 140 mmol/L [...] Egfr Non- 81.4 >60 Egfr 104.7 >60 30 CBC Auto Diff 03/22/2016 White Blood Count [...] finding 03/22/2016 B-Type Natriuretic Peptide 16 pg/mL 31 BNP Comp Metabolic Panel 04/23/2015 Sodium 140 [...] Egfr Non- 82.7 >60 Egfr 106.4 >60 32 Laboratory test finding 04/23/2015 C Reactive Protein < 1.00 mg/L &lt ; 5.00 33 Erythrocyte Sed Rate 4 mm/Hr 0-40 Rheumatoid Factor <15 IU/mL <15 34 Cyclic Citrullinated Pep Igg <15.6 U 35 Hla B27 04/23/2015 Hla B27 Negative 36 Hla B27 Interp See Comment 37 CBC Auto Diff 04/23/2015 White Blood Count [...] Blood Cells % 0.1 Basic Metabolic Panel 10/17/2014 Sodium 140 mmol/L 133-145 Potassium 4.0 mmol/L 3.5-5.0 Chloride 101 mmol/L 101-111 Co2 Carbon Dioxide 33 mmol/L High 22-32 Anion Gap 6 mmol/L 2-11 Glucose 105 mg/dL High 70-100 Blood Urea Nitrogen 15 mg/dL 6-24 Creatinine 1.00 mg/dL 0.67-1.17 BUN/Creatinine Ratio 15.0 8-20 Calcium 9.9 mg/dL 8.6-10.3 Egfr Non- 73.2 >60 Egfr 94.2 >60 38 CBC Auto Diff 07/20/2012 White Blood Count 4.8 CUMM 4.8-10.8 39 Red Cell Count 4.62 CUMM 4.6-6.2 39 Hemoglobin 13.8 g/dL Low 14.0-18.0 39 Hematocrit 41 % Low 42-52 39 Mean Corpuscular Volume 89 um3 80-94 39 Mean Corpuscular Hemoglob 30 pg 27-31 39 Mean Corpuscular HGB Cone 34 g/dL 32-36 39 Redcell Distribution WDTH 14 % 10.5-15 39 Platelet Count 149 CUMM Low 150-450 39 Mean Platelet Volume 7.8 um3 7.4-10.4 39 Gran % 69.3 % 38-83 39 Lymph % 19.3 % Low 20-45 39 Mononuclear % 7.6 % 1-9 39 Eosinophil % 3.0 % 0-6 39 Basophil % 0.8 % 0-2 39 Abs Lymphs 0.9 Low 1.0-4.8 39 Abs Mononuclear 0.4 0-0.8 39 Absolute Neutrophil Count 3.3 1.5-7.7 39 Abs Eosinophils 0.1 0-0.6 39 Abs Basophils 0 0-0.2 39 Protime 07/20/2012 Inr 0.89 0.88-1.13 39, 40 Protime 10.6 SEC 10.3-13.5 39, 41 Laboratory test finding 07/20/2012 PTT (Aptt) 33.6 SEC 25.1-38.5 39 Type And Screen (Pre-Adm) 07/20/2012 Patient Blood Type O NEGATIVE 39 Antibody Screen NEGATIVE 39 Specimen Discard Date 08/03/12 39, 42 Basic Metabolic Panel 07/20/2012 Sodium 139 mmol/L 135-145 39 Potassium 3.9 mmol/L 3.5-5.0 39 Chloride 101 mmol/L 101-111 39 Co2 (Carbon Dioxide) 32.0 mmol/L 22-32 39 Anion Gap 6.0 mmol/L 2-11 39, 43 Glucose 131 mg/dL High 70-100 39 BUN 20 mg/dL 6-24 39 Creatinine 0.9 mg/dL 0.50-1.40 39 One Over Creatinine 1.11 39 BUN/Creatinine Ratio 22.2 High 8-20 39 Calcium 9.5 mg/dL 8.1-9.9 39 eGFR Non- 83.4 > 60 39 eGFR 107.3 > 60 39, 44 Basic Metabolic Panel Stat 02/02/2010 Sodium 138 mmol/L 135-145 45 Potassium 3.8 mmol/L 3.5-5.0 45 Chloride 105 mmol/L 101-111 45 Co2 (Carbon Dioxide) 25.0 mmol/L 22-32 45 Anion Gap 8.0 mmol/L 2-11 45, 46 Glucose 100 mg/dL 70-100 45, 47 BUN 13 mg/dL 6-24 45 Creatinine 0.80 mg/dL 0.50-1.40 45 One Over Creatinine 1.20 45 BUN/Creatinine Ratio 16.3 8-20 45 Calcium 9.6 mg/dL 8.1-9.9 45, 48 eGFR Non- 102.2 > 60 45 eGFR 123.6 > 60 45, 49 Laboratory test 02/02/2010 C Reactive Protein < 0.5 mg/dL Less Than 0.5 45 finding 1 Acute inflammation: >10.00 2 >100 to <200 pg/mL: likely compensated congestive heart failure (CHF) 200 to 400 pg/mL: likely moderate CHF >400 pg/mL: likely moderate to severe CHF 3 Because ethnic data is not always readily [...] 15-29 5 Kidney failure <15 (or dialysis) 4 [facility] Severe Sepsis and Septic Shock Management Bundle Measure requires all lactic acids initially measuring >2.0 mmol/L be repeated. 5 Victims Advocate Clerk/Specialist: [id number] 6 SEE RESULT BELOW Name: QUIANA HICKEY : [address]: Merlin Mcnally MD Acct: [id number] Unit: [id number] AGE: 77 Location: ED Re09/25/17 SEX: M Status: REG ER SPEC: [id number] NITISH: 09/25/[address]: Merlin Mcnally MD REQ: [id number] RECD: 09/25/17 STATUS: NERIS GARCIA DR: Lesa Etienne MD _ SOURCE: NASAL SPDESC: ORDERED: Flu A B Request Procedure Result Reported Site Rapid Influenza A B Request Final 09/25/17- 2119 ML Specimen received for Influenza A/B Molecular testing * ML - MAIN LAB ([facility]) . END OF REPORT * ML=Testing performed at Main Lab DEPARTMENT OF PATHOLOGY, [address] [place] [address] Riki Can M.D. Director [facility] # [id number] 7 Because ethnic data is not always readily [...] 15-29 5 Kidney failure <15 (or dialysis) 8 Because ethnic data is not always readily [...] 15-29 5 Kidney failure <15 (or dialysis) 9 Victims Advocate Clerk/Specialist: [id number] 10 SEE RESULT BELOW Name: QUIANA HICKEY Hannah : [address]: Cj Angeles MD Acct: [id number] Unit: [id number] AGE: 76 Location: [facility] Re06/27/17 SEX: M Status: DEP REF SPEC: [id number] NITISH: 06/27/17- SUBM DR: Cj Angeles MD REQ: [id number] RECD: 06/27/17158 STATUS: CELESTINO GARCIA DR: Rodger Batista INLETTER _ ORDERED: LEVEL 4/2, IMMUNO-FIRST Addendum: An [...] performed at Main Lab DEPARTMENT OF PATHOLOGY, [address] [place] [address] Riki Can M.D. Director [facility] # [id number] RUN DATE: 06/28/17 [facility] LAB LIVE PAGE 2 Patient: QUIANA HICKEY Hannah [id number] (Continued) GROSS DESCRIPTION (Continued) GROSS DESCRIPTION (Continued) 2. The specimen is received in formalin labeled, Biopsy Esophagus, and consists of a 0.3 x 0.3 x 0.1 cm luis-white irregular soft tissue fragment which is submitted entirely in one cassette. Signed (signature on file) Swapna Carrion MD [id number] END OF REPORT * ML=Testing performed at Main Lab DEPARTMENT OF PATHOLOGY, [address] [place] [address] Riki Can M.D. Director [facility] # [id number] 11 SEE RESULT BELOW Name: QUIANA HICKEY : [address]: Cj Angeles MD Acct: [id number] Unit: [id number] AGE: 76 Location: ENDO Re06/27/17 SEX: M Status: REG REF SPEC: [id number] NITISH: 06/27/17-105 [facility] [address]: Cj Angeles MD REQ: [id number] RECD: 06/27/17 STATUS: NERIS GARCIA DR: Lesa Batista INLETTER _ SOURCE: GAS ANTRUM SPDESC: ORDERED: Clotest Procedure Result Reported Site Clotest Final 06/28/17- 0753 ML Clotest Negative * ML - MAIN LAB ([facility]) . END OF REPORT * ML=Testing performed at Main Lab DEPARTMENT OF PATHOLOGY, [address] [place] [address] Riki Can M.D. Director [facility] # [id number] 12 Because ethnic data is not always readily [...] 15-29 5 Kidney failure <15 (or dialysis) 13 Because ethnic data is not always [...] 5 Kidney failure <15 (or dialysis) 14 >100 to <200 pg/mL: likely compensated congestive heart failure (CHF) 200 to 400 pg/mL: likely moderate CHF >400 pg/mL: likely moderate to severe CHF 15 99th percentile=0.04 ng/mL Troponin results at [facility] and [facility] are not interchangeable. 16 SD 02/16/17 17 SD 02/16/17 18 Because ethnic data is not always [...] 5 Kidney failure <15 (or dialysis) 19 >100 to <200 pg/mL: likely compensated congestive heart failure (CHF) 200 to 400 pg/mL: likely moderate CHF >400 pg/mL: likely moderate to severe CHF 20 Because ethnic data is not always readily [...] 15-29 5 Kidney failure <15 (or dialysis) 21 [facility] Severe Sepsis and Septic Shock Management Bundle Measure requires all lactic acids initially measuring >2.0 mmol/L be repeated. 22 >100 to <200 pg/mL: likely compensated congestive heart failure (CHF) 200 to 400 pg/mL: likely moderate CHF >400 pg/mL: likely moderate to severe CHF 23 Because ethnic data is not always readily [...] 15-29 5 Kidney failure <15 (or dialysis) 24 Reference Range and Interpretation: TnI (ng/mL) Interpretation Less Than 0.03 ng/mL Not supportive of diagnosis of [place] 0.03 - 0.50 ng/mL Indeterminate: suggest serial studies if clinically indicated. Greater than 0.5 ng/mL Consistent with diagnosis of [place] 25 Because ethnic data is not always [...] 5 Kidney failure <15 (or dialysis) 26 Desirable <150 Borderline high 150-199 High 200-499 Very High >500 27 Desirable <200 Borderline high 200-239 High >239 28 Low <40 Desirable: 40-60 High: >60 29 Desirable: <100 mg/dL Near Optimal: 100-129 mg/dL Borderline High: 130-159 mg/dL High: 160-189 mg/dL Very High: >189 mg/dL 30 Because ethnic data is not always readily [...] 15-29 5 Kidney failure <15 (or dialysis) 31 >100 to <200 pg/mL: likely compensated congestive heart failure (CHF) 200 to 400 pg/mL: likely moderate CHF >400 pg/mL: likely moderate to severe CHF 32 Because ethnic data is not always readily [...] 15-29 5 Kidney failure <15 (or dialysis) 33 Acute inflammation: >10.00 34 Test Performed by: [place] [address] Medical Staff Credentialing Coordinator: Dante Rice II, M.D., Ph.D. 35 REFERENCE VALUE <20.0 (Negative) Test Performed by: [place] [address] Medical Staff Credentialing Coordinator: Dante Rice II, M.D., Ph.D. 36 REFERENCE VALUE Not Applicable 37 RESULT: HLA-B27 antigen was not detected. ADDITIONAL INFORMATION Method: Flow Cytometry Performing Laboratory CLIA# [id number] Test Performed by: [address] [address] Medical Staff Credentialing Coordinator: Dante Rice II, M.D., Ph.D. 38 Because ethnic data is not always [...] 5 Kidney failure <15 (or dialysis) 39 SDS 07/27/12 40 Recommended INR for Patients on Oral Anticoagulants Prophylaxis 2.0 - 3.0 Treatment of thrombosis 2.0 - 3.0 Prevention of embolism 2.0 - 3.0 Prevention of embolism from prosthetic heart valves 2.5 - 3.5 41 DIAGNOSIS,TREATMENT,AND THERAPY MUST BE BASED ON THE INR VALUE ALONE. 42 PREADMISSION TESTING SAMPLES FOR BLOOD BANK WILL [...] WITHIN 3 DAYS OF THE SURGERY DATE. 43 Anion gap measurement may be of limited value in the presence of any alkalosis, especially in a combined acid base disorder. . 44 Because ethnic data is not always [...] 5 Kidney failure <15 (or dialysis) 45 COMMENTS: N 46 Anion gap measurement may be of limited value in the presence of any alkalosis, especially in a combined acid base disorder. . 47 Note change in reference range as of 06/20/08. The change was based on recommendations from the [place] [employer]. 48 Please note change in reference range effective 08 . 49 Because ethnic data is not [...] Procedures Date CPT Code Description Status Comment 11/17/2017 48594 Closed TX Scapular FX W/O Completed Manipulation 11/02/2017 70832 Implantable Cardio System Loop Completed Recorder Sys Remota Data Acquistio 11/02/2017 26109 Interrogation Dev Loop Recorder Completed Incl Physician Analysis,Rev,Repor 10/02/2017 97835 Implantable Cardio System Loop Completed Recorder Sys Remota Data Acquistio 10/02/2017 95238 Interrogation Dev Loop Recorder Completed Incl Physician Analysis,Rev,Repor 09/01/2017 38843 Implantable Cardio System Loop Completed Recorder Sys Remota Data Acquistio 09/01/2017 78033 Interrogation Dev Loop Recorder Completed Incl Physician Analysis,Rev,Repor 08/10/2017 01168 EKG Tracing & Completed Interpretation 08/01/2017 95886 Implantable Cardio System Loop Completed Recorder Sys Remota Data Acquistio 08/01/2017 61463 Interrogation Dev Loop Recorder Completed Incl Physician Analysis,Rev,Repor 07/01/2017 63148 Implantable Cardio System Loop Completed Recorder Sys Remota Data Acquistio 07/01/2017 40565 Interrogation Dev Loop Recorder Completed Incl Physician Analysis,Rev,Repor 05/31/2017 28522 Implantable Cardio System Loop Completed Recorder Sys Remota Data Acquistio 05/31/2017 14414 Interrogation Dev Loop Recorder Completed Incl Physician Analysis,Rev,Repor 04/30/2017 05813 Interrogation Dev Loop Recorder Completed Incl Physician Analysis,Rev,Repor 04/30/2017 55226 Implantable Cardio System Loop Completed Recorder Sys Remota Data Acquistio 03/30/2017 02830 Implantable Cardio System Loop Completed Recorder Sys Remota Data Acquistio 03/30/2017 64729 Interrogation Dev Loop Recorder Completed Incl Physician Analysis,Rev,Repor 03/02/2017 43553 Arthroplasty,Total Shoulder Completed Replacement (TSR) 03/02/2017 60450 Arthroplasty,Total Shoulder Completed Replacement (TSR) 02/27/2017 88642 Implantable Cardio System Loop Completed Recorder Sys Remota Data Acquistio 02/27/2017 38428 Interrogation Dev Loop Recorder Completed Incl Physician Analysis,Rev,Repor 02/14/2017 43764 EKG Tracing & Completed Interpretation 02/10/2017 54573 EKG, Interpretation Only Completed 01/27/2017 50830 Implantable Cardio System Loop Completed Recorder Sys Remota Data Acquistio 01/27/2017 82135 Interrogation Dev Loop Recorder Completed Incl Physician Analysis,Rev,Repor 12/27/2016 19775 Implantable Cardio System Loop Completed Recorder Sys Remota Data Acquistio 12/27/2016 94756 Interrogation Dev Loop Recorder Completed Incl Physician Analysis,Rev,Repor 11/26/2016 36554 Implantable Cardio System Loop Completed Recorder Sys Remota Data Acquistio 11/26/2016 16257 Interrogation Dev Loop Recorder Completed Incl Physician Analysis,Rev,Repor 10/26/2016 98563 Interrogation Dev Loop Recorder Completed Incl Physician Analysis,Rev,Repor 10/26/2016 11945 Implantable Cardio System Loop Completed Recorder Sys Remota Data Acquistio 09/25/2016 02902 Implantable Cardio System Loop Completed Recorder Sys Remota Data Acquistio 09/25/2016 54507 Interrogation Dev Loop Recorder Completed Incl Physician Analysis,Rev,Repor 09/01/2016 70880 EKG Tracing & Completed Interpretation 08/25/2016 44213 Implantable Cardio System Loop Completed Recorder Sys Remota Data Acquistio 08/25/2016 59064 Interrogation Dev Loop Recorder Completed Incl Physician Analysis,Rev,Repor 08/12/2016 34922 Treadmill Interp/Report Only Completed 08/12/2016 33412 Stress Test Supervsn W/Out I/R Completed 07/27/2016 15479 Implantable Cardio System Loop Completed Recorder Sys Remota Data Acquistio 07/27/2016 48568 Interrogation Dev Loop Recorder Completed Incl Physician Analysis,Rev,Repor 07/25/2016 49982 Implantable Cardio System Loop Completed Recorder Sys Remota Data Acquistio 07/25/2016 54315 Interrogation Dev Loop Recorder Completed Incl Physician Analysis,Rev,Repor 06/24/2016 87677 Implantable Cardio System Loop Completed Recorder Sys Remota Data Acquistio 06/24/2016 62614 Interrogation Dev Loop Recorder Completed Incl Physician Analysis,Rev,Repor 05/24/2016 92238 Interrogation Dev Loop Recorder Completed Incl Physician Analysis,Rev,Repor 05/24/2016 20215 Implantable Cardio System Loop Completed Recorder Sys Remota Data Acquistio 04/23/2016 41926 Implantable Cardio System Loop Completed Recorder Sys Remota Data Acquistio 04/23/2016 11776 Interrogation Dev Loop Recorder Completed Incl Physician Analysis,Rev,Repor 03/23/2016 41782 Implantable Cardio System Loop Completed Recorder Sys Remota Data Acquistio 03/23/2016 67211 Interrogation Dev Loop Recorder Completed Incl Physician Analysis,Rev,Repor 03/11/2016 00093 Polysomnography Sleep Staging Completed 4+ Parameters 02/23/2016 40629 Diffusing Capacity Completed 02/23/2016 48992 Plethysmography Determination Completed Lung Volumes & Per Airway Resist 02/23/2016 81315 Pulmonary Completed Function><Bronchodil 02/21/2016 56424 Implantable Cardio System Loop Completed Recorder Sys Remota Data Acquistio 02/21/2016 38676 Interrogation Dev Loop Recorder Completed Incl Physician Analysis,Rev,Repor 02/04/2016 59812 EKG, Interpretation Only Completed 01/21/2016 44726 Implantable Cardio System Loop Completed Recorder Sys Remota Data Acquistio 01/21/2016 08781 Interrogation Dev Loop Recorder Completed Incl Physician Analysis,Rev,Repor 12/21/2015 55222 Interrogation Dev Loop Recorder Completed Incl Physician Analysis,Rev,Repor 12/21/2015 16249 Implantable Cardio System Loop Completed Recorder Sys Remota Data Acquistio 11/20/2015 61631 Implantable Cardio System Loop Completed Recorder Sys Remota Data Acquistio 11/20/2015 46602 Interrogation Dev Loop Recorder Completed Incl Physician Analysis,Rev,Repor 10/21/2015 09061 Implantable Cardio System Loop Completed Recorder Sys Remota Data Acquistio 10/21/2015 02988 Interrogation Dev Loop Recorder Completed Incl Physician Analysis,Rev,Repor 09/19/2015 47563 Implantable Cardio System Loop Completed Recorder Sys Remota Data Acquistio 09/19/2015 35804 Interrogation Dev Loop Recorder Completed Incl Physician Analysis,Rev,Repor 09/19/2015 54127 EKG Tracing & Completed Interpretation 09/08/2015 76678 Interrogation Device Completed Eval,Implantable Loop Recorder System 08/20/2015 09792 Implantable Cardio System Loop Completed Recorder Sys Remota Data Acquistio 08/20/2015 98711 Interrogation Dev Loop Recorder Completed Incl Physician Analysis,Rev,Repor 08/19/2015 63532 Implantable Cardio System Loop Completed Recorder Sys Remota Data Acquistio 08/19/2015 62100 Interrogation Dev Loop Recorder Completed Incl Physician Analysis,Rev,Repor 07/21/2015 72791 Implantable Cardio System Loop Completed Recorder Sys Remota Data Acquistio 07/21/2015 46348 Interrogation Dev Loop Recorder Completed Incl Physician Analysis,Rev,Repor 06/19/2015 75310 Interrogation Device Completed Eval,Implantable Loop Recorder System 06/06/2015 73222 Implantable Cardio System Loop Completed Recorder Sys Remota Data Acquistio 06/06/2015 46121 Interrogation Dev Loop Recorder Completed Incl Physician Analysis,Rev,Repor 05/21/2015 71373 Implantable Cardio System Loop Completed Recorder Sys Remota Data Acquistio 05/21/2015 29064 Interrogation Dev Loop Recorder Completed Incl Physician Analysis,Rev,Repor 04/22/2015 66364 Implantable Cardio System Loop Completed Recorder Sys Remota Data Acquistio 04/22/2015 16159 Interrogation Dev Loop Recorder Completed Incl Physician Analysis,Rev,Repor 03/19/2015 60988 Implantable Cardio System Loop Completed Recorder Sys Remota Data Acquistio 03/19/2015 28444 Interrogation Dev Loop Recorder Completed Incl Physician Analysis,Rev,Repor 02/06/2015 90716 Stress Test Completed 02/06/2015 84768 Myocardial Perfusion Imaging Completed Tomographic (Spect) Multiple Studies 01/28/2015 30651 EKG Tracing & Completed Interpretation 01/20/2015 67527 Implantable Cardio System Loop Completed Recorder Sys Remota Data Acquistio 01/20/2015 29567 Interrogation Dev Loop Recorder Completed Incl Physician Analysis,Rev,Repor 12/18/2014 29184 Interrogation Dev Loop Recorder Completed Incl Physician Analysis,Rev,Repor 12/18/2014 58787 Implantable Cardio System Loop Completed Recorder Sys Remota Data Acquistio 11/25/2014 89626 Interrogation Device Completed Eval,Implantable Loop Recorder System 11/18/2014 86034 Implantable Cardio System Loop Completed Recorder Sys Remota Data Acquistio 11/18/2014 65660 Interrogation Dev Loop Recorder Completed Incl Physician Analysis,Rev,Repor 10/21/2014 27953 Implantable Cardio System Loop Completed Recorder Tarik Ly Data Acquistio 10/21/2014 24225 Interrogation Dev Loop Recorder Completed Incl Physician Analysis,Rev,Repor 10/15/2014 33476 EKG, Interpretation Only Completed 10/14/2014 38345 Left Heart Cath. Incl S/I Completed Coronaries, Angio S/I V Gram If Done 10/14/2014 73522 EKG, Interpretation Only Completed 10/14/2014 64033 Percutaneous Transcatheter Completed Placement Of Intracoronary Stent 10/08/2014 84297 Interrogation Device Completed Eval,Implantable Loop Recorder System 10/08/2014 72279 EKG Tracing & Completed Interpretation 2014 09329 Implant Cardiac Loop Recorder Completed 09/12/2014 45347 Myocardial Perfusion Imaging Completed Tomographic (Spect) Multiple Studies 09/12/2014 07849 Stress Test Completed 09/09/2014 56270 EEG Recording Awake & Completed Asleep 04/12/2014 47234 EKG Tracing & Completed Interpretation 04/05/2014 19514 Treadmill Interp/Report Only Completed 04/05/2014 77671 Stress Test Supervsn W/Out I/R Completed 04/05/2014 93465 EKG, Interpretation Only Completed 04/04/2014 75540 EKG, Interpretation Only Completed 11/21/2013 76176 EKG Tracing & Completed Interpretation 05/17/2013 47433 Rad Shoulder, 1 View Completed 11/22/2012 09555 EKG Tracing & Completed Interpretation 10/25/2012 08916 Treadmill Interp/Report Only Completed 10/25/2012 48141 Stress Test Supervsn W/Out I/R Completed 07/27/2012 89962 Partial Excision Post Vertebral Completed Component Single Cervical 10/28/2010 90438 EKG, Interpretation Only Completed 10/31/2007 Colonoscopy Completed Completed home kit for screening per pt. d/t difficult colonoscopy. Supposed to repeat every 4-5 yrs. Encounters Type Date Location Provider CPT E/M Dx Office Visit 11/24/2017 1:40p [facility] [place] [address] R29.6 Anna K21.9 Office Visit 11/04/2017 9:30a [facility] [place] [address] Z96.612 C.M.A. M25.512 R29.6 Office Visit 09/27/2017 10:40a [facility] [place] [address] H81.10 [place] J06.9 Office Visit 09/20/2017 1:00p [facility] [place] [address] Z96.612 C.M.A. M25.512 W06.xxxA Office Visit 09/09/2017 10:40a [facility] [place] [address] M54.5 [place] K21.9 Office Visit 09/06/2017 1:45p [facility] [place] [address] Z96.612 C.M.A. M25.512 W06.xxxA Office Visit 08/15/2017 3:40p [facility] [place] [address] M54.5 - [place] Office Visit 08/10/2017 11:30a [facility] Of Eliot Dumont, 26681 I25.10 Capo Sanchez I10 R94.31 Office Visit 08/03/2017 10:15a [facility] [place] [address] J44.9 Services Of [facility] G47.33 Office Visit 07/19/2017 1:00p [facility] [place] [address] Z96.612 C.M.A. Z47.1 Office Visit 07/11/2017 10:00a [facility] [place] [address] M50.10 [place] J44.9 H81.10 Office Visit 06/22/2017 2:45p [facility] Cortez Luevano, 17068 G25.81 Services Of Capo Sanchez M54.16 Office Visit 06/07/2017 1:15p [facility] [place] [address] Z96.612 C.M.A. Z47.1 Office Visit 04/29/2017 11:30a Neurosurgery Services Gina Kelsey PA-C 98687 M48.06 Of [facility] Office Visit 03/16/2017 3:40p [facility] [place] [address] Z96.612 [place] Office Visit 03/07/2017 12:59p [facility],pc Francia 09151 R41.0 Hospitalists Nikkie lozano NP Z96.612 I10 I25.10 Office Visit 03/06/2017 12:49p [facility] Riky Mercedes, 17476 R41.0 Assoc,pc PA Hospitalists Z96.612 I10 I25.10 Office Visit 03/05/2017 12:45p [facility],pc Belgica Corral, N.P. 97006 R41.0 Hospitalists Z96.612 I10 I25.10 Office Visit 02/23/2017 1:00p [facility] [place] [address] R60.0 Anna R13.10 M51.16 Office Visit 02/14/2017 3:20p [facility] Internal Medicine Lesa Etienne 57430 R60.0 - [place] Sanchez I25.10 Office Visit 02/03/2017 4:00p [facility] [place] [address] M51.16 - [place] Office Visit 02/01/2017 1:00p [facility] [place] [address] Z01.811 Services Of [facility] J44.9 G47.33 Office Visit 01/19/2017 10:20a [facility] [place] [address] Z01.818 [place] M19.012 I25.10 G47.33 J44.9 Office Visit 01/11/2017 10:15[place] [facility] [place] [address] M19.012 C.M.A. Office Visit 01/07/2017 11:15a [facility] Of Eliot Dumont 74230 I25.10 Capo Sanchez R53.83 Z95.9 Office Visit 12/24/2016 10:00a [facility] [place] [address] S46.012A C.M.A. M19.012 Office Visit 12/09/2016 10:40a [facility] [place] [address] R42 [place] R05 Office Visit 10/21/2016 2:00p [facility] [place] [address] F41.9 [place] F32.89 Office Visit 2016 2:00p [facility] [place] [address] R53.83 [place] F41.9 F32.89 Office Visit 09/01/2016 10:15a [facility] Eliot Dumont, 79615 R07.9 [facility] M.DAguilar F41.9 I25.10 G45.9 Z95.818 Office Visit 08/26/2016 10:20a [facility] [place] [address] R07.9 [place] F41.9 Office Visit 08/12/2016 3:59p [facility] [address] R07.9 Hospitalists I25.10 R00.2 Office Visit 08/11/2016 3:58p [facility], [place] [address] R07.9 Hospitalists I25.10 R00.2 Office Visit 08/02/2016 1:15p [facility] [place] [address] J44.9 Services Of [facility] G47.33 Office Visit 07/08/2016 2:20p [facility] [place] [address] F32.8 [place] Office Visit 06/15/2016 1:45p [facility] Cortez Luevano, 35481 G25.81 Services Of [facility] M.D. Office Visit 05/26/2016 1:00p [facility] [place] [address] Z00.00 [place] G47.33 G45.9 F32.8 Z13.220 Office Visit 03/30/2016 1:45p [facility] [place] [address] G47.33 Services Of [facility] R06.02 E66.09 Office Visit 03/22/2016 11:00a [facility] [place] [address] R60.0 - [place] Office Visit 03/19/2016 1:45p [facility] Eliot Dumont, 17055 R06.02 [facility] Fiorella. Z95.818 I25.10 Office Visit 03/08/2016 1:00p [facility] Internal Medicine - Rodger Batista, TOBY 24216 R06.02 [place] Office Visit 02/11/2016 1:00p [facility] [place] [address] J44.9 Services Of [facility] G47.33 Office Visit 02/05/2016 [facility] Francia Claudio, 85071 R65.10 3:01p Assoc,pc [facility] Hospitalists R05 R06.02 R50.9 Office Visit 02/04/2016 3:00p [facility] Assoc,pc Shena Ackerman, 33344 R65.10 Hospitalists N.P. R05 R06.02 R50.9 Office Visit 02/03/2016 2:59p [facility] [place] [address] R65.10 Assoc,pc Hospitalists R05 R06.02 R50.9 Office Visit 12/10/2015 2:00p [facility] Cortez Luevano, 10521 G25.81 Services Of [facility] Laura M54.16 Office Visit 11/10/2015 1:00p Neurosurgery Services Dustin Duncan, 73129 M54.2 Of [facility] M.D. M47.812 G25.81 Office Visit 09/19/2015 1:30p [facility] Eliot Dumont, 59730 I25.10 [facility] Laura R94.31 I25.9 Z95.9 Office Visit 08/08/2015 11:40a [facility] Dustin Duncan, 66439 M54.2 Of Capo Sanchez M47.812 Office Visit 07/14/2015 10:40a [facility] Services Dustin Duncan, 93381 721.1 Of [facility] M.D. 782.0 728.87 Office Visit 05/09/2015 1:40p [facility] Services Dustin Duncan, 87900 721.3 Of Capo Gates.Katelyn 729.2 Office Visit 05/01/2015 10:00a Rheumatology Services Krystin Kelly SAMPLE CLERK 75637 715.14 Of [facility] 715.09 723.1 722.4 Office Visit 03/04/2015 2:40p Neurosurgery Services Dustin Duncan, 88349 414.01 Of Capo M.Katelyn 723.1 729.5 Office Visit 02/28/2015 8:30a [facility] Of Eliot CatalinaAguilar Dumont, 68854 414.01 [facility] M.DAguilar 786.51 Office Visit 01/28/2015 1:45p [facility] Of Eliotfranklyn Dumont, 60977 414.01 [facility] M.DAguilar 786.51 Office Visit 01/06/2015 1:00p Neurosurgery Services Dustin Duncan, 07842 723.1 Of [facility] M.DAguilar Office Visit 12/13/2014 3:30p [facility] Eliot Dumont, 19798 414.01 Capo M.DAguilar 786.51 435.9 Office Visit 10/15/2014 12:46p [facility] Eliot Dumont, 63620 413.9 Capo M.Katelyn 786.50 Office Visit 10/11/2014 9:15a [facility] Of Eliotfranklyn Dumont, 47554 786.50 [facility] M.DAguilar 414.01 Office Visit 10/07/2014 1:00p Neurosurgery Services Dustin Duncan, 77507 786.51 Of Capo M.Katelyn 723.1 Office Visit 09/06/2014 11:00a [facility] Romy Diego, 09257 435.9 Services Of Capo M.D. Office Visit 09/05/2014 10:30a [facility] Of Eliot Dumont, 21344 414.01 Capo M.DAguilar 786.50 435.9 Office Visit 08/27/2014 3:00p Neurosurgery Services Dustin Duncan, 56324 435.8 Of [facility] M.Katelyn 333.94 Office Visit 07/22/2014 10:20a Rheumatology Services Drew Ordoñez M.D. 69268 715.09 Of [facility] 715.14 Office Visit 05/23/2014 1:30p [facility] Eliot Dumont, 46739 786.50 Capo Gates.Katelyn 414.01 Office Visit 04/12/2014 3:30p [facility] Eliot Dumont, 32330 786.50 Capo Sanchez 414.01 Office Visit 04/05/2014 4:15p [facility] Shai Munoz, 83570 786.51 Hospitalists M.DAguilar Office Visit 04/04/2014 4:15p [facility] Tomas Terrancemady, 39005 786.51 Hospitalists M.Katelyn 414.01 272.2 401.1 Office Visit 03/18/2014 1:00p [facility]surgery Services Dustin Duncan, 58915 724.2 Of Cap[place] Sanchez 722.83 723.1 723.4 Office Visit 11/27/2013 2:20p Neurosurgery Services Dustin Duncan, 29551 724.2 Of Capo Sanchez 722.83 724.3 Office Visit 11/21/2013 8:00a [facility] Of Eliot Dumont, 77248 414.01 Capo Sanchez 786.51 Office Visit 09/18/2013 1:20p [facility]surgery Services Dustin Duncan, 87307 724.2 Of Capo Sanchez 723.1 722.83 724.3 Office Visit 05/17/2013 8:00a [facility] Of Brian Hernandez, 08279 719.41 CDeejay Sanchez Office Visit 04/09/2013 2:40p [facility]surgery Services Dustin Duncan, 01779 724.2 Of Capo Sanchez Office Visit 03/13/2013 1:40p Neurosurgery Services Dustin Duncan, 83516 724.2 Of Capo Sanchez Office Visit 11/22/2012 2:30p [facility] Of Eliot Dumont, 98899 414.9 [facility] M.DAguilar Office Visit 11/02/2012 11:04a [facility] [address] 787.91 Hospitalists 276.51 Office Visit 11/01/2012 11:03a [facility] [address] 787.91 Hospitalists 276.51 Office Visit 10/26/2012 2:56p [facility] Yanira Balderrama, 33336 786.51 Hospitalists M.DAguilar 530.81 724.2 Office Visit 10/25/2012 2:55p [facility] Shai Munoz, 64366 786.51 Hospitalists M.Katelyn 530.81 724.2 Office Visit 07/10/2012 3:00p Neurosurgery Services Dustin Duncan, 95791 349.2 Of [facility] M.D. 723.4 723.1 724.2 Office Visit 05/08/2012 9:00a [facility]surgery Services Dustin Duncan 32207 349.2 Of [facility] M.D. 723.4 723.1 724.2 Office Visit 05/02/2012 9:20a Neurosurgery Services Dustin Duncan 32544 349.2 Of [facility] M.D. Office Visit 04/11/2012 1:00p [facility]surgery Services Dustin Duncan 65962 723.4 Of [facility] M.DAguilar 723.1 724.2 Office Visit 01/24/2012 10:00a Neurosurgery Services Dustin Duncan 07295 723.4 Of [facility] M.D. 723.1 724.2 Office Visit 12/13/2011 10:20a Neurosurgery Services Dustin Duncan 60766 723.4 Of [facility] M.D. 723.1 724.2 Office Visit 11/09/2011 3:00p [facility]surgery Services Dustin Duncan 63789 723.4 Of [facility] M.D. 723.1 Office Visit 10/05/2011 1:40p [facility]surgery Services Dustin Duncan 57752 724.2 Of [facility] M.D. Office Visit 08/03/2011 11:00a [facility] Services Dustin Duncan 10209 724.2 Of [facility] M.D. Office Visit 07/06/2011 1:20p [facility]surgery Services Dustin Duncan 40234 724.2 Of [facility] M.D. Office Visit 04/19/2011 1:00p [facility] Services Dustin Duncan 20275 724.2 Of [facility] M.D. Office Visit 10/19/2010 1:20p [facility] Services Dustin Duncan 49886 724.2 Of [facility] M.D. Office Visit 08/04/2010 2:40p [facility] Dustin Duncan, 95831 724.2 Of [facility] M.D. 729.5 Office Visit 04/17/2010 1:40p [facility]surgery Services Dustin Duncan, 42362 724.2 Of [facility] M.D. 729.5 Office Visit 02/02/2010 3:45a [facility] Kristian Avila, 97625 724.5 Hospitalists MJerry V72.83 414.0 401.9 530.81 Office Visit 01/19/2010 2:30a [facility], Taqueria Ames M.D. 09918 786.59 Hospitalists 413.9 401.9 790.99 Office Visit 01/18/2010 12:15a [facility] Abisamuel Pepper, 66841 786.50 Ass, Hospitalists M.Katelyn Office Visit 2009 3:00p [facility] Dustin Duncan, 56835 721.3 Of [facility] M.D. Office Visit 01/28/2009 3:20p [facility]surgery Services Dustin Duncan, 23170 721.3 Of [facility] M.DAguilar 722.83 Office Visit 07/23/2008 11:20a [facility]surgery Services Dustin Duncan, 06655 722.83 Of [facility] M.D. Office Visit 01/08/2008 3:45p [facility] Dustin Duncan, 06704 722.83 Of [facility] M.D. Office Visit 11/17/2007 10:30a [facility] Dustin Duncan, 53576 722.83 Of [facility] M.D. Office Visit 07/10/2007 1:00p [facility] Dustin Duncan 83880 722.83 Of [facility] M.D. Office Visit 01/09/2007 1:00p [facility]surgery Services Dustin Duncan, 39675 721.3 Of [facility] M.D. 722.83 Plan of Care Future Appointment(s):01/17/2018 2:15 pm - Michelle Weiss MD at [facility]01/09/2018 10:30 am - Cortez Luevano M.D. at [facility] [id number]/09/2018 3:00 pm - Rodger Batista NP at [facility] Internal Medicine - Ichdguxoj70/04/2018 10:45 am - Gabriela Hawk MD at [facility]12/29/2017 - Rodger Batista, NPR29.6 Repeated fallsComments: Keep your appointment with Dr. Luevano on 01/09. Continue doing the PT exercises you learned when in the hospital.S42.102A Fracture of unsp part of scapula, left shoulder, initComments:I have prescribed the pain medication. Use this sparingly.F32.89 Other specified depressive episodesNew Medication:Sertraline HCL 25 mgComments:Stop taking the Paxil and start the sertraline.R06.02 Shortness of breath
--- OUTSIDE RECORDS SUMMARY | 2018-01-21 16:36 | XMS REPORT ---
:1940 External Reference #:[id number] Author Organization [employer] Address [address] [address] Phone [phone] Care Team Providers Name Role Phone Lesa Etienne MD Primary Care Physician Unavailable Payers Type Date Identification Numbers Payment Provider Subscriber Health Maintenance Effective: Policy Number: Medicare Israel Hickey [facility] [place] 10/31/2013 [id number] [facility] Group Number: [id number] [address] [address] PayID: [id number] NICHOLE Wilson [address] Health Maintenance Effective: Policy Number: Medicare Israel Young [employer] [place] 10/31/2012 [id number] [facility]o Expires: 10/30/2013 Group Number: [id number] [address] [address] PayID: [id number] NICHOLE Wilson [address] Health Maintenance Effective: Policy Number: Medicare Israel Young [employer]ast[employer] ([facility] 07/31/2008 [id number] [facility] Expires: 10/31/2012 Group Number: [id number] [address] [address] Group Name: Medicare Blue Ppo Direct NICHOLE Wilson [address] PayID: [id number] Problems Date Description Provider Status [...] Marital Status Lives With 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, 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 Cigarette Use Former Cigarette Smoker ETOH Use Never used alcohol Smoking Patient is a former smoker hx 1 pack cigarettes per day,quit 1996 Recreational Drug Use Denies Drug Use Daily Caffeine Does Not Consume Caffeine Exercise Type/Frequency Exercises regularly Joined gym, has product trainer Allergies, Adverse Reactions, Alerts Date Description [...] Zsofia Elastic/Large/X-L both Robin, arge wrists and CPHT hands as needed Pramipexole 08/27 Active Tablets [...] Co Q-10 Active Capsules 100mg one daily [place] 3 Krill Oil Active 300mg qd Nitro-Dur [...] 09/01 F41.9 Rodger Oxalate s tablets Lynne, MGMT SPECIALIST - once daily 08/26 Escitalopram 05/26 Hx Tablets 10mg 30tab 09/01 F32.8 Rodger Oxalate s tablets Lynne, MGMT SPECIALIST - once daily 07/26 Symbicort 02/10 Hx [...] use 715.14 Zsofi sparinly Robin, - in CPHT 02/17 affected area twice daily as needed Voltaren 04/23 Hx Gel 1% 1unit apply to M15.0 ofi s thumb/fing Robin, - er joint CPHT 06/21 times a day (no longer using) [...] by mouth Rodger bs twice a Lynne MGMT SPECIALIST - day 08/04 Acetaminophen 09/18 Hx Tablets 500mg 1 po Dustin Anderson Strength [id number] Felicitas Duncan.DAguilar 06/21 Clopidogrel 07/26 Hx Tablets [...] Code Status Date Vaccine Reaction Lot # [id number] Given 06/25/2017 Fluzone High Dose 95057 Given 08/19/2016 Influenza Virus Vaccine, fluzone high dose @ [facility] Quadrivalent, Split Virus, Im Use Q2037 Given 02/11/2016 Fluvirin Im 3Yrs And Older 10433 Given 02/11/2016 Pneumonia Vaccine 05423 Given Unknown Tdap - Tetanus/Diptheria/Acellular Pertussis Vital [...] Color Yellow Urine Appearance Clear Urine Specific Amston 1.018 1.010-1.030 Urine pH 7.0 5-9 Urine [...] Color Yellow Urine Appearance Clear Urine Specific [place] 1.013 1.010-1.030 Urine pH 6.0 5-9 Urine [...] Poc Ketone, Urine Negative Negative Poc Specific [place], Urine 1.020 1.010-1.030 Poc Blood, Urine Negative [...] 16 Urine Appearance Clear 16 Urine Specific [place]ston 1.010 1.010-1.030 16 Urine pH 5.0 5-9 [...] Color Yellow Urine Appearance Clear Urine Specific [place]ston 1.012 1.010-1.030 Urine pH 5.0 5-9 Urine [...] 5 Kidney failure <15 (or dialysis) 4 [facility] Severe Sepsis and Septic Shock Management Bundle Measure requires all lactic acids initially measuring >2.0 mmol/L be repeated. 5 Solutions Sales Consultant: [id number] 6 SEE RESULT BELOW Name: QUIANA HICKEY : [address]: Merlin Mcnally MD Acct: [id number] Unit: [id number] AGE: 77 Location: ED Re09/25/17 SEX: M Status: REG ER SPEC: [id number] NITISH: 09/25/[address]: Merlin Mcnally MD REQ: [id number] RECD: 09/25/17 STATUS: NERIS GARCIA DR: Lesa Etienne MD _ SOURCE: NASAL SPDESC: ORDERED: Flu A B Request Procedure Result Reported Site Rapid Influenza A B Request Final 09/25/17- 2119 ML Specimen received for Influenza A/B Molecular testing * ML - MAIN LAB ([facility]) . END OF REPORT * ML=Testing performed at Main Lab DEPARTMENT OF PATHOLOGY, [address] [place] [address] Riki Can M.D. Director [facility] # [id number] 7 Because ethnic data is not always [...] 5 Kidney failure <15 (or dialysis) 9 Solutions Sales Consultant: [id number] 10 SEE RESULT BELOW Name: QUIANA HICKEY Hannah : [address]: Cj Angeles MD Acct: [id number] Unit: [id number] AGE: 76 Location: [facility] Re06/27/17 SEX: M Status: DEP REF SPEC: [id number] NITISH: 06/27/17- SUBM DR: Cj Angeles MD REQ: [id number] RECD: 06/27/17243 STATUS: CELESTINO GARCIA DR: Rodger Batista MGMT SPECIALIST _ ORDERED: LEVEL 4/2, IMMUNO-FIRST Addendum: An [...] performed at Main Lab DEPARTMENT OF PATHOLOGY, [address] [place] [address] Riki Can M.D. Director [facility] # [id number] RUN DATE: 06/28/17 [facility] LAB LIVE PAGE 2 Patient: QUIANA HICKEY Hannah [id number] (Continued) GROSS DESCRIPTION (Continued) GROSS DESCRIPTION (Continued) 2. The specimen is received in formalin labeled, Biopsy Esophagus, and consists of a 0.3 x 0.3 x 0.1 cm luis-white irregular soft tissue fragment which is submitted entirely in one cassette. Signed (signature on file) Swapna Carrion MD [id number] END OF REPORT * ML=Testing performed at Main Lab DEPARTMENT OF PATHOLOGY, [address] [place] [address] Riki Can M.D. Director [facility] # [id number] 11 SEE RESULT BELOW Name: QUIANA HICKEY : [address]: Cj Angeles MD Acct: [id number] Unit: [id number] AGE: 76 Location: ENDO Re06/27/17 SEX: M Status: REG REF SPEC: [id number] NITISH: 06/27/17-[address] [facility] [address]: Cj Angeles MD REQ: [id number] RECD: 06/27/17 STATUS: NERIS GARCIA DR: Lesa Batista MGMT SPECIALIST _ SOURCE: GAS ANTRUM SPDESC: ORDERED: Clotest Procedure Result Reported Site Clotest Final 06/28/17- 0753 ML Clotest Negative * ML - MAIN LAB ([facility]) . END OF REPORT * ML=Testing performed at Main Lab DEPARTMENT OF PATHOLOGY, [address] [place] [address] Riki Can M.D. Director [facility] # [id number] 12 Because ethnic data is not always [...] 15 99th percentile=0.04 ng/mL Troponin results at [facility] and [facility] are [...] 5 Kidney failure <15 (or dialysis) 21 [facility] Severe Sepsis and Septic Shock Management [...] 0.03 ng/mL Not supportive of diagnosis of [place] 0.03 - 0.50 ng/mL Indeterminate: suggest serial studies if clinically indicated. Greater than 0.5 ng/mL Consistent with diagnosis of [place] 25 Because ethnic data is not always [...] Acute inflammation: >10.00 34 Test Performed by: [place] [address] Associate Producer: Dante Rice II, M.D., Ph.D. 35 REFERENCE VALUE <20.0 (Negative) Test Performed by: [place] [address] Associate Producer: Dante Rice II, M.D., Ph.D. 36 REFERENCE VALUE Not Applicable 37 RESULT: HLA-B27 antigen was not detected. ADDITIONAL INFORMATION Method: Flow Cytometry Performing Laboratory CLIA# [id number] Test Performed by: [address] [address] Associate Producer: Dante Rice II, M.D., Ph.D. 38 Because [...] change was based on recommendations from the [place] [employer]. 48 Please note change in [...] Date CPT Code Description Status Comment 11/17/2017 40972 Closed TX Scapular FX W/O Completed Manipulation 11/02/2017 85039 Implantable Cardio System Loop Completed Recorder Sys Remota Data Acquistio 11/02/2017 82845 Interrogation Dev Loop Recorder Completed Incl Physician Analysis,Rev,Repor 10/02/2017 75537 Implantable Cardio System Loop Completed Recorder Sys Remota Data Acquistio 10/02/2017 79573 Interrogation Dev Loop Recorder Completed Incl Physician Analysis,Rev,Repor 09/01/2017 83148 Implantable Cardio System Loop Completed Recorder Sys Remota Data Acquistio 09/01/2017 50017 Interrogation Dev Loop Recorder Completed Incl Physician Analysis,Rev,Repor 08/10/2017 48859 EKG Tracing & Completed Interpretation 08/01/2017 94627 Implantable Cardio System Loop Completed Recorder Sys Remota Data Acquistio 08/01/2017 30175 Interrogation Dev Loop Recorder Completed Incl Physician Analysis,Rev,Repor 07/01/2017 94227 Implantable Cardio System Loop Completed Recorder Sys Remota Data Acquistio 07/01/2017 34196 Interrogation Dev Loop Recorder Completed Incl Physician Analysis,Rev,Repor 05/31/2017 00355 Implantable Cardio System Loop Completed Recorder Sys Remota Data Acquistio 05/31/2017 52989 Interrogation Dev Loop Recorder Completed Incl Physician Analysis,Rev,Repor 04/30/2017 67964 Interrogation Dev Loop Recorder Completed Incl Physician Analysis,Rev,Repor 04/30/2017 26893 Implantable Cardio System Loop Completed Recorder Sys Remota Data Acquistio 03/30/2017 54429 Implantable Cardio System Loop Completed Recorder Sys Remota Data Acquistio 03/30/2017 19018 Interrogation Dev Loop Recorder Completed Incl Physician Analysis,Rev,Repor 03/02/2017 36317 Arthroplasty,Total Shoulder Completed Replacement (TSR) 03/02/2017 31009 Arthroplasty,Total Shoulder Completed Replacement (TSR) 02/27/2017 61431 Implantable Cardio System Loop Completed Recorder Sys Remota Data Acquistio 02/27/2017 62322 Interrogation Dev Loop Recorder Completed Incl Physician Analysis,Rev,Repor 02/14/2017 80090 EKG Tracing & Completed Interpretation 02/10/2017 80717 EKG, Interpretation Only Completed 01/27/2017 55903 Implantable Cardio System Loop Completed Recorder Sys Remota Data Acquistio 01/27/2017 22722 Interrogation Dev Loop Recorder Completed Incl Physician Analysis,Rev,Repor 12/27/2016 67737 Implantable Cardio System Loop Completed Recorder Sys Remota Data Acquistio 12/27/2016 44170 Interrogation Dev Loop Recorder Completed Incl Physician Analysis,Rev,Repor 11/26/2016 03826 Implantable Cardio System Loop Completed Recorder Sys Remota Data Acquistio 11/26/2016 34064 Interrogation Dev Loop Recorder Completed Incl Physician Analysis,Rev,Repor 10/26/2016 56073 Interrogation Dev Loop Recorder Completed Incl Physician Analysis,Rev,Repor 10/26/2016 98206 Implantable Cardio System Loop Completed Recorder Sys Remota Data Acquistio 09/25/2016 81415 Implantable Cardio System Loop Completed Recorder Sys Remota Data Acquistio 09/25/2016 82018 Interrogation Dev Loop Recorder Completed Incl Physician Analysis,Rev,Repor 09/01/2016 18649 EKG Tracing & Completed Interpretation 08/25/2016 31873 Implantable Cardio System Loop Completed Recorder Sys Remota Data Acquistio 08/25/2016 81749 Interrogation Dev Loop Recorder Completed Incl Physician Analysis,Rev,Repor 08/12/2016 05149 Treadmill Interp/Report Only Completed 08/12/2016 76893 Stress Test Supervsn W/Out I/R Completed 07/27/2016 40065 Implantable Cardio System Loop Completed Recorder Sys Remota Data Acquistio 07/27/2016 18465 Interrogation Dev Loop Recorder Completed Incl Physician Analysis,Rev,Repor 07/25/2016 58826 Implantable Cardio System Loop Completed Recorder Sys Remota Data Acquistio 07/25/2016 65205 Interrogation Dev Loop Recorder Completed Incl Physician Analysis,Rev,Repor 06/24/2016 02617 Implantable Cardio System Loop Completed Recorder Sys Remota Data Acquistio 06/24/2016 80321 Interrogation Dev Loop Recorder Completed Incl Physician Analysis,Rev,Repor 05/24/2016 00383 Interrogation Dev Loop Recorder Completed Incl Physician Analysis,Rev,Repor 05/24/2016 42269 Implantable Cardio System Loop Completed Recorder Sys Remota Data Acquistio 04/23/2016 75463 Implantable Cardio System Loop Completed Recorder Sys Remota Data Acquistio 04/23/2016 42783 Interrogation Dev Loop Recorder Completed Incl Physician Analysis,Rev,Repor 03/23/2016 50438 Implantable Cardio System Loop Completed Recorder Sys Remota Data Acquistio 03/23/2016 49938 Interrogation Dev Loop Recorder Completed Incl Physician Analysis,Rev,Repor 03/11/2016 86729 Polysomnography Sleep Staging Completed 4+ Parameters 02/23/2016 18419 Diffusing Capacity Completed 02/23/2016 27381 Plethysmography Determination Completed Lung Volumes & Per Airway Resist 02/23/2016 80756 Pulmonary Completed Function><Bronchodil 02/21/2016 26390 Implantable Cardio System Loop Completed Recorder Sys Remota Data Acquistio 02/21/2016 38363 Interrogation Dev Loop Recorder Completed Incl Physician Analysis,Rev,Repor 02/04/2016 94775 EKG, Interpretation Only Completed 01/21/2016 19990 Implantable Cardio System Loop Completed Recorder Sys Remota Data Acquistio 01/21/2016 54341 Interrogation Dev Loop Recorder Completed Incl Physician Analysis,Rev,Repor 12/21/2015 75130 Interrogation Dev Loop Recorder Completed Incl Physician Analysis,Rev,Repor 12/21/2015 14443 Implantable Cardio System Loop Completed Recorder Sys Remota Data Acquistio 11/20/2015 18012 Implantable Cardio System Loop Completed Recorder Sys Remota Data Acquistio 11/20/2015 74823 Interrogation Dev Loop Recorder Completed Incl Physician Analysis,Rev,Repor 10/21/2015 57434 Implantable Cardio System Loop Completed Recorder Sys Remota Data Acquistio 10/21/2015 18505 Interrogation Dev Loop Recorder Completed Incl Physician Analysis,Rev,Repor 09/19/2015 63732 Implantable Cardio System Loop Completed Recorder Sys Remota Data Acquistio 09/19/2015 34876 Interrogation Dev Loop Recorder Completed Incl Physician Analysis,Rev,Repor 09/19/2015 43602 EKG Tracing & Completed Interpretation 09/08/2015 50935 Interrogation Device Completed Eval,Implantable Loop Recorder System 08/20/2015 11398 Implantable Cardio System Loop Completed Recorder Sys Remota Data Acquistio 08/20/2015 15004 Interrogation Dev Loop Recorder Completed Incl Physician Analysis,Rev,Repor 08/19/2015 89236 Implantable Cardio System Loop Completed Recorder Sys Remota Data Acquistio 08/19/2015 22890 Interrogation Dev Loop Recorder Completed Incl Physician Analysis,Rev,Repor 07/21/2015 90341 Implantable Cardio System Loop Completed Recorder Sys Remota Data Acquistio 07/21/2015 80582 Interrogation Dev Loop Recorder Completed Incl Physician Analysis,Rev,Repor 06/19/2015 60773 Interrogation Device Completed Eval,Implantable Loop Recorder System 06/06/2015 04437 Implantable Cardio System Loop Completed Recorder Sys Remota Data Acquistio 06/06/2015 58506 Interrogation Dev Loop Recorder Completed Incl Physician Analysis,Rev,Repor 05/21/2015 68476 Implantable Cardio System Loop Completed Recorder Sys Remota Data Acquistio 05/21/2015 28620 Interrogation Dev Loop Recorder Completed Incl Physician Analysis,Rev,Repor 04/22/2015 70372 Implantable Cardio System Loop Completed Recorder Sys Remota Data Acquistio 04/22/2015 40059 Interrogation Dev Loop Recorder Completed Incl Physician Analysis,Rev,Repor 03/19/2015 80665 Implantable Cardio System Loop Completed Recorder Sys Remota Data Acquistio 03/19/2015 48238 Interrogation Dev Loop Recorder Completed Incl Physician Analysis,Rev,Repor 02/06/2015 72827 Stress Test Completed 02/06/2015 09457 Myocardial Perfusion Imaging Completed Tomographic (Spect) Multiple Studies 01/28/2015 22483 EKG Tracing & Completed Interpretation 01/20/2015 50594 Implantable Cardio System Loop Completed Recorder Sys Remota Data Acquistio 01/20/2015 88779 Interrogation Dev Loop Recorder Completed Incl Physician Analysis,Rev,Repor 12/18/2014 34743 Interrogation Dev Loop Recorder Completed Incl Physician Analysis,Rev,Repor 12/18/2014 58693 Implantable Cardio System Loop Completed Recorder Sys Remota Data Acquistio 11/25/2014 59656 Interrogation Device Completed Eval,Implantable Loop Recorder System 11/18/2014 27290 Implantable Cardio System Loop Completed Recorder Sys Remota Data Acquistio 11/18/2014 50489 Interrogation Dev Loop Recorder Completed Incl Physician Analysis,Rev,Repor 10/21/2014 80982 Implantable Cardio System Loop Completed Recorder Tarik Ly Data Acquistio 10/21/2014 58540 Interrogation Dev Loop Recorder Completed Incl Physician Analysis,Rev,Repor 10/15/2014 17875 EKG, Interpretation Only Completed 10/14/2014 18078 Left Heart Cath. Incl S/I Completed Coronaries, Angio S/I V Gram If Done 10/14/2014 16289 EKG, Interpretation Only Completed 10/14/2014 80433 Percutaneous Transcatheter Completed Placement Of Intracoronary Stent 10/08/2014 20522 Interrogation Device Completed Eval,Implantable Loop Recorder System 10/08/2014 77484 EKG Tracing & Completed Interpretation 2014 29770 Implant Cardiac Loop Recorder Completed 09/12/2014 05303 Myocardial Perfusion Imaging Completed Tomographic (Spect) Multiple Studies 09/12/2014 43227 Stress Test Completed 09/09/2014 45605 EEG Recording Awake & Completed Asleep 04/12/2014 96245 EKG Tracing & Completed Interpretation 04/05/2014 66652 Treadmill Interp/Report Only Completed 04/05/2014 14717 Stress Test Supervsn W/Out I/R Completed 04/05/2014 05554 EKG, Interpretation Only Completed 04/04/2014 98952 EKG, Interpretation Only Completed 11/21/2013 85080 EKG Tracing & Completed Interpretation 05/17/2013 56809 Rad Shoulder, 1 View Completed 11/22/2012 36779 EKG Tracing & Completed Interpretation 10/25/2012 17720 Treadmill Interp/Report Only Completed 10/25/2012 12376 Stress Test Supervsn W/Out I/R Completed 07/27/2012 54550 Partial Excision Post Vertebral Completed Component Single Cervical 10/28/2010 64750 EKG, Interpretation Only Completed 10/31/2007 Colonoscopy Completed Completed home kit for screening per pt. d/t difficult colonoscopy. Supposed to repeat every 4-5 yrs. Encounters Type Date Location Provider CPT E/M Dx Office Visit 11/24/2017 1:40p [facility] [place] [address] R29.6 Anna K21.9 Office Visit 11/04/2017 9:30a [facility] [place] [address] Z96.612 C.M.A. M25.512 R29.6 Office Visit 09/27/2017 10:40a [facility] [place] [address] H81.10 [place] J06.9 Office Visit 09/20/2017 1:00p [facility] [place] [address] Z96.612 C.M.A. M25.512 W06.xxxA Office Visit 09/09/2017 10:40a [facility] [place] [address] M54.5 [place] K21.9 Office Visit 09/06/2017 1:45p [facility] [place] [address] Z96.612 C.M.A. M25.512 W06.xxxA Office Visit 08/15/2017 3:40p [facility] [place] [address] M54.5 - [place] Office Visit 08/10/2017 11:30a [facility] Of Eliot Dumont, [address] I25.10 Capo Sanchez I10 R94.31 Office Visit 08/03/2017 10:15a [facility] [place] [address] J44.9 Services Of [facility] G47.33 Office Visit 07/19/2017 1:00p [facility] [place] [address] Z96.612 C.M.A. Z47.1 Office Visit 07/11/2017 10:00a [facility] [place] [address] M50.10 [place] J44.9 H81.10 Office Visit 06/22/2017 2:45p [facility] Cortez Luevano, [address] G25.81 Services Of Capo Sanchez M54.16 Office Visit 06/07/2017 1:15p [facility] [place] [address] Z96.612 C.M.A. Z47.1 Office Visit 04/29/2017 11:30a Neurosurgery Services Gina Kelsey PA-C 98236 M48.06 Of [facility] Office Visit 03/16/2017 3:40p [facility] [place] [address] Z96.612 [place] Office Visit 03/07/2017 12:59p [facility] Francia 55814 R41.0 Hospitalists Nikkie lozano NP Z96.612 I10 I25.10 Office Visit 03/06/2017 12:49p [facility] Riky Mercedes, 53135 R41.0 Assoc,pc PA Hospitalists Z96.612 I10 I25.10 Office Visit 03/05/2017 12:45p [facility] Belgica Corral, N.P. 86028 R41.0 Hospitalists Z96.612 I10 I25.10 Office Visit 02/23/2017 1:00p [facility] [place] [address] R60.0 Anna R13.10 M51.16 Office Visit 02/14/2017 3:20p [facility] Internal Medicine Lesa Etienne [address]266 R60.0 - [place] Sanchez I25.10 Office Visit 02/03/2017 4:00p [facility] [place] [address] M51.16 - [place] Office Visit 02/01/2017 1:00p [facility] [place] [address] Z01.811 Services Of [facility] J44.9 G47.33 Office Visit 01/19/2017 10:20a [facility] [place] [address] Z01.818 [place] M19.012 I25.10 G47.33 J44.9 Office Visit 01/11/2017 10:15a [facility] [place] [address] M19.012 C.M.A. Office Visit 01/07/2017 11:15a [facility] Of Eliot Dumont 86619 I25.10 Capo Sanchez R53.83 Z95.9 Office Visit 12/24/2016 10:00a [facility] [place] [address] S46.012A C.M.A. M19.012 Office Visit 12/09/2016 10:40a [facility] [place] [address] R42 [place] R05 Office Visit 10/21/2016 2:00p [facility] [place] [address] F41.9 [place] F32.89 Office Visit 2016 2:00p [facility] [place] [address] R53.83 [place] F41.9 F32.89 Office Visit 09/01/2016 10:15a [facility] Eliot Dumont, 51301 R07.9 [facility] M.DAguilar F41.9 I25.10 G45.9 Z95.818 Office Visit 08/26/2016 10:20a [facility] [place] [address] R07.9 [place] F41.9 Office Visit 08/12/2016 3:59p [facility], [place] [address] R07.9 Hospitalists I25.10 R00.2 Office Visit 08/11/2016 3:58p [facility], [place] [address] R07.9 Hospitalists I25.10 R00.2 Office Visit 08/02/2016 1:15p [facility] [place] [address] J44.9 Services Of [facility] G47.33 Office Visit 07/08/2016 2:20p [facility] [place] [address] F32.8 [place] Office Visit 06/15/2016 1:45p [facility] Cortez Luevano, 88292 G25.81 Services Of [facility] M.D. Office Visit 05/26/2016 1:00p [facility] [place] [address] Z00.00 [place] G47.33 G45.9 F32.8 Z13.220 Office Visit 03/30/2016 1:45p [facility] [place] [address] G47.33 Services Of [facility] R06.02 E66.09 Office Visit 03/22/2016 11:00a [facility] [place] [address] R60.0 - [place] Office Visit 03/19/2016 1:45p [facility] Eliot Dumont, 14650 R06.02 [facility] Fiorella. Z95.818 I25.10 Office Visit 03/08/2016 1:00p [facility] Internal Medicine - Rodger Batista, TOBY 29317 R06.02 [place] Office Visit 02/11/2016 1:00p [facility] [place] [address] J44.9 Services Of [facility] G47.33 Office Visit 02/05/2016 [facility] Francia Claudio, 01969 R65.10 3:01p Assoc,pc MGMT SPECIALIST Hospitalists R05 R06.02 R50.9 Office Visit 02/04/2016 3:00p [facility] Assoc,pc Shena Ackerman, 11088 R65.10 Hospitalists N.P. R05 R06.02 R50.9 Office Visit 02/03/2016 2:59p [facility] [place] [address] R65.10 Assoc,pc Hospitalists R05 R06.02 R50.9 Office Visit 12/10/2015 2:00p [facility] Cortez Luevano, 38054 G25.81 Services Of [facility] Laura M54.16 Office Visit 11/10/2015 1:00p Neurosurgery Services Dustin Duncan, 40682 M54.2 Of [facility] M.D. M47.812 G25.81 Office Visit 09/19/2015 1:30p [facility] Eliot Dumont, 65540 I25.10 [facility] Laura R94.31 I25.9 Z95.9 Office Visit 08/08/2015 11:40a Neurosurgery Services Dustin Duncan, 94097 M54.2 Of [place] [place] M47.812 Office Visit 07/14/2015 10:40a Neurosurgery Services Dustin Duncan, 99812 721.1 Of [facility] M.D. 782.0 728.87 Office Visit 05/09/2015 1:40p Neurosurgery Services Dustin Duncan, 12192 721.3 Of [facility] Gates.Katelyn 729.2 Office Visit 05/01/2015 10:00a Rheumatology Services Krystin Kelly CPHT 63133 715.14 Of [facility] 715.09 723.1 722.4 Office Visit 03/04/2015 2:40p Neurosurgery Services Dustin Duncan, 26228 414.01 Of Capo M.Katelyn 723.1 729.5 Office Visit 02/28/2015 8:30a [facility] Of Eliot CatalinaAguilar Dumont, 43783 414.01 [facility] M.DAguilar 786.51 Office Visit 01/28/2015 1:45p [facility] Of Eliotfranklyn Dumont, [address]4670 414.01 [facility] M.DAguilar 786.51 Office Visit 01/06/2015 1:00p Neurosurgery Services Dustin Duncan, 33302 723.1 Of [employer] M.DAguilar Office Visit 12/13/2014 3:30p [facility] Dumont, 35318 414.01 Capo M.DAguilar 786.51 435.9 Office Visit 10/15/2014 12:46p [facility], 21572 413.9 Capo M.Katelyn 786.50 Office Visit 10/11/2014 9:15a [facility] Eliotfranklyn Dumont, 71948 786.50 [employer] M.DAguilar 414.01 Office Visit 10/07/2014 1:00p Neurosurgery Services Dustin Duncan, 31294 786.51 Of Capo M.Katelyn 723.1 Office Visit 09/06/2014 11:00a [facility] Romy Diego, 04775 435.9 Services Of Capo M.D. Office Visit 09/05/2014 10:30a [facility], 72942 414.01 Capo M.DAguilar 786.50 435.9 Office Visit 08/27/2014 3:00p Neurosurgery Services Dustin Duncan, 61529 435.8 Of [employer] M.Katelyn 333.94 Office Visit 07/22/2014 10:20a Rheumatology Services Drew Ordoñez M.D. 49002 715.09 Of [employer] 715.14 Office Visit 05/23/2014 1:30p [facility], 98128 786.50 Capo Gates.Katelyn 414.01 Office Visit 04/12/2014 3:30p [facility], 91012 786.50 Capo Sanchez 414.01 Office Visit 04/05/2014 4:15p [facility] Shai Munoz, 40266 786.51 Hospitalists M.DAguilar Office Visit 04/04/2014 4:15p [facility] Tomas Terrancemady, 31363 786.51 Hospitalists M.Katelyn 414.01 272.2 401.1 Office Visit 03/18/2014 1:00p Neurosurgery Services Dustin Duncan, 92558 724.2 Of Capo Sanchez 722.83 723.1 723.4 Office Visit 11/27/2013 2:20p Neurosurgery Services Dustin Duncan, 40511 724.2 Of Capo Sanchez 722.83 724.3 Office Visit 11/21/2013 8:00a [facility], 40751 414.01 Capo Sanchez 786.51 Office Visit 09/18/2013 1:20p Neurosurgery Services Dustin Duncan, 36957 724.2 Of Capo Sanchez 723.1 722.83 724.3 Office Visit 05/17/2013 8:00a [facility] Brian Hernandez, 33222 719.41 CDeejay Sanchez Office Visit 04/09/2013 2:40p Neurosurgery Services Dustin Duncan, 34411 724.2 Of Capo Sanchez Office Visit 03/13/2013 1:40p Neurosurgery Services Dustin Duncan, 22555 724.2 Of Capo Sanchez Office Visit 11/22/2012 2:30p [facility], 16285 414.9 [employer] M.DAguilar Office Visit 11/02/2012 11:04a [facility] [address] 787.91 Hospitalists 276.51 Office Visit 11/01/2012 11:03a [facility],[place] [address] 787.91 Hospitalists 276.51 Office Visit 10/26/2012 2:56p [facility] Yanira Balderrama, 45065 786.51 Hospitalists M.DAguilar 530.81 724.2 Office Visit 10/25/2012 2:55p [facility] Shai Munoz, 36641 786.51 Hospitalists M.Katelyn 530.81 724.2 Office Visit 07/10/2012 3:00p Neurosurgery Services Dustin Duncan, 09510 349.2 Of [employer] M.D. 723.4 723.1 724.2 Office Visit 05/08/2012 9:00a Neurosurgery Services Dustin Duncan 14420 349.2 Of [employer] M.D. 723.4 723.1 724.2 Office Visit 05/02/2012 9:20a Neurosurgery Services Dustin Duncan 31891 349.2 Of [employer] M.D. Office Visit 04/11/2012 1:00p Neurosurgery Services Dustin Duncan 51871 723.4 Of [employer] M.DAguilar 723.1 724.2 Office Visit 01/24/2012 10:00a Neurosurgery Services Dustin Duncan 71949 723.4 Of [employer] M.D. 723.1 724.2 Office Visit 12/13/2011 10:20a Neurosurgery Services Dustin Duncan 79068 723.4 Of [employer] M.D. 723.1 724.2 Office Visit 11/09/2011 3:00p Neurosurgery Services Dustin Duncan 28042 723.4 Of [employer] M.D. 723.1 Office Visit 10/05/2011 1:40p Neurosurgery Services Dustin Duncan 56505 724.2 Of [employer] M.D. Office Visit 08/03/2011 11:00a Neurosurgery Services Dustin Duncan 42666 724.2 Of [employer] M.D. Office Visit 07/06/2011 1:20p Neurosurgery Services Dustin Duncan 92632 724.2 Of [employer] M.D. Office Visit 04/19/2011 1:00p Neurosurgery Services Dustin Duncan 39684 724.2 Of [employer] M.D. Office Visit 10/19/2010 1:20p Neurosurgery Services Dustin Duncan 97189 724.2 Of [employer] M.D. Office Visit 08/04/2010 2:40p Neurosurgery Services Dustin Duncan, 00533 724.2 Of [employer] M.D. 729.5 Office Visit 04/17/2010 1:40p Neurosurgery Services Dustin Duncan, 56261 724.2 Of [employer] M.D. 729.5 Office Visit 02/02/2010 3:45a [facility] Kristian Avila, 39170 724.5 Hospitalists MJerry V72.83 414.0 401.9 530.81 Office Visit 01/19/2010 2:30a [facility], Taqueria Ames M.D. 09840 786.59 Hospitalists 413.9 401.9 790.99 Office Visit 01/18/2010 12:15a [facility] Abisamuel Pepper, 65188 786.50 Ass, Hospitalists M.Katelyn Office Visit 2009 3:00p Neurosurgery Services Dustin Duncan, 16069 721.3 Of [employer] M.D. Office Visit 01/28/2009 3:20p Neurosurgery Services Dustin Duncan, 49992 721.3 Of [employer] M.DAguilar 722.83 Office Visit 07/23/2008 11:20a Neurosurgery Services Dustin Duncan, 88269 722.83 Of [employer] M.D. Office Visit 01/08/2008 3:45p Neurosurgery Services Dustin Duncan, 91819 722.83 Of [employer] M.D. Office Visit 11/17/2007 10:30a Neurosurgery Services Dustin Duncan, 34745 722.83 Of [employer] M.D. Office Visit 07/10/2007 1:00p Neurosurgery Services Dustin Duncan 92351 722.83 Of [employer] M.D. Office Visit 01/09/2007 1:00p Neurosurgery Services Dustin Duncan, 14000 721.3 Of [employer] M.D. 722.83 Plan of Care Future Appointment(s):01/17/2018 2:15 pm - Michelle Weiss MD at [facility]01/09/2018 10:30 am - Cortez Luevano M.D. at [facility] [id number]/09/2018 3:00 pm - Rodger Batista NP at [facility] Internal Medicine - Obxraqzje42/04/2018 10:45 am - Gabriela Hawk MD at [facility]12/29/2017 - Rodger Batista, NPR29.6 Repeated fallsComments: Keep your appointment with Dr. Luevano on 01/09. Continue doing the PT exercises you learned when in the hospital.S42.102A Fracture of unsp part of scapula, left shoulder, initComments:I have prescribed the pain medication. Use this sparingly.F32.89 Other specified depressive episodesNew Medication:Sertraline HCL 25 mgComments:Stop taking the paxil and start the sertraline.R06.02 Shortness of breathComments:Have the bloodwork and chest xray done prior to your next visit. Continue using your breathing medications.Discuss with Dr. Hawk.
--- NOTE | 2018-01-21 17:15 | UC ---
Dizzy HPI HPI Summary: This 77-year-old man comes to the urgent care today with a sensation of dizziness (see on further assessment this is actually vertigo). Patient reports multiple episodes of falling, some of the episodes he remembers getting to see some of the episodes he does not remember getting dizzy, unsure if he's hit his head or not. The last episode he was seen in the emergency department for was in October he has had per his report multiple episodes since where he is awoke and found himself on the ground. Patient states he has a loop recorder in he also states that he is being followed with Dr. Luevano he states that he has had a recent EEG (confirmed and no epileptic form activity was noted ). Patient states he is here today because an episode of "dizziness and a feeling of impending doom". Patient denies shortness of breath or chest pain does have swelling chronically in his left leg and has had a recent ultrasound of his leg which was DVTs negative - History Of Current Complaint Chief Complaint: UCDizziness Stated Complaint: DIZZINESS, LIGHTHEADED Time Seen by Provider: 01/21/18 17:14 Hx Obtained From: Patient Onset/Duration: Gradual Onset, Lasting Weeks, Still Present Timing: Frequency Of Episodes - 3-4 times a week Severity Initially: Moderate Pain Intensity: 3 Pain Scale Used: 0-10 Numeric Character: Head Spinning, Room Spinning Aggravating Factor(s): Position Change, Change In Head Position Alleviating Factor(s): Nothing Associated Signs And Symptoms: Positive: Unsteady Gait - Allergies/Home Medications Allergies/Adverse Reactions: Allergies Allergy/AdvReac Type Severity Reaction Status Date / Time morphine Allergy See Comment Verified 01/21/18 16:45 ethanol Allergy Severe Vomiting Uncoded 01/21/18 16:47 fetanyl Allergy Vomiting Uncoded 01/21/18 16:47 Home Medications: Home Medications HYDROcodone/ACETAMIN 5-325 MG* [Mitchells 5-325 TAB*] 1 tab PO Q6H PRN MDD 6 [History Confirmed 01/21/18] Sertraline* [Zoloft*] 25 mg PO DAILY 01/21/18 [History Confirmed 01/21/18] traMADol TAB* [Ultram*] 50 mg PO Q6HR 01/21/18 [History Confirmed 01/21/18] PMH/Surg Hx/FS Hx/Imm Hx Previously Healthy: No Endocrine History: Dyslipidemia Cardiovascular History: Cardiac Disease, Hypertension Respiratory History: COPD GI/ History: Gastroesophageal Reflux Psychological History: Anxiety Other History Of: Anticoagulant Therapy - plavix/asa Negative For: HIV, Hepatitis B - Surgical History Surgical History: Yes Surgery Procedure, Year, and Place: MEDTRONIC LINQ RECORDER LNQ11 1.5 ONLY. LEFT SHOULDER REPLACEMENT 02/2017. TONSILS. GALLBLADDER. LSP SURGERY-LATER REPAIRED. HIATAL HERNIA. RENE FUNDOPLICATION. HEART STENTS X3 - Family History Known Family History: Positive: Cardiac Disease - Mom, grandparent both of CHF, Hypertension, Other - Mother: vertigo - Social History Occupation: Retired Lives: With Family Alcohol Use: None Substance Use Type: None Smoking Status (MU): Former Smoker Type: Cigarettes Amount Used/How Often: 1 ppd Length of Time of Smoking/Using Tobacco: 31 years Have You Smoked in the Last Year: No When Did the Patient Quit Smoking/Using Tobacco: 1989 - Immunization History Most Recent Influenza Vaccination: season Most Recent Tetanus Shot: 2015 Most Recent Pneumonia Vaccination: 2014 Review of Systems Constitutional: Negative Skin: Negative Eyes: Negative ENT: Negative Respiratory: Negative Cardiovascular: Negative Gastrointestinal: Negative Genitourinary: Negative Motor: Negative Neurovascular: Negative Musculoskeletal: Negative Neurological: Other - Dizzy/vertigo feeling of impending doom Psychological: Negative Is Patient Immunocompromised?: No All Other Systems Reviewed And Are Negative: Yes Physical Exam Triage Information Reviewed: Yes Appearance: Well-Appearing, No Pain Distress, Well-Nourished Vital Signs: Initial Vital Signs Temp 98.1 F 01/21/18 16:26 Pulse 76 01/21/18 16:26 Resp 18 01/21/18 16:26 BP 143/90 01/21/18 16:26 Pulse Ox 99 01/21/18 16:26 Vital Signs Reviewed: Yes Eye Exam: Normal Eyes: Positive: Conjunctiva Clear ENT Exam: Normal ENT: Positive: Normal ENT inspection, Hearing grossly normal, Pharynx normal, Pharyngeal erythema, TMs normal, Uvula midline. Negative: Nasal congestion, Tonsillar swelling, Trismus, Muffled voice, Hoarse voice, Dental tenderness, Sinus tenderness Dental Exam: Normal Neck exam: Normal Neck: Positive: Supple, Nontender, No Lymphadenopathy Respiratory Exam: Normal Respiratory: Positive: Chest non-tender, Lungs clear, Normal breath sounds, No respiratory distress, No accessory muscle use Cardiovascular Exam: Normal Cardiovascular: Positive: RRR, No Murmur, Pulses Normal, Brisk Capillary Refill Musculoskeletal Exam: Normal Musculoskeletal: Positive: Strength Intact, ROM Intact, No Edema Neurological Exam: Normal Neurological: Positive: Alert, Muscle Tone Normal Psychological Exam: Normal Skin Exam: Normal Dizzy Course/Dx - Course Course Of Treatment: and will be patient was given an Antivert. Patient was recommended to go to emergency department for continued evaluation patient refused ambulance patient has signed AMA to go to the hospital with his driving - Differential Dx/Diagnosis Provider Diagnoses: Vertigo, Impending doom Discharge - Sign-Out/Discharge Documenting (check all that apply): Discharge - Discharge Plan Condition: Guarded Disposition: HOME Patient Education Materials: Vertigo (ED), Hypertension (ED) Referrals: Lesa Etienne MD [Primary Care Provider] - Additional Instructions: We are discharging you to go directly to the emergency department---with your driving - Billing Disposition and Condition Condition: GUARDED Disposition: HOME
[2018-01-21] MEDS ORDERED: Meclizine TAB* 12.5 MG PO ONE (17:25)
== END 2018-01-21 17:46 | disposition home or self-care (01) ==
LOC: UCEAST 16:18
DX: R42 Dizziness and giddiness (principal); F41.0 Panic disorder [episodic paroxysmal anxiety]; Z87.891 Personal history of nicotine dependence; Z88.5 Allergy status to narcotic agent; Z88.8 Allergy status to other drugs, medicaments and biological substances
CPT/HCPCS: 93005; 99212; A9270-GY; G0463

== ENCOUNTER 2018-03-15 07:57 | Observation (INO) | payer MEDICARE ==
[2018-03-15 08:52] LABS: ABS Basophils 0 10^3/ul (0-0.2); ABS Eosinophils 0.2 10^3/ul (0-0.6); ABS Monocytes 0.4 10^3/ul (0-0.8); ABS Neutrophils 2.3 10^3/ul (1.5-7.7); ABS Nucleated RBC 0 10^3/ul; Eosinophil % 3.9 % (0-6); Hematocrit 39 % (42-52); Lymphocyte % 26.4 % (25-47); Mean Corpuscular HGB Conc 34 g/dl (31-36); Mean Corpuscular Hemoglobin 29 pg (27-31); Mean Corpuscular Volume 86 fL (80-94); Mean Platelet Volume 6.9 um3 (7.4-10.4); Nucleated Red Blood Cells % 0; Platelet Count 134 10^3/ul (150-450); Red Blood Count 4.49 10^6/ul (4.0-5.4); Red Cell Distribution Width 14 % (10.5-15); White Blood Count 3.9 10^3/ul (3.5-10.8)
[2018-03-15 08:57] LABS: INR 0.96 (0.77-1.02)
--- OUTSIDE RECORDS SUMMARY | 2018-03-15 08:58 | XMS REPORT ---
:1940 External Reference #:[id number] Author Organization [employer] Address [address] [address] Phone [phone] Care Team Providers Name Role Phone Lesa Etienne MD Primary Care Physician Unavailable Payers Type Date Identification Numbers Payment Provider Subscriber Health Maintenance Effective: Policy Number: Medicare [facility] [place] [place] 10/31/2013 [id number] [facility] Group Number: [id number] [address] [address] PayID: [id number] NICHOLE Wilson [id number] Health Maintenance Effective: Policy Number: Medicare Israel [employer] [place] [place] 10/31/2012 [id number] [facility] Expires: 10/30/2013 Group Number: [id number] [address] [address] PayID: [id number] NICHOLE Wilson [id number] Health Maintenance Effective: Policy Number: Medicare [employer] 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 Cigarette Use Former Cigarette Smoker ETOH Use [...] Form Strength Qnty SIG Indications Ordering Provider Pantoprazole Active Tablets DR 20mg 30tabs Take 1 K21.9 Rodger Sodium 018 Tablet TOBY Batista By Mouth One Time Daily Sertraline HCL Active Tablets 50mg 30tabs 1 by F32.89 Rodger 018 mouth TOBY Batista every day F41.9 Ipratropium 02/01/2018 Active Solution 0.5-2.5(3)mg/3ML 540ml 1 unit J44.9 Gabriela [place]/Albuterol every 6 Hawa Hawk MD as needed Nebulizer 02/01/2018 Active Device 1units 1 unit J44.9 Gabriela nebuliz miguel Hawk MD with albuter ol every 6 hours and as needed Tramadol HCL 01/09/2018 Active Tablets 50mg 30tabs 1-2 S42.10 Gill tablets 2A h every Cotton, 12 M.D. hours as needed for pain. Diclofenac Sodium 09/09/2017 Active Gel 1% 100gm apply 2 M54.5 Rodger grams TOBY Batista to affecte d area twice daily Metoprolol 08/04/2017 Active Tablets 50mg 30tabs 1 by Rodger Succinate ER ER 24HR mouth TOBY Batista every day Symbicort 07/11/2017 Active Aerosol 160-4.5mcg/Act 6gm 2 puff Rodger inhaled TOBY Batista twice a day Fluticasone 07/11/2017 Active Suspensio 50mcg/Act 16unit use 2 Gill Propionate n s sprays h in each Cotton, nostril M.D. daily Alprazolam 12/09/2016 Active Tablets 0.25mg 60tabs one by Rodger mouth TOBY Batista twice daily as needed for anxiety Cholestyramine 09/03/2016 Active Powder 4GM/Dose 378uni use 1 Rodger ts scoop TOBY Batista mixed with 8oz's of orange juice or water twice daily Potassium Chloride 08/30/2016 Active Tablets 20Meq 120tab 2 by Rodger ER ER s mouth TOBY Batista twice a day Lasix 08/16/2016 Active Tablets 40mg 90tabs 1 by Rodger mouth TOBY Batista every morning Lasix 08/16/2016 Active Tablets 20mg 30tabs 1/2 by Rodger mouth TOBY Batista every day at at bedtime (may take 20mg if edema if increas ed) Athletic Recovery 03/22/2016 Active Misc 2units apply R60.0 Rodger Socks/Male/15-20MM before TOBY Batista HG/Size D getting out of bed in the morning and removed at bedtime Ventolin HFA 02/10/2016 Active Aerosol 108(90Base) 2 puffs Unknown mcg/Act by mouth four times a day as needed Spiriva Handihaler 02/10/2016 Active Capsules 18mcg 90caps inhale Gabriela content Kenn, s of 1 MD capsule by mouth once daily Simvastatin 09/04/2015 Active Tablets 10mg 90tabs take 2 Eliot tablets D. by saurav Dumont M.DAguilar at bedtime Wrist Splint 05/01/2015 Active Misc QS use on 715.14 Zsofia Elastic/Large/X-La both Robin, rge wrists [employer] and hands as needed Pramipexole 08/27/2014 Active Tablets 0.5mg 90tabs take 1 Rodger Dihydrochloride tab by TOBY Batista mouth at 5pm in additio n to 0.75mg nightly at bedtime Clopidogrel 01/21/2014 Active Tablets 75mg 90tabs 1 tab Eliot Bisulfate by Katelyn Dumont, every M.D. day Pramipexole 11/27/2013 Active Tablets 0.75mg 90tabs 1 tab Rodger Dihydrochloride by TOBY Batista mouth every night for restles s legs Tamsulosin HCL Active Capsules 0.4mg 90caps 1 by Rodger mouth TOBY Batista every day as needed Multi-Vitamins Active Tablets 30tabs 1 po qd Unknown Aspirin Active Tablets 81mg 1 po qd Unknown Claritin Active Tablets 10mg 30tabs 2 po qd Unknown Nitrostat Active Tablets 0.4mg 25tabs one sl Eliot Sub q5min D. up to 3 Brand, doses M.D. as needed for chest pain Co Q-10 Active Capsules 100mg one Unknown daily [place] 3 Krill Oil Active 300mg qd Unknown Nitro-Dur Active Patches 0.6mg/HR 30unit apply I25.10 Eliot 24HR s one to D. chest Brand, wall M.D. daily , on each in the morning , off each at night Zantac 150 Maximum Active Tablets 150mg one Unknown Strength tablet twice daily as needed Gabapentin Active Capsules 400mg 540cap take M54.5 Rodger s two TOBY Batista capsule by mouth three times daily Meclizine HCL Active Tablets 25mg 60tabs 1 Rodger tablet TOBY Batista every 8 hours as needed for vertigo Hydrocodone-Acetam Active Tablets 5-325mg 1 or 2 Unknown inophen tabs by mouth every 6-8 hours as needed for pain Sertraline HCL 12/29/2017 Hx Tablets 25mg 30tabs 1 by F32.89 Rodger - mouth TOBY Batista 03/08/2018 every day F41.9 Deep Moisture Body Wash 11/24/2017 - Hx Liquid Rodger 02/01/2018 TOYB Batista Omeprazole 09/09/2017 - Hx Capsules DR 20m 30c 1 by mouth K21 Rodger 09/09/2017 g aps once daily .9 TOBY Batista Pantoprazole Sodium 09/09/2017 - Hx Tablets DR 20m 30t Take 1 Tablet K21 Rodger 02/01/2018 g abs By Mouth One .9 TOBY Batista Time Daily Hydrocodone-Acetaminoph 08/15/2017 - Hx Tablets 5-3 60t take 1 tablets M54 Rodger en 01/08/2018 25m abs every 12 hours .5 TOBY Batista g for pain. Keflex 02/10/2017 - Hx Capsules 500 20c take 1 tab by Melissa Martinez 08/08/2017 mg aps mouth four .01 MD Abhishek times a day x 2 5 days Percocet 02/10/2017 - Hx Tablets 5-3 60t 1-2 tabs by Melissa Martinez 08/08/2017 25m abs mouth every .01 MD Abhishek g 4-6 hours as 2 needed pain Symbicort 02/03/2017 - Hx Aerosol 80- 10. 2 puff twice a Rodger 02/14/2017 4.5 2un day TOBY Batista mcg its /Ac t Paroxetine HCL 09/28/2016 - Hx Tablets 20m 120 1 by mouth bid F41 Rodger 09/28/2016 g tab .9 TOBY Batista s Paroxetine HCL 09/28/2016 - Hx Tablets 40m 90t 1 by mouth F32 Rodger 12/29/2017 g abs every day .89 TOBY Batista Fluoxetine HCL 08/26/2016 - Hx Tablets 10m F41 Rogder 08/26/2016 g .9 TOBY Batista Paroxetine HCL 08/26/2016 - Hx Tablets 10m 30t 1 by mouth F41 Rodger 09/28/2016 g abs every day .9 TOBY Batista Lasix 08/09/2016 - Hx Tablets 20m 75t 2 po qam, 1/2 Rodger 08/16/2016 g abs po q pm TOBY Batista Escitalopram Oxalate 07/26/2016 - Hx Tablets 10m 45t 11/2 tablets F41 Rodger 08/26/2016 g abs once daily .9 TOBY Batista Escitalopram Oxalate 05/26/2016 - Hx Tablets 10m 30t 11/2 tablets F32 Rodger 07/26/2016 g abs once daily .8 TOBY Batista Symbicort 02/11/2016 - Hx Aerosol 80- 20. Inhale 2 Puffs Gabriela 06/21/2017 4.5 4un By Mouth Twice MD Kenn mcg its Daily /Ac t Prednisone 02/10/2016 - Hx Tablets 10m as directed Unknown 02/18/2016 g Dulera 02/10/2016 - Hx Aerosol 100 26. 2 puff twice a Gabriela 03/10/2016 -5m 4gm day MD Kenn cg/ Act Cheratussin ac 02/10/2016 - Hx Syrup 100 take 10 Unknown 03/22/2016 -10 milliliters mg/ every 4 hours 5ML as needed for cough. Gabapentin 05/09/2015 - Hx Tablets 600 90t 2 tablets tid M54 Dustin Mulligan. 02/03/2017 mg abs .5 Laura Duncan Lidocaine 05/01/2015 - Hx Ointment 5% 50g use sparinly 715 Zsofia 02/18/2016 m in affected .14 Robin, area twice [employer] daily as needed Voltaren 04/23/2015 - Hx Gel 1% 1un apply to M15 Zsofia 06/21/2017 its thumb/finger .0 Robin, joint three [employer] times a day (no longer using) Nitroglycerin 02/28/2015 - Hx Patches 24HR 0.4 90u 1 patch I25 Eliot D. 08/26/2016 mg/ nit applied to .10 Brand, HR s chest wall M.D. daily in the in the morning and take off at night Voltaren 07/22/2014 - Hx Gel 1% 1un apply to 715 Drew 08/27/2014 its thumb/finger .09 Laura Ordoñez joint three times a day Gabapentin 11/27/2013 - Hx Capsules 300 90c 1 by mouth 724 Dustin Hutchinson 05/09/2015 mg aps three times a .2 namrata Duncan or as M.DAguilar directed. Gabapentin 09/18/2013 - Hx Capsules 300 1 po bid Dustin Hutchinson 11/27/2013 mg Laura Duncan Atenolol 09/18/2013 - Hx Tablets 25m 180 1 by mouth Rodger 08/04/2017 g tab twice a day TOBY Batista Acetaminophen Extra 09/18/2013 - Hx Tablets 500 1 po [id number] Dustin Hutchinson Strength 06/21/2014 mg Laura Duncan Clopidogrel 07/26/2013 - Hx Tablets 75m 90t 1 tab by mouth Eliot Zepeda 01/21/2014 g abs every day Laura Dumont Methocarbamol 05/21/2013 - Hx Tablets 750 180 Take Two Dustin Hutchinson 09/18/2013 mg tab Tablets By noah Duncan Mouth Three M.D. Times Daily Max Of 6 Per Day Oxycodone HCL 04/09/2013 - Hx Tablets 15m 90t 1 tablet po Dustin Hutchinson 09/18/2013 g abs qid prn severe brandt Duncan.DAguilar Gabapentin 03/24/2013 - Hx Tablets 800 120 Take One Dustin Hutchinson 09/18/2013 mg tab Tablet By noah Duncan Mouth Four M.D. Times Daily Simvastatin 01/16/2013 - Hx Tablets 20m 90t 1 by mouth Eliot DAguilar 09/04/2015 g abs every night at Brand, bedtime M.DAguilar Valium 05/02/2012 - Hx Tablets 10m 3ta 11/01 to 1 two Dustin Hutchinson 09/18/2013 g bs hours prior to Dakota, adrian and repeat M.D. q1h prn anxiety Pramipexole 04/11/2012 - Hx Tablets 0.2 30t Take One Dustin Hutchinson Dihydrochloride 11/27/2013 5mg abs Tablet By Dakota, Mouth Every M.D. Morning For Daytime Restless Leg Pramipexole 02/08/2012 - Hx Tablets 0.5 30t Take One Dustin Hutchinson Dihydrochloride 11/27/2013 mg abs Tablet By Polllesa, Mouth Nightly M.D. AT Bedtime Pramipexole 12/13/2011 - Hx Tablets 0.2 30t one po at hs Dustin Lunaide 02/08/2012 5mg abs Laura Duncan Methylprednisolone 11/09/2011 - Hx Tablets 4mg 30t two po bid x 7 Dustin Hutchinson 12/13/2011 abs days only Laura Duncan Oxycodone HCL 08/03/2011 - Hx Tablets 5mg 120 1-2 po qid prn Dustin Hutchinson 04/09/2013 tab pain noah Duncan M.D. Pramipexole 07/06/2011 - Hx Tablets 0.1 30t one po qhs or Dustin Hutchinson Dihydrochloride 12/13/2011 25m abs as directed. vic Duncan M.D. Medrol Dosepak 09/08/2010 - Hx Tablets 4mg 1ta follow package Dustin Hutchinson 04/19/2011 bs directions jay Duncan with food M.DAguilar Celebrex 08/04/2010 - Hx Capsules 200 60c 1 po bid prn Dustin Hutchinson 11/09/2011 mg aps Laura Duncan Valium 10/14/2009 - Hx Tablets 10m 3ta 11/01 to 1 two Dustin Hutchinson 12/13/2011 g bs hours prior to adrian Duncan and repeat M.D. q1h prn anxiety Celebrex 01/01/2009 - Hx Capsules 200 30c 1 PO qd Dustin Hutchinson 04/19/2011 mg aps Laura Duncan Neurontin 11/22/2008 - Hx Tablets 800 120 1 po qid Dustin Hutchinson 09/18/2013 mg tab noah Duncan M.D. Oxycontin 11/17/2007 - Hx Tablets ER 40m 180 1-2 po tid prn Dustin Hutchinson 04/19/2011 12HR g noah John M.D. Fentanyltransdermal 11/17/2007 - Hx Patches 72 25m 10u 1 patch q 3 Dustin Hutchinson 2009 cg/ nit days HR noah Duncan M.D. Oxycontin 01/06/2007 - Hx Tablets ER 80m 90t 1 po tid Dustin Hutchinson 04/19/2011 12HR g abs Laura Duncan Robaxin-750 01/02/2007 - Hx Tablets 750 180 2 po tid Dustin Hutchinson 05/21/2013 mg noah John M.D. Sertraline HCL - Hx Tablets 25m 90t 1 po qd Unknown 04/03/2014 g abs Nasonex - Hx Suspension 50m 1un 2 sprays to Unknown 03/18/2014 cg/ its each nostril Act twice daily Proair HFA - Hx Aerosol 108 1un 2 puffs po q4h Unknown 01/27/2015 (90 its prn Bas e) mcg /Ac t Sucralfate - Hx Tablets 1gm 120 1 by mouth hs Unknown 03/18/2014 tab s Potassium Chloride ER - Hx Tablets ER 10M 90t 2 po bid Unknown 04/04/2014 eq abs Glucosamine Chondroitin - Hx Capsules 150 1 po qd Unknown 1500 Complex 03/18/2014 0Co m Dexilant - Hx Capsules DR 30m 30c po qd Unknown 03/18/2014 g aps Cholestyramine - Hx Packet 4gm 90P 1 packet qd Unknown 03/18/2014 ack s Methocarbamol - Hx Tablets 750 one po bid Unknown 11/27/2013 mg Hydrochlorothiazide - Hx Tablets 50m 90t 1 po qd Unknown 02/10/2016 g abs Instaflex - Hx 3 by mouth Unknown 05/01/2014 daily Tramadol HCL - Hx Tablets 50m 50t 1-2 po bid prn Unknown 05/09/2014 g abs Prostate - Hx 60m 1 po qpm Unknown 12/29/2016 g Potassium Chloride - Hx Tablets ER 20M 2 by mouth bid Unknown 08/30/2016 eq Nitroglycerin - Hx Patches 24HR 0.2 on 9am off 9pm [place], 10/21/2014 mg/ MD Wyatt HR Diphenhydramine HCL - Hx Tablets 50m once daily Unknown Maximum Strength 08/31/2014 g Psyllium Fiber - Hx Tablets 60t 6 tablet po Unknown 11/10/2015 abs b.i.d Ibuprofen - Hx Tablets 200 100 as needed Unknown 10/21/2014 mg tab s Diphenhydramine HCL - Hx Capsules 50m 1ca take 1 tablet Unknown 01/27/2015 g ps prn Tylenol Arthritis Pain - Hx Tablets ER 650 100 as needed Unknown 01/27/2015 mg tab s Ibuprofen - Hx Capsules 200 as needed Unknown 09/18/2015 mg Nasonex - Hx Suspension 50m prn Unknown 06/14/2016 cg/ Act Ventolin HFA - Hx Aerosol 108 2 puffs as Unknown 09/18/2015 (90 needed Bas e) mcg /Ac t Nitro-Dur - Hx Patches 24HR 0.4 on in in the Unknown 09/18/2015 mg/ morning, off HR in at night Sucralfate - Hx Tablets 1gm 1 by mouth at Unknown 05/09/2015 hs Cholestyramine - Hx Packet 4gm 1 packet after Unknown 05/09/2015 am meds Acidophilus - Hx Capsules 1 by mouth Unknown 12/09/2015 every day Tylenol Arthritis Pain - Hx Tablets ER 650 2 tablet po Unknown 06/14/2016 mg t.i.d Arthro-D - Hx 2 tablet po Unknown 12/09/2015 b.i.d (started taking 2 weeks ago) for arthritis Loperamide HCL - Hx Capsules 2mg 1 cap po daily Unknown 11/10/2015 Am Biofreeze - Hx prn Unknown 12/29/2016 Joint Health - Hx Capsules Unknown 12/29/2016 Acetaminophen - Hx Tablets 325 2 tablets by Unknown 01/07/2017 mg mouth every 6 hours as needed for pain/fever Acetaminophen 8 Hour - Hx Tablets ER 650 2 bid prn Unknown 01/31/2018 mg Stool Softener - Hx Capsules 100 take 1 tab Unknown 08/03/2017 mg every night Deep Blue - Hx 1 tab twice a Unknown 11/24/2017 day for arthirtis Symbicort - Hx Aerosol 160 2 puff twice a Kenn, 07/11/2017 -4. day Gabriela 5 g/Stefanie ct Hydrocodone-Acetaminoph - Hx Tablets 5-3 take one or 2 Unknown en 08/08/2017 25m capsule/tablet g by mouth at hs for pain Medications Administered in Office Medication Date Status Form Strength Qnty SIG Indications Ordering Provider Inj, Administered Injection Eliot D. Regadenoson, 015 Tim M.DAguilar 0.1 MG Technetium TC Administered Injection Eliot D. 99M 015 Laura Dumont Tetrofosmin, Per Unit Dose Up To 40 Millicuries Inj, Administered Injection Eliot D. Regadenoson, 014 Tim M.DAguilar 0.1 MG Technetium TC Administered Injection Eliot D. 99M 014 Laura Dumont Tetrofosmin, Per Unit Dose Up To 40 Millicuries Immunizations CPT Code Status Date Vaccine Reaction Lot # 62341 Given 06/25/2017 Fluzone High Dose 84639 Given 08/19/2016 Influenza Virus Vaccine, fluzone high dose @ [facility] Quadrivalent, Split Virus, Im Use Q2037 Given 02/11/2016 Fluvirin Im 3Yrs And Older 34011 Given 02/11/2016 Pneumonia Vaccine 82125 Given Unknown Tdap - Tetanus/Diptheria/Acellular Pertussis Vital Signs Date Vital Result Comment 03/08/2018 Height 71 inches 5'11" Weight 215.00 lb Heart Rate 60 /min BP Systolic 129 mmHg BP Diastolic 72 mmHg Body Temperature 97.7 F O2 % BldC Oximetry 96 % BMI (Body Mass Index) 30.0 kg/m2 02/03/2018 Height 71 inches 5'11" Weight 212.38 lb Heart Rate 76 /min BP Systolic 130 mmHg BP Diastolic 80 mmHg BMI (Body Mass Index) 29.6 kg/m2 02/02/2018 Height 71 inches 5'11" Weight 212.00 lb BP Systolic 142 mmHg BP Diastolic 82 mmHg BMI (Body Mass Index) 29.6 kg/m2 02/01/2018 Height 71 inches 5'11" Weight 212.00 lb Heart Rate 64 /min BP Systolic Sitting 134 mmHg Rue large cuff BP Diastolic Sitting 70 mmHg Rue large cuff Respiratory Rate 16 /min O2 % BldC Oximetry 95 % On Ra BMI (Body Mass Index) 29.6 kg/m2 01/25/2018 Weight 211.00 lb Heart Rate 88 /min BP Systolic 120 mmHg BP Diastolic 62 mmHg Body Temperature 96.8 F O2 % BldC Oximetry 95 % 01/17/2018 Height 71 inches 5'11" Weight 212.00 [...] Test Date Test Result H/L Range Note CBC Auto Diff 01/21/2018 White Blood Count 5.3 10^3/uL 3.5-10.8 Red Blood Count 4.67 10^6/uL 4.0-5.4 Hemoglobin 13.8 g/dL Low 14.0-18.0 Hematocrit 40 % Low 42-52 Mean Corpuscular Volume 86 fL 80-94 Mean Corpuscular Hemoglobin 30 pg 27-31 Mean Corpuscular HGB Conc 34 g/dL 31-36 Red Cell Distribution Width 14 % 10.5-15 Platelet Count 148 10^3/uL Low 150-450 Mean Platelet Volume 7.2 um3 Low 7.4-10.4 Abs Neutrophils 3.4 10^3/uL 1.5-7.7 Abs Lymphocytes 1.3 10^3/uL 1.0-4.8 Abs Monocytes 0.4 10^3/uL 0-0.8 Abs Eosinophils 0.1 10^3/uL 0-0.6 Abs Basophils 0 10^3/uL 0-0.2 Abs Nucleated RBC 0 10^3/uL Granulocyte % 64.4 % 38-83 Lymphocyte % 24.7 % Low 25-47 Monocyte % 7.5 % High 0-7 Eosinophil % 2.7 % 0-6 Basophil % 0.7 % 0-2 Nucleated Red Blood Cells % 0 Comp Metabolic Panel 01/21/2018 Sodium 140 mmol/L 133-145 Potassium 4.0 mmol/L 3.5-5.0 Chloride 107 mmol/L 101-111 Co2 Carbon Dioxide 29 mmol/L 22-32 Anion Gap 4 mmol/L 2-11 Glucose 117 mg/dL High 70-100 Blood Urea Nitrogen 20 mg/dL 6-24 Creatinine 0.96 mg/dL 0.67-1.17 BUN/Creatinine Ratio 20.8 High 8-20 Calcium 9.3 mg/dL 8.6-10.3 Total Protein 6.4 g/dL 6.4-8.9 Albumin 4.2 g/dL 3.2-5.2 Globulin 2.2 g/dL 2-4 Albumin/Globulin Ratio 1.9 1-3 Total Bilirubin 0.70 mg/dL 0.2-1.0 Alkaline Phosphatase 60 U/L 34-104 Alt 19 U/L 7-52 Ast 19 U/L 13-39 Egfr Non- 76.2 >60 Egfr 97.9 >60 1 Lipid Profile (Trig/Chol/HDL) 01/05/2018 Triglycerides 86 mg/dL 2 Cholesterol 143 mg/dL 3 HDL Cholesterol 40.4 mg/dL 4 LDL Cholesterol 85 mg/dL 5 Laboratory test finding 01/05/2018 Glucose 99 mg/dL 70-100 6 B-Type Natriuretic Peptide BNP 29 pg/mL 7 Urinalysis Profile 11/16/2017 Urine Color Yellow Urine Appearance Clear Urine Specific Peebles 1.018 1.010-1.030 Urine pH 7.0 5-9 Urine [...] seconds 26.0-36.3 Lactic Acid 0.9 mmol/L 0.5-2.0 9 Comp Metabolic Panel 11/16/2017 Sodium 139 mmol/L [...] Egfr Non- 85.3 >60 Egfr 109.7 >60 10 Laboratory test finding 11/16/2017 Magnesium 2.3 mg/dL 1.9-2.7 Lipase 17 U/L 11.0-82.0 C Reactive Protein < 1.00 mg/L < 5.00 11 Troponin-I (TnI) 0.00 ng/mL <0.04 TSH (Thyroid Stim Horm) 0.87 mcIU/mL 0.34-5.60 Urinalysis Profile 09/25/2017 Urine Color Yellow Urine Appearance Clear Urine Specific Peebles 1.013 1.010-1.030 Urine pH 6.0 5-9 Urine Urobilinogen Negative Negative Urine Ketones Trace Negative Urine Protein Negative Negative Urine Leukocytes Negative Negative Urine Blood Negative Negative Urine Nitrite Negative Negative Urine Bilirubin Negative Negative Urine Glucose Negative Negative Rapid Influenza A & B 09/25/2017 Influenza A Molecular NEGATIVE Negative 12 Molecular Influenza B Molecular NEGATIVE Negative Laboratory test 09/25/2017 Rapid Influenza A B SEE RESULT BELOW 13 finding Antigen Istat BUN/Crea/Egfr/V 08/31/2017 Poc Bun Eastct 24 mg/dL High 9-18 Eastct Poc Crea Eastct 0.9 mg/dL 0.6-0.9 GFR Non- Ect 82.3 >60 GFR Eastct 105.8 >60 14 Basic Metabolic Panel 08/31/2017 Sodium 134 mmol/L 133-145 Potassium 4.5 mmol/L 3.5-5.0 Chloride 101 mmol/L 101-111 Co2 Carbon Dioxide 29 mmol/L 22-32 Anion Gap 4 mmol/L 2-11 Glucose 81 mg/dL 70-100 Blood Urea Nitrogen 23 mg/dL 6-24 Creatinine 0.90 mg/dL 0.67-1.17 BUN/Creatinine Ratio 25.6 High 8-20 Calcium 9.3 mg/dL 8.6-10.3 Egfr Non- 82.3 >60 Egfr 105.8 >60 15 Poc Urinalysis 08/31/2017 Poc Glucose, Urine Negative Negative Poc Bilirubin, Urine Negative Negative Poc Ketone, Urine Negative Negative Poc Specific Pee[place], Urine 1.020 1.010-1.030 Poc Blood, Urine Negative Negative Poc pH, Urine 5.5 5-9 Poc Protein, Urine Negative Negative Poc Urobilinogen, Urine 0.2 Negative Poc Nitrite, Urine Negative Negative Poc Leukocytes, Urine Negative Negative Poc Color, Urine Yellow Poc Clarity, Urine Clear 16 Laboratory test finding 06/27/2017 Surgical Pathology SEE RESULT BELOW 17 Laboratory test finding 06/27/2017 Clotest SEE RESULT BELOW 18 Basic Metabolic Panel 02/23/2017 Sodium 140 mmol/L 133-145 Potassium 4.4 mmol/L 3.5-5.0 Chloride 104 mmol/L 101-111 Co2 Carbon Dioxide 29 mmol/L 22-32 Anion Gap 7 mmol/L 2-11 Glucose 108 mg/dL High 70-100 Blood Urea Nitrogen 24 mg/dL 6-24 Creatinine 0.99 mg/dL 0.67-1.17 BUN/Creatinine Ratio 24.2 High 8-20 Calcium 9.5 mg/dL 8.6-10.3 Egfr Non- 73.7 >60 Egfr 94.8 >60 19 Laboratory test finding 02/14/2017 B-Type Natriuretic Peptide BNP 21 pg/mL 20 Troponin-I (TnI) 0.00 ng/mL <0.04 21 Comp Metabolic Panel 02/14/2017 Sodium 139 mmol/L [...] Egfr Non- 80.2 >60 Egfr 103.1 >60 22 Type & Screen 02/10/2017 Patient Blood Type O Negative 23 Antibody Screen NEGATIVE 23 Laboratory test finding 02/10/2017 Partial Thrombo 35.3 seconds 26.0- 36.3 23, 24 Time PTT Inr/Protime 02/10/2017 Inr 0.90 0.89-1.11 23 Urinalysis Profile 02/10/2017 Urine Color Straw 23 Urine Appearance Clear 23 Urine Specific Peebles 1.010 1.010-1.030 23 Urine pH 5.0 5-9 23 Urine Urobilinogen Negative Negative 23 Urine Ketones Negative Negative 23 Urine Protein Negative Negative 23 Urine Leukocytes Negative Negative 23 Urine Blood Negative Negative 23 Urine Nitrite Negative Negative 23 Urine Bilirubin Negative Negative 23 Urine Glucose Negative Negative 23 CBC No Diff 02/10/2017 White Blood Count 5.1 10^3/uL 3.5-10.8 23 Red Blood Count 4.54 10^6/uL 4.0-5.4 23 Hemoglobin 13.5 g/dL Low 14.0-18.0 23 Hematocrit 41 % Low 42-52 23 Mean Corpuscular Volume 89 fL 80-94 23 Mean Corpuscular Hemoglobin 30 pg 27-31 23 Mean Corpuscular HGB Conc 33 g/dL 31-36 23 Red Cell Distribution Width 14 % 10.5-15 23 Platelet Count 143 10^3/uL Low 150-450 23 Mean Platelet Volume 7 um3 Low 7.4-10.4 23 Basic Metabolic Panel 01/20/2017 Sodium 138 mmol/L 133-145 Potassium 4.2 mmol/L 3.5-5.0 Chloride 106 mmol/L 101-111 Co2 Carbon Dioxide 26 mmol/L 22-32 Anion Gap 6 mmol/L 2-11 Glucose 118 mg/dL High 70-100 Blood Urea Nitrogen 24 mg/dL 6-24 Creatinine 0.92 mg/dL 0.67-1.17 BUN/Creatinine Ratio 26.1 High 8-20 Calcium 9.6 mg/dL 8.6-10.3 Egfr Non- 80.2 >60 Egfr 103.1 >60 25 Inr/Protime 01/20/2017 Inr 0.88 Low 0.89-1.11 CBC Auto Diff 01/20/2017 White Blood Count [...] Blood Cells % 0.1 CBC Auto Diff 12/09/2016 White Blood Count [...] finding 12/09/2016 B-Type Natriuretic Peptide 21 pg/mL 26 BNP Comp Metabolic Panel 12/09/2016 Sodium 140 [...] Egfr Non- 79.2 >60 Egfr 101.9 >60 27 Laboratory test finding 12/09/2016 TSH (Thyroid Stim Horm) 1.62 mcIU/mL 0.34-5.60 CBC Auto Diff 2016 White Blood Count [...] finding 08/11/2016 Lactic Acid 0.9 mmol/L 0.5-2.0 28 Inr/Protime 08/11/2016 Inr 0.94 0.89-1.11 Urinalysis Profile 08/11/2016 Urine Color Yellow Urine Appearance Clear Urine Specific Peebles 1.012 1.010-1.030 Urine pH 5.0 5-9 Urine Urobilinogen Negative Negative Urine Ketones Negative Negative Urine Protein Negative Negative Urine Leukocytes Negative Negative Urine Blood Negative Negative Urine Nitrite Negative Negative Urine Bilirubin Negative Negative Urine Glucose Negative Negative Laboratory test finding 08/11/2016 Magnesium 2.3 mg/dL 1.9-2.7 Troponin-I (TnI) 0.00 ng/mL <0.03 29 TSH (Thyroid Stim Horm) 1.93 mcIU/mL 0.34-5.60 Comp Metabolic Panel 08/11/2016 Sodium 140 mmol/L [...] Egfr Non- 84.7 >60 Egfr 108.9 >60 30 Laboratory test finding 08/11/2016 Partial Thrombo Time 33.5 seconds 26.0 -36.3 PTT B-Type Natriuretic Peptide BNP 41 pg/mL 31 Basic Metabolic Panel 08/09/2016 Sodium 139 mmol/L 133-145 Potassium 4.5 mmol/L 3.5-5.0 Chloride 104 mmol/L 101-111 Co2 Carbon Dioxide 27 mmol/L 22-32 Anion Gap 8 mmol/L 2-11 Glucose 93 mg/dL 70-100 Blood Urea Nitrogen 19 mg/dL 6-24 Creatinine 0.89 mg/dL 0.67-1.17 BUN/Creatinine Ratio 21.3 High 8-20 Calcium 9.4 mg/dL 8.6-10.3 Egfr Non- 83.6 >60 Egfr 107.5 >60 32 Lipid Profile (Trig/Chol/HDL) 06/30/2016 Triglycerides 115 mg/dL 33 Cholesterol 113 mg/dL 34 HDL Cholesterol 41.7 mg/dL 35 LDL Cholesterol 48 mg/dL 36 Laboratory test finding 03/22/2016 B-Type Natriuretic 16 pg/mL 37 Peptide BNP CBC Auto Diff 03/22/2016 White Blood Count [...] 0-2 Nucleated Red Blood Cells % 0 Comp Metabolic Panel 03/22/2016 Sodium 140 mmol/L [...] Egfr Non- 81.4 >60 Egfr 104.7 >60 38 Comp Metabolic Panel 04/23/2015 Sodium 140 mmol/L [...] Egfr Non- 82.7 >60 Egfr 106.4 >60 39 Laboratory test finding 04/23/2015 C Reactive Protein < 1.00 mg/L &lt ; 5.00 40 Erythrocyte Sed Rate 4 mm/Hr 0-40 Rheumatoid Factor <15 IU/mL <15 41 Cyclic Citrullinated Pep Igg <15.6 U 42 Hla B27 04/23/2015 Hla B27 Negative 43 Hla B27 Interp See Comment 44 CBC Auto Diff 04/23/2015 White Blood Count [...] Egfr Non- 73.2 >60 Egfr 94.2 >60 45 Basic Metabolic Panel 07/20/2012 Sodium 139 mmol/L 135-145 46 Potassium 3.9 mmol/L 3.5-5.0 46 Chloride 101 mmol/L 101-111 46 Co2 (Carbon Dioxide) 32.0 mmol/L 22-32 46 Anion Gap 6.0 mmol/L 2-11 46, 47 Glucose 131 mg/dL High 70-100 46 BUN 20 mg/dL 6-24 46 Creatinine 0.9 mg/dL 0.50-1.40 46 One Over Creatinine 1.11 46 BUN/Creatinine Ratio 22.2 High 8-20 46 Calcium 9.5 mg/dL 8.1-9.9 46 eGFR Non- 83.4 > 60 46 eGFR 107.3 > 60 46, 48 Type And Screen (Pre-Adm) 07/20/2012 Patient Blood Type O NEGATIVE 46 Antibody Screen NEGATIVE 46 Specimen Discard Date 08/03/12 46, 49 Laboratory test finding 07/20/2012 PTT (Aptt) 33.6 SEC 25.1-38.5 46 Protime 07/20/2012 Inr 0.89 0.88-1.13 46, 50 Protime 10.6 SEC 10.3-13.5 46, 51 CBC Auto Diff 07/20/2012 White Blood Count 4.8 CUMM 4.8-10.8 46 Red Cell Count 4.62 CUMM 4.6-6.2 46 Hemoglobin 13.8 g/dL Low 14.0-18.0 46 Hematocrit 41 % Low 42-52 46 Mean Corpuscular Volume 89 um3 80-94 46 Mean Corpuscular Hemoglob 30 pg 27-31 46 Mean Corpuscular HGB Cone 34 g/dL 32-36 46 Redcell Distribution WDTH 14 % 10.5-15 46 Platelet Count 149 CUMM Low 150-450 46 Mean Platelet Volume 7.8 um3 7.4-10.4 46 Gran % 69.3 % 38-83 46 Lymph % 19.3 % Low 20-45 46 Mononuclear % 7.6 % 1-9 46 Eosinophil % 3.0 % 0-6 46 Basophil % 0.8 % 0-2 46 Abs Lymphs 0.9 Low 1.0-4.8 46 Abs Mononuclear 0.4 0-0.8 46 Absolute Neutrophil Count 3.3 1.5-7.7 46 Abs Eosinophils 0.1 0-0.6 46 Abs Basophils 0 0-0.2 46 Laboratory test 02/02/2010 C Reactive Protein < 0.5 mg/dL Less Than 0.5 52 finding Basic Metabolic Panel 02/02/2010 Sodium 138 mmol/L 135-145 52 Stat Potassium 3.8 mmol/L 3.5-5.0 52 Chloride 105 mmol/L 101-111 52 Co2 (Carbon Dioxide) 25.0 mmol/L 22-32 52 Anion Gap 8.0 mmol/L 2-11 52, 53 Glucose 100 mg/dL 70-100 52, 54 BUN 13 mg/dL 6-24 52 Creatinine 0.80 mg/dL 0.50-1.40 52 One Over Creatinine 1.20 52 BUN/Creatinine Ratio 16.3 8-20 52 Calcium 9.6 mg/dL 8.1-9.9 52, 55 eGFR Non- 102.2 > 60 52 eGFR 123.6 > 60 52, 56 1 Because ethnic data is not always readily [...] 15-29 5 Kidney failure <15 (or dialysis) 2 Desirable: <150 Borderline High: 150-199 High: 200-499 Very High: >500 3 Desirable: <200 Borderline High: 200-239 High: >239 4 Low: <40 Desirable: 40-60 High: >60 5 Desirable: <100 Near Optimal: 100-129 Borderline High: 130-159 High: 160-189 Very High: >189 6 FASTING 10 HOUR 7 >100 to <200 pg/mL: likely compensated congestive heart failure (CHF) 200 to 400 pg/mL: likely moderate CHF >400 pg/mL: likely moderate to severe CHF 8 >100 to <200 pg/mL: likely compensated congestive heart failure (CHF) 200 to 400 pg/mL: likely moderate CHF >400 pg/mL: likely moderate to severe CHF 9 [facility] Severe Sepsis and Septic Shock Management Bundle Measure requires all lactic acids initially measuring >2.0 mmol/L be repeated. 10 Because ethnic data is not always readily [...] 15-29 5 Kidney failure <15 (or dialysis) 11 Acute inflammation: >10.00 12 Devulcanizer Tender: [id number] 13 SEE RESULT BELOW Name: QUIANA CR : [address]: Merlin Mcnally MD Acct: [id number] Unit: [id number] AGE: 77 Location: ED Re09/25/17 SEX: M Status: REG ER SPEC: [id number] NITISH: 09/25/[address] [facility] [address]: Merlin Mcnally MD REQ: [id number] RECD: 09/25/17 STATUS: NERIS GARCIA DR: Lesa Etienne MD _ SOURCE: NASAL SPDESC: ORDERED: Flu A B Request Procedure Result Reported Site Rapid Influenza A B Request Final 09/25/17- 2120 ML Specimen received for Influenza A/B Molecular testing * ML - MAIN LAB ([facility]) . END OF REPORT * ML=Testing performed at Main Lab DEPARTMENT OF PATHOLOGY, [address] [place] [address] Riki Can M.D. Director [facility] # [id number] 14 Because ethnic data is not always [...] 5 Kidney failure <15 (or dialysis) 15 Because ethnic data is not always readily [...] 15-29 5 Kidney failure <15 (or dialysis) 16 Devulcanizer Tender: [id number] 17 SEE RESULT BELOW Name: QUIANA CR : [address]: Cj Angeles MD Acct: [id number] Unit: [id number] AGE: 76 Location: ENDO Re06/27/17 SEX: M Status: DEP REF SPEC: [id number] NITISH: 06/27/17- SUBM DR: Cj Angeles MD REQ: [id number] RECD: 06/27/171419 STATUS: CELESTINO GARCIA DR: Rodger Batista MANUFACTURING LEADER _ ORDERED: LEVEL 4/2, IMMUNO-FIRST Addendum: An [...] performed at Main Lab DEPARTMENT OF PATHOLOGY, [address] [place] [address] Riki Can M.D. Director [place] # [id number] RUN DATE: 06/28/17 [facility] LAB LIVE PAGE 2 Patient: QUIANA CR [id number] (Continued) GROSS DESCRIPTION (Continued) GROSS DESCRIPTION (Continued) 2. The specimen is received in formalin labeled, Biopsy Esophagus, and consists of a 0.3 x 0.3 x 0.1 cm luis-white irregular soft tissue fragment which is submitted entirely in one cassette. Signed (signature on file) Swapna Carrion MD [id number] END OF REPORT * ML=Testing performed at Main Lab DEPARTMENT OF PATHOLOGY, [address] [place] [address] Riki Can M.D. Director [facility] # [id number] 18 SEE RESULT BELOW Name: QUIANA CR Vic : [address]: Cj Angeles MD Acct: [id number] Unit: [id number] AGE: 76 Location: ENDO Re06/27/17 SEX: M Status: REG REF SPEC: [id number] NITISH: 06/27/17-[address] [facility] [address]: Cj Angeles MD REQ: [id number] RECD: 06/27/17 STATUS: COMP [facility] DR: Lesa Batista MANUFACTURING LEADER _ SOURCE: GAS ANTRUM SPDESC: ORDERED: Clotest Procedure Result Reported Site Clotest Final 06/28/17- 0753 ML Clotest Negative * ML - MAIN LAB ([facility]) . END OF REPORT * ML=Testing performed at Main Lab DEPARTMENT OF PATHOLOGY, [address] [place] [address] Riki Can M.D. Director [facility] # [id number] 19 Because ethnic data is not always [...] 21 99th percentile=0.04 ng/mL Troponin results at [facility] and [facility] are not interchangeable. 22 Because ethnic data is not always readily [...] 15-29 5 Kidney failure <15 (or dialysis) 23 SD 02/16/17 24 SD 02/16/17 25 Because ethnic data is not always [...] pg/mL: likely moderate to severe CHF 27 Because ethnic data is not always readily [...] 15-29 5 Kidney failure <15 (or dialysis) 28 [facility] Severe Sepsis and Septic Shock Management Bundle Measure requires all lactic acids initially measuring >2.0 mmol/L be repeated. 29 Reference Range and Interpretation: TnI (ng/mL) Interpretation Less Than 0.03 ng/mL Not supportive of diagnosis of NM 0.03 - 0.50 ng/mL Indeterminate: suggest serial studies if clinically indicated. Greater than 0.5 ng/mL Consistent with diagnosis of NM 30 Because ethnic data is not always [...] 5 Kidney failure <15 (or dialysis) 33 Desirable <150 Borderline high 150-199 High 200-499 Very High >500 34 Desirable <200 Borderline high 200-239 High >239 35 Low <40 Desirable: 40-60 High: >60 36 Desirable: <100 mg/dL Near Optimal: 100-129 mg/dL Borderline High: 130-159 mg/dL High: 160-189 mg/dL Very High: >189 mg/dL 37 >100 to <200 pg/mL: likely compensated [...] 5 Kidney failure <15 (or dialysis) 39 Because ethnic data is not always readily [...] 15-29 5 Kidney failure <15 (or dialysis) 40 Acute inflammation: >10.00 41 Test Performed by: [address] [address] Tax Professional: Dante Rice II, M.D., Ph.D. 42 REFERENCE VALUE <20.0 (Negative) Test Performed by: [facility] [address] [place] [address] Tax Professional: Dante Rice II, M.D., Ph.D. 43 REFERENCE VALUE Not Applicable 44 RESULT: HLA-B27 antigen was not detected. ADDITIONAL INFORMATION Method: Flow Cytometry Performing Laboratory CLIA# [id number] Test Performed by: [address] [address] Tax Professional: Dante Rice II, M.D., Ph.D. 45 Because ethnic data is not always readily [...] 15-29 5 Kidney failure <15 (or dialysis) 46 SDS 07/27/12 47 Anion gap measurement may be of limited value in the presence of any alkalosis, especially in a combined acid base disorder. . 48 Because ethnic data is not always readily [...] 15-29 5 Kidney failure <15 (or dialysis) 49 PREADMISSION TESTING SAMPLES FOR BLOOD BANK WILL [...] WITHIN 3 DAYS OF THE SURGERY DATE. 50 Recommended INR for Patients on Oral Anticoagulants Prophylaxis 2.0 - 3.0 Treatment of thrombosis 2.0 - 3.0 Prevention of embolism 2.0 - 3.0 Prevention of embolism from prosthetic heart valves 2.5 - 3.5 51 DIAGNOSIS,TREATMENT,AND THERAPY MUST BE BASED ON THE INR VALUE ALONE. 52 COMMENTS: N 53 Anion gap measurement may be of limited value in the presence of any alkalosis, especially in a combined acid base disorder. . 54 Note change in reference range as of 06/20/08. The change was based on recommendations from the [place] [employer]. 55 Please note change in reference range effective 08 . 56 Because ethnic data is not always readily [...] Procedures Date CPT Code Description Status Comment 02/15/2018 13137 EEG Recording Awake & Completed Asleep 02/03/2018 51425 Implantable Cardio System Loop Completed Recorder Sys Remota Data Acquistio 02/03/2018 96372 Interrogation Dev Loop Recorder Completed Incl Physician Analysis,Rev,Repor 01/03/2018 74467 Implantable Cardio System Loop Completed Recorder Sys Remota Data Acquistio 01/03/2018 10432 Interrogation Dev Loop Recorder Completed Incl Physician Analysis,Rev,Repor 12/03/2017 34020 Implantable Cardio System Loop Completed Recorder Sys Remota Data Acquistio 12/03/2017 19742 Interrogation Dev Loop Recorder Completed Incl Physician Analysis,Rev,Repor 11/17/2017 37407 Closed TX Scapular FX W/O Completed Manipulation 11/02/2017 55180 Implantable Cardio System Loop Completed Recorder Sys Remota Data Acquistio 11/02/2017 80679 Interrogation Dev Loop Recorder Completed Incl Physician Analysis,Rev,Repor 10/02/2017 40221 Implantable Cardio System Loop Completed Recorder Sys Remota Data Acquistio 10/02/2017 08088 Interrogation Dev Loop Recorder Completed Incl Physician Analysis,Rev,Repor 09/01/2017 78209 Implantable Cardio System Loop Completed Recorder Sys Remota Data Acquistio 09/01/2017 83452 Interrogation Dev Loop Recorder Completed Incl Physician Analysis,Rev,Repor 08/10/2017 25397 EKG Tracing & Completed Interpretation 08/01/2017 87326 Interrogation Dev Loop Recorder Completed Incl Physician Analysis,Rev,Repor 08/01/2017 63944 Implantable Cardio System Loop Completed Recorder Sys Remota Data Acquistio 07/01/2017 33679 Implantable Cardio System Loop Completed Recorder Sys Remota Data Acquistio 07/01/2017 50280 Interrogation Dev Loop Recorder Completed Incl Physician Analysis,Rev,Repor 05/31/2017 73262 Implantable Cardio System Loop Completed Recorder Sys Remota Data Acquistio 05/31/2017 38320 Interrogation Dev Loop Recorder Completed Incl Physician Analysis,Rev,Repor 04/30/2017 03636 Implantable Cardio System Loop Completed Recorder Sys Remota Data Acquistio 04/30/2017 08521 Interrogation Dev Loop Recorder Completed Incl Physician Analysis,Rev,Repor 03/30/2017 75991 Implantable Cardio System Loop Completed Recorder Sys Remota Data Acquistio 03/30/2017 60503 Interrogation Dev Loop Recorder Completed Incl Physician Analysis,Rev,Repor 03/02/2017 55428 Arthroplasty,Total Shoulder Completed Replacement (TSR) 03/02/2017 04038 Arthroplasty,Total Shoulder Completed Replacement (TSR) 02/27/2017 77894 Implantable Cardio System Loop Completed Recorder Sys Remota Data Acquistio 02/27/2017 72468 Interrogation Dev Loop Recorder Completed Incl Physician Analysis,Rev,Repor 02/14/2017 46231 EKG Tracing & Completed Interpretation 02/10/2017 19411 EKG, Interpretation Only Completed 01/27/2017 47488 Interrogation Dev Loop Recorder Completed Incl Physician Analysis,Rev,Repor 01/27/2017 41271 Implantable Cardio System Loop Completed Recorder Sys Remota Data Acquistio 12/27/2016 08609 Implantable Cardio System Loop Completed Recorder Sys Remota Data Acquistio 12/27/2016 28085 Interrogation Dev Loop Recorder Completed Incl Physician Analysis,Rev,Repor 11/26/2016 77140 Implantable Cardio System Loop Completed Recorder Sys Remota Data Acquistio 11/26/2016 51899 Interrogation Dev Loop Recorder Completed Incl Physician Analysis,Rev,Repor 10/26/2016 98933 Implantable Cardio System Loop Completed Recorder Sys Remota Data Acquistio 10/26/2016 13791 Interrogation Dev Loop Recorder Completed Incl Physician Analysis,Rev,Repor 09/25/2016 81064 Implantable Cardio System Loop Completed Recorder Sys Remota Data Acquistio 09/25/2016 19999 Interrogation Dev Loop Recorder Completed Incl Physician Analysis,Rev,Repor 09/01/2016 69563 EKG Tracing & Completed Interpretation 08/25/2016 03628 Implantable Cardio System Loop Completed Recorder Sys Remota Data Acquistio 08/25/2016 46494 Interrogation Dev Loop Recorder Completed Incl Physician Analysis,Rev,Repor 08/12/2016 06339 Treadmill Interp/Report Only Completed 08/12/2016 66077 Stress Test Supervsn W/Out I/R Completed 07/27/2016 26961 Interrogation Dev Loop Recorder Completed Incl Physician Analysis,Rev,Repor 07/27/2016 23636 Implantable Cardio System Loop Completed Recorder Sys Remota Data Acquistio 07/25/2016 58623 Implantable Cardio System Loop Completed Recorder Sys Remota Data Acquistio 07/25/2016 21211 Interrogation Dev Loop Recorder Completed Incl Physician Analysis,Rev,Repor 06/24/2016 05134 Implantable Cardio System Loop Completed Recorder Sys Remota Data Acquistio 06/24/2016 27089 Interrogation Dev Loop Recorder Completed Incl Physician Analysis,Rev,Repor 05/24/2016 89130 Implantable Cardio System Loop Completed Recorder Sys Remota Data Acquistio 05/24/2016 62006 Interrogation Dev Loop Recorder Completed Incl Physician Analysis,Rev,Repor 04/23/2016 52401 Implantable Cardio System Loop Completed Recorder Sys Remota Data Acquistio 04/23/2016 82471 Interrogation Dev Loop Recorder Completed Incl Physician Analysis,Rev,Repor 03/23/2016 58440 Implantable Cardio System Loop Completed Recorder Sys Remota Data Acquistio 03/23/2016 01806 Interrogation Dev Loop Recorder Completed Incl Physician Analysis,Rev,Repor 03/11/2016 32601 Polysomnography Sleep Staging Completed 4+ Parameters 02/23/2016 55242 Diffusing Capacity Completed 02/23/2016 33384 Plethysmography Determination Completed Lung Volumes & Per Airway Resist 02/23/2016 15037 Pulmonary Completed Function><Bronchodil 02/21/2016 74635 Interrogation Dev Loop Recorder Completed Incl Physician Analysis,Rev,Repor 02/21/2016 15376 Implantable Cardio System Loop Completed Recorder Sys Remota Data Acquistio 02/04/2016 24221 EKG, Interpretation Only Completed 01/21/2016 92718 Implantable Cardio System Loop Completed Recorder Sys Remota Data Acquistio 01/21/2016 65824 Interrogation Dev Loop Recorder Completed Incl Physician Analysis,Rev,Repor 12/21/2015 15142 Implantable Cardio System Loop Completed Recorder Sys Remota Data Acquistio 12/21/2015 09412 Interrogation Dev Loop Recorder Completed Incl Physician Analysis,Rev,Repor 11/20/2015 49245 Implantable Cardio System Loop Completed Recorder Sys Remota Data Acquistio 11/20/2015 17697 Interrogation Dev Loop Recorder Completed Incl Physician Analysis,Rev,Repor 10/31/2015 Colonoscopy Completed Completed home kit for screening per pt. d/t difficult colonoscopy. Supposed to repeat every 4-5 yrs. 10/21/2015 86747 Implantable Cardio System Loop Completed Recorder Sys Remota Data Acquistio 10/21/2015 24489 Interrogation Dev Loop Recorder Completed Incl Physician Analysis,Rev,Repor 09/19/2015 41780 EKG Tracing & Completed Interpretation 09/19/2015 18659 Implantable Cardio System Loop Completed Recorder Sys Remota Data Acquistio 09/19/2015 47121 Interrogation Dev Loop Recorder Completed Incl Physician Analysis,Rev,Repor 09/08/2015 78823 Interrogation Device Completed Eval,Implantable Loop Recorder System 08/20/2015 04809 Implantable Cardio System Loop Completed Recorder Sys Remota Data Acquistio 08/20/2015 04385 Interrogation Dev Loop Recorder Completed Incl Physician Analysis,Rev,Repor 08/19/2015 56477 Implantable Cardio System Loop Completed Recorder Sys Remota Data Acquistio 08/19/2015 68382 Interrogation Dev Loop Recorder Completed Incl Physician Analysis,Rev,Repor 07/21/2015 38591 Implantable Cardio System Loop Completed Recorder Sys Remota Data Acquistio 07/21/2015 21047 Interrogation Dev Loop Recorder Completed Incl Physician Analysis,Rev,Repor 06/19/2015 51367 Interrogation Device Completed Eval,Implantable Loop Recorder System 06/06/2015 48238 Implantable Cardio System Loop Completed Recorder Sys Remota Data Acquistio 06/06/2015 85508 Interrogation Dev Loop Recorder Completed Incl Physician Analysis,Rev,Repor 05/21/2015 97784 Implantable Cardio System Loop Completed Recorder Sys Remota Data Acquistio 05/21/2015 36569 Interrogation Dev Loop Recorder Completed Incl Physician Analysis,Rev,Repor 04/22/2015 42429 Implantable Cardio System Loop Completed Recorder Sys Remota Data Acquistio 04/22/2015 01971 Interrogation Dev Loop Recorder Completed Incl Physician Analysis,Rev,Repor 03/19/2015 50817 Implantable Cardio System Loop Completed Recorder Sys Remota Data Acquistio 03/19/2015 24039 Interrogation Dev Loop Recorder Completed Incl Physician Analysis,Rev,Repor 02/06/2015 23146 Stress Test Completed 02/06/2015 95598 Myocardial Perfusion Imaging Completed Tomographic (Spect) Multiple Studies 01/28/2015 29721 EKG Tracing & Completed Interpretation 01/20/2015 67334 Implantable Cardio System Loop Completed Recorder Sys Remota Data Acquistio 01/20/2015 72148 Interrogation Dev Loop Recorder Completed Incl Physician Analysis,Rev,Repor 12/18/2014 46209 Interrogation Dev Loop Recorder Completed Incl Physician Analysis,Rev,Repor 12/18/2014 56882 Implantable Cardio System Loop Completed Recorder Sys Remota Data Acquistio 11/25/2014 27770 Interrogation Device Completed Eval,Implantable Loop Recorder System 11/18/2014 28925 Implantable Cardio System Loop Completed Recorder Sys Remota Data Acquistio 11/18/2014 87103 Interrogation Dev Loop Recorder Completed Incl Physician Analysis,Rev,Repor 10/21/2014 05933 Implantable Cardio System Loop Completed Recorder Sys Remota Data Acquistio 10/21/2014 86896 Interrogation Dev Loop Recorder Completed Incl Physician Analysis,Rev,Repor 10/15/2014 13017 EKG, Interpretation Only Completed 10/14/2014 74277 Left Heart Cath. Incl S/I Completed Coronaries, Angio S/I V Gram If Done 10/14/2014 92937 EKG, Interpretation Only Completed 10/14/2014 15980 Percutaneous Transcatheter Completed Placement Of Intracoronary Stent 10/08/2014 61369 Interrogation Device Completed Eval,Implantable Loop Recorder System 10/08/2014 91296 EKG Tracing & Completed Interpretation 2014 36347 Implant Cardiac Loop Recorder Completed 09/12/2014 81387 Stress Test Completed 09/12/2014 42898 Myocardial Perfusion Imaging Completed Tomographic (Spect) Multiple Studies 09/09/2014 48399 EEG Recording Awake & Completed Asleep 04/12/2014 69919 EKG Tracing & Completed Interpretation 04/05/2014 81628 Treadmill Interp/Report Only Completed 04/05/2014 82764 Stress Test Supervsn W/Out I/R Completed 04/05/2014 96259 EKG, Interpretation Only Completed 04/04/2014 56468 EKG, Interpretation Only Completed 11/21/2013 01896 EKG Tracing & Completed Interpretation 05/17/2013 70948 Rad Shoulder, 1 View Completed 11/22/2012 38172 EKG Tracing & Completed Interpretation 10/25/2012 50079 Treadmill Interp/Report Only Completed 10/25/2012 10992 Stress Test Supervsn W/Out I/R Completed 07/27/2012 19456 Partial Excision Post Vertebral Completed Component Single Cervical 10/28/2010 00591 EKG, Interpretation Only Completed Encounters Type Date Location Provider CPT E/M Dx Office Visit 02/03/2018 [facility] [place], [address] R55 10:00a Laura R29.6 Office Visit 02/01/2018 10:45a Pul[facility]ology [place] [address] J44.9 Services Of [facility] G47.33 R09.02 Office Visit 01/25/2018 3:40p [facility] [place] [address] H81.10 [place] F32.89 F41.9 Office Visit 01/09/2018 10:30a [facility] [place], 65560 R29.6 Laura G25.81 R55 Office Visit 01/09/2018 3:00p [facility] [place] [address] Z00.00 [place] S42.102A F32.89 K21.9 I10 R60.0 Office Visit 12/29/2017 1:40p [facility] [place] [address] R29.6 [place] S42.102A F32.89 R06.02 Office Visit 11/24/2017 1:40p [facility] [place] [address] R29.6 [place] K21.9 Office Visit 11/04/2017 9:30a [facility] [address] Z96.612 C.M.A. M25.512 R29.6 Office Visit 09/27/2017 10:40a [facility] [place] [address] H81.10 [place] J06.9 Office Visit 09/20/2017 1:00p [facility] [place] [address] Z96.612 C.M.A. M25.512 W06.xxxA Office Visit 09/09/2017 10:40a [facility] [place] [address] M54.5 [place] K21.9 Office Visit 09/06/2017 1:45p [facility] [place] [address] Z96.612 C.M.A. M25.512 W06.xxxA Office Visit 08/15/2017 3:40p [facility] [place] [address] M54.5 - [place] Office Visit 08/10/2017 11:30a [facility] Of Eliot Dumont, [address]1968 I25.10 [facility] Laura I10 R94.31 Office Visit 08/03/2017 10:15a [facility] [place] [address] J44.9 Services Of [facility] G47.33 Office Visit 07/19/2017 1:00p [facility] [place] [address] Z96.612 C.M.A. Z47.1 Office Visit 07/11/2017 10:00a [facility] [place] [address] M50.10 [place] J44.9 H81.10 Office Visit 06/22/2017 2:45p [facility] Cortez Luevano, 50897 G25.81 Services Of [place] M54.16 Office Visit 06/07/2017 1:15p [facility] [place] [address] Z96.612 C.M.A. Z47.1 Office Visit 04/29/2017 11:30a Neurosurgery Services Gina Kelsey PA-C 57907 M48.06 Of [facility] Office Visit 03/16/2017 3:40p [facility] [place] [address] Z96.612 [place] Office Visit 03/07/2017 12:59p [facility] Francia 22091 R41.0 Hospitalists Nikkie lozano NP Z96.612 I10 I25.10 Office Visit 03/06/2017 12:49p [facility] Mercedes, 75883 R41.0 Assoc,pc PA Hospitalists Z96.612 I10 I25.10 Office Visit 03/05/2017 12:45p [facility] [place] Corral N.Akanksha. 197[address] R41.0 Hospitalists Z96.612 I10 I25.10 Office Visit 02/23/2017 1:00p [facility] [place] [address] R60.0 Anna R13.10 M51.16 Office Visit 02/14/2017 3:20p [facility] Internal Medicine Lesa Etienne [address]358 R60.0 - [place] Sanchez I25.10 Office Visit 02/03/2017 4:00p [facility] [place] [address] M51.16 - [place] Office Visit 02/01/2017 1:00p [facility] [place] [address] Z01.811 Services Of [facility] J44.9 G47.33 Office Visit 01/19/2017 10:20a [facility] [place] [address] Z01.818 Anna M19.012 I25.10 G47.33 J44.9 Office Visit 01/11/2017 10:15a [facility] [address] M19.012 C.M.A. Office Visit 01/07/2017 11:15a [facility] Of Eliot Dumont 81462 I25.10 Capo Snachez R53.83 Z95.9 Office Visit 12/24/2016 10:00a [facility] [place] [address] S46.012A C.M.A. M19.012 Office Visit 12/09/2016 10:40a [facility] [place] [address] R42 [place] R05 Office Visit 10/21/2016 2:00p [facility] [place] [address] F41.9 Anna F32.89 Office Visit 2016 2:00p [facility] [place] [address] R53.83 [place] F41.9 F32.89 Office Visit 09/01/2016 10:15a [facility] Eliot Dumont, 27178 R07.9 Capo Gates.Katelyn F41.9 I25.10 G45.9 Z95.818 Office Visit 08/26/2016 10:20a [facility] [place] [address] R07.9 [place] F41.9 Office Visit 08/12/2016 3:59p [facility], Sophia Freeman, TOBY 15456 R07.9 Hospitalists I25.10 R00.2 Office Visit 08/11/2016 3:58p [facility], [place] [address] R07.9 Hospitalists I25.10 R00.2 Office Visit 08/02/2016 1:15p [facility] [place] [address] J44.9 Services Of [facility] G47.33 Office Visit 07/08/2016 2:20p [facility] [place] [address] F32.8 [place] Office Visit 06/15/2016 1:45p [facility] Cortez Luevano, 87519 G25.81 Services Of [facility] Laura Office Visit 05/26/2016 1:00p [facility] [place] [address] Z00.00 [place] G47.33 G45.9 F32.8 Z13.220 Office Visit 03/30/2016 1:45p [facility] [place] [address] G47.33 Services Of [facility] R06.02 E66.09 Office Visit 03/22/2016 11:00a [facility] [place] [address] R60.0 - [place] Office Visit 03/19/2016 1:45p [facility] Eliot Dumont, 41603 R06.02 Capo Sanchez Z95.818 I25.10 Office Visit 03/08/2016 1:00p [facility] [place] [address] R06.02 [place] Office Visit 02/11/2016 1:00p [facility] [place] [address] J44.9 Services Of [facility] G47.33 Office Visit 02/05/2016 [facility] Francia González, 97159 R65.10 3:01p Assoc,pc [employer] Hospitalists R05 R06.02 R50.9 Office Visit 02/04/2016 3:00p [facility] Assoc,pc Shena Ackerman, 57778 R65.10 Hospitalists N.P. R05 R06.02 R50.9 Office Visit 02/03/2016 2:59p [facility] Sophia Freeman, [employer]UFA[employer]URING LEADER 41768 R65.10 Assoc,pc Hospitalists R05 R06.02 R50.9 Office Visit 12/10/2015 2:00p [facility] Cortez Luevano, 23274 G25.81 Services Of [place]o Sanchez M54.16 Office Visit 11/10/2015 1:00p Neurosurgery Services Dustin Duncan, 28332 M54.2 Of [place] M47.812 G25.81 Office Visit 09/19/2015 1:30p [facility] Eliot Dumont, 55343 I25.10 [facility] Kody.Katelyn R94.31 I25.9 Z95.9 Office Visit 08/08/2015 11:40a [facility] Dustin Duncan, 34341 M54.2 Of [place] M47.812 Office Visit 07/14/2015 10:40a [facility] Dustin Duncan, 26052 721.1 Of [place] Sanchez 782.0 728.87 Office Visit 05/09/2015 1:40p [facility]surgery Services Dustin Duncan, 83176 721.3 Of [place] Sanchez 729.2 Office Visit 05/01/2015 10:00a Rheumatology Services CASA Vazquez 10656 715.14 Of [facility] 715.09 723.1 722.4 Office Visit 03/04/2015 2:40p Neurosurgery Services Dustin Duncan, 85641 414.01 Of [place] Sanchez 723.1 729.5 Office Visit 02/28/2015 8:30a [facility] Eloit Dumont, 08000 414.01 [employer] M.D. 786.51 Office Visit 01/28/2015 1:45p [facility] Of Eliot ArnoldAguilar Dumont, 32682 414.01 [employer] [facility] M.D. 786.51 Office Visit 01/06/2015 1:00p Neurosurgery Services Dustin Duncan, 78347 723.1 Of [employer] M.D. Office Visit 12/13/2014 3:30p [facility] Of Eliot CatalinaAguilar Dumont, 75454 414.01 [employer] M.D. 786.51 435.9 Office Visit 10/15/2014 12:46p [facility] Of Eliot CatalinaAguilar Dumont, 59228 413.9 [employer] M.D. 786.50 Office Visit 10/11/2014 9:15a [facility] Of Eliotrobetro Dumont, 38195 786.50 [employer] M.D. 414.01 Office Visit 10/07/2014 1:00p Neurosurgery Services Dustin Duncan, 02728 786.51 Of [employer] M.Katelyn 723.1 Office Visit 09/06/2014 11:00a [facility] Romy Diego, 34616 435.9 Services Of [employer] M.D. Office Visit 09/05/2014 10:30a [facility] Of Eliot CatalinaAguilar Dumont, 42997 414.01 [employer] M.DAguilar 786.50 435.9 Office Visit 08/27/2014 3:00p Neurosurgery Services Dustin Duncan, 51110 435.8 Of [employer] M.DAguilar 333.94 Office Visit 07/22/2014 10:20a Rheumatology Services Drew Ordoñez M.D. 71847 715.09 Of [employer] 715.14 Office Visit 05/23/2014 1:30p [facility] Of Eliotroberto Dumont, 43480 786.50 [employer] M.D. 414.01 Office Visit 04/12/2014 3:30p [facility] Of Eliotroberto Dumont, 92318 786.50 [employer] M.D. 414.01 Office Visit 04/05/2014 4:15p [facility] Shai Munoz, 43890 786.51 Hospitalists M.Katelyn Office Visit 04/04/2014 4:15p [facility],jose Wang 60716 786.51 Hospitalists Laura 414.01 272.2 401.1 Office Visit 03/18/2014 1:00p Neurosurgery Services Dustin Duncan, 97362 724.2 Of [place] Sanchez 722.83 723.1 723.4 Office Visit 11/27/2013 2:20p Neurosurgery Services Dustin Duncan, 33571 724.2 Of Capo Sanchez 722.83 724.3 Office Visit 11/21/2013 8:00a [facility] Eliot Dumont, 91778 414.01 Capo Sanchez 786.51 Office Visit 09/18/2013 1:20p Neurosurgery Services Dustin Duncan, 88114 724.2 Of Capo Sanchez 723.1 722.83 724.3 Office Visit 05/17/2013 8:00a [facility] Of Brian Hernandez, 17631 719.41 [place] Office Visit 04/09/2013 2:40p Neurosurgery Services Dustin Duncan, 70752 724.2 Of Capo Sanchez Office Visit 03/13/2013 1:40p Neurosurgery Services Dustin Duncan, 16473 724.2 Of Capo Sanchez Office Visit 11/22/2012 2:30p [facility] Eliotroberto Dumont, 56205 414.9 Capo Sanchez Office Visit 11/02/2012 11:04a [facility], [place] [address] 787.91 Hospitalists 276.51 Office Visit 11/01/2012 11:03a [facility],[place] [address] 787.91 Hospitalists 276.51 Office Visit 10/26/2012 2:56p [facility],pc Yanira Balderrama, 55552 786.51 Hospitalists M.DAguilar 530.81 724.2 Office Visit 10/25/2012 2:55p [facility],pc Shai Munoz, 87808 786.51 Hospitalists MJerry 530.81 724.2 Office Visit 07/10/2012 3:00p [facility]surgery Services Dustin Duncan, 74557 349.2 Of [employer] M.D. 723.4 723.1 724.2 Office Visit 05/08/2012 9:00a [facility]surgery Services Dustin Duncan 30788 349.2 Of [employer] M.D. 723.4 723.1 724.2 Office Visit 05/02/2012 9:20a [facility]surgery Services Dustin Duncan 24299 349.2 Of [employer] M.D. Office Visit 04/11/2012 1:00p [facility]surgery Services Dustin Duncan, 51938 723.4 Of [employer] M.D. 723.1 724.2 Office Visit 01/24/2012 10:00a [facility] Dustin Duncan 65918 723.4 Of [employer] M.D. 723.1 724.2 Office Visit 12/13/2011 10:20a [facility]surgery Services Dustin Duncan 58339 723.4 Of [employer] M.D. 723.1 724.2 Office Visit 11/09/2011 3:00p [facility] Dustin Duncan, 27122 723.4 Of [employer] M.D. 723.1 Office Visit 10/05/2011 1:40p [facility]surgery Services Dustin Duncan 15545 724.2 Of [employer] M.D. Office Visit 08/03/2011 11:00a [facility]surgery Services Dustin Duncan 29591 724.2 Of [employer] M.D. Office Visit 07/06/2011 1:20p [facility] Dustin Duncan 12733 724.2 Of [employer] M.D. Office Visit 04/19/2011 1:00p [facility] Dustin Duncan 58207 724.2 Of [employer] M.D. Office Visit 10/19/2010 1:20p [facility] Dustin Duncan 95376 724.2 Of [employer] M.D. Office Visit 08/04/2010 2:40p [facility] Dustin Duncan 41334 724.2 Of [employer] M.D. 729.5 Office Visit 04/17/2010 1:40p [facility]surgery Services Dustin Duncan 67573 724.2 Of [employer] M.D. 729.5 Office Visit 02/02/2010 3:45a [facility], Kristian Avila, 01077 724.5 Hospitalists Laura V72.83 414.0 401.9 530.81 Office Visit 01/19/2010 2:30a [facility], Taqueria Ames M.D. 35835 786.59 Hospitalists 413.9 401.9 790.99 Office Visit 01/18/2010 12:15a [facility] Abi Pepper, 63613 786.50 Assoc, Hospitalists M.Katelyn Office Visit 2009 3:00p Neurosurgery Services Dustin Duncan, 33991 721.3 Of [facility] M.D. Office Visit 01/28/2009 3:20p Neurosurgery Services Dustin Duncan, 31105 721.3 Of [facility] Kody.Katelyn 722.83 Office Visit 07/23/2008 11:20a [facility] Dustin Duncan, 40524 722.83 Of [facility] M.D. Office Visit 01/08/2008 3:45p [facility]surgery Services Dustin Duncan, 83116 722.83 Of [facility] M.D. Office Visit 11/17/2007 10:30a [facility]surgery Services Dustin Duncan, 68168 722.83 Of [facility] M.D. Office Visit 07/10/2007 1:00p Neurosurgery Services Dustin Duncan, 41138 722.83 Of [facility] M.D. Office Visit 01/09/2007 1:00p Neurosurgery Services Dustin Duncan, 04887 721.3 Of [facility] M.DAguilar 722.83 Plan of Care Future Appointment(s):03/10/2018 9:15 am - Cortez Luevano M.D. at Neurohospitalist Sxydkq9608/03/2018 1:45 pm - Gabriela Hawk MD at Pulmonology And Sleep Services Of [facility]07/20/2018 1:00 pm - Michelle Weiss MD at [facility] Of [facility]04/11/2018 11:40 am - Rodger Batitsa NP at [facility] Internal Medicine [facility]03/08/2018 - Rodger Batista NPF32.89 Other specified depressive episodesNew Medication:Sertraline HCL 50 mgComments:I have increased the sertraline as we discussed. Please let me know if you have any issues with the increase.F41.9 Anxiety disorder, unspecifiedNew Medication:Sertraline HCL 50 mgR60.0 Localized edemaComments:It is important that you wear the compression socks daily.When swelling increases you can take the 20mg lasix at night.K21.9 Gastro-esophageal reflux disease without esophagitisNew Medication:Pantoprazole Sodium 20 mgComments:I have renewed the pantoprazole.
--- NOTE | 2018-03-15 09:00 | RAD ---
HISTORY: Chest pain COMPARISONS: January 05, 2018 VIEWS: 1: frontal portable view of the chest at 8:45 AM FINDINGS: LINES AND TUBES: None. CARDIOMEDIASTINAL SILHOUETTE: The cardiomediastinal silhouette is normal for portable technique. PLEURA: The costophrenic angles are sharp. No pleural abnormalities are noted. LUNG PARENCHYMA: The lungs are clear. ABDOMEN: The upper abdomen is clear. There is no subphrenic gas. BONES AND SOFT TISSUES: The patient is status post left shoulder arthroplasty. IMPRESSION: NO ACTIVE CARDIOPULMONARY DISEASE.
[2018-03-15] MEDS ORDERED: ALPRAZolam TAB* 0.25 MG PO PRN (09:15)
[2018-03-15] MEDS ORDERED: Meclizine TAB* 12.5 MG PO PRN (09:15)
[2018-03-15] MEDS ORDERED: HYDROcodone/ACETAMIN 5-325 MG* 1 TAB PO PRN (09:15)
[2018-03-15] MEDS ORDERED: Ondansetron ODT TAB* 4 MG PO PRN (09:15)
[2018-03-15] MEDS ORDERED: Nitroglycerin 2% OINT* 1 GM PAK TOPICAL ONE (09:21)
[2018-03-15] MEDS: Sertraline* 50 MG TAB PO SCH (10:35)
[2018-03-15] MEDS: Tamsulosin CAP* 0.4 MG PO SCH (10:35)
[2018-03-15] MEDS: Metoprolol Succinate XL TAB* 50 MG PO SCH (10:35)
[2018-03-15] MEDS: Clopidogrel TAB* 75 MG PO SCH (10:35)
[2018-03-15] MEDS: Atorvastatin* 80 MG TAB PO SCH ×2 (10:35→17:05)
--- NOTE | 2018-03-15 12:59 | ED ---
Naseem Jain Tenzin, scribed for Willem Patel MD on 03/15/18 at 0848 . HPI Chest Pain - HPI Summary HPI Summary: Pt is a 77 years old male brought in by ambulance complaining of chest pain that started 2 hrs prior to arrival. He describes his pain as sharp, stabbing and "hot". He took NTG for the pain this morning and was given 324mg of ASA by the EMS. He reports that his pain is dull now after taking the medications. He also complains of nausea, chills, difficulty breathing, and dizziness. He has COPD, CAD, and past surgical history of 3 stents. He reported that he had fallen a few times due to problems with dizziness. 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 Timing: Constant Initial Severity: Moderate Current Severity: Mild Pain Intensity: 2 Pain Scale Used: 0-10 Numeric Character: Burning, Sharp/Stabbing Aggravating Factor(s): Nothing Alleviating Factor(s): NTG 123, Other: - Aspirin Associated Signs and Symptoms: Positive: Dizziness, Chills, Nausea - Additional Pertinent History Primary Care Physician: [id number] - Allergy/Home Medications Allergies/Adverse Reactions: Allergies Allergy/AdvReac Type Severity Reaction Status Date / Time morphine Allergy See Comment Verified 03/15/18 08:05 ethanol Allergy Severe Vomiting Uncoded 02/09/18 10:16 fetanyl Allergy Vomiting Uncoded 02/09/18 10:16 Home Medications: Home Medications Meclizine TAB* [Antivert 12.5 TAB*] 25 mg PO TID PRN 03/15/18 [History Confirmed 03/15/18] Multivitamins/Minerals TAB* [Theragran/minerals TAB*] 1 tab PO DAILY 03/15/18 [ History Confirmed 03/15/18] [place]-3 Fatty Acids (Nf) [Fish Oil (NF)] 2,000 mg PO QAM 03/15/18 [History Confirmed 03/15/18] Ondansetron ODT TAB* [Zofran 4 MG Odt TAB*] 4 mg PO Q8H PRN 03/15/18 [History Confirmed 03/15/18] Sertraline* [Zoloft*] 50 mg PO DAILY 03/15/18 [History Confirmed 03/15/18] Ubidecarenone [Coq10] 100 mg PO BID 03/15/18 [History Confirmed 03/15/18] PMH/Surg Hx/FS Hx/Imm Hx Endocrine/Hematology History: Reports: Hx Anticoagulant Therapy - plavix/asa, Hx Anemia Denies: Hx Blood Disorders, Hx Blood Transfusions, Hx Bone Marrow Disease, Hx Diabetes - diet controlled, better now wtih eight loss., Hx Systemic Lupus Erythematosus, Hx Sickle Cell Disease, Hx Thyroid Disease, Hx Unexplained Bleeding, Other Endocrine/Hematological Disorders Cardiovascular History: Reports: Hx Angina, Hx Angioplasty, Hx Congestive Heart Failure, Hx Coronary Artery Disease - Stents 2008(RCA),2013(LAD), Hx Hypercholesterolemia, Hx Hypertension, Other Cardiovascular Problems/Disorders - CHF Denies: Hx Aneurysm, Hx Auto Implanted Cardiovert Defib, Hx Cardiac Arrest, Hx Cardiomegaly, Hx Congenital Heart Disease, Hx Deep Vein Thrombosis, Hx Hypotension, Hx Myocardial Infarction, Hx Pacemaker/ICD, Hx Peripheral Vascular Disease, Hx Rheumatic Fever, Hx Syncope, Hx Valvular Heart Disease Respiratory History: Reports: Hx Chronic Bronchitis, Hx Chronic Obstructive Pulmonary Disease (COPD) - COPD, Hx Pneumonia - mostly in childhood, Hx Seasonal Allergies, Hx Sleep Apnea - cannot tolerate CPAP, Other Respiratory Problems/Disorders Denies: Hx Asthma, Hx Cystic Fibrosis, Hx Lung Cancer, Hx Pleural Effusion, Hx Pulmonary Edema, Hx Pulmonary Embolism GI History: Reports: Hx Gall Bladder Disease - Gall bladder removed in 2009, Hx Gastroesophageal Reflux Disease, Hx Hiatal Hernia - Has umbilical hernia, Other GI Disorders - POST-CHOLECYSTECTOMY SYNDROME Denies: Hx Cirrhosis, Hx Crohn's Disease, Hx Diverticulosis, Hx Gastrointestinal Bleed, Hx Irritable Bowel, Hx Jaundice, Hx Obstructive Bowel, Hx Ileostomy, Hx Pyloric Stenosis, Hx Ulcer History: Reports: Hx Benign Prostatic Hyperplasia Denies: Hx Dialysis, Hx Renal Disease Musculoskeletal History: Reports: Hx Arthritis, Hx Back Problems - CHRONIC BACK PAIN, Hx Osteoporosis, Other Musculoskeletal History - DDD Denies: Hx Bursitis, Hx Congenital Bone Abnormalities, Hx Fibromyalgia, Hx Gout, Hx Orthopedic Injury, Hx Scoliosis, Hx Tendonitis Sensory History: Reports: Hx Contacts or Glasses, Hx Hearing Aid, Hx Hearing Problem Denies: Hx Cataracts, Hx Eye Injury, Hx Eye Prosthesis, Hx Glaucoma, Hx Macular Degeneration, Hx Vision Problem, Hx Deafness, Other Sensory Impairments Opthamlomology History: Reports: Hx Contacts or Glasses Denies: Hx Cataracts, Hx Eye Injury, Hx Eye Prosthesis, Hx Glaucoma, Hx Macular Degeneration, Hx Vision Problem, Other Sensory Impairments Neurological History: Reports: Other Neuro Impairments/Disorders - LUMBAR SURGERY Denies: Hx Dementia, Hx Seizures Psychiatric History: Reports: Hx Anxiety, Hx Depression Denies: Hx Attention Deficit Hyperactivity Disorder, Hx Eating Disorder, Hx Panic Disorder, Hx Post Traumatic Stress Disorder, Hx Inpatient Treatment, Hx Community Mental Health Tx, Hx Schizophrenia, Hx Bipolar Disorder, Hx Suicide Attempt, Hx Substance Abuse - paige/LS spinal fusion/hyatal hernia repair/, Other Psychiatric Issues/Disorders - Surgical History Surgery Procedure, Year, and Place: [email or web address] RECORDER LNQ11 1.5 ONLY. LEFT SHOULDER REPLACEMENT 02/2017. TONSILS. GALLBLADDER. LSP SURGERY-LATER REPAIRED. HIATAL HERNIA. RENE FUNDOPLICATION. HEART STENTS X3 Hx Anesthesia Reactions: No - Immunization History Date of Tetanus Vaccine: up to date Date of Influenza Vaccine: 2015 Infectious Disease History: No Infectious Disease History: Denies: Hx Clostridium Difficile, Hx Hepatitis, Hx Human Immunodeficiency Virus (HIV), Hx of Known/Suspected MRSA, Hx Shingles, Hx Tuberculosis, Hx Known/ Suspected VRE, Hx Known/Suspected VRSA, History Other Infectious Disease, Traveled Outside the [place] in Last 30 Days - Family History Known Family History: Positive: Cardiac Disease - Mom, grandparent both of CHF, Hypertension, Other - Mother: vertigo - Social History Alcohol Use: None Hx Substance Use: No Substance Use Type: Reports: None Hx Tobacco Use: Yes Smoking Status (MU): Former Smoker Type: Cigarettes Amount Used/How Often: 1 ppd Length of Time of Smoking/Using Tobacco: 31 years Have You Smoked in the Last Year: No Review of Systems Positive: Chills Positive: Chest Pain Positive: Other - difficulty breathing. Positive: Nausea Neurological: Other - Dizziness All Other Systems Reviewed And Are Negative: Yes Physical Exam - Summary Physical Exam Summary: Appearance: The patient is well-nourished in no acute distress and in no acute pain. Skin: The skin is warm and dry and skin color reflects adequate perfusion. HEENT: The head is normocephalic and atraumatic. The pupils are equal and reactive. The conjunctivae are clear and without drainage. Nares are patent and without drainage. Mouth reveals moist mucous membranes and the throat is without erythema and exudate. The external ears are intact. The ear canals are patent and without drainage. The tympanic membranes are intact. Neck: the neck is supple with full range of motion and non-tender. There are no carotid bruits. There is no neck vein distension. Respiratory: Chest is non-tender. Lungs are clear to auscultation and breath sounds are symmetrical and equal. Cardiovascular: His heart is bradycardia are regular rhythm. There is no murmur or rub auscultated. There is no peripheral edema and pulses are symmetrical and equal. Abdomen: The abdomen is soft and non-tender. There are normal bowel sounds heard in all four quadrants and there is no organomegaly palpated. Musculoskeletal: There is no back tenderness noted. Extremities are non-tender with full range of motion. There is good capillary refill. There is no peripheral edema or calf tenderness elicited. Neurological: Patient is alert and oriented to person, place and time. The patient has symmetrical motor strength in all four extremities. Cranial nerves are grossly intact. Deep tendon reflexes are symmetrical and equal in all four extremities. Psychiatric: The patient has an appropriate affect and does not exhibit any anxiety or depression. Triage Information Reviewed: Yes Vital Signs On Initial Exam: Initial Vitals Temp Pulse Resp BP Pulse Ox 98.0 F 57 18 134/72 99 03/15/18 07:58 03/15/18 07:58 03/15/18 07:58 03/15/18 07:58 03/15/18 07:58 Vital Signs Reviewed: Yes Diagnostics - Vital Signs Vital Signs Temp Pulse Resp BP Pulse Ox 03/15/18 08:07 51 10 123/72 98 03/15/18 08:03 54 17 99 03/15/18 07:58 98.0 F 57 18 134/72 99 - Laboratory Lab Results: Lab Results 03/15/18 03/15/18 03/15/18 Range/Units 08:41 08:41 08:41 WBC 3.9 (3.5-10.8) 10^3/ul RBC 4.49 (4.0-5.4) 10^6/ul Hgb 13.0 L (14.0-18.0) g/dl Hct 39 L (42-52) % MCV 86 (80-94) fL MCH 29 (27-31) pg MCHC 34 (31-36) g/dl RDW 14 (10.5-15) % Plt Count 134 L (150-450) 10^3/ul MPV 6.9 L (7.4-10.4) um3 Neut % (Auto) 59.0 (38-83) % Lymph % (Auto) 26.4 (25-47) % [place] % (Auto) 10.1 H (0-7) % Eos % (Auto) 3.9 (0-6) % Baso % (Auto) 0.6 (0-2) % Absolute Neuts (auto) 2.3 (1.5-7.7) 10^3/ul Absolute Lymphs (auto) 1.0 (1.0-4.8) 10^3/ul Absolute Monos (auto) 0.4 (0-0.8) 10^3/ul Absolute Eos (auto) 0.2 (0-0.6) 10^3/ul Absolute Basos (auto) 0 (0-0.2) 10^3/ul Absolute Nucleated RBC 0 10^3/ul Nucleated RBC % 0 INR (Anticoag Therapy) 0.96 (0.77-1.02) Sodium 141 (139-145) mmol/L Potassium 3.9 (3.5-5.0) mmol/L Chloride 109 (101-111) mmol/L Carbon Dioxide 27 (22-32) mmol/L Anion Gap 5 (2-11) mmol/L BUN 17 (6-24) mg/dL Creatinine 0.94 (0.67-1.17) mg/dL Est GFR ( Amer) 100.3 (>60) Est GFR (Non-Af Amer) 78.0 (>60) BUN/Creatinine Ratio 18.1 (8-20) Glucose 115 H (70-100) mg/dL Lactic Acid (0.5-2.0) mmol/L Calcium 8.7 (8.6-10.3) mg/dL Total Bilirubin 0.70 (0.2-1.0) mg/dL AST 19 (13-39) U/L ALT 17 (7-52) U/L Alkaline Phosphatase 60 (34-104) U/L Troponin I 0.00 (<0.04) ng/mL B-Natriuretic Peptide ( - 100) pg/mL Total Protein 5.8 L (6.4-8.9) g/dL Albumin 3.9 (3.2-5.2) g/dL Globulin 1.9 L (2-4) g/dL Albumin/Globulin Ratio 2.1 (1-3) 03/15/18 03/15/18 Range/Units 08:41 08:41 WBC (3.5-10.8) 10^3/ul RBC (4.0-5.4) 10^6/ul Hgb (14.0-18.0) g/dl Hct (42-52) % MCV (80-94) fL MCH (27-31) pg MCHC (31-36) g/dl RDW (10.5-15) % Plt Count (150-450) 10^3/ul MPV (7.4-10.4) um3 Neut % (Auto) (38-83) % Lymph % (Auto) (25-47) % [place] % (Auto) (0-7) % Eos % (Auto) (0-6) % Baso % (Auto) (0-2) % Absolute Neuts (auto) (1.5-7.7) 10^3/ul Absolute Lymphs (auto) (1.0-4.8) 10^3/ul Absolute Monos (auto) (0-0.8) 10^3/ul Absolute Eos (auto) (0-0.6) 10^3/ul Absolute Basos (auto) (0-0.2) 10^3/ul Absolute Nucleated RBC 10^3/ul Nucleated RBC % INR (Anticoag Therapy) (0.77-1.02) Sodium (139-145) mmol/L Potassium (3.5-5.0) mmol/L Chloride (101-111) mmol/L Carbon Dioxide (22-32) mmol/L Anion Gap (2-11) mmol/L BUN (6-24) mg/dL Creatinine (0.67-1.17) mg/dL Est GFR ( Amer) (>60) Est GFR (Non-Af Amer) (>60) BUN/Creatinine Ratio (8-20) Glucose (70-100) mg/dL Lactic Acid 1.7 (0.5-2.0) mmol/L Calcium (8.6-10.3) mg/dL Total Bilirubin (0.2-1.0) mg/dL AST (13-39) U/L ALT (7-52) U/L Alkaline Phosphatase (34-104) U/L Troponin I (<0.04) ng/mL B-Natriuretic Peptide 23 ( - 100) pg/mL Total Protein (6.4-8.9) g/dL Albumin (3.2-5.2) g/dL Globulin (2-4) g/dL Albumin/Globulin Ratio (1-3) Result Diagrams: 03/15/18 08:41 03/15/18 08:41 Lab Statement: Any lab studies that have been ordered have been reviewed, and results considered in the medical decision making process. - Radiology CXR Xray Interpretation: No Acute Changes - Impression: No Acute Cardiopulmonary disease. Dr. Patel reviewed the report. Radiology Interpretation Completed By: Radiologist - EKG 08:33 Cardiac Rate: Bradycardia - at 49 bpm. EKG Rhythm: Sinus Bradycardia EKG Interpretation: Left axis deviation. Chest Pain Course/Dx - Course Course Of Treatment: Mr. Cr presented woth chest pain and known CAD. He was stabilized in the ED and is being admitted to the CDU for a R/O. - Diagnoses Provider Diagnoses: Chest pain - Provider Notifications Discussed Care Of Patient With: Mario Fernández Time Discussed With Above Provider: 09:07 Instructed by Provider To: Admit As Observation Discharge - Sign-Out/Discharge Documenting (check all that apply): Discharge/Admit/Transfer - Discharge Plan Condition: Stable Disposition: ADMITTED TO [facility] - Billing Disposition and Condition Condition: STABLE [place]position[place] [facility] [place] The documentation as recorded by the Naseem ruth Tenzin accurately reflects the service I personally performed and the decisions made by , Willem Patel MD.
--- NOTE | 2018-03-15 13:30 | ECHO ---
Patient: QUIANA HICKEY [facility] Rec#: [id number] : 1940 Date: 03/15/2018 Age: 77y Height: 180 cm / 70.9 in Weight: 97.5 kg / 214.9 lbs Sex: M BSA: 2.2 Room#: 434 Admit Date#: 03/15/2018 Type: Inpatient Referring: Mario Fernández Reading: Radha Lee MD Hvac Mechanic: María Judd RN RDCS CC: Lesa Etienne MD CC: Eliot Dumont MD Transthoracic Echocardiogram Indication: Chest pain BP: 132/79 HR: 52 Rhythm: Bradycardia Findings History: CAD, PCI, HTN, HLD, CHF, COPD, former smoker. Technical Comments: The study quality is fair. The study is technically limited due to patient body habitus. The study is technically limited due to the patient's history of COPD. The study is technically limited due to the patient's smoking history. Completed at 1210. Left Ventricle: The left ventricular chamber size is normal. Septal wall hypertrophy is observed. Global left ventricular wall motion and contractility are within normal limits. There is normal left ventricular systolic function. The estimated ejection fraction is 60-65%. The assessment of diastolic function is non-diagnostic. Left Atrium: The left atrial chamber size is normal. Right Ventricle: The right ventricular chamber size and systolic function are within normal limits. The right ventricular global systolic function is normal. Right Atrium: The right atrial cavity size is normal. Aortic Valve: The aortic valve is trileaflet. The aortic valve leaflets are mildly thickened.NCC in particular. There is aortic annular calcification. There is no evidence of aortic regurgitation. There is no evidence of aortic stenosis. Mitral Valve: There is mitral annular calcification. The mitral valve leaflets are moderately thickened. Mitral valve leaflet mobility is mildly restricted. There is a trace of mitral regurgitation. There is mild mitral stenosis. The mitral valve area, by pressure half time, is calculated at 2 cm2. Tricuspid Valve: The tricuspid valve structure is not well visualized. There is trace tricuspid regurgitation. Unable to estimate the right ventricular systolic pressure. There is no tricuspid stenosis. Pulmonic Valve: The pulmonic valve structure is not well visualized. There is a trace pulmonic regurgitation. There is no pulmonic stenosis. Pericardium: There is no significant pericardial effusion. A pericardial fat pad is visualized. Aorta: There is no dilatation of the ascending aorta. There is no dilatation of the aortic arch. There is no dilation of the aortic root. Pulmonary Artery: The main pulmonary artery appears normal. Venous: The inferior vena cava appears normal in size. There is a greater than 50% respiratory change in the inferior vena cava dimension. Conclusions The study is technically limited due to patient body habitus. The left ventricular chamber size is normal. Global left ventricular wall motion and contractility are within normal limits. The estimated ejection fraction is 60-65%. The right ventricular global systolic function is normal. The aortic valve leaflets are mildly thickened.NCC in particular and mild decrease excursion of the NCD. The mitral valve leaflets are moderately thickened. There is a trace of mitral regurgitation. Borderline to mild mitral stensosis: the mean gradient across the mitral valve is 2.4 mmHg, the MVA (P1/2) is 2 cm2, 1.7 cm2 by continuity equation. Compared with prior echo of 11/05/10, EF is stable, AV sclerosis seen then, MS has progressed, the deceleration time has increased from 289 ms. There is trace tricuspid regurgitation. Measurements Name Value Normal Range RVIDd (AP) 2D 2.7 cm (0.9 - 2.6) RVDdMajor (2D) 4 cm (2.2 - 4.4) RAd ISD 4CH 4.9 cm (3.4 - 4.9) RA (A4C)W 3.9 cm (2.9 - 4.6) IVSd (2D) 1.2 cm (0.6 - 1) LVPWd (2D) 1 cm (0.6 - 1) IVS:LVPW ratio (2D) 1.2 ratio - LVIDd (2D) 4 cm (3.6 - 5.4) LVIDs (2D) 2.7 cm - LV FS (2D) 32 % (25 - 45) EF Teichholz (2D) 61 % - Aortic Annulus 2 cm (1.4 - 2.6) Ao root diameter (2D) 3.4 cm (2.1 - 3.5) Ascending Ao 3.2 cm (2.1 - 3.4) Aortic arch 2.4 cm (1.8 - 3.4) LA dimension (AP) 2D 3.3 cm (2.3 - 3.8) LAd ISD 4CH 5.3 cm (2.9 - 5.3) LA ISD 4CH W 4.3 cm (2.5 - 4.5) Name Value Normal Range LA ESV SP 4CH (A/L) 46 ml - LA ESV SP 2CH (A/L) 94 ml - LA ESV BP (A/L) 68 ml - LA ESV BP (A/L) index 31.4 ml/m2 - LA ESV SP 4CH (MOD) 40 ml - LA ESV SP 2CH (MOD) 86 ml - LV mass (2D) 145.64 g - Name Value Normal Range MV E-wave Vmax 1.1 m/sec - MV deceleration time 337 msec - MV A-wave Vmax 1.4 m/sec - MV E:A ratio 0.79 ratio - LV septal e' Vmax 0.06 m/sec - LV lateral e' Vmax 0.06 m/sec - LV average e' Vmax 0.06 m/sec - LV E:e' septal ratio 18.3 ratio - LV E:e' lateral ratio 18.3 ratio - Name Value Normal Range AV Vmax 1.4 m/sec - AV VTI 31.4 cm - AV peak gradient 7.84 mmHg - AV mean gradient 3.4 mmHg - LVOT diameter 2 cm - LVOT Vmax 1 m/sec - LVOT VTI 26.1 cm - LVOT peak gradient 4.2 mmHg - LVOT mean gradient 2.2 mmHg - DOI (VTI) 0.83 ratio - DOI (Vmax) 0.71 ratio - SV LVOT 82 ml - HONORIO (continuity Vmax) 2.2 cm2 - HONORIO (continuity VTI) 2.6 cm2 - ZIA Vmax 0.69 m/sec - Name Value Normal Range MV Vmax 1.4 m/sec - MV VTI 49.5 cm - MV peak gradient 8.3 mmHg - MV mean gradient 2.4 mmHg - MV PHT 112 msec - MVA (PHT) 2 cm2 - MVA (continuity VTI) 1.7 cm2 - Name Value Normal Range IVC diameter 2.1 cm - Name Value Normal Range PV Vmax 0.66 m/sec -
[2018-03-15] MEDS: Gabapentin CAP(*) 400 MG PO SCH ×2 (14:23→19:43)
[2018-03-15] MEDS ORDERED: PANTOPRAZOLE 20 MG PO SCH (15:00)
[2018-03-15] MEDS ORDERED: Pramipexole TAB* 0.5 MG PO SCH ×2 (16:00→21:00)
[2018-03-15] MEDS: Tiotropium CAP.INH* CAP.INH/18 MCG (USE ORDER SET !) INH SCH (16:00)
--- NOTE | 2018-03-15 16:46 | HP ---
HISTORY AND PHYSICAL: DATE OF ADMISSION: 03/15/18 ADMITTING PROVIDER: Mario Fernández MD. PRIMARY CARE PHYSICIAN: Lesa Etienne M.D. (Rodger Batista NP). CHIEF COMPLAINT: Chest pain, shortness of breath, nausea. 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 The morning of admission between 6.30 and 7 a.m he lifted up his 21- pound dog to give him an insulin shot. He felt cold/hot "poking" pain between his shoulder blades and chest pressure 5/10, he got short of breath and had some nausea, referred to [facility] Emergency Room for further evaluation. He has had a dry cough, no fevers. His left leg from his knee to his ankles have been more swollen for the last year. He reports having multiple ultrasounds without evidence of clot. He denies any immobility, long travel on planes or car rides, or recent surgeries. He received 4 aspirin with EMS, he took 2 nitroglycerin. He had not yet applied his 0.6 mg nitro patch this morning. He recently had his Linq device turned off last month after communication issues. He last saw Dr. Dumont, his outpatient cowlman, approximately 5 months ago. His weight has been higher than goal, which he attests is 199 pounds, it was 209 a month ago, and then 215 last week, despite increased diuretics. He uses a cane, frequently falls, last was 3 weeks ago. He had a negative Duplex of the left lower leg without evidence of DVT on . His last stress test was July 2016, which showed his EF of 71% was an intermediate study with stress-induced ischemic changes in the anterior myocardium in the distribution of the LAD. He was referred to hospitalist service for ACS rule out. His initial troponin is 0.00 with no ischemic EKG changes, which showed continued left anterior fascicular block and poor R-wave progression and Q waves in aVF. PAST MEDICAL HISTORY: Hypertension, CAD with a stent to the RCA in 2008 and LAD in 2013 at [facility], angina on chronic nitroglycerin patch, hypertension, TIA, anemia, hyperlipidemia, GERD, BPH, restless legs syndrome and the fact there was esophageal motility with tortuous esophagus resulting in dysphagia, status post EGD with Dr. Angeles in July 2017. He is status post Nano fundoplication, former smoker 20-pack years with COPD, anxiety. HOME MEDICATIONS: Include: 1. Coenzyme Q 100 mg p.o. b.i.d. 2. Spiriva 1 puff inhaled daily. 3. Flomax 0.4 mg p.o. q.a.m. 4. Simvastatin 10 mg p.o. q. p.m. 5. Sertraline 50 mg p.o. daily. 6. Pramipexole 0.75 mg p.o. at bedtime, 0.5 mg p.o. 1600. 7. Potassium chloride 40 mEq p.o. b.i.d. 8. Zofran ODT tab 4 mg p.o. q. 6 hours p.r.n. 9. [place]-3 fatty acids 2000 mg p.o. q. a.m. 10. Nitroglycerin 0.4 mg sublingual q. 5 minutes p.r.n. 11. Nitroglycerin 0.6 mg/hour patch daily. 12. Multivitamin 1 tab p.o. daily. 13. Metoprolol succinate XL 50 mg p.o. daily. 14. Meclizine 25 mg p.o. t.i.d. p.r.n. 15. Claritin 20 mg p.o. q. a.m. 16. Dumont 5/325 one tab p.o. q. 6 hours p.r.n. 17. Gabapentin 800 mg p.o. t.i.d. 18. Lasix 20 mg p.o. q. h.s. and 40 mg p.o. q.a.m. 19. Flonase 2 sprays both nares daily. 20. Plavix 75 mg p.o. q.a.m. 21. Cholestyramine 4 mg p.o. b.i.d. 22. Aspirin 81 mg daily. 23. Xanax 0.25 mg p.o. b.i.d. p.r.n. ALLERGIES: MORPHINE AND FENTANYL. MORPHINE causes altered mental status, agitation; FENTANYL causes nausea and vomiting. FAMILY HISTORY: Mother age 90 of CHF, father had a cerebral aneurysm at age 88. SOCIAL HISTORY: Patient is a former smoker of 20-pack years, quit in 1996, former moderate drinker. He does not drink currently. Becca Cr, his is his medical surrogate. He desires to be full code. 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 REVIEW OF SYSTEMS: A complete 14-point review of systems negative except as per HPI. PHYSICAL EXAMINATION GENERAL APPEARANCE: He appears in no acute distress. VITAL SIGNS: Temperature 97.9, heart rate 58, blood pressure 133/75, respiratory rate 16, satting 98% on room air. HEENT: Normocephalic, atraumatic. Pupils are equal, round and reactive to light. Extraocular motions intact. No scleral icterus. No oropharynx lesions. NECK: Supple. No cervical lymphadenopathy. PULMONARY: Clear to auscultation bilaterally with no wheezing, rales, or rhonchi. CARDIOVASCULAR: Regular rate and rhythm. No murmurs, rubs or gallops. ABDOMEN: Soft, nontender, nondistended. No rebound, no guarding. EXTREMITIES: Warm and well perfused. 2+ edema in the left lower extremity, 1+ edema in the right lower extremity. NEUROLOGIC: Hip flexion 5/5, press breaker strength is 5/5. Cranial nerves II through XII intact. SKIN: No lesions, no rashes. DIAGNOSTIC STUDIES/LAB DATA: White count 3.9, hemoglobin 13.0, hematocrit 39, platelets 134, INR is 0.96. Sodium 141, potassium 3.9, chloride 109, carbon dioxide 27, BUN 17, creatinine 0.94, glucose 115, lactic acid 1.7. Total bili 0.7, AST 19, ALT 17, alk phos 60. Troponin 0.00. BNP 23, albumin 3.9. IMAGING: Chest x-ray demonstrated, no acute cardiopulmonary disease. EKG demonstrated sinus bradycardia, heart rate 49, left anterior fascicular block, poor R-wave progression, Q waves in aVF unchanged. No ST elevations or depressions, or T-wave inversions. NM 211. QTc 403. Normal axis. ASSESSMENT AND PLAN: Augustine Cr is a 77-year-old male complaining with chest pain, shortness of breath, nausea, testing for rule out of acute coronary syndrome. 1. Rule out Acute coronary syndrome: Trend troponins every 3 hours until peak. I am going to get an echocardiogram to detect any wall motion abnormalities, also assess his valves and ejection fraction given his complaint of increase in weights despite increased diuretics, although his BNP is within normal limits at 23. Patient has had a recent negative Duplex ultrasound last month. Attests to other immobility or other risk factors for DVT. We will assess for any evidence of right heart strain with echocardiogram as well. He notably has chronic angina with need for 0.6 mg nitro patch daily, which he did not have on the morning of admission. I am going to put him on 1 inch nitro paste given continued chest pressure 2/10 to 3/10 and feeling of shortness of breath. He is status post aspirin 325 mg, give him aspirin 81 mg daily, and give him his Plavix 75 mg now, which he has not taken yet. Continue his metoprolol succinate 50 mg p.o. daily. 2. Chest pain. Continue his troponins; if elevated consideration for heparin drip or Plavix load. Being admitted to observation status, he may require a repeat nuclear stress test in the morning. We are giving atorvastatin 80 mg in case of ACS and history of hyperlipidemia while holding his home simvastatin. 3. COPD, continue his Spiriva, supplemental oxygen as needed and not requiring now. He is not currently bronchospastic. 4. For his history of CHF, we will continue his Lasix starting tonight, get the echocardiograms, BNP is not elevated. 5. For his hypertension, continue his beta-marcelino, metoprolol succinate. 6. For his history of ineffective esophageal motility, he has been advised to chew slowly and swallow his food well in the past. This possibly could be also an etiology of his chest pain, though he has not eaten anything this morning that would precipitate. 7. For his anxiety, continue Xanax 0.25 mg p.o. b.i.d. p.r.n., continue sertraline 50 mg p.o. daily. 8. History of cholecystectomy, continue his cholestyramine 4 mg p.o. b.i.d. 9. For his history of syncope, continue his meclizine 25 mg p.o. t.i.d. 10. He is a full code. Medical surrogate is his , Becca Cr. 11. DVT ppx: heparin [id number]/[facility] #: [id number] [facility]
[2018-03-15] MEDS ORDERED: Furosemide TAB* 20 MG PO SCH (21:00)
[2018-03-15] MEDS: Cholestyramine Resin* 4 GM POWDER PO SCH (21:12)
[2018-03-16] MEDS: Tiotropium CAP.INH* CAP.INH/18 MCG (USE ORDER SET !) INH SCH (07:35)
[2018-03-16 08:17] VITALS: BP 143/74
[2018-03-16] MEDS ORDERED: PTO:Pantoprazole TAB (NF) 20 MG TAB PO SCH (09:00)
[2018-03-16] MEDS ORDERED: Cetirizine* 10 MG TAB PO SCH (09:00)
[2018-03-16] MEDS ORDERED: Furosemide TAB* 40 MG PO SCH (09:00)
[2018-03-16] MEDS ORDERED: Fluticasone NASAL SPRAY 50MCG* 16 gm SPRAY BTL BOTH NARES SCH (09:00)
[2018-03-16] MEDS ORDERED: Aspirin EC TAB* 81 MG TAB.EC PO SCH (09:00)
[2018-03-16] MEDS ORDERED: Multivitamins/Minerals TAB PO SCH (09:00)
[2018-03-16] MEDS ORDERED: Spiriva Inhaler DEVICE* 1 EACH DEVICE INH ONE (09:00)
[2018-03-16] MEDS ORDERED: Nitroglycerin 0.6 MG/HR PATCH* (15 MG) TRANSDERM SCH (09:00)
[2018-03-16] MEDS ORDERED: Regadenoson* 0.4 MG/5 ML SYRINGE ONE (11:48)
[2018-03-16] MEDS: Cholestyramine Resin* 4 GM POWDER PO SCH (12:34)
[2018-03-16] MEDS: Gabapentin CAP(*) 400 MG PO SCH (12:35)
[2018-03-16] MEDS: Metoprolol Succinate XL TAB* 50 MG PO SCH (12:35)
[2018-03-16] MEDS: Sertraline* 50 MG TAB PO SCH (12:35)
[2018-03-16] MEDS: Clopidogrel TAB* 75 MG PO SCH (12:35)
[2018-03-16] MEDS: Tamsulosin CAP* 0.4 MG PO SCH (12:35)
--- NOTE | 2018-03-16 12:41 | RAD ---
HISTORY: Chest pain, hypertension, hyperlipidemia COMPARISONS: August 12, 2016 TECHNIQUE: A 1 day stress/rest myocardial perfusion study was performed, with pharmacologic stress. The stress portion was monitored by Dr. Galloway. Gated SPECT imaging was performed, without CT-based attenuation correction secondary to patient physical limitation. DOSE: Stress: Technetium 99m tetrofosmin, 25.32 millicuries, injected at 11:30 AM March 16, 2018 Rest: Technetium 99m tetrofosmin, 10.7 millicuries, injected at 6:35 AM on March 16, 2018 Pharmacologic agent: Lexiscan FINDINGS: CARDIAC MONITORING: No EKG changes of ischemia with stress EF: 77% TID: 0.9 MOTION: Normal motion, with normal wall thickening. PERFUSION: There is a small fixed defect of the distal inferior wall which may be an artifact of attenuation. The reversibility noted on the polar maps is felt to be an artifact of misregistration. OTHER: None IMPRESSION: SMALL FIXED DEFECT OF THE DISTAL INFERIOR WALL. ASSESSMENT: LOW RISK. Based on imaging criteria from ACC/AHA 2002. Guideline Update for the Management of Patient's with Chronic Stable Angina, table 23. Noninvasive Risk Stratification. CPT II Codes: 3570F
[2018-03-16] MEDS ORDERED: Nitro Patch/OINT Remove PATCH OFF SCH (21:00)
--- NOTE | 2018-03-17 03:08 | DS ---
DISCHARGE SUMMARY: DATE OF ADMISSION: 03/15/18 DATE OF DISCHARGE: 03/16/18 ADMITTING AND ATTENDING PHYSICIAN: Mario Fernández MD PRIMARY CARE PHYSICIAN: Lesa Etienne MD CHIEF COMPLAINT: Shortness of breath, chest pain, nausea. PRINCIPAL DIAGNOSIS: ACS rule out. 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 The morning of admission, he lifted his 21-pound dog and started to feel cold, hot poking pain within his shoulder blade and chest pressure 5/10, was accompanied by shortness of breath, nausea, was referred to [facility] [place] for further evaluation. He had reported left lower extremity edema over the last year, had a negative DVT study a month prior. He received 4 baby aspirin with EMS, he took 2 nitroglycerin. He had not yet applied his 0.6 nitro patch the morning of admission. His outpatient skate shop attendant is Dr. Dumont. He had negative troponin x3. A transthoracic echocardiogram, which demonstrated ejection fraction to 60% to 65%. Nondiagnostic evaluation of diastolic function, was a technically limited study due to body habitus. There was borderline to mild mitral stenosis and trace tricuspid regurgitation. There was no noted regional wall motion abnormalities. He had a nuclear medicine scan on hospital day #2, which showed a small fixed defect of the distal inferior wall, was deemed low risk. He is being discharged with outpatient followup with Dr. Etienne and Dr. Dumont. His metoprolol succinate dosing was reduced from 50mg daily to 25mg daily given bradycardia on telemetry and reported syncopal events in the past). He was chest pain free by afternoon of hospital day #1. He did get 1 inch of nitro paste applied that first stay and then resumption of his regular nitroglycerin patch. DISCHARGE MEDICATIONS: Include: 1. Xanax 0.25 mg p.o. b.i.d. 2. Aspirin 81 mg daily. 3. Simvastatin 10 mg daily. 4. Cholestyramine resin 4 g p.o. b.i.d. 5. Plavix 75 mg q.a.m. 6. Flonase 2 sprays both nares daily. 7. Lasix 40 mg p.o. q.a.m. and 20 mg p.o. q.p.m. 8. Gabapentin 800 mg p.o. t.i.d. 9. [place] 5/325 mg p.o. q.6 hours p.r.n. 10. Loratadine 20 mg p.o. q.a.m. 11. Meclizine 25 mg p.o. t.i.d. 12. Metoprolol succinate 25 mg p.o. daily (reduced from 50mg daily). 13. Multivitamin 1 tab p.o. daily. 14. Nitroglycerin 0.6 mg/hour patch q.a.m. 15. Zofran 4 mg p.o. q.8 hours p.r.n. 16. Pramipexole 0.5 mg p.o. 1600 and 0.75 mg p.o. at bedtime. 17. Sertraline 50 mg p.o. daily. 18. Tamsulosin 0.4 mg p.o. q.a.m. 19. Spiriva 1 capsule inhaled daily. 20. Rosie-3 fatty acid 2000 mg p.o. daily. 21. Pantoprazole 20 mg p.o. daily. 22. Potassium chloride 40 mEq. p.o. b.i.d. 23. Coenzyme Q10 100 mg p.o. b.i.d. DISCHARGE DIET: Heart healthy unchanged. ACTIVITY LEVEL: No restrictions. FOLLOWUP: Please follow up with Dr. Etienne within 5 days of discharge and Dr. Dumont within 2 weeks of discharge. TIME SPENT: Time spent on this discharge was 30 minutes. [id number]/[facility] #: [id number] [facility]
== END 2018-03-16 15:05 | disposition home or self-care (01) ==
LOC: ED 07:57 → MEDTELE 08:43
PROVIDERS: ADMIT Internal Medicine; ATTEND Internal Medicine
DX: R06.02 Shortness of breath (principal); R07.9 Chest pain, unspecified; R11.0 Nausea; R13.10 Dysphagia, unspecified; Z79.82 Long term (current) use of aspirin; G25.81 Restless legs syndrome; I25.10 Atherosclerotic heart disease of native coronary artery without angina pectoris; Z95.5 Presence of coronary angioplasty implant and graft; I10 Essential (primary) hypertension; J44.9 Chronic obstructive pulmonary disease, unspecified; E78.5 Hyperlipidemia, unspecified; I20.9 Angina pectoris, unspecified
CPT/HCPCS: 36415; 71045; 78452; 80053; 83605; 83880; 84484; 85025; 85610; 93005; 93017; 93306; 99284; A9270-GY; A9502; G0378; J2785

== ENCOUNTER 2018-03-18 14:43 | Emergency (ER) | payer MEDICARE ==
[2018-03-18 15:15] VITALS: BP 148/71
--- NOTE | 2018-04-30 16:06 | UC ---
Lower Extremity/Ankle HPI - HPI Summary HPI Summary: 2 days of nerve pain in left foot - History of Current Complaint Onset/Duration: Sudden Onset, Lasting Days, Still Present Severity Initially: Mild Severity Currently: Mild Pain Intensity: 0 Aggravating Factor(s): Nothing Alleviating Factor(s): Nothing Able to Bear Weight: Yes <Sepideh Jaramillo - Last Filed: 04/30/18 15:58> <Cortez Josue - Last Filed: 05/01/18 08:41> - History of Current Complaint Chief Complaint: UCLowerExtremity Stated Complaint: FOOT PAIN Time Seen by Provider: 03/18/18 15:34 - Allergies/Home Medications Allergies/Adverse Reactions: Allergies Allergy/AdvReac Type Severity Reaction Status Date / Time morphine Allergy See Comment Verified 03/18/18 15:15 ethanol Allergy Severe Vomiting Uncoded 03/18/18 15:15 fetanyl Allergy Vomiting Uncoded 03/18/18 15:15 PMH/Surg Hx/FS Hx/Imm Hx Previously Healthy: No Cardiovascular History: Hypertension GI/ History: Gastroesophageal Reflux Other History Of: Anticoagulant Therapy - plavix/asa Negative For: HIV, Hepatitis B - Surgical History Surgical History: Yes Surgery Procedure, Year, and Place: [employer] RECORDER [id number] 1.5 ONLY. LEFT SHOULDER REPLACEMENT 02/2017. TONSILS. GALLBLADDER. LSP SURGERY-LATER REPAIRED. HIATAL HERNIA. RENE FUNDOPLICATION. HEART STENTS X3 - Family History Known Family History: Positive: Cardiac Disease - Mom, grandparent both of CHF, Hypertension, Other - Mother: vertigo - Social History Occupation: Retired Lives: With Family Alcohol Use: None Substance Use Type: None Smoking Status (MU): Former Smoker Type: Cigarettes Amount Used/How Often: 1 ppd Length of Time of Smoking/Using Tobacco: 31 years Have You Smoked in the Last Year: No When Did the Patient Quit Smoking/Using Tobacco: 1989 - Immunization History Most Recent Influenza Vaccination: 2015/2016 season Most Recent Tetanus Shot: 2016 Most Recent Pneumonia Vaccination: 2014 <Sepideh Jaramillo - Last Filed: 04/30/18 15:58> Review of Systems Constitutional: Negative Skin: Negative Eyes: Negative ENT: Negative Respiratory: Negative Cardiovascular: Negative Gastrointestinal: Negative Genitourinary: Negative Motor: Negative Neurovascular: Negative Musculoskeletal: Arthralgia - pain in left foot Neurological: Negative Psychological: Negative Is Patient Immunocompromised?: No All Other Systems Reviewed And Are Negative: Yes <Sepideh Jaramillo - Last Filed: 04/30/18 15:58> Physical Exam Triage Information Reviewed: Yes Appearance: Well-Appearing, No Pain Distress, Well-Nourished Vital Signs: Initial Vital Signs Temp 98.0 F 03/18/18 15:12 Pulse 58 03/18/18 15:12 Resp 16 03/18/18 15:12 BP 148/71 03/18/18 15:12 Pulse Ox 98 03/18/18 15:12 Vital Signs Reviewed: Yes Eye Exam: Normal Eyes: Positive: Conjunctiva Clear ENT Exam: Normal ENT: Positive: Normal ENT inspection, Hearing grossly normal. Negative: Nasal congestion, Trismus, Muffled voice, Hoarse voice Neck exam: Normal Neck: Positive: Supple, Nontender, No Lymphadenopathy Respiratory Exam: Normal Respiratory: Positive: Chest non-tender, Lungs clear, Normal breath sounds, No respiratory distress, No accessory muscle use Cardiovascular Exam: Normal Cardiovascular: Positive: RRR, No Murmur, Pulses Normal, Brisk Capillary Refill Musculoskeletal Exam: Normal Musculoskeletal: Positive: Strength Intact, ROM Intact, No Edema Neurological Exam: Normal Neurological: Positive: Alert, Muscle Tone Normal Psychological Exam: Normal Skin Exam: Normal <Sepideh Jaramillo - Last Filed: 04/30/18 15:58> Vital Signs: Initial Vital Signs Temp 98.0 F 03/18/18 15:12 Pulse 58 03/18/18 15:12 Resp 16 03/18/18 15:12 BP 148/71 03/18/18 15:12 Pulse Ox 98 03/18/18 15:12 <Cortez Josue - Last Filed: 05/01/18 08:41> Lower Extremity Course/Dx - Course Course Of Treatment: lidoderm patch continue neuronting follow with pcp - Differential Dx/Diagnosis Provider Diagnoses: Left foot paresthesia <Sepideh Jaramillo - Last Filed: 04/30/18 15:58> Discharge - Sign-Out/Discharge Documenting (check all that apply): Discharge/Admit/Transfer - Billing Disposition and Condition Condition: STABLE Disposition: Home <Sepideh Jaramillo - Last Filed: 04/30/18 15:58> - Billing Disposition and Condition Condition: STABLE Disposition: Home <Cortez Josue Mya - Last Filed: 05/01/18 08:41> - Discharge Plan Condition: Stable Disposition: HOME Prescriptions: Lidocaine PATCH 5%* [Lidoderm 5% Patch*] 1 patch TRANSDERM DAILY #1 box Patient Education Materials: Paresthesia (ED), Hypertension (ED) Referrals: Lesa Etienne MD [Primary Care Provider] - 2 Days Additional Instructions: Per institutional requirements, I have reviewed the chart, however, I was not consulted specifically or made aware of this patient by the above midlevel provider. I did not personally evaluate, interact with , or disposition this patient.
== END 2018-03-18 15:58 | disposition home or self-care (01) ==
LOC: UCEAST 14:43
DX: R20.2 Paresthesia of skin (principal); M79.2 Neuralgia and neuritis, unspecified; I10 Essential (primary) hypertension; K21.9 Gastro-esophageal reflux disease without esophagitis; Z79.01 Long term (current) use of anticoagulants; Z79.82 Long term (current) use of aspirin; Z96.612 Presence of left artificial shoulder joint; Z95.5 Presence of coronary angioplasty implant and graft; Z88.5 Allergy status to narcotic agent; Z87.891 Personal history of nicotine dependence; Z82.49 Family history of ischemic heart disease and other diseases of the circulatory system; Z82.0 Family history of epilepsy and other diseases of the nervous system
CPT/HCPCS: 99212; G0463

== ENCOUNTER 2018-10-02 10:26 | Emergency (ER) | payer MEDICARE ==
[2018-10-02 12:09] VITALS: BP 145/75
--- NOTE | 2018-10-02 12:18 | UC ---
Neck Pain HPI - HPI Summary HPI Summary: 78 y/o male presents to the urgent care c/o RT lateral side of neck pain radiating to his RT shoulder for the past 4 weeks. Pt has been worsening w/ time , now unable to move his neck to the RT side. Pt reports Hx of left shoulder replacement w/ DR Weiss 2 years ago. He finished PT about 1 years ago and has been well w/ his left shoulder. He has been taking Hydrocodone PO to alleviate symptoms w/o any success. Pain is 6/10 sharp w/ movement to the RT, at rest is 2 /10 associated w/ mild tingling sensation in his fingers at times. he can move RT shoulder in all directions except abduction. Pt denies fever, SOB, chest pain , RODRIGUES, dizziness, abdominal pain, N/V/D. - History of Current Complaint Chief Complaint: UCBackPain Stated Complaint: NECK PAIN Time Seen by Provider: 10/02/18 12:15 Hx Obtained From: Patient Onset/Duration Of Injury/Symptoms: Weeks - 4 weeks Mechanism Of Injury: No Known Trauma Timing: Intermittent Episodes Onset/Duration: Gradual Onset, Lasting Weeks - 4 weeks, Still Present, Worse Since - last week Severity: Mild Pain Intensity: 2 - at rest Pain Scale Used: 0-10 Numeric Location: Discrete At: - RT lateral side of neck, Radiates To: - RT shoulder Character: Dull, Stiff, Spasmotic Aggravating Factors: Movement Alleviating Factors: OTC Meds Associated Signs & Symptoms: Positive: Negative. Negative: Swelling, Redness, Bruising, Fever, Nuchal Rigity, Weakness, Headache, Paresthesia - Risk Factors Meningitis Risk Factors: Negative - Allergies/Home Medications Allergies/Adverse Reactions: Allergies Allergy/AdvReac Type Severity Reaction Status Date / Time morphine Allergy See Comment Verified 10/02/18 12:09 ethanol Allergy Severe Vomiting Uncoded 10/02/18 12:09 fetanyl Allergy Vomiting Uncoded 10/02/18 12:09 Home Medications: Home Medications Furosemide 20 mg PO QPM 10/02/18 [History Confirmed 10/02/18] Pramipexole Di-HCl [Pramipexole ER] 0.75 mg PO QPM 10/02/18 [History Confirmed 10/02/18] PMH/Surg Hx/FS Hx/Imm Hx Previously Healthy: Yes Other History Of: Anticoagulant Therapy - plavix/asa Negative For: HIV, Hepatitis B - Surgical History Surgical History: Yes Surgery Procedure, Year, and Place: [employer] LINQ RECORDER LNQ11 1.5 ONLY. LEFT SHOULDER REPLACEMENT 02/2017. TONSILS. GALLBLADDER. LSP SURGERY-LATER REPAIRED. HIATAL HERNIA. RENE FUNDOPLICATION. HEART STENTS X3 - Family History Known Family History: Positive: Cardiac Disease - Mom, grandparent both of CHF, Hypertension, Other - Mother: vertigo - Social History Alcohol Use: None Substance Use Type: None Smoking Status (MU): Former Smoker Type: Cigarettes Amount Used/How Often: 1 ppd Length of Time of Smoking/Using Tobacco: 31 years Have You Smoked in the Last Year: No When Did the Patient Quit Smoking/Using Tobacco: 1989 - Immunization History Most Recent Influenza Vaccination: 2015/2016 season Most Recent Tetanus Shot: 2015 Most Recent Pneumonia Vaccination: 2014 Physical Exam - Summary Physical Exam Summary: Vital signs:reviewed General: Patient is a well developed old male without any distress that is laying comfortably in the examining table w/o any apparent distress. Skin: Bouse, warm, dry HEAD AND FACE: No signs of trauma. EYES: PERRLA, EOMI x 2. EARS: Hearing grossly intact. MOUTH: Oropharynx within normal limits. NECK: Supple, trachea is midline, no cervical lymphadenopathy, no JVD, no carotid bruit, no c-spine tenderness, neck with decrease ROM on flexion and Rt lateral bending due to pain. No meningeal signs, no Kernig's or brudzinskis signs. Decrease ROM on bending forward and Rt lateral bending due to pain. CHEST: Symmetric, no tenderness at palpation LUNGS: CTA bilaterally, no rales, rhonchi or wheezing CVS: RRR, no murmur, rub, or gallop ABDOMEN: soft and Nontender without masses, no guarding or rebound. Bowel sounds are active. No Hepato-splenomegaly. No signs of inguinal hernias. BACK: Patient walked into the urgent care room with symmetric ambulation, No signs of limping, antalgic, able to bear weight. No signs of trauma, no soft tissue or muscle tenderness, RT side upper back spasm in the Paraspinal muscles of the T3-T4. No masses palpated. Point tenderness at Rt shoulder blade, no swelling or ecchymosis observed, No CVAT, no flank ecchymosis . No sacroiliac notch tenderness, No saddle anesthesia.FROM: flexion/ extension/ lateral bending and rotation, note if limited or causes pain Straight Leg Raise: negative.Patellar reflexes: brisk, symmetric Muscle strength lower extremities. Dorsiflexion/ plantar flexion of ankles. Heel/ toe walk Lower extremities: Femoral, popliteal, posterior tibial, and dorsalis pedis pulses with in normal, Neurological: WNL Psychological: WNL Skin: dry and warm Triage Information Reviewed: Yes Vital Signs: Initial Vital Signs Temp 98.1 F 10/02/18 12:05 Pulse 84 10/02/18 12:05 Resp 20 10/02/18 12:05 BP 145/75 10/02/18 12:05 Pulse Ox 100 10/02/18 12:05 Neck Pain Course/Dx - Course Course Of Treatment: 78 y/o male presents to the urgent care c/o RT lateral side of neck pain radiating to his RT shoulder for the past 4 weeks. Pt has been worsening w/ time, now unable to move his neck to the RT side. Pt reports Hx of left shoulder replacement w/ DR Weiss 2 years ago. He finished PT about 1 years ago and has been well w/ his left shoulder. He has been taking Hydrocodone PO to alleviate symptoms w/o any success. Pain is 6/10 sharp w/ movement to the RT, at rest is 2/10 associated w/ mild tingling sensation in his fingers at times. he can move RT shoulder in all directions except abduction. Pt denies fever, SOB, chest pain, RODRIGUES, dizziness, abdominal pain, N/V/ D. Hx obtained. - Differential Dx/Diagnosis Differential Dx/HQI/PQRI: Arthritis, Cervical Fracture, Sprain, Strain, Torticollis Provider Diagnosis: Degenerative disc disease, cervical, Anterolisthesis, Neck pain, Uncontrolled hypertension Discharge - Sign-Out/Discharge Documenting (check all that apply): Patient Departure - D/C home All imaging exams completed and their final reports reviewed: Yes - Discharge Plan Condition: Stable Disposition: HOME Patient Education Materials: Low-Sodium Diet (ED), Degenerative Disc Disease ( ED) Referrals: Lesa Etienne MD [Primary Care Provider] - As Soon As Possible Maynor Najera MD [Medical Doctor] - As Soon As Possible Additional Instructions: 1-Please continue taking your pain medications as directed by your PCP DR Etienne. 2- Keep your neck immobilized w/ the soft tissue collar and f/u w/ your PCP DR Etienne ot Neurologist Dr Chaudhry for further evaluation and treatment in your Anterolysthesis and Cervical Degenerative disc disease as soon as possible. 3-If you develop severe neck pain w/ numbness over upper arms are unable to walk please go immediately to the ER for further management. 4-Your BP is elevated today. please decrease salt in your diet, monitor BP and if it continues to be elevated please f/u with your PCP for further management Cervical radiculopathy is a common cause of neck pain and upper-limb motor and sensory symptoms. Lower cervical roots, particularly C7, are more frequently affected by compression than higher cervical roots. The clinical manifestations of cervical radiculopathy may include neck, shoulder , or arm pain, or upper extremity muscle weakness, sensory symptoms, or diminished deep tendon reflexes, either alone or in combination. - Billing Disposition and Condition Condition: STABLE Disposition: Home
== END 2018-10-02 14:05 | disposition home or self-care (01) ==
LOC: UCEAST 10:26
DX: M43.12 Spondylolisthesis, cervical region (principal); M50.322 Other cervical disc degeneration at C5-C6 level; M54.2 Cervicalgia; I10 Essential (primary) hypertension; Z88.5 Allergy status to narcotic agent; Z88.8 Allergy status to other drugs, medicaments and biological substances; Z87.891 Personal history of nicotine dependence
CPT/HCPCS: 72050; 99211; G0463

== ENCOUNTER 2019-08-18 14:42 | Emergency (ER) | payer MEDICARE ==
[2019-08-18 14:52] VITALS: BP 131/75
--- NOTE | 2019-08-18 16:13 | UC ---
Hand/Wrist HPI - HPI Summary HPI Summary: NOTICED A SMALL BRUISE ON THE BACK OF HIS LEFT HAND ABOUT A WEEK AGO. SINCE THEN THE BRUISING HAS EXPANDED TO COVER THE WHOLE BACK OF HIS LEFT HAND. HE HAS SOME ASSOCIATED SWELLING. NO NUMBNESS OR TINGLING OR WEAKNESS BUT IS HAVING DIFFICULTY GRIPPING THINGS DUE TO THE DISCOMFORT. CANNOT RECALL ANY DISCRETE INJURY OR TRAUMA. TAKES PLAVIX DAILY. - History Of Current Complaint Chief Complaint: UCSkin Stated Complaint: LT HAND INJURY Time Seen by Provider: 08/18/19 15:18 Hx Obtained From: Patient Onset/Duration: Gradual Onset, Lasting Days, Still Present Severity Initially: Mild Severity Currently: Mild Pain Intensity: 1 Pain Scale Used: 0-10 Numeric Character Of Pain: Dull Aggravating Factor(s): Movement, Lifting Alleviating Factor(s): Rest Associated Signs And Symptoms: Positive: Swelling, Bruising. Negative: Weakness , Numbness/Tingling Related History: Dominant Hand Right - Allergies/Home Medications Allergies/Adverse Reactions: Allergies Allergy/AdvReac Type Severity Reaction Status Date / Time morphine Allergy See Comment Verified 08/18/19 14:53 ethanol Allergy Severe Vomiting Uncoded 08/18/19 14:53 fetanyl Allergy Vomiting Uncoded 08/18/19 14:53 PMH/Surg Hx/FS Hx/Imm Hx Cardiovascular History: Cardiac Disease - STENTS, Hypertension Respiratory History: COPD Psychological History: Anxiety Other History Of: Anticoagulant Therapy - plavix/asa Negative For: HIV, Hepatitis B - Surgical History Surgical History: Yes Surgery Procedure, Year, and Place: [employer] LINQ RECORDER LNQ11 1.5 ONLY. LEFT SHOULDER REPLACEMENT 02/2017. TONSILS. GALLBLADDER. LSP SURGERY-LATER REPAIRED. HIATAL HERNIA. RENE FUNDOPLICATION. HEART STENTS X3 - Family History Known Family History: Positive: Cardiac Disease - Mom, grandparent both of CHF, Hypertension, Other - Mother: vertigo - Social History Alcohol Use: None Substance Use Type: None Smoking Status (MU): Former Smoker Type: Cigarettes Amount Used/How Often: 1 ppd Length of Time of Smoking/Using Tobacco: 31 years Have You Smoked in the Last Year: No When Did the Patient Quit Smoking/Using Tobacco: 1989 - Immunization History Most Recent Influenza Vaccination: 2015/2016 season Most Recent Tetanus Shot: 2015 Most Recent Pneumonia Vaccination: 2014 Review of Systems All Other Systems Reviewed And Are Negative: Yes Constitutional: Positive: Negative Skin: Positive: Bruising Respiratory: Positive: Negative Cardiovascular: Positive: Negative Gastrointestinal: Positive: Negative Musculoskeletal: Positive: Arthralgia, Edema. Negative: Decreased ROM, Myalgia Physical Exam Triage Information Reviewed: Yes Appearance: Well-Appearing, No Pain Distress, Well-Nourished Vital Signs: Initial Vital Signs Temp 99.8 F 08/18/19 14:46 Pulse 62 08/18/19 14:46 Resp 16 08/18/19 14:46 BP 131/75 08/18/19 14:46 Pulse Ox 98 08/18/19 14:46 Vital Signs Reviewed: Yes Eyes: Positive: Conjunctiva Clear ENT: Positive: Hearing grossly normal Neck: Positive: Supple Respiratory: Positive: No respiratory distress, No accessory muscle use Cardiovascular: Positive: Pulses Normal Abdomen Description: Positive: Soft Musculoskeletal: Positive: ROM Intact, Edema @ - LEFT HAND, Other: - TTP LEFT HAND 2ND METACARPAL. Neurological: Positive: Alert Psychological: Positive: Age Appropriate Behavior Skin: Positive: Other - BRUISING DORSAL SURFACE LEFT HAND Diagnostics - Radiology LEFT HAND XRAYS Radiology Interpretation Completed By: Radiologist Summary of Radiographic Findings: NO EVIDENCE FOR FRACTURE. Hand/Wrist Course/Dx - Course Course Of Treatment: NO FRACTURE OF THE LEFT HAND SEEN ON X-RAY. PRESENTATION MOST CONSISTENT WITH A CONTUSION OF THE HAND. NARENDRA WRAP APPLIED BY RN TO HELP WITH COMPRESSION. ADVISED TO KEEP ELEVATED ABLE. FOLLOW-UP WITH PCP IN THE NEXT 1-2 WEEKS. TO THE ER WITHOUT FAIL IF SYMPTOMS WORSEN. - Differential Dx/Diagnosis Provider Diagnosis: Contusion of left hand Discharge ED - Sign-Out/Discharge Documenting (check all that apply): Patient Departure All imaging exams completed and their final reports reviewed: Yes - Discharge Plan Condition: Stable Disposition: HOME Patient Education Materials: Contusion in Adults (ED) Referrals: Lesa Etienne MD [Primary Care Provider] - 2 Weeks Additional Instructions: X-RAYS TODAY UNREMARKABLE FOR FRACTURE OR DISLOCATION. YOUR PRESENTATION IS CONSISTENT WITH A CONTUSION ON THE BACK OF YOUR HAND. THE BRUISING SHOULD RESOLVE ON ITS OWN WITH A LITTLE MORE TIME. FOLLOW-UP WITH YOUR PCP IN THE NEXT 1-2 WEEKS. GO TO THE ER WITHOUT FAIL IF YOU DEVELOP WORSENING PAIN, CONTINUED SWELLING, NUMBNESS/TINGLING IN YOUR HAND, FEVER OR ANY OTHER CONCERNING SYMPTOMS. - Billing Disposition and Condition Condition: STABLE Disposition: Home
--- OUTSIDE RECORDS SUMMARY | 2019-08-18 16:14 | XMS REPORT | Continuity of Care Document ---
:1940 External Reference #:[id number] Author Name Eliot Dumont M.D. (transmitted by agent of provider Hannah oH) Address [facility] [place] [address] Care Team Providers Name Role Phone Eliot Dumont MD - Cardiovascular Care Team Information [employer] Staff Officer [phone] Disease Lesa Etienne MD - Internal Care Team Information [employer] Staff Officer [phone] Medicine Problems Active Problems Provider Date Low back pain Dustin Duncan M.D. Onset: 09/18/2013 Neck pain Dustin Duncan M.D. Onset: 09/18/2013 Lumbar post-laminectomy syndrome Dustin Duncan M.D. Onset: 09/18/2013 Sciatica Dustin Duncan M.D. Onset: 09/18/2013 Coronary arteriosclerosis Eliot Dumont M.D. Onset: 11/21/2013 Precordial pain Eliot Dumont M.D. Onset: 11/21/2013 Brachial neuritis Dustin Duncan M.D. Onset: 03/18/2014 Degenerative joint disease involving Drew Ordoñez M.D. Onset: 07/22/2014 multiple joints Localized, primary osteoarthritis of the Drew Ordoñez M.D. Onset: 07/22/2014 hand Lumbosacral spondylosis without myelopathy Dustin Duncan M.D. Onset: 07/2015 Neuralgia Dustin Duncan M.D. Onset: 05/09/2015 Cervical spondylosis with myelopathy Dustin Duncan M.D. Onset: 07/14/2015 Cervical spondylosis without myelopathy Dustin Duncan M.D. Onset: 2014 Restless legs Dustin Duncan M.D. Onset: 11/10/2015 Chronic obstructive lung disease Gabriela Hawk MD Onset: 02/11/2016 Obstructive sleep apnea syndrome Gabriela Hawk MD Onset: 02/11/2016 Dyspnea Gabriela Hawk MD Onset: 03/30/2016 Obesity Gabriela Hawk MD Onset: 03/30/2016 Sprain of shoulder and upper arm Michelle Weiss MD Onset: 12/24/2016 Localized, primary osteoarthritis of the Michelle Weiss MD Onset: 12/24/2016 shoulder region Prosthetic arthroplasty of shoulder Michelle Weiss MD Onset: 03/15/2017 Closed fracture of scapula Michelle Weiss MD Onset: 11/17/2017 Shoulder joint pain Michelle Weiss MD Onset: 03/22/2018 Fall Michelle Weiss MD Onset: 05/26/2018 Social History Type Date Description Comments Sex Unknown Tobacco Use Start: Unknown Former Cigarette End: Unknown Smoker Smoking Status Reviewed: 07/25/19 Former Cigarette Smoker ETOH Use Never used alcohol Tobacco Use Start: Unknown Patient is a former hx 1 pack cigarettes End: Unknown smoker per day,quit 1997 Recreational Drug Use Denies Drug Use Exercise Type/Frequency Exercises rarely Allergies, Adverse Reactions, Alerts Active Allergies Reaction Severity Comments Date Durgesic Patch nausea, vomiting Severe 11/21/2013 Morphine Irrational behavior 08/03/2017 Inactive Allergies NKDA 09/18/2013 Medications Active Medications SIG Qnty Indications Ordering Provider Date Sertraline HCL 1 by mouth 90tabs F32.89 Rodger Batista NP 06/28/2019 100mg every day Tablets F41.9 Hydrocodone-Acetaminophen take 1 tab 120tabs Rodger Batista, 06/28/2019 10-325mg Tablets every 6-8 hours INSURANCE EXAMINER as needed. Ensure Plus 1 can three 90units R63.4 Rodger Batista, 06/28/2019 Liquid times daily INSURANCE EXAMINER R62.7 Tizanidine HCL 1 tab three times 90tabs M54.12 Rodger Batista NP 06/17/2019 2mg Tablets daily as needed Metoprolol Succinate ER Take 1 Tablet By Rodger Batista, 05/17/2019 Mouth Every Day ( TOBY 25mg Tablets ER 24HR Med discrepancy as of 07/25/19) Gabapentin Take 1 Capsule Am 360caps Rodger Batista NP 02/27/2019 400mg Capsules And Midday, 2 Capsules QHS Tamsulosin HCL Take 1 Capsule By 90caps Rodger Batista NP 11/12/2018 0.4mg Mouth Daily as Capsules Needed Ventolin HFA Q6H Unknown 07/26/2018 108(90Base) mcg/Act Aerosol Symbicort inhale 2 puffs by 10.2units Rodger Batista NP 04/08/2018 160-4.5mcg/Act mouth twice daily Aerosol Lidoderm Every Day 1units Unknown 03/18/2018 5% Patches Fish Oil Concentrate 2 cap po daily Unknown 03/15/2018 1000mg Capsules Pantoprazole Sodium take 1 tablet by 90tabs K21.9 Rodger Batista NP 2017 20mg mouth one time daily Tablets DR Ipratropium 1 unit every 6 hours 540ml J44.9 Gabriela 02/01/2018 [place]/Albuterol as needed MD Kenn Sulfate 0.5-2.5(3)mg/3ML Solution Nebulizer 1 unit nebulization 1units J44.9 Gabriela 02/01/2018 Device with albuterol every MD Kenn 6 hours and as needed Diclofenac Sodium Apply 2 Grams To The 100units M54.5 Rodger Batista NP 09/09 1% Gel Affected Area Twice Daily Fluticasone Propionate Barton 2 Sprays Into 48units Rodger Batista NP 2016 Each Nostril Every 50mcg/Act Suspension Day Alprazolam one by mouth twice 60tabs Rodger Batista NP 12/09/2016 0.25mg Tablets daily as needed for anxiety Cholestyramine use 1 scoop mixed 1134gm Rodger Batista NP 09/03/2016 4GM/Dose with 8oz's of orange Powder juice or water twice daily Potassium Chloride ER 2 by mouth twice a 360tabs Rodger Batista NP 2015 20Meq day Tablets ER Lasix 1 by mouth every 90tabs Rodger Batista NP 08/16/2016 40mg Tablets morning Lasix 1/2 by mouth before 90tabs Rodger Batista NP 08/09/2016 20mg Tablets bed (may take 1 tab as needed if having increase leg swelling) Athletic Recovery apply before getting 2units R60.0 Rodger Batista NP 2015 Socks/Male/15-20MMHG/Si out of bed in the D morning and removed Misc at bedtime Spiriva Handihaler Inhale Contents Of 1 90caps Gabriela 02/10/2016 18mcg Capsule By Mouth MD Kenn Capsules Once Daily Simvastatin take 1 tablets by 90tabs Eliot Zepeda 09/04/2015 10mg Tablets mouth at bedtime Laura Dumont Ascriptin Every Day Unknown 01/16/[address] Clopidogrel Bisulfate 1 tab by mouth every 90tabs Eliot Zepeda 01/21/2014 75mg day Luara Dumont Tablets Pramipexole Take 1 Tablet By 90tabs Rodger Batista NP 11/27/2013 Dihydrochloride Mouth Every Night 0.75mg For Restless Legs Tablets Ondansetron HCL one by mouth every 8 Unknown 4mg Tablets hours as needed for nausea Pramipexole 1 by mouth at 5 pm Unknown Dihydrochloride in addition to 0.75 0.5mg mg at bedtime Tablets Meclizine HCL 1 tablet every 8 60tabs Rodger aBtista NP 25mg Tablets hours as needed for vertigo Nitro-Dur apply one to chest 90units I25.10 Eliot Zepeda 0.6mg/HR Patches wall daily , on each Brand, M.D. 24HR in the morning , off each at night [place] 3 Krill Oil 2 qd Unknown 1000mg Co Q-10 1 cap po daily Unknown 400mg Capsules Nitrostat one sl q5min up to 3 25tabs Eliot Zepeda 0.4mg Tablets Sub doses as needed for Brand, M.D. chest pain Claritin 2 po qd 30tabs Unknown 10mg Tablets Aspirin 1 po qd Unknown 81mg Tablets Multi Vitamin Mens with 700 Iu Vitamin Unknown Tablets D daily History Medications Metoprolol Succinate ER 1 by mouth every Rodger Lynne, INSURANCE EXAMINER 01/31/2019 - 50mg day Tablets ER 24HR Medications Administered in Office Medication SIG Qnty Indications Ordering Provider Date Inj, Regadenoson, 0.1 MG Eliot Dumont M.D. 02/06/2015 Injection Technetium TC 99M TetrofosmEliot powell M.D. 02/06/2015 Per Unit Dose Up To 40 Millicuries Injection Inj, Regadenoson, 0.1 MG Eliot Dumont M.D. 09/12/2014 Injection Technetium TC 99M TetrofosminEliot M.D. 09/12/2014 Per Unit Dose Up To 40 Millicuries Injection Immunizations CPT Code Status Date Vaccine Reaction Lot # [id number] Given 08/29/2018 Fluzone High Dose [id number] Given 06/25/2017 Fluzone High Dose 02442 Given 08/19/2016 Influ Virus Vaccine, fluzone high dose @ [facility] Quadrivalent, Split Virus, Im Fluzone not PF Q2037 Given 02/11/2016 Fluvirin Im 3Yrs And Older 54985 Given 02/11/2016 Pneumonia Vaccine 15227 Given Unknown Tdap - Tetanus/Diptheria/Acellular Pertussis Vital Signs Date Vital Result Comment 07/25/2019 3:57pm Height 71 inches 5'11" Weight 188.00 lb with shoes Heart Rate 80 /min BP Systolic Sitting 110 mmHg Lue reg cuff BP Diastolic Sitting 70 mmHg Lue reg cuff BP Systolic Standing 82 mmHg Lue reg cuff BP Diastolic Standing 66 mmHg Lue reg cuff Respiratory Rate 15 /min BMI (Body Mass Index) 26.2 kg/m2 06/28/2019 4:10pm Height 71 inches 5'11" Weight 180.00 lb Heart Rate 67 /min BP Systolic 120 mmHg BP Diastolic 64 mmHg Body Temperature 98.5 F O2 % BldC Oximetry 96 % BMI (Body Mass Index) 25.1 kg/m2 Results Description No Information Available Procedures Date Code Description Status 07/25/2019 16126 EKG Tracing & Interpretation Completed 08/03/2018 77106678 Colonoscopy Completed 10/31/2015 [id number] Colonoscopy Completed Medical Devices Description No Information Available Encounters Type Date Location Provider Dx Diagnosis Office Visit 06/28/2019 [facility] Internal Rodger Lynne, INSURANCE EXAMINER F32.89 Other specified 4:00p Medicine - [facility] depressive episodes M54.12 Radiculopathy, cervical region R63.4 Abnormal weight loss R62.7 Adult failure to thrive Office Visit 05/14/2019 2:40p [facility] Internal Medicine - Rodger Lynne, INSURANCE EXAMINER R53.1 Weakness [facility] G47.00 Insomnia, unspecified F32.89 Other specified depressive episodes Office Visit 03/21/2019 11:45a Pul[facility] And Gabriela J44.9 [facility] obstructive Anchorer pulmonary disease, unspecified Office Visit 02/07/2019 1:40p [facility] Internal Rodger Lynne, M54.12 Radiculopathy, Medicine - [facility] INSURANCE EXAMINER cervical region Office Visit 01/31/2019 10:15a [facility]. 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 coronary artery with 07/25/2019 R07.9 Chest pain, unspecified Eliot Dumont M.D. 07/25/2019 I10 Essential (primary) hypertension Eliot Dumont M.D. 06/28/2019 F32.89 Other specified depressive episodes Rodger Lynne, INSURANCE EXAMINER 06/28/2019 M54.12 Radiculopathy, cervical region Rodger Lynne, INSURANCE EXAMINER 06/28/2019 R63.4 Abnormal weight loss Rodger Lynne, INSURANCE EXAMINER 06/28/2019 R62.7 Adult failure to thrive Rodger Lynne, INSURANCE EXAMINER 05/14/2019 R53.1 Weakness Rodger Lynne, INSURANCE EXAMINER 05/14/2019 G47.00 Insomnia, unspecified Rodger Lynne, INSURANCE EXAMINER 05/14/2019 F32.89 Other specified depressive episodes Rodger Lynne, INSURANCE EXAMINER 03/21/2019 J44.9 Chronic obstructive pulmonary disease, Gabriela Hawk MD unspecified 02/07/2019 M54.12 Radiculopathy, cervical region Rodger Lynne, INSURANCE EXAMINER 01/31/2019 M47.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 01/31/2019 G47.33 Obstructive sleep apnea (adult) (pediatric) Cortez Luevano M.D. Plan of Treatment Future Appointment(s):08/15/2019 2:40 pm - Rodger Batista [facility] 11[facility]30 am - Gabriela Hawk MD at [facility]08/07/2019 11:45 am - Cortez Luevano M.D. at [facility]07/25/2019 - Eliot Dumont M.D.I25.10 Atherosclerotic heart disease of [place] coronary artery withFollow up:1 yearR07.9 Chest pain, [id number] Essential (primary) hypertension Functional Status Description No Information Available Mental Status Description No Information Available Referrals Description No Information Available
--- OUTSIDE RECORDS SUMMARY | 2019-08-18 16:14 | XMS REPORT | Continuity of Care Document ---
:1940 External Reference #:[id number] Author Name Cortez Luevano M.D. (transmitted by agent of provider Sharmin Bustamante) Address [address], [place] [address] Care Team Providers Name Role Phone Eliot Dumont MD - Cardiovascular Care Team Information Harbormaster [phone] Disease Lesa Etienne MD - Internal Care Team Information Harbormaster [phone] Medicine Problems Active Problems Provider Date Low [...] Cigarette End: Unknown Smoker Smoking Status Reviewed: 08/07/19 Former Cigarette Smoker ETOH Use Never used alcohol Tobacco Use Start: Unknown Patient is a former hx 1 pack cigarettes End: Unknown smoker per day,quit 1996 Recreational Drug Use Denies Drug Use Exercise [...] Batista, 06/28/2019 10-325mg Tablets every 6-8 hours REPAIR SPECIALIST as needed. Ensure Plus 1 can three 90units R63.4 Rodger Batista, 06/28/2019 Liquid times daily REPAIR SPECIALIST R62.7 Tizanidine HCL 1 tab three times 90tabs M54.12 Rodger Batista NP 06/17/2019 2mg Tablets daily as needed Metoprolol Succinate ER Take 1 Tablet By Rodger Batista, 05/17/2019 Mouth Every Day ( REPAIR SPECIALIST 25mg Tablets ER 24HR Med discrepancy as [...] Every Day 1units Unknown 03/18/2018 5% Patches Pantoprazole Sodium take 1 tablet by 90tabs K21.9 Rodger Batista NP 2017 20mg mouth one time daily Tablets DR Ipratropium 1 unit every 6 hours 540ml J44.9 [facility] 02/01/2018 [place]/Albuterol as needed MD Kenn Sulfate 0.5-2.5(3)mg/3ML Solution Nebulizer 1 unit nebulization 1units J44.9 [facility] 02/01/2018 Device with albuterol every MD Kenn 6 hours and as needed Diclofenac Sodium Apply 2 Grams To The 100units M54.5 Rodger Batista NP 09/09 1% Gel Affected Area Twice Daily Fluticasone Propionate [place] 2 Sprays Into 48units Rodger Batista NP [...] every 90tabs Eliot Zepeda 01/21/2014 75mg day Laura Dumont Tablets Pramipexole Take 1 Tablet By 90tabs Rodger Batista NP 11/27/2013 Dihydrochloride Mouth Every Night 0.75mg For Restless Legs Tablets Ondansetron HCL one by mouth every 8 Unknown 4mg Tablets hours as needed for nausea Pramipexole 1 by mouth at 5 pm Unknown Dihydrochloride in addition to 0.75 0.5mg mg at bedtime Tablets Meclizine HCL 1 tablet every 8 60tabs Rodger Batista NP 25mg Tablets hours as needed for vertigo Nitro-Dur apply one to chest 90units I25.10 Eliot Zepeda 0.6mg/HR Patches wall daily , on each Tim MAguilarDAguilar 24HR in the morning , off each at night [place] 3 Krill Oil 2 qd Unknown 1000mg Co Q-10 1 cap po daily Unknown 400mg Capsules Nitrostat one sl q5min up to 3 25tabs Eliot Zepeda 0.4mg Tablets Sub doses as needed for Tim MAguilarDAguilar chest pain Claritin 2 po qd 30tabs Unknown 10mg Tablets Multi Vitamin Mens with 700 Iu Vitamin Unknown Tablets D daily Medications Administered in Office Medication SIG Qnty Indications Ordering Provider Date Inj, Regadenoson, 0.1 MG Eliot Dumont M.D. 02/06/2015 Injection Technetium TC 99M Tetrofosmin, Eliot Dumont M.D. 02/06/2015 Per Unit Dose Up To 40 Millicuries Injection Inj, Regadenoson, 0.1 MG Eliot Dumont M.D. 09/12/2014 Injection Technetium TC 99M Tetrofosmin, Eliot Dumont M.D. 09/12/2014 Per Unit Dose Up To 40 Millicuries Injection Immunizations CPT Code Status Date Vaccine Reaction Lot # [id number] Given 08/29/2018 Fluzone High Dose 76079 Given 06/25/2017 Fluzone High Dose 02784 Given 08/19/2016 Influ Virus Vaccine, fluzone [facility] dose @ [facility] Quadrivalent, Split Virus, Im Fluzone not PF Q2037 Given 02/11/2016 Fluvirin Im 3Yrs And Older 03168 Given 02/11/2016 Pneumonia Vaccine 38443 Given Unknown Tdap - Tetanus/Diptheria/Acellular Pertussis Vital Signs Date Vital Result Comment 08/07/2019 11:55am Height 71 inches 5'11" Weight 185.00 lb Heart Rate 78 /min BP Systolic Sitting 150 mmHg BP Diastolic Sitting 70 mmHg Respiratory Rate 18 /min BMI (Body Mass Index) 25.8 kg/m2 07/25/2019 3:57pm Height 71 inches 5'11" Weight 188.00 lb with shoes Heart Rate 80 /min BP Systolic Sitting 110 mmHg Lue reg cuff BP Diastolic Sitting 70 mmHg Lue reg cuff BP Systolic Standing 82 mmHg Lue reg cuff BP Diastolic Standing 66 mmHg Lue reg cuff Respiratory Rate 15 /min BMI (Body Mass Index) 26.2 kg/m2 Results Description No Information Available Procedures Date Code Description Status 07/25/2019 16432 EKG Tracing & Interpretation Completed 08/03/2018 [id number] Colonoscopy Completed 10/31/2015 [id number] Colonoscopy Completed Medical Devices Description No Information Available Encounters Type Date Location Provider Dx Diagnosis Office Visit 07/25/2019 [facility] Eliot Zepeda 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 R07.9 Chest pain, unspecified I10 Essential (primary) hypertension Office Visit 06/28/2019 4:00p [facility] Internal Rodger Lynne, F32.89 Other specified Medicine - [facility] REPAIR SPECIALIST depressive episodes M54.12 Radiculopathy, cervical region R63.4 Abnormal weight loss R62.7 Adult failure to thrive Office Visit 05/14/2019 2:40p [facility] Internal Medicine - Rodger Lynne, REPAIR SPECIALIST R53.1 Weakness Ccmob G47.00 Insomnia, unspecified F32.89 Other specified depressive episodes Office Visit 03/21/2019 11:45a Pulmonology And Gabriela J44.9 [facility] [place] obstructive Grades 9 Through 12 Teacher pulmonary disease, unspecified Office Visit 02/07/2019 1:40p [facility] Internal Rodger Lynne, M54.12 [facility] RE[facility] cervical region Assessments Date Code Description Provider 08/07/2019 M54.12 Radiculopathy, cervical region Cortez Luevano M.D. 08/07/2019 G47.33 Obstructive sleep apnea (adult) (pediatric) Cortez Luevano M.D. 08/07/2019 R55 Syncope and collapse Cortez Luevano M.D. 08/07/2019 M54.16 Radiculopathy, lumbar region Cortez Luevano M.D. 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 07/25/2019 I10 Essential (primary) hypertension Eliot Dumont M.D. 06/28/2019 F32.89 Other specified depressive episodes Rodger Lynne, REPAIR SPECIALIST 06/28/2019 M54.12 Radiculopathy, cervical region Rodger Lynne, REPAIR SPECIALIST 06/28/2019 R63.4 Abnormal weight loss Rodger Lynne, REPAIR SPECIALIST 06/28/2019 R62.7 Adult failure to thrive Rodger Lynne, REPAIR SPECIALIST 05/14/2019 R53.1 Weakness Rodger Lynne, REPAIR SPECIALIST 05/14/2019 G47.00 Insomnia, unspecified Rodger Lynne, REPAIR SPECIALIST 05/14/2019 F32.89 Other specified depressive episodes Rodger Lynne, REPAIR SPECIALIST 03/21/2019 J44.9 Chronic obstructive pulmonary disease, Gabriela Hawk MD unspecified 02/07/2019 M54.12 Radiculopathy, cervical region Rodger Batista NP Plan of Treatment Future Appointment(s):08/05/2020 1:45 pm - Cortez Luevano M.D. at [facility]08/15/2019 2:40 pm - Rodger Batista NP at [facility] 11:30 am - Gabriela Hawk MD at [facility]08/07/2019 - Cortez Luevano M.D.M54.12 Radiculopathy, cervical regionFollow up:1 YEARG47.33 Obstructive sleep apnea (adult) (pediatric )R55 Syncope and yrrnlwdpK60.16 Radiculopathy, lumbar region Functional Status Description No Information Available Mental Status Description No Information Available Referrals Description No Information Available
--- OUTSIDE RECORDS SUMMARY | 2019-08-18 16:15 | XMS REPORT | Continuity of Care Document ---
:1940 External Reference #:[id number] Author Name Rodger Batista NP (transmitted by agent of provider Mona Rodrigez) Address [address], [place] [address] Care Team Providers Name Role Phone Eliot Dumont MD - Cardiovascular Care Team Information Medical Services Assistant Disease Lesa Etienne MD - Internal Care Team Information Medical Services Assistant Medicine Problems Active Problems Provider Date Low [...] Cigarette End: Unknown Smoker Smoking Status Reviewed: 06/28/19 Former Cigarette Smoker ETOH Use Never used [...] F41.9 Hydrocodone-Acetaminophen take 1 tab 120tabs Rodger Batista 06/28/2019 10-325mg Tablets every 6-8 hours WINDOW GLAZIER as needed. Ensure Plus 1 can three 90units R63.4 Rodger Batista 06/28/2019 Liquid times daily WINDOW GLAZIER R62.7 Tizanidine HCL 1 tab three times 90tabs M54.12 Rodger Batista NP 06/17/2019 2mg Tablets daily as needed Gabapentin Take 1 Capsule Am 360caps Rodger Batista NP 02/27/2019 400mg Capsules And Midday, 2 Capsules QHS Metoprolol Succinate ER 1 by mouth every day Rodger Batista NP 01/31/2019 50mg Tablets ER 24HR Tamsulosin HCL Take 1 Capsule By 90caps Rodger Batista NP 11/12/2018 0.4mg Mouth Daily as Capsules Needed Ventolin HFA Q6H Unknown 07/26/2018 108(90Base) mcg/Act Aerosol Symbicort inhale 2 puffs by 10.2units Rodger Batista NP 04/08/2018 160-4.5mcg/Act mouth twice daily Aerosol Lidoderm Every Day 1units Unknown 03/18/2018 5% Patches Fish Oil Concentrate Every Morning Unknown 03/15/2018 1000mg Capsules Pantoprazole Sodium take 1 tablet by 90tabs K21.9 Rodger Batista NP 2017 20mg mouth one time daily Tablets DR Ipratropium 1 unit every 6 hours 540ml J44.9 [facility] 02/01/2018 [place]/Albuterol as needed MD Kenn Sulfate 0.5-2.5(3)mg/3ML Solution Nebulizer 1 unit nebulization 1units J44.9 [facility] 02/01/2018 Device with albuterol every MD Kenn 6 hours and as needed Diclofenac Sodium Apply 2 Grams To The 100units M54.5 Rodger Batista NP 09/09 1% Gel Affected Area Twice Daily Fluticasone Propionate [place] 2 Sprays Into 48units Rodger Batista NP 2016 Each Nostril Every 50mcg/Act Suspension Day Alprazolam one by mouth twice 60tabs Rodger Batista NP 12/09/2016 0.25mg Tablets daily as needed for anxiety Cholestyramine use 1 scoop mixed 1134gm Rodger Batista NP 09/03/2016 4GM/Dose with 8oz's of orange Powder juice or water twice daily Potassium Chloride ER 2 by mouth twice a 360tabs Rodger Baitsta NP 2015 20Meq day Tablets ER Lasix [...] Every Night 0.75mg For Restless Legs Tablets Multi-Vitamins 1 po qd 30tabs Unknown Tablets Aspirin 1 po qd Unknown 81mg Tablets Claritin 2 po qd 30tabs Unknown 10mg Tablets Nitrostat one sl q5min up to 3 25tabs Eliot Zepeda 0.4mg Tablets Sub doses as needed for Laura Dumont chest pain Co Q-10 one twice daily Unknown 100mg Capsules [place] 3 Krill Oil 2 qd Unknown 1000mg Nitro-Dur apply one to chest 90units I25.10 Eliot Zepeda 0.6mg/HR Patches wall daily , on each Laura Dumont 24HR in the morning , off each at night Meclizine HCL 1 tablet every 8 60tabs Rodger Batista NP 25mg Tablets hours as needed for vertigo Medications Administered in Office Medication SIG Qnty Indications Ordering Provider Date Inj, Regadenoson, 0.1 MG Eliot Dumont M.D. 02/06/2015 Injection Technetium TC 99M TetrofosmEliot powell M.D. 02/06/2015 Per Unit Dose Up To 40 Millicuries Injection Inj, Regadenoson, 0.1 MG Eliot Dumont M.D. 09/12/2014 Injection Technetium TC 99M TetrofosmEliot powell M.D. 09/12/2014 Per Unit Dose Up To 40 Millicuries Injection Immunizations CPT Code Status Date Vaccine Reaction Lot # [id number] Given 08/29/2018 Fluzone High Dose 79235 Given 06/25/2017 Fluzone High Dose 39886 Given 08/19/2016 Influ Virus Vaccine, fluzone [facility] @ [facility] Quadrivalent, Split Virus, Im Fluzone not PF Q2037 Given 02/11/2016 Fluvirin Im 3Yrs And Older 66617 Given 02/11/2016 Pneumonia Vaccine 78651 Given Unknown Tdap - Tetanus/Diptheria/Acellular Pertussis Vital Signs Date Vital Result Comment 06/28/2019 4:10pm Height 71 inches 5'11" Weight 180.00 lb Heart Rate 67 /min BP Systolic 120 mmHg BP Diastolic 64 mmHg Body Temperature 98.5 F O2 % BldC Oximetry 96 % BMI (Body Mass Index) 25.1 kg/m2 05/14/2019 3:00pm Height 71 inches 5'11" Weight 184.00 lb Heart Rate 82 /min BP Systolic 126 mmHg BP Diastolic 81 mmHg Respiratory Rate 16 /min Body Temperature 97.5 F Pain Level 5 O2 % BldC Oximetry 95 % BMI (Body Mass Index) 25.7 kg/m2 Results Description No Information Available Procedures Date Code Description Status 08/03/2018 [id number] Colonoscopy Completed 10/31/2015 [id number] Colonoscopy Completed Medical Devices Description No Information Available Encounters Type Date Location Provider Dx Diagnosis Office Visit 05/14/2019 2:40p [facility] Internal Medicine - Rodger Batista NP R53.1 Weakness Ccmob G47.00 Insomnia, unspecified F32.89 Other specified depressive episodes Office Visit 03/21/2019 11:45a Pulmonology And Gabriela J44.9 [facility] [place] obstructive Ring [employer] pulmonary disease, unspecified Office Visit 02/07/2019 1:40p [facility] Internal Rodger Batista M54.12 Radiculopathy, Medicine - [facility] WINDOW GLAZIER cervical region Office Visit 01/31/2019 10:15a [facility] Cortez SAguilar 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 G47.33 Obstructive sleep apnea (adult) (pediatric) Assessments Date Code Description Provider 06/28/2019 F32.89 Other specified depressive episodes Rodger Batista, TOBY 06/28/2019 M54.12 Radiculopathy, cervical region Rodger Lynne, WINDOW GLAZIER 06/28/2019 R63.4 Abnormal weight loss Rodgerpranav Batista, WINDOW GLAZIER 06/28/2019 R62.7 Adult failure to thrive Rodgerpranav Batista, WINDOW GLAZIER 05/14/2019 R53.1 Weakness Rodgerpranav Batista, WINDOW GLAZIER 05/14/2019 G47.00 Insomnia, unspecified Rodgerpranav Batista, WINDOW GLAZIER 05/14/2019 F32.89 Other specified depressive episodes Rodger Batista NP 03/21/2019 J44.9 Chronic obstructive pulmonary disease, Gabriela Hawk MD unspecified 02/07/2019 M54.12 Radiculopathy, cervical region Rodger Batista, TOBY 01/31/2019 M47.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 01/31/2019 G47.33 Obstructive sleep apnea (adult) (pediatric) Cortez Luevano M.D. Plan of Treatment Future Appointment(s):08/15/2019 2:40 pm - Rodger Batista NP at [facility] Internal Medicine - [facility]09/21/2019 11:30 am - Gabriela Hawk MD at [facility]08/07/2019 11:45 am - Cortez Luevano M.D. at [facility]06/28/2019 - Rodger Batista NPF32.89 Other specified depressive episodesNew Medication:Sertraline HCL 100 mg - 1 by mouth every dayComments:I am glad the increased sertraline dose was helping.M54.12 Radiculopathy, cervical regionComments:I have increased the pain medication as we discussed. If this is not helping [facility]R63.4 Abnormal weight lossNew Medication:Ensure Plus - 1 can three times fnavaB80.7 Adult failure to thriveNew Medication:Ensure Plus - 1 can three times daily Functional Status Description No Information Available Mental Status Description No Information Available Referrals Description No Information Available
== END 2019-08-18 16:23 | disposition home or self-care (01) ==
LOC: UCEAST 14:42
DX: S60.222A Contusion of left hand, initial encounter (principal); J44.9 Chronic obstructive pulmonary disease, unspecified; I10 Essential (primary) hypertension; Z79.01 Long term (current) use of anticoagulants; Z88.5 Allergy status to narcotic agent; Z88.6 Allergy status to analgesic agent; Z88.8 Allergy status to other drugs, medicaments and biological substances; Z87.891 Personal history of nicotine dependence; Z96.612 Presence of left artificial shoulder joint; Z95.5 Presence of coronary angioplasty implant and graft
CPT/HCPCS: 99212; G0463

== ENCOUNTER 2019-12-07 16:36 | Emergency (ER) | payer BC, MEDICARE, OTHER ==
--- NOTE | 2019-12-07 16:43 | UC ---
Hand/Wrist HPI - HPI Summary HPI Summary: 79 yo male presents with LEFT foot pain. He tells me that last night he started noticing left dorsal midfoot pain that is worse with weight bearing. He describes the pain as a "shock". He tells me that this has happened many times in the past and he used to be on gabapentin for what was dx'd as "neuropathy" - - gabapentin did help, but he was taken off of this within the last year for reasons that he is not sure of. He has no pain at rest unless he touches the area or squeezes his midfoot. He sees Dr. Etienne/Rodger Batista and gets bimonthly prescriptions for norco 10/325 - he states these helped a lot, but he has run out. He is ambulatory with a cane. He also notes chronic back and neck pain for which he has seen neurosurgery. He denies injury, numbness, tingling, ankle pain , calf pain, or leg pain. - History Of Current Complaint Stated Complaint: BACK, FOOT AND NECK PAIN Time Seen by Provider: 12/07/19 16:41 Hx Obtained From: Patient Onset/Duration: Sudden Onset Severity Initially: Moderate Severity Currently: Moderate Pain Intensity: 7 Pain Scale Used: 0-10 Numeric - Allergies/Home Medications Allergies/Adverse Reactions: Allergies Allergy/AdvReac Type Severity Reaction Status Date / Time morphine Allergy See Comment Verified 12/07/19 16:58 ethanol Allergy Severe Vomiting Uncoded 11/13/19 09:33 fetanyl AdvReac Vomiting Uncoded 11/13/19 09:33 PMH/Surg Hx/FS Hx/Imm Hx - Additional Past Medical History Additional PMH: BPH SIRS Cardiovascular History: Cardiac Disease, Hypertension Respiratory History: COPD Other History Of: Anticoagulant Therapy - plavix/asa Negative For: HIV, Hepatitis B - Surgical History Surgical History: Yes Surgery Procedure, Year, and Place: We Tribute LINQ RECORDER LNQ11 1.5 ONLY. LEFT SHOULDER REPLACEMENT 02/2017. TONSILS. GALLBLADDER. LSP SURGERY-LATER REPAIRED. HIATAL HERNIA. RENE FUNDOPLICATION. HEART STENTS X3 - Family History Known Family History: Positive: Cardiac Disease - Mom, grandparent both of CHF, Hypertension, Other - Mother: vertigo - Social History Lives: With Family Alcohol Use: None Substance Use Type: None Smoking Status (MU): Former Smoker Type: Cigarettes Amount Used/How Often: 1 ppd Length of Time of Smoking/Using Tobacco: 31 years Have You Smoked in the Last Year: No When Did the Patient Quit Smoking/Using Tobacco: 1989 - Immunization History Most Recent Influenza Vaccination: season Most Recent Tetanus Shot: 2015 Most Recent Pneumonia Vaccination: 2014 Review of Systems All Other Systems Reviewed And Are Negative: No Constitutional: Positive: Negative Skin: Positive: Negative Respiratory: Positive: Negative Cardiovascular: Positive: Negative Neurovascular: Positive: Negative Musculoskeletal: Positive: Other: - Left foot pain Neurological: Positive: Negative Psychological: Positive: Negative Physical Exam - Summary Physical Exam Summary: GENERAL: NAD. WDWN. No pain distress. SKIN: No rashes, sores, lesions, or open wounds. No blackened/necrotic or discoloration of skin. Foot is warm to touch. CHEST: No accessory muscle use. Breathing comfortably and in no distress. CV: Pulses intact PT and DP. Cap refill <2seconds at toes. MSK: Moderate TTP about dorsal midfoot with point tenderness over the intermediate cuneiform. FROM. Strength 5/5. No edema or obvious bony deformities. Negative Benton test. Negative arturo sign. NTTP calf. NEURO: Alert. Sensations intact and symmetric B/L LEs PSYCH: Age appropriate behavior. Triage Information Reviewed: Yes Vital Signs: Vital Signs: Temp Pulse Resp BP Pulse Ox 99.0 F 64 16 89/53 97 12/07/19 16:45 12/07/19 16:45 12/07/19 16:45 12/07/19 16:45 12/07/19 16:45 Vital Signs: Temp Pulse Resp BP Pulse Ox 99.2 F 68 18 105/68 98 12/07/19 17:24 12/07/19 17:24 12/07/19 17:24 12/07/19 17:24 12/07/19 17:24 Potassium Chlor TAB* [Potassium Chlor TAB 20 MEQ*] 20 meq PO BID 03/08/14 [ History Confirmed 12/07/19] Clopidogrel TAB* [Plavix TAB*] 75 mg PO QAM 03/12/14 [History Confirmed 11/13/19 ] Aspirin EC TAB* [Ecotrin EC Low Dose 81 MG*] 81 mg PO DAILY 01/16/15 [History Confirmed 11/13/19] Simvastatin TAB(NF) [Zocor 20 MG (NF)] 10 mg PO QPM 01/16/15 [History Confirmed 11/13/19] Pramipexole TAB* [Mirapex TAB*] 1 mg PO QPM 08/04/15 [History Confirmed 11/13/19 ] Furosemide TAB* [Lasix TAB*] 60 mg PO QAM 08/11/16 [History Confirmed 12/07/19] Tiotropium CAPSULE (NF) [Spiriva CAPSULE (NF)] 1 cap INH DAILY 08/11/16 [ History Confirmed 11/13/19] Gabapentin CAP(*) [Neurontin 400 mg CAP(*)] 800 mg PO TID #90 cap 02/02/17 [Rx Confirmed 11/13/19] Nitroglycerin TAB 0.4 MG* 0.4 mg SL Q5M PRN 06/27/17 [History Confirmed 11/13/19 ] Cholestyramine Resin* [Questran*] 4 gm PO BID #378 gm 07/02/17 [Rx Confirmed ] Meclizine TAB* [Antivert 12.5 TAB*] 25 mg PO TID PRN 03/15/18 [History Confirmed 11/13/19] Multivitamins/Minerals TAB* [Theragran/minerals TAB*] 1 tab PO DAILY 03/15/18 [ History Confirmed 11/13/19] [place]-3 Fatty Acids (Nf) [Fish Oil (NF)] 2,000 mg PO QAM 03/15/18 [History Confirmed 11/13/19] Ondansetron ODT TAB* [Zofran 4 MG Odt TAB*] 4 mg PO Q8H PRN 03/15/18 [History Confirmed 11/13/19] Sertraline* [Zoloft*] 100 mg PO DAILY 03/15/18 [History Confirmed 11/13/19] Ubidecarenone [Co Q-10] 100 mg PO BID 03/15/18 [History Confirmed 11/13/19] Albuterol HFA INHALER* [Ventolin HFA Inhaler*] 2 puff INH Q6H PRN 07/26/18 [ History Confirmed 11/13/19] Budesonide/Formote 80/4.5(NF) [Symbicort 80/4.5 (NF)] 2 puff INH BID 07/26/18 [ History Confirmed 11/13/19] Diclofenac 1% GEL (NF) [Voltaren 1% GEL (NF)] 1 applic TOPICAL DAILY PRN [History Confirmed 11/13/19] Loratadine [Claritin 10 MG CAP] 20 mg PO DAILY 07/26/18 [History Confirmed 11/13] Furosemide 20 mg PO QPM 10/02/18 [History Confirmed 11/13/19] Acetaminophen [Tylenol Arthritis] 650 mg PO Q12H PRN 11/06/19 [History Confirmed 11/13/19] Mometasone NASAL (NF) [Nasonex (NF)] 2 spray BOTH NARES DAILY 11/06/19 [History Confirmed 11/13/19] Pantoprazole TAB (NF) [Protonix TAB (NF)] 20 mg PO DAILY 11/06/19 [History Confirmed 11/13/19] tiZANidine TAB* [Zanaflex TAB*] 2 mg PO TID PRN 11/06/19 [History Confirmed ] Atenolol TAB* [Tenormin TAB* 25 MG] 25 mg PO DAILY 11/13/19 [History Confirmed 11/13/19] Lidocaine PATCH 5%* [Lidoderm 5% Patch*] 1 patch TRANSDERM DAILY PRN 11/13/19 [ History Confirmed 11/13/19] HYDROcodone/ACETAMIN 5-325 MG* [Pillow 5-325 TAB*] 1 tab PO Q8H PRN #10 tab MDD 3 12/07/19 [Rx] Vital Signs Reviewed: Yes Diagnostics - Radiology Foot XR Radiology Interpretation Completed By: Radiologist Summary of Radiographic Findings: IMPRESSION: OSTEOARTHRITIS. NO ACUTE OSSEOUS INJURY. IF SYMPTOMS PERSIST, RECOMMEND REPEAT IMAGING. Hand/Wrist Course/Dx - Course Course Of Treatment: istop: Reference #: [id number] PAD/Occlusion/LE dissection considered, but he has good intact symmetric pedal pulses and no pain at rest with a warm foot with good cap refill. He has also had this in the past with good relief from neurontin. I suspect he is having acute on chronic pain. He is seeing a pain clinic at the end of this month. Will provide him with pain medication (Pillow 5/325 and not his usual 10/325 dosing) through tuesday when he can contact his PCP for further evaluation and management. Pt agreeable with plan. Strongly advised that if his pain worsens, spreads, changes, or if he notices discoloration of his foot to go to the ED immediately. Pt voiced understanding. - Differential Dx/Diagnosis Provider Diagnosis: Foot pain Discharge ED - Sign-Out/Discharge Documenting (check all that apply): Patient Departure All imaging exams completed and their final reports reviewed: Yes - Discharge Plan Condition: Stable Disposition: HOME Prescriptions: HYDROcodone/ACETAMIN 5-325 MG* [Pillow 5-325 TAB*] 1 tab PO Q8H PRN #10 tab MDD 3 PRN Reason: Pain - Severe Patient Education Materials: Arthralgia (ED) Referrals: Lesa Etienne MD [Primary Care Provider] - 3 Days Additional Instructions: If your pain worsens, spreads, changes, or you he notice discoloration to your foot -- go to the ED immediately. Follow up with your PCP on Tuesday - Billing Disposition and Condition Condition: STABLE Disposition: Home - Attestation Statements Provider Attestation: This patient was not seen by me. I was available for consult. Chart reviewed. HO
--- OUTSIDE RECORDS SUMMARY | 2019-12-07 16:43 | XMS REPORT | Continuity of Care Document ---
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 Medicine Problems Active Problems Provider Date Low [...] Cigarette End: Unknown Smoker Smoking Status Reviewed: 11/15/19 Former Cigarette Smoker ETOH Use Never used [...] Medications Active Medications SIG Qnty Indications Ordering Date Provider Atenolol 1 by mouth every 90tabs Rodger Batista NP 08/29/2019 25mg Tablets day Pramipexole One tablet at 90tabs Rodger Batista NP 08/29/2019 Dihydrochloride bedtime 1mg Tablets Tudorza Pressair One inhalation 2units J44.9 Rodger Batista NP 08/29/2019 400mcg/Act twice daily (4 Aerosol boxes) Sertraline HCL 1 by mouth every 90tabs F32.89 Rodger Batista NP 06/28/2019 100mg day Tablets F41.9 Hydrocodone-Acetaminophen take 1 tab 120tabs Rodger Batista 06/28/2019 10-325mg Tablets every 6-8 hours CHILD CARE SITTER as needed. Ensure Plus 1 can three 90units R63.4 Rodger Batista, 06/28/2019 Liquid times daily CHILD CARE SITTER R62.7 Tizanidine HCL 1 tab three times 90tabs M54.12 Rodger Batista NP 06/17/2019 2mg daily as needed Tablets Gabapentin take 1 capsule by 360caps Rodger Batista NP 02/27/2019 400mg Capsules mouth in the morning and midday and then 2 capsules every night Tamsulosin HCL Take 1 Capsule By 90caps Rodger Batista NP 11/12/2018 0.4mg Mouth Daily as Capsules Needed Ventolin HFA Q6H Unknown 07/26/2018 108(90Base) mcg/Act Aerosol Symbicort inhale 2 puffs by 10.2units Rodger Batista NP 04/08/2018 160-4.5mcg/Act mouth twice daily (4 Aerosol boxes samples given) Pantoprazole Sodium take 1 tablet by 90tabs K21.9 Rodger Batista NP 2017 20mg mouth one time daily Tablets DR Ipratropium 1 unit every 6 hours 540ml J44.9 Gabriela Hawk, 02/01/2018 [place]/Albuterol as needed MD Sulfate 0.5-2.5(3)mg/3ML Solution Nebulizer 1 unit nebulization 1units J44.9 Gabriela Hawk, 02/01/2018 Device with albuterol every MD 6 hours and as needed Diclofenac Sodium apply 2 grams to the 200gm M54.5 Rodger Batista NP 2016 1% Gel affected area twice daily Fluticasone Propionate [place] 2 Sprays Into 48units Rodger Batista NP [...] twice a 360tabs Rodger Batista NP 2015 day 20Meq Tablets ER Lasix 1 by mouth every 90tabs Rodger Batista NP 08/16/2016 40mg Tablets morning Lasix 1 tab by mouth 90tabs Rodger Batista NP 08/09/2016 20mg Tablets before bed Athletic Recovery apply before getting 2units R60.0 Rodger Batista NP 2015 Socks/Male/15-20MMHG/S out of bed in the ize D morning and removed Misc at bedtime Spiriva Handihaler Inhale Contents Of 1 90caps Gabriela Hawk, 02/10/2016 18mcg Capsule By Mouth MD Capsules Once Daily Simvastatin take 1 tablets by 90tabs Rodger Batista NP 09/04/2015 10mg Tablets mouth at bedtime Ascriptin Every Day Unknown 01/16/[address] Clopidogrel Bisulfate 1 tab by mouth every 90tabs Rodger Batista NP 2013 day 75mg Tablets Ondansetron HCL one by mouth every 8 Unknown 4mg hours as needed for Tablets nausea Meclizine HCL 1 tablet every 8 60tabs Rodger Batista NP 25mg hours as needed for Tablets vertigo Nitro-Dur apply one to chest 90units I25.10 Eliot Zepeda 0.6mg/HR wall daily , on each Brand MAguilarD. Patches 24HR in the morning , off each at night [place] 3 Krill Oil 2 qd Unknown 1000mg Co Q-10 1 cap po daily Unknown 400mg Capsules Nitrostat one sl q5min up to 3 25tabs Eliot Zepeda 0.4mg Tablets doses as needed for Brand, M.D. Sub chest pain Claritin 2 po qd 30tabs Unknown 10mg Tablets Multi Vitamin Mens with 700 Iu Vitamin Unknown D daily Tablets History Medications Metoprolol Succinate take 1 tablet by mouth Rodger Batista NP 05/17/2019 - ER every day ( med 08/29/2019 25mg Tablets ER 24HR discrepancy as of 07/25/19) Medications Administered in Office Medication SIG Qnty Indications Ordering Provider Date Inj, Regadenoson, 0.1 MG Eliot Dumont M.D. 02/06/2015 Injection Technetium TC 99M Tetrofosmin, Eliot Dumont M.D. 02/06/2015 Per Unit Dose Up To 40 Millicuries Injection Inj, Regadenoson, 0.1 MG Eilot Dumont M.D. 09/12/2014 Injection Technetium TC 99M TetrofosminEliot M.D. 09/12/2014 Per Unit Dose Up To 40 Millicuries Injection Immunizations CPT Code Status Date Vaccine Reaction Lot # [id number] Given 08/29/2018 Fluzone High Dose 15442 Given 06/25/2017 Fluzone High Dose 68729 Given 08/19/2016 Influ Virus Vaccine, fluzone high dose @ [facility] Quadrivalent, Split Virus, Im Fluzone not PF Q2037 Given 02/11/2016 Fluvirin Im 3Yrs And Older 80280 Given 02/11/2016 Pneumonia Vaccine 49631 Given Unknown Tdap - Tetanus/Diptheria/Acellular Pertussis Vital Signs Date Vital Result Comment 11/15/2019 2:14pm Height 71 inches 5'11" Weight 194.50 lb Heart Rate 97 /min BP Systolic Sitting 132 mmHg BP Diastolic Sitting 76 mmHg Body Temperature 97.3 F O2 % BldC Oximetry 96 % BMI (Body Mass Index) 27.1 kg/m2 09/21/2019 11:33am Height 71 inches 5'11" Weight 188.12 lb Heart Rate 66 /min BP Systolic Sitting 120 mmHg Lue reg cuff BP Diastolic Sitting 70 mmHg Lue reg cuff O2 % BldC Oximetry 96 % On Ra BMI (Body Mass Index) 26.2 kg/m2 Results Test Acquired Date Facility Test Result H/L Range Note Surgical 11/13/2019 [facility] Surgical SEE RESULT [address] [place] [address] [phone] PDFReport SEE IMAGE 1 SEE RESULT BELOW Name: EDELMIRAQUIANA G : [address]: Herve Nair DO Acct: [id number] Unit: [id number] AGE: 79 Location: ENDO Re11/13/19 SEX: M Status: DEP REF SPEC: [id number] NITISH: 11/13/19- SUBM DR: Herve Nair DO REQ: [id number] RECD: 11/13/19120 STATUS: CELESTINO GARCIA DR: Rodger Batista CHILD CARE SITTER _ ORDERED: LEVEL 4 FINAL DIAGNOSIS Colon, descending, biopsy: -- Tubular adenoma. -- No high grade dysplasia or malignancy. CLINICAL HISTORY History of polyps POST-OPERATIVE DIAGNOSIS Colonoscopy: to cecum; fair prep; diverticulosis coli moderate arboleda; cold snare descending polyp GROSS DESCRIPTION The specimen is received in formalin labeled, Descending Colon Polyp, and consists of a 0.5 x 0.3 x 0.2 cm heard-pink polypoid soft tissue fragment which is inked, bisected and submitted entirely in one cassette. Signed by and Reported on: Riki Can MD [address] END OF REPORT DEPARTMENT OF PATHOLOGY, [address] [place] [address] Riki Can M.D. Director [facility] # [id number] Procedures Date Code Description Status 07/25/2019 16734 EKG Tracing & Interpretation Completed 08/03/2018 [id number] Colonoscopy Completed 10/31/2015 [id number] Colonoscopy Completed Medical Devices Description No Information Available Encounters Type Date Location Provider Dx Diagnosis Office Visit 09/21/2019 Pulmonology And Gabriela Hawk, J44.9 Chronic obstructive 11:30a [facility] pulmonary disease, [facility] unspecified R09.02 Hypoxemia Office Visit 08/29/2019 10:40a [facility] Internal Rodger Lynne, I10 Essential ( primary) Medicine - [facility] CHILD CARE SITTER hypertension I25.10 Athscl heart disease of [place] coronary artery w/o ang pctrs J44.9 Chronic obstructive pulmonary disease, unspecified Office Visit 08/15/2019 2:40p [facility] Internal Rodger Lynne, M54.12 Radiculopathy, Medicine - CHILD CARE SITTER cervical region [facility] F32.89 Other specified depressive episodes I10 Essential (primary) hypertension Office Visit 08/07/2019 [place] M54.12 Radiculopathy, 11:45a Neurologic Laura Luevano cervical region Services Of [facility] G47.33 Obstructive sleep apnea (adult) (pediatric) R55 Syncope and collapse M54.16 Radiculopathy, lumbar region Office Visit 07/25/2019 4:00p [facility] Eliot Zepeda I25.10 Athscl heart Of [place] Dumont M.D. disease of [place] coronary artery w/o ang pctrs R07.9 Chest pain, unspecified I10 Essential (primary) hypertension Office Visit 06/28/2019 4:00p [facility] Internal Rodgerpranav Batista, F32.89 Other specified Medicine - [facility] CHILD CARE SITTER depressive episodes M54.12 Radiculopathy, cervical region R63.4 Abnormal weight loss R62.7 Adult failure to thrive Assessments Date Code Description Provider 11/15/2019 M54.12 Radiculopathy, cervical region Rodger Btaista CHILD CARE SITTER 11/15/2019 F32.89 Other specified depressive episodes Rodger Batista NP 09/21/2019 J44.9 Chronic obstructive pulmonary disease, Gabriela Hawk MD unspecified 09/21/2019 R09.02 Hypoxemia Gabriela Hawk MD 08/29/2019 I10 Essential (primary) hypertension Rodger Batista NP 08/29/2019 I25.10 Atherosclerotic heart disease of [place] Rodger Batista NP coronary artery with 08/29/2019 J44.9 Chronic obstructive pulmonary disease, Rodger Batista CHILD CARE SITTER unspecified 08/15/2019 M54.12 Radiculopathy, cervical region Rodgerpranav Batista NP 08/15/2019 F32.89 Other specified depressive episodes Rodger Batista NP 08/15/2019 I10 Essential (primary) hypertension Rodger Batista NP 08/07/2019 M54.12 Radiculopathy, cervical region Cortez Luevano M.D. 08/07/2019 G47.33 Obstructive sleep apnea (adult) (pediatric) Cortez Luevano M.D. 08/07/2019 R55 Syncope and collapse Cortez Luevano M.D. 08/07/2019 M54.16 Radiculopathy, lumbar region Cortez Luevano M.D. 07/25/2019 I25.10 Atherosclerotic heart disease of [place] Eliot Dumont M.D. coronary artery with 07/25/2019 R07.9 Chest pain, unspecified Eliot Dumont M.D. 07/25/2019 I10 Essential (primary) hypertension Eliot Dumont M.D. 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 at [place] [facility]11/15/2019 - Rodger Batista NPM54.12 Radiculopathy, cervical regionReferral:Pain Clinic, Pain/Clinic/CTRF32.89 Other specified depressive episodesComments:Continue taking sertraline at Current dose. Functional Status Description No Information Available Mental Status Description No Information Available Referrals Refer to Reason for Referral Status Appt Date Pain Clinic Created [address] [address] [phone]
[2019-12-07 17:25] VITALS: BP 105/68
== END 2019-12-07 17:45 | disposition home or self-care (01) ==
LOC: UCEAST 16:36
DX: M25.572 Pain in left ankle and joints of left foot (principal); I10 Essential (primary) hypertension; J44.9 Chronic obstructive pulmonary disease, unspecified; Z79.01 Long term (current) use of anticoagulants; Z88.5 Allergy status to narcotic agent; Z88.8 Allergy status to other drugs, medicaments and biological substances; Z87.891 Personal history of nicotine dependence
CPT/HCPCS: 99212; G0463

== ENCOUNTER 2020-01-08 11:48 | Day surgery (SDC) | payer BC, MEDICARE ==
[~2020-01-08 11:48] MED LIST: Buffered Lidocaine 1% SYRIN* 1 ML/SYRINGE INTRADERM ONE; Lactated Ringers 1000 ML Bag* 1,000 ML IV SCH
[2020-01-08] MEDS ORDERED: Buffered Lidocaine 1% SYRIN* 1 ML/SYRINGE INTRADERM ONE (12:13)
[2020-01-08] MEDS ORDERED: ceFAZolin 2 GM PREMIX in ORs 2 GM/50 ML BAG ONE (12:13)
[2020-01-08] MEDS ORDERED: Heparin VIAL(*) 5000 UNITS/ML VIAL (FIVE THOUSAND) ONE (12:14)
[2020-01-08] MEDS ORDERED: Lidocaine 2% PF * 5 ML VIAL ONE (12:27)
[2020-01-08] MEDS ORDERED: Propofol* 10 MG/ML 20 ML BTL ONE (12:27)
[2020-01-08] MEDS ORDERED: Midazolam* 1 MG/ML 2 ML VIAL (2 MG) ONE (13:53)
[2020-01-08] MEDS ORDERED: Lidocaine 1% INJ* 10 MG/ML 30 ML SDV ONE (13:55)
[2020-01-08] MEDS ORDERED: Bupivacaine 0.5%* 50 ML MDV VIAL ONE (13:56)
[2020-01-08] MEDS ORDERED: Lidocaine 1% w EPI 1:100,000* MDV 20 ML VIAL ONE (13:56)
[2020-01-08] MEDS ORDERED: Ketorolac INJ* 30 MG/ML 1 ML VIAL IV PRN (14:22)
[2020-01-08] MEDS ORDERED: Acetaminophen TAB* 325 MG PO PRN (14:22)
[2020-01-08] MEDS ORDERED: Ondansetron INJ* 2 MG/ML VIAL IV PRN (14:22)
[2020-01-08] MEDS ORDERED: Naloxone* 0.4 MG/ML 1 ML VIAL IV PRN (14:22)
[2020-01-08] MEDS ORDERED: oxyCODONE TAB* 5 MG TAB PO PRN (14:22)
--- NOTE | 2020-01-08 15:34 | BRIEFOPN ---
Brief Operative/Procedure Note - Operation Details Pre-Op Diagnosis: Left inguinal hernia Post-Op Diagnosis: Left inguinal hernia Procedures: Open Left inguinal hernia repair with mesh Surgeon(s)/Proceduralists: Dr. Zayas. Assist: NIRU Truong Anesthesia: MAC Estimated Blood Loss: <20cc Findings: As above Specimen(s)/Culture(s) Description: None Complications: none
[2020-01-08 16:55] VITALS: BP 121/64
--- NOTE | 2020-01-09 13:39 | OP ---
CC: Lesa Etienne MD * DATE OF OPERATION: 01/08/20 - [facility] DATE OF : 42 SURGEON: Arun Zayas MD FREIGHT INSPECTOR: NIRU Kwong ANESTHESIOLOGIST: Yahaira Putnam DO ANESTHESIA: General endotracheal. PRE-OP DIAGNOSIS: Left inguinal hernia. POST-OP DIAGNOSIS: Left inguinal hernia. OPERATIVE PROCEDURE: Open repair of left inguinal hernia with mesh. ESTIMATED BLOOD LOSS: Minimal. IV FLUIDS: Crystalloid. SPECIMENS: None. DRAINS: None. COMPLICATIONS: None. COUNTS: The instrument, needle, and sponge counts were correct. DESCRIPTION OF PROCEDURE: The patient was brought to the operating room and placed on the table supine. Sequential compression devices were placed on both lower extremities. Intravenous sedation was administered. He was prepped and draped in usual sterile fashion. Time-out was performed. Local anesthetic was infiltrated into the skin and soft tissue in the left groin as a field block. An oblique incision was created approximately 7 cm long. Subcutaneous tissues divided with cautery and crossing vessels were either cauterized and divided or ligated with absorbable ties. The external oblique aponeurosis was identified and was incised along the line of its fibers. The aponeurosis was opened through the external ring reflecting the aponeurosis back upon itself. The contents of the inguinal canal were isolated with a 0.25-inch Lamont drain. The patient was noted to have a large indirect inguinal hernia as well as weakness in the floor of the canal. He had a large lipoma of the cord as well, which was excised. The decision was made to repair this with an Ethicon Prolene Hernia System mesh using an extended size patch. First, the space along the conjoint tendon was opened bluntly and then preperitoneal dissection was performed in order to create a pocket for the patch. The patch was placed into this space and then the onlay portion was exteriorized and it was sutured to the pubic tubercle, the conjoint tendon, and the shelving edge of the inguinal ligament with the tails fashioned on the mesh laterally to allow the egress of the spermatic cord. The mesh was reconstituted laterally with 2-0 Vicryl sutures and then the tails were tucked beneath the external oblique aponeurosis. The aponeurosis was then run closed with 2-0 Vicryl running. Of note, the ilioinguinal nerve had been identified and preserved in the lateral direction. Additional local anesthetic was infiltrated into the space prior to closing. The Flaquito's fascia was closed with 3-0 Vicryl in interrupted fashion. Skin was closed with 4-0 Monocryl in a running subcuticular fashion. Dressings were applied. The patient tolerated this procedure well and was transferred to Recovery stable. [id number]/[facility] #: [id number] [facility]ITAL[facility]ina
== END 2020-01-08 17:00 | disposition home or self-care (01) ==
LOC: OR 11:48
PROVIDERS: ATTEND Surgery
DX: K40.90 Unilateral inguinal hernia, without obstruction or gangrene, not specified as recurrent (principal); I48.91 Unspecified atrial fibrillation; G25.81 Restless legs syndrome; J44.9 Chronic obstructive pulmonary disease, unspecified; I25.10 Atherosclerotic heart disease of native coronary artery without angina pectoris; G47.33 Obstructive sleep apnea (adult) (pediatric); M47.816 Spondylosis without myelopathy or radiculopathy, lumbar region; M47.812 Spondylosis without myelopathy or radiculopathy, cervical region; Z87.891 Personal history of nicotine dependence; Z79.01 Long term (current) use of anticoagulants; Z95.5 Presence of coronary angioplasty implant and graft; Z88.5 Allergy status to narcotic agent
CPT/HCPCS: C1781; J0690; J1644; J2250; J2704; J3490

== ENCOUNTER 2020-07-07 08:09 | Inpatient (IN) ==
[2020-07-07] MEDS ORDERED: Al Hydrox/Mg Hydrox/Simet LIQ 30 ML UDC PO PRN (08:40)
[2020-07-07] MEDS ORDERED: Albuterol HFA INHALER 8 gm MDI INH PRN (08:52)
[2020-07-07] MEDS ORDERED: Albuterol/Ipratropium NEB.SOL (2.5/0.5 MG) 3 ML NEB.SOLN INH PRN (08:58)
[2020-07-07] MEDS ORDERED: Cholestyramine Resin 4 GM POWDER PO SCH (09:00)
[2020-07-07] MEDS ORDERED: Mometasone/Formoter 200/5 MDI INH SCH (09:00)
[2020-07-07] MEDS ORDERED: Ondansetron ODT 4 mg TAB 4 MG TAB SL PRN (09:02)
[2020-07-07] MEDS ORDERED: Polyethylene Glycol 3350 17 GM PACKET PO PRN (09:16)
[2020-07-07] MEDS ORDERED: Cefepime 1 GM in Dextrose 1 GM/50 ML BAG IV SCH (13:00)
[2020-07-07] MEDS ORDERED: Vancomycin per Pharmacy 1 EA NOTE FOLLOW UP PRN (13:07)
[2020-07-07] MEDS: Vancomycin 1,000 MG in NS 0.9% 250 ml 250 ML IVPB SCH ×2 (15:30→21:41)
[2020-07-07] MEDS: Potassium Chlor 20 meq TAB.ER PO SCH (20:57)
[2020-07-07] MEDS: CMCS: Simvastatin 10 mg TAB (NF) PO SCH (20:58)
[2020-07-07] MEDS: Cholestyramine Resin 4 GM POWDER PO SCH (20:59)
[2020-07-07] MEDS: Cefepime 1 GM in Dextrose 1 GM/50 ML BAG IV SCH (20:59)
[2020-07-07] MEDS: CMCS: Diclofenac 1% GEL (NF) 100 GM TUBE TOPICAL SCH (21:02)
[2020-07-07] MEDS: Lidocaine Patch REMOVE PATCH PATCH OFF SCH (21:04)
[2020-07-07] MEDS: Mometasone/Formoter 200/5 MDI INH SCH (21:08)
[2020-07-07] MEDS: Senna TAB 8.6 mg TAB PO SCH (21:28)
[2020-07-07] MEDS: Nitro Patch/OINT Remove PATCH PATCH OFF SCH (21:39)
[2020-07-08] MEDS: Vancomycin 1,000 MG in NS 0.9% 250 ml 250 ML IVPB SCH (05:42)
[2020-07-08 05:53] LABS: ABS Eosinophils 0.2 10^3/ul (0-0.6); ABS Lymphocytes 0.7 10^3/ul (1.0-4.8); ABS Monocytes 0.4 10^3/ul (0-0.8); ABS Neutrophils 3.1 10^3/ul (1.5-7.7); Eosinophil % 5.5 %; Hematocrit 26 % (42-52); Hemoglobin 8.7 g/dL (14.0-18.0); Lymphocyte % 15.6 %; Mean Corpuscular HGB Conc 34 g/dL (31-36); Mean Corpuscular Hemoglobin 29 pg (27-31); Mean Corpuscular Volume 87 fL (80-94); Mean Platelet Volume 7.1 fL (7.4-10.4); Platelet Count 181 10^3/uL (150-450); Red Blood Count 2.96 10^6 /uL (4.18-5.48); Red Cell Distribution Width 15 % (10-15); White Blood Count 4.5 10^3/uL (3.5-10.8)
[2020-07-08 06:18] LABS: Albumin 3.4 g/dL (3.2-5.2); Albumin/Globulin Ratio 1.6 (1-3); BUN/Creatinine Ratio 23.1 (8-20); Calcium 8.7 mg/dL (8.6-10.3); EGFR African American 116.5 (>60); EGFR Non-African American 96.3 (>60); Globulin 2.1 g/dL (2-4); Potassium 4.5 mmol/L (3.5-5.0); Total Bilirubin 0.6 mg/dL (0.2-1.0); Total Protein 5.5 g/dL (6.4-8.9)
[2020-07-08] MEDS: Multivitamins/Minerals TAB PO SCH (08:35)
[2020-07-08] MEDS: Potassium Chlor 20 meq TAB.ER PO SCH ×2 (08:36→20:46)
[2020-07-08] MEDS: Aspirin EC 81 mg TAB.EC (enteric coated) PO SCH (08:36)
[2020-07-08] MEDS: SPIRIVA Respimat (tiotropium) 2.5 mcg/inh Inhaler INH SCH (08:41)
[2020-07-08] MEDS: Fluticasone NASAL SPRAY 50MCG 16 gm SPRAY BTL BOTH NARES SCH (08:42)
[2020-07-08] MEDS: Cefepime 1 GM in Dextrose 1 GM/50 ML BAG IV SCH (08:42)
[2020-07-08] MEDS: CMCS: Diclofenac 1% GEL (NF) 100 GM TUBE TOPICAL SCH ×2 (08:45→20:44)
[2020-07-08] MEDS: Nitroglycerin 0.6 mg/hr PATCH (15 mg) TRANSDERM SCH (08:46)
[2020-07-08] MEDS: Mometasone/Formoter 200/5 MDI INH SCH ×2 (08:50→22:06)
[2020-07-08] MEDS: Cholestyramine Resin 4 GM POWDER PO SCH ×2 (08:52→20:44)
[2020-07-08] MEDS ORDERED: Lidocaine PATCH 5% PATCH TRANSDERM PRN (09:00)
[2020-07-08] MEDS ORDERED: Vancomycin Trough Check NOTE FOLLOW UP ONE (13:30)
[2020-07-08] MEDS: Nitro Patch/OINT Remove PATCH PATCH OFF SCH (20:46)
[2020-07-08] MEDS: Lidocaine Patch REMOVE PATCH PATCH OFF SCH (20:46)
[2020-07-08] MEDS: CMCS: Simvastatin 10 mg TAB (NF) PO SCH (20:47)
[2020-07-08] MEDS: Senna TAB 8.6 mg TAB PO SCH (20:47)
[2020-07-09] MEDS: Multivitamins/Minerals TAB PO SCH (08:29)
[2020-07-09] MEDS: Potassium Chlor 20 meq TAB.ER PO SCH ×2 (08:30→21:30)
[2020-07-09] MEDS: Aspirin EC 81 mg TAB.EC (enteric coated) PO SCH (08:31)
[2020-07-09] MEDS: Cholestyramine Resin 4 GM POWDER PO SCH ×2 (08:34→21:26)
[2020-07-09] MEDS: Nitroglycerin 0.6 mg/hr PATCH (15 mg) TRANSDERM SCH (08:34)
[2020-07-09] MEDS: SPIRIVA Respimat (tiotropium) 2.5 mcg/inh Inhaler INH SCH (10:08)
[2020-07-09] MEDS: Mometasone/Formoter 200/5 MDI INH SCH ×2 (10:10→21:26)
[2020-07-09] MEDS: Fluticasone NASAL SPRAY 50MCG 16 gm SPRAY BTL BOTH NARES SCH (10:10)
[2020-07-09] MEDS: CMCS: Diclofenac 1% GEL (NF) 100 GM TUBE TOPICAL SCH ×2 (10:11→21:34)
[2020-07-09] MEDS: CMCS: Simvastatin 10 mg TAB (NF) PO SCH (21:28)
[2020-07-09] MEDS: Senna TAB 8.6 mg TAB PO SCH (21:28)
[2020-07-09] MEDS: Lidocaine Patch REMOVE PATCH PATCH OFF SCH (21:30)
[2020-07-09] MEDS: Nitro Patch/OINT Remove PATCH PATCH OFF SCH (21:31)
[2020-07-10] MEDS: Cholestyramine Resin 4 GM POWDER PO SCH ×2 (09:14→21:37)
[2020-07-10] MEDS: Dextran 70/Hypromellose Tears Eye Drops 15 ml BTL (for Artificials Tears) BOTH EYES PRN (09:16)
[2020-07-10] MEDS: Nitroglycerin 0.6 mg/hr PATCH (15 mg) TRANSDERM SCH (09:17)
[2020-07-10] MEDS: Aspirin EC 81 mg TAB.EC (enteric coated) PO SCH (09:18)
[2020-07-10] MEDS: Multivitamins/Minerals TAB PO SCH (09:19)
[2020-07-10] MEDS: CMCS: Diclofenac 1% GEL (NF) 100 GM TUBE TOPICAL SCH ×2 (09:19→21:38)
[2020-07-10] MEDS: Potassium Chlor 20 meq TAB.ER PO SCH ×2 (09:19→21:38)
[2020-07-10] MEDS: SPIRIVA Respimat (tiotropium) 2.5 mcg/inh Inhaler INH SCH (09:20)
[2020-07-10] MEDS: Fluticasone NASAL SPRAY 50MCG 16 gm SPRAY BTL BOTH NARES SCH (09:21)
[2020-07-10] MEDS: Mometasone/Formoter 200/5 MDI INH SCH ×2 (09:22→21:40)
[2020-07-10] MEDS: Senna TAB 8.6 mg TAB PO SCH (21:27)
[2020-07-10] MEDS: CMCS: Simvastatin 10 mg TAB (NF) PO SCH (21:38)
[2020-07-10] MEDS: Lidocaine Patch REMOVE PATCH PATCH OFF SCH (21:39)
[2020-07-10] MEDS: Nitro Patch/OINT Remove PATCH PATCH OFF SCH (21:45)
[2020-07-11 04:41] LABS: ABS Eosinophils 0.4 10^3/ul (0-0.6); ABS Lymphocytes 0.8 10^3/ul (1.0-4.8); ABS Monocytes 0.4 10^3/ul (0-0.8); ABS Neutrophils 3.4 10^3/ul (1.5-7.7); Eosinophil % 7.3 %; Hematocrit 27 % (42-52); Hemoglobin 9.1 g/dL (14.0-18.0); Lymphocyte % 16.4 %; Mean Corpuscular HGB Conc 34 g/dL (31-36); Mean Corpuscular Hemoglobin 29 pg (27-31); Mean Corpuscular Volume 87 fL (80-94); Mean Platelet Volume 7.1 fL (7.4-10.4); Nucleated Red Blood Cells % 0.1; Platelet Count 264 10^3/uL (150-450); Red Blood Count 3.11 10^6 /uL (4.18-5.48); Red Cell Distribution Width 15 % (10-15); White Blood Count 5.1 10^3/uL (3.5-10.8)
[2020-07-11 04:56] LABS: Albumin 3.9 g/dL (3.2-5.2); Albumin/Globulin Ratio 1.7 (1-3); BUN/Creatinine Ratio 21.2 (8-20); Calcium 9.2 mg/dL (8.6-10.3); EGFR African American 105.5 (>60); EGFR Non-African American 87.2 (>60); Globulin 2.3 g/dL (2-4); Potassium 4.5 mmol/L (3.5-5.0); Total Bilirubin 0.5 mg/dL (0.2-1.0); Total Protein 6.2 g/dL (6.4-8.9)
[2020-07-11] MEDS: Multivitamins/Minerals TAB PO SCH (09:24)
[2020-07-11] MEDS: Potassium Chlor 20 meq TAB.ER PO SCH ×2 (09:24→21:48)
[2020-07-11] MEDS: Aspirin EC 81 mg TAB.EC (enteric coated) PO SCH (09:24)
[2020-07-11] MEDS: Cholestyramine Resin 4 GM POWDER PO SCH ×2 (09:29→21:47)
[2020-07-11] MEDS: SPIRIVA Respimat (tiotropium) 2.5 mcg/inh Inhaler INH SCH (09:30)
[2020-07-11] MEDS: CMCS: Diclofenac 1% GEL (NF) 100 GM TUBE TOPICAL SCH ×2 (09:30→21:47)
[2020-07-11] MEDS: Fluticasone NASAL SPRAY 50MCG 16 gm SPRAY BTL BOTH NARES SCH (09:30)
[2020-07-11] MEDS: Nitroglycerin 0.6 mg/hr PATCH (15 mg) TRANSDERM SCH (09:31)
[2020-07-11] MEDS: Mometasone/Formoter 200/5 MDI INH SCH ×2 (09:31→21:45)
[2020-07-11] MEDS: Dextran 70/Hypromellose Tears Eye Drops 15 ml BTL (for Artificials Tears) BOTH EYES PRN (09:35)
[2020-07-11] MEDS: CMCS: Simvastatin 10 mg TAB (NF) PO SCH (21:48)
[2020-07-11] MEDS: Lidocaine Patch REMOVE PATCH PATCH OFF SCH (21:52)
[2020-07-11] MEDS: Nitro Patch/OINT Remove PATCH PATCH OFF SCH (21:54)
[2020-07-11] MEDS: Senna TAB 8.6 mg TAB PO SCH (21:54)
[2020-07-12] MEDS: Aspirin EC 81 mg TAB.EC (enteric coated) PO SCH (10:18)
[2020-07-12] MEDS: Cholestyramine Resin 4 GM POWDER PO SCH ×2 (10:21→22:07)
[2020-07-12] MEDS: CMCS: Diclofenac 1% GEL (NF) 100 GM TUBE TOPICAL SCH ×2 (10:21→22:25)
[2020-07-12] MEDS: Fluticasone NASAL SPRAY 50MCG 16 gm SPRAY BTL BOTH NARES SCH (10:23)
[2020-07-12] MEDS: Mometasone/Formoter 200/5 MDI INH SCH ×2 (10:25→22:21)
[2020-07-12] MEDS: Nitroglycerin 0.6 mg/hr PATCH (15 mg) TRANSDERM SCH (10:26)
[2020-07-12] MEDS: SPIRIVA Respimat (tiotropium) 2.5 mcg/inh Inhaler INH SCH (10:27)
[2020-07-12] MEDS: Potassium Chlor 20 meq TAB.ER PO SCH ×2 (10:27→22:10)
[2020-07-12] MEDS: Multivitamins/Minerals TAB PO SCH (10:31)
[2020-07-12] MEDS: Senna TAB 8.6 mg TAB PO SCH (22:07)
[2020-07-12] MEDS: CMCS: Simvastatin 10 mg TAB (NF) PO SCH (22:09)
[2020-07-12] MEDS: Nitro Patch/OINT Remove PATCH PATCH OFF SCH (22:09)
[2020-07-12] MEDS: Lidocaine Patch REMOVE PATCH PATCH OFF SCH (22:09)
[2020-07-12] MEDS: Dextran 70/Hypromellose Tears Eye Drops 15 ml BTL (for Artificials Tears) BOTH EYES PRN (22:24)
[2020-07-13] MEDS: Aspirin EC 81 mg TAB.EC (enteric coated) PO SCH (09:56)
[2020-07-13] MEDS: Cholestyramine Resin 4 GM POWDER PO SCH ×2 (09:57→21:04)
[2020-07-13] MEDS: CMCS: Diclofenac 1% GEL (NF) 100 GM TUBE TOPICAL SCH ×2 (09:58→21:11)
[2020-07-13] MEDS: Fluticasone NASAL SPRAY 50MCG 16 gm SPRAY BTL BOTH NARES SCH (09:59)
[2020-07-13] MEDS: Mometasone/Formoter 200/5 MDI INH SCH ×2 (10:00→21:09)
[2020-07-13] MEDS: Multivitamins/Minerals TAB PO SCH (10:01)
[2020-07-13] MEDS: Nitroglycerin 0.6 mg/hr PATCH (15 mg) TRANSDERM SCH (10:01)
[2020-07-13] MEDS: Potassium Chlor 20 meq TAB.ER PO SCH ×2 (10:03→21:07)
[2020-07-13] MEDS: SPIRIVA Respimat (tiotropium) 2.5 mcg/inh Inhaler INH SCH (10:04)
[2020-07-13 12:32] LABS: Hematocrit 27 % (42-52); Hemoglobin 9.2 g/dL (14.0-18.0); Mean Corpuscular HGB Conc 34 g/dL (31-36); Mean Corpuscular Hemoglobin 29 pg (27-31); Mean Corpuscular Volume 86 fL (80-94); Mean Platelet Volume 6.8 fL (7.4-10.4); Platelet Count 252 10^3/uL (150-450); Red Blood Count 3.13 10^6 /uL (4.18-5.48); Red Cell Distribution Width 15 % (10-15); White Blood Count 5.5 10^3/uL (3.5-10.8)
[2020-07-13 12:42] LABS: Albumin 3.7 g/dL (3.2-5.2); Albumin/Globulin Ratio 1.9 (1-3); Calcium 9.2 mg/dL (8.6-10.3); EGFR African American 123.8 (>60); EGFR Non-African American 102.3 (>60); Potassium 4.3 mmol/L (3.5-5.0); Total Bilirubin 0.4 mg/dL (0.2-1.0); Total Protein 5.7 g/dL (6.4-8.9)
[2020-07-13 12:46] LABS: INR 1.02 (0.82-1.09)
[2020-07-13] MEDS ORDERED: Iohexol 350 (CONTRAST) 500 ML MDV IV ONE (13:28)
[2020-07-13 14:15] LABS: ABS Eosinophils 0.4 10^3/ul (0-0.6); ABS Lymphocytes 0.8 10^3/ul (1.0-4.8); ABS Monocytes 0.4 10^3/ul (0-0.8); ABS Neutrophils 3.9 10^3/ul (1.5-7.7); Eosinophil % 7.5 %; Lymphocyte % 13.7 %; Nucleated Red Blood Cells % 0.1
[2020-07-13] MEDS: Senna TAB 8.6 mg TAB PO SCH (20:56)
[2020-07-13] MEDS: Lidocaine Patch REMOVE PATCH PATCH OFF SCH (21:02)
[2020-07-13] MEDS: Nitro Patch/OINT Remove PATCH PATCH OFF SCH (21:03)
[2020-07-13] MEDS: CMCS: Simvastatin 10 mg TAB (NF) PO SCH (21:06)
[2020-07-13] MEDS: Dextran 70/Hypromellose Tears Eye Drops 15 ml BTL (for Artificials Tears) BOTH EYES PRN (21:10)
[2020-07-14] MEDS: Aspirin EC 81 mg TAB.EC (enteric coated) PO SCH (08:32)
[2020-07-14] MEDS: Cholestyramine Resin 4 GM POWDER PO SCH ×2 (08:32→21:20)
[2020-07-14] MEDS: Multivitamins/Minerals TAB PO SCH (08:33)
[2020-07-14] MEDS: Nitroglycerin 0.6 mg/hr PATCH (15 mg) TRANSDERM SCH (08:33)
[2020-07-14] MEDS: Mometasone/Formoter 200/5 MDI INH SCH ×2 (08:33→21:15)
[2020-07-14] MEDS: Potassium Chlor 20 meq TAB.ER PO SCH ×2 (08:34→21:16)
[2020-07-14] MEDS: SPIRIVA Respimat (tiotropium) 2.5 mcg/inh Inhaler INH SCH (08:34)
[2020-07-14] MEDS: CMCS: Diclofenac 1% GEL (NF) 100 GM TUBE TOPICAL SCH ×2 (08:50→21:19)
[2020-07-14] MEDS: Fluticasone NASAL SPRAY 50MCG 16 gm SPRAY BTL BOTH NARES SCH (08:52)
[2020-07-14] MEDS: CMCS: Simvastatin 10 mg TAB (NF) PO SCH (21:16)
[2020-07-14] MEDS: Lidocaine Patch REMOVE PATCH PATCH OFF SCH (21:17)
[2020-07-14] MEDS: Senna TAB 8.6 mg TAB PO SCH (21:17)
[2020-07-14] MEDS: Nitro Patch/OINT Remove PATCH PATCH OFF SCH (21:20)
[2020-07-15 06:26] VITALS: BP 129/56
[2020-07-15] MEDS: Aspirin EC 81 mg TAB.EC (enteric coated) PO SCH (09:08)
[2020-07-15] MEDS: CMCS: Diclofenac 1% GEL (NF) 100 GM TUBE TOPICAL SCH (09:08)
[2020-07-15] MEDS: Cholestyramine Resin 4 GM POWDER PO SCH (09:08)
[2020-07-15] MEDS: Potassium Chlor 20 meq TAB.ER PO SCH (09:10)
[2020-07-15] MEDS: Nitroglycerin 0.6 mg/hr PATCH (15 mg) TRANSDERM SCH (09:10)
[2020-07-15] MEDS: Multivitamins/Minerals TAB PO SCH (09:10)
[2020-07-15] MEDS: Fluticasone NASAL SPRAY 50MCG 16 gm SPRAY BTL BOTH NARES SCH (09:10)
[2020-07-15] MEDS: Mometasone/Formoter 200/5 MDI INH SCH (09:10)
[2020-07-15] MEDS: SPIRIVA Respimat (tiotropium) 2.5 mcg/inh Inhaler INH SCH (09:11)
== END 2020-07-15 14:30 | disposition home health service (06) | DRG 560 ==
LOC: PMRU 08:40
PROVIDERS: ADMIT Physical Medicine & Rehabilitation; ATTEND Physical Medicine & Rehabilitation

== ENCOUNTER 2020-09-14 02:52 | Observation (INO) ==
[2020-09-14 03:26] LABS: ABS Eosinophils 0.3 10^3/ul (0-0.6); ABS Lymphocytes 1.2 10^3/ul (1.0-4.8); ABS Monocytes 0.4 10^3/ul (0-0.8); ABS Neutrophils 4.4 10^3/ul (1.5-7.7); Eosinophil % 4.5 %; Hematocrit 34 % (42-52); Hemoglobin 11.1 g/dL (14.0-18.0); Lymphocyte % 18.7 %; Mean Corpuscular HGB Conc 33 g/dL (31-36); Mean Corpuscular Hemoglobin 25 pg (27-31); Mean Corpuscular Volume 78 fL (80-94); Mean Platelet Volume 7.8 fL (7.4-10.4); Nucleated Red Blood Cells % 0.1; Platelet Count 179 10^3/uL (150-450); Red Blood Count 4.42 10^6 /uL (4.18-5.48); Red Cell Distribution Width 16 % (10-15); White Blood Count 6.4 10^3/uL (3.5-10.8)
[2020-09-14 03:37] LABS: Activated Partial Thrombo Time 31.6 seconds (26.0-38.0); INR 1.1 (0.82-1.09)
[2020-09-14 03:43] LABS: ALT 13 U/L (7-52); AST 17 U/L (13-39); Albumin 4.4 g/dL (3.2-5.2); Albumin/Globulin Ratio 2.2 (1-3); Alkaline Phosphatase 78 U/L (34-104); Anion Gap 5 mmol/L (2-11); Blood Urea Nitrogen 23 mg/dL (6-24); CO2 Carbon Dioxide 26 mmol/L (22-32); Calcium 9.1 mg/dL (8.6-10.3); Chloride 108 mmol/L (101-111); Creatine Kinase 90 U/L (10-223); EGFR African American 70.2 (>60); Glucose 133 mg/dL (70-100); Magnesium 2.1 mg/dL (1.9-2.7); Potassium 4.3 mmol/L (3.5-5.0); Sodium 139 mmol/L (135-145); Total Protein 6.4 g/dL (6.4-8.9)
[2020-09-14 03:46] LABS: CKMB ng/mL 3.4 ng/mL (0.6-6.3)
[2020-09-14 03:56] LABS: TSH Ultra Thyroid Stim Horm 2.31 mcIU/mL (0.34-5.60)
[2020-09-14 07:00] LABS: Corrected Retic Count 0.5 % (0.5-1.5); Hematocrit for Retic CNT 34 % (42-52); Immature Retic Fraction 0.46; RBC Retic Count 4.41 10^6/uL (4.18-5.48)
[2020-09-14 07:11] LABS: % Iron Saturation 11 % (15-55); Iron 54 ug/dL (50-212); Total Iron Binding Capacity 498 mcg/dL (250-450); Transferrin 356 mg/dL (203-362); Unsaturated Iron Binding < 483 ug/dL
[2020-09-14] MEDS ORDERED: Albuterol HFA INHALER 8 gm MDI INH PRN (07:13)
[2020-09-14 07:27] LABS: Ferritin 20.7 ng/mL (24-336)
[2020-09-14] MEDS: Mometasone/Formoter 200/5 MDI INH SCH ×3 (08:10→21:23)
[2020-09-14] MEDS ORDERED: Budesonide/Formote 160/4.5(NF) MDI INH SCH (09:00)
[2020-09-14] MEDS: Aspirin EC 81 mg TAB.EC (enteric coated) PO SCH (09:22)
[2020-09-14] MEDS: Potassium Chlor 20 meq TAB.ER PO SCH ×2 (09:23→19:35)
[2020-09-14] MEDS: Enoxaparin 40 MG/0.4 ML SYR SUBCUT SCH (09:24)
[2020-09-14] MEDS: Cholestyramine Resin 4 GM POWDER PO SCH ×2 (09:24→19:35)
[2020-09-15 06:44] LABS: ABS Eosinophils 0.3 10^3/ul (0-0.6); ABS Lymphocytes 1.3 10^3/ul (1.0-4.8); ABS Monocytes 0.4 10^3/ul (0-0.8); ABS Neutrophils 2.9 10^3/ul (1.5-7.7); Eosinophil % 6.5 %; Hematocrit 35 % (42-52); Hemoglobin 11.6 g/dL (14.0-18.0); Lymphocyte % 25.5 %; Mean Corpuscular HGB Conc 33 g/dL (31-36); Mean Corpuscular Hemoglobin 26 pg (27-31); Mean Corpuscular Volume 77 fL (80-94); Mean Platelet Volume 7.9 fL (7.4-10.4); Platelet Count 168 10^3/uL (150-450); Red Blood Count 4.56 10^6 /uL (4.18-5.48); Red Cell Distribution Width 16 % (10-15)
[2020-09-15 07:06] LABS: Calcium 9.2 mg/dL (8.6-10.3); EGFR African American 87.4 (>60); EGFR Non-African American 72.3 (>60); Magnesium 2.2 mg/dL (1.9-2.7)
[2020-09-15 07:07] LABS: Potassium 5.2 mmol/L (3.5-5.0)
[2020-09-15] MEDS: Mometasone/Formoter 200/5 MDI INH SCH (08:41)
[2020-09-15 11:46] VITALS: BP 150/69
[2020-09-15] MEDS: Aspirin EC 81 mg TAB.EC (enteric coated) PO SCH (12:00)
[2020-09-15] MEDS: Cholestyramine Resin 4 GM POWDER PO SCH (12:01)
[2020-09-15] MEDS: Enoxaparin 40 MG/0.4 ML SYR SUBCUT SCH (12:01)
[2020-09-15] MEDS ORDERED: Regadenoson 0.4 MG/5 ML SYRINGE ONE (12:13)
== END 2020-09-15 14:50 | disposition home or self-care (01) ==
LOC: ED 02:52 → MEDTELE 02:52
PROVIDERS: ADMIT Internal Medicine; ATTEND Internal Medicine

== ENCOUNTER 2024-01-02 08:19 | Inpatient (IN) ==
[2024-01-02] MEDS ORDERED: Magnesium Hydroxide LIQ 30 ML UDC PO PRN (10:06)
[2024-01-02] MEDS ORDERED: Fluticasone NASAL SPRAY 50MCG 16 gm SPRAY BTL INTRANASAL PRN (10:51)
[2024-01-02] MEDS: Dextran 70/Hypromellose Tears Eye Drops 15 ml BTL (for Artificials Tears) BOTH EYES SCH (13:04)
[2024-01-02] MEDS: Fluticasone NASAL SPRAY 50MCG 16 gm SPRAY BTL INTRANASAL SCH (13:04)
[2024-01-02] MEDS: Potassium Chlor 20 meq TAB.ER PO SCH (13:05)
[2024-01-02] MEDS: Enoxaparin 40 MG/0.4 ML SYR SUBCUT SCH (13:05)
[2024-01-02] MEDS ORDERED: Dextran 70/Hypromellose Tears Eye Drops 15 ml BTL (for Artificials Tears) BOTH EYES SCH (14:00)
[2024-01-02] MEDS: CMCS:Simvastatin 10 mg TAB (NF) PO SCH (20:23)
[2024-01-02 22:52] LABS: Calcium 8.9 mg/dL (8.6-10.3); Creatinine, Serum 0.82 mg/dL (0.67-1.17); Magnesium 1.9 mg/dL (1.9-2.7); Potassium 4.2 mmol/L (3.5-5.0); eGFR CKD-EPI 87.7 (>60)
[2024-01-03 05:35] LABS: ABS Eosinophils 0.3 10^3/uL (0.0-0.5); ABS Monocytes 0.3 10^3/uL (0.0-1.1); ABS Neutrophils 2.5 10^3/uL (1.5-7.6); Eosinophil % 6.1 %; Hematocrit 34.1 % (38-53); Hemoglobin 11.9 g/dL (13.2-16.3); Lymphocyte % 24.4 %; Mean Corpuscular Hemoglobin 30.3 pg (27-33); Mean Corpuscular Volume 86.6 fL (80-97); Mean Platelet Volume 7.5 fL (7.5-11.2); Nucleated Red Blood Cells % 0.1 %/100WBC (0.0-0.8); Platelet Count 131 10^3/uL (150-450); Red Blood Count 3.93 10^6/uL (4.06-5.63); Red Cell Distribution Width 14.4 % (12-17); White Blood Count 4.2 10^3/uL (3.6-10.2)
[2024-01-03 05:52] LABS: Calcium 8.7 mg/dL (8.6-10.3); Creatinine, Serum 0.86 mg/dL (0.67-1.17); Potassium 4.2 mmol/L (3.5-5.0); eGFR CKD-EPI 86.5 (>60)
[2024-01-03] MEDS: Aspirin EC 81 mg TAB.EC (enteric coated) PO SCH (10:23)
[2024-01-03] MEDS: [UNRECOGNIZED DRUG - OTHER] PO SCH (10:31)
[2024-01-03] MEDS: COENZYME Q10 100 MG PO SCH (10:31)
[2024-01-03] MEDS: [UNRECOGNIZED DRUG - MIXTURE] PO SCH (10:31)
[2024-01-04 09:35] VITALS: BP 127/62
== END 2024-01-04 14:14 | disposition home or self-care (01) | DRG 155 ==
LOC: MEDTELE 08:19
PROVIDERS: ADMIT Psychiatry & Neurology Neurology; ATTEND Internal Medicine